=== PATIENT | female | born 1935 | race Caucasian/White ===

== ENCOUNTER → 2016-11-13 | Day surgery (SDC) | payer MEDICARE, OTHER ==
[~2016-11-13] MED LIST: Buffered Lidocaine 1% SYR 3ML* 3 ML/SYR SYRINGE INTRADERM ONE; Buffered Lidocaine 1% SYR 3ML* 3 ML/SYR SYRINGE ONE; Dexamethasone IV* 4 MG/ML 1 ML (4 MG) ONE; Famotidine IV* 10 MG/ML 2 ML (20 mg) IV ONE; Famotidine IV* 10 MG/ML 2 ML (20 mg) ONE; KETAMINE HCL* 50 MG/ML 10 ML VIAL ONE; Ketorolac INJ* 30 MG/ML 1 ML VIAL ONE; Lidocaine 2% PF * 5 ML VIAL ONE; Midazolam* 1 MG/ML 2 ML VIAL (2 MG) ONE; Morphine INJ* 10 MG/ML 1 ML CARPUJECT ONE; Morphine INJ* 2 MG/ML 1 ML CARPUJECT IV PRN; Ondansetron INJ* 2 MG/ML VIAL ONE; PROCHLORPERAZINE INJ 5 MG/ML 2 ML VIAL IV PRN; Propofol* 10 MG/ML 20 ML BTL IV PUSH ONE; ceFAZolin 2 GM PREMIX (*) 2 GM/50 ML BAG IVPB ONE; fentaNYL* 50 MCG/ML 2 ML VIAL (100 MCG VIAL) IV PRN; fentaNYL* 50 MCG/ML 2 ML VIAL (100 MCG VIAL) ONE; oxyCODONE/Acetamin 5/325 MG* TAB ONE; oxyCODONE/Acetamin 5/325 MG* TAB PO PRN
[2016-11-13 16:02] VITALS: BP 162/59
--- NOTE | 2016-11-14 15:25 | OP ---
OPERATIVE REPORT: DATE OF OPERATION: 11/13/16 - [place] DATE OF : 39 SURGEON: Yasmany Zhao MD. SPECK DYER: PARUL Salinas. ANESTHESIOLOGIST: Dr. Cheema. ANESTHESIA: General. PRE-OP DIAGNOSIS: Comminuted intraarticular right distal radius fracture with associated ulnar head fracture. POST-OP DIAGNOSIS: Comminuted intraarticular right distal radius fracture with associated ulnar head fracture. OPERATIVE PROCEDURE: 1. Open reduction and internal fixation of right intraarticular, greater than 3 fragments, distal radius fracture. 2. Close treatment of distal ulnar fracture. INDICATIONS: Michelle is a 81-year-old female. She fell and fractured the right distal radius. It was in significant malalignment with multiple intraarticular fragments displaced. We talked about risks and benefits. We talked about open reduction and internal fixation versus dorsal spanning plate versus an external fixator. Ultimately, she and I elected to proceed with open reduction and internal fixation. We talked about the risk of malunion or loss of fixation given that her fracture is very distal. FINDINGS: Very distal, comminuted, intraarticular distal radius fracture. ESTIMATED BLOOD LOSS: 5 mL. COMPLICATIONS: None. DESCRIPTION OF PROCEDURE: Michelle was seen in the preoperative holding area and the correct side and site were marked. We came back to the operating room where anesthesia was induced and the arm was prepped and draped in the usual fashion. A formal time-out was performed. I then went ahead and made a standard 8 to 10 cm longitudinal incision centered over the FCR tendon. Dissection was carried down to the tendon sheath and this was split longitudinally. The tendon was retracted ulnarly and the subsheath was divided. I then bluntly developed the interval between the radial artery and the FPL muscle and tendon. The FPL was retracted ulnarly and the pronator quadratus was released off its radial margin. The radial styloid fragment was encountered and then the more distal volar-ulnar fragment was encountered. There was a volar rim fragment on the volar-ulnar fragment that was separate from the ulnar facet fragment. After completing the dissection and cleaning out all the edges of the facture and clean out the fracture, I then went ahead and reduced the radial styloid and put a pin through the radial styloid, exiting out the ulnar radial cortex to secure this fragment. I then went ahead and put the arm in 10 pounds of traction and placed a [place] to elevate up the impacted lunate facet and scaphoid facet pieces. These were difficult to maintain in anatomic reduction. I got them very close. I went ahead and applied the volar plate and placed one screw through the oblong hole. I moved the plate a bit distal. I then went ahead and placed a #2 FiberWire through the volar extrinsic ligaments and brought this down and wrapped it around the plate prior to placing the distal screws. The ulnar sided screws were placed and then the radial sided distal screws were placed. I checked the fluoroscopic images. On the AP view, everything looked very nice. On bringing to the lateral view, there was still a bit of dorsal tilt in that lunate facet fragment of about 5 to 10 degrees. The rest of the alignment looked very nice. I placed one K-wire dorsally and brought that facet piece up prior to placing the screws as well. I contemplated taking the distal screws out and see if I could improve the alignment on the lateral view just a bit, but ultimately, I decided that given her age and general state of health that this alignment was more than adequate, so I went ahead and placed one more distal radial screw and then I placed the 2 proximal screws. Everything looked good. I placed one second row ulnar sided screw, but it looked like it was a little long and in the joint, so I backed that out and just left it out. I tied down the #2 FiberWire suture to give it a little bit more compression to try to prevent volar escape of that lunate facet fragment. Everything looked good on the final fluoroscopic images, so I went ahead and irrigated the wound and reapproximated the pronator with some 3-0 Polysorb suture. The skin was then reapproximated with 3-0 Polysorb suture and closed with 4-0 nylon. The wound was dressed with Xeroform, 4x4s, sterile Webril, and a short arm splint was placed. She was then woken back up and taken to the recovery room in stable condition. [id number]/[facility] #: [id number] VIKAS
--- NOTE | 2016-11-14 15:29 | RAD ---
INDICATION: Traumatic fracture right wrist operative reduction and internal fixation. COMPARISON: Comparison is made with a prior x-ray of the right wrist from October 31, [address] of the right forearm and wrist from October 31, 2016. TECHNIQUE: 53 seconds of intermittent fluoroscopic guidance were provided and 4 spot films of the right wrist were obtained in the operating room. FINDINGS: The patient is status post operative reduction and internal fixation of a comminuted fracture of the distal radius. There is a metallic plate present along the anterior aspect of the distal radius spanning the fracture fragments. The bones are in improved alignment and positioning. There is also a fracture of the distal ulna. IMPRESSION: INTRAOPERATIVE CONTROL FILMS. CPT II Codes: 6045F
== END | disposition home or self-care (01) ==
LOC: OREAST 09:19
PROVIDERS: ATTEND Orthopaedic Surgery Hand Surgery
DX: S52.571A Other intraarticular fracture of lower end of right radius, initial encounter for closed fracture (principal); S52.001A Unspecified fracture of upper end of right ulna, initial encounter for closed fracture; W19.XXXA Unspecified fall, initial encounter; Y92.9 Unspecified place or not applicable; Z79.84 Long term (current) use of oral hypoglycemic drugs; J44.9 Chronic obstructive pulmonary disease, unspecified; E11.9 Type 2 diabetes mellitus without complications; F41.9 Anxiety disorder, unspecified; Z88.8 Allergy status to other drugs, medicaments and biological substances
CPT/HCPCS: 76000; A9270-GY; C1713; C1776; J0690; J1100; J1885; J2250; J2270; J2405; J2704; J3010

== ENCOUNTER 2018-02-15 12:00 | Inpatient (IN) | payer MEDICARE, OTHER ==
[2018-02-15] MEDS ORDERED: Levofloxacin 750 MG IVPREMIX(* 750 MG/150 ML BAG IVPB ONE (12:31)
[2018-02-15] MEDS ORDERED: Albuterol/Ipratropium NEB.SOL* Albuterol 2.5 MG/Ipratropium 0.5 MG 3 ML INH ONE (12:31)
[2018-02-15] MEDS ORDERED: methylPREDNISolone 125 MG* 2 ML VIAL IV ONE (12:31)
[2018-02-15 13:09] LABS: Hematocrit 27 % (35-47); Hemoglobin 8.6 g/dl (12.0-16.0); Mean Corpuscular HGB Conc 32 g/dl (31-36); Mean Corpuscular Hemoglobin 30 pg (27-31); Mean Corpuscular Volume 91 fL (80-97); Mean Platelet Volume 8.5 um3 (7.4-10.4); Platelet Count 174 10^3/ul (150-450); Red Blood Count 2.92 10^6/ul (4.0-5.4); Red Cell Distribution Width 17 % (10.5-15); White Blood Count 16.2 10^3/ul (3.5-10.8)
--- OUTSIDE RECORDS SUMMARY | 2018-02-15 13:18 | XMS REPORT ---
:1935 External Reference #:[id number] Author Organization [facility] Address [address] [place] [address] Phone [phone] Care Team Providers Name Role Phone Shelly Mathew M.D. 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 Primary Care Physician Unavailable Payers Type Date Identification Numbers Payment Provider Subscriber Medicare Primary Effective: Policy Number: Medicare Gypsy Pham 2002 [id number] PayID: [id number] [address] [place] [address] Medigap Part B Policy Number: [id number] [facility] Jose Antonio Pham Group Number: [id number] [address] PayID: [id number] [place] [address] Problems Date Description Provider Status Onset: 08/15/2009 Type 2 diabetes mellitus Gregorio Shields M.D. Active Onset: 08/15/2009 Essential hypertension Gregorio Shields M.D. Active Onset: 08/15/2009 Hyperlipidemia Gregorio Shields M.D. Active Onset: 10/27/2011 Asthma without status asthmaticus Gregorio Shields M.D. Active Onset: 10/27/2011 Allergic condition Gregorio Shields M.D. Active Onset: 04/12/2012 Osteoporosis Gregorio Shields M.D. Active Onset: 03/15/2013 Spinal stenosis Gregorio Shields M.D. Active Onset: 01/21/2016 Chronic pain syndrome Shelly Mathew M.D. Active Onset: 01/21/2016 Degenerative joint disease Shelly Mathew M.D. Active involving multiple joints Onset: 01/21/2016 Low back pain Shelly Mathew M.D. Active Onset: 01/21/2016 Moderate recurrent major depression Shelly Mathew M.D. Active Onset: 01/21/2016 Chronic obstructive lung disease Shelly Mathew M.D. Active Onset: 08/04/2017 Chronic kidney disease Shelly Mathew M.D. Active Onset: 08/15/2009 Mild recurrent major depression Gregorio Shields M.D. Inactive Inactive: 06/18/2016 Onset: 01/07/2012 Localized, primary osteoarthritis Gregorio Shields M.D. 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 Cigarette Use Former Cigarette Smoker quit age 52's ETOH Use Denies alcohol use Smoking Patient is a former smoker Allergies, Adverse Reactions, Alerts Date Description Reaction Status Severity Comments 12/09/2007 Valium active 12/09/2007 Bellodonna active 04/18/2009 Lobster HIVES active 08/15/2009 Cardizem CD active Headaches 08/15/2009 Butisol Sodium active Whole Body Swelled 03/15/2013 Lipitor stomach pains/leg cramps active 01/15/2018 Cliydinium active 01/15/2018 Moxifloxacin active Medications Medication Date Status Form Strength Qnty SIG Indications Ordering Provider Verapamil HCL ER 02/01 Active Caps ER 120mg 90cap 1 po q am [place] 24HR s every day LISA He Carisoprodol 01/13 Active Tablets 350mg 120ta 1 by mouth bs four times [place], a day as M.DJuan A needed muscle spasm Rosuvastatin 01/05 Active Tablets 10mg 90tab take 1 E78.2 s tablet by Tyler, mouth daily M.D. Omeprazole 06/15 Active Capsules 20mg 90cap [address] godoy every day Dago Mathew Oxygen Therapy 01/23 Active 2L overnight Dago Mathew Ventolin HFA 01/20 Active Aerosol 108(90Bas J44.9 e) [place] mcg/Act M.DJuan A Gabapentin 01/20 Active Capsules 100mg 360ca Take 1 G89.4 ps Capsule By Zonia Mathew In M.DJuan A The Morning , 1 Capsule In The Evening , And 2 Capsules At Bedtime Montelukast 03/19 Active Tablets 10mg 90tab Take 1 Shelly Sodium s Tablet By Tyler, Mouth M.D. Daily Oxycodone-Acetami 02/27 Active Tablets 7.5-325mg 120ta 1 by mouth Shelly nophen bs every 6 Tyler, hours as M.D. needed Losartan 07/28 Active Tablets 25mg 60tab 1 by mouth I10 Shelly Potassium s twice a day Dago Mathew Levocetirizine 11/24 Active Tablets 5mg 30tab take 1 J45.909 Shelly Dihydrochloride s tablet by Tyler, mouth once M.D. daily Alendronate 04/12 Active Tablets 70mg 12tab take 1 M81.0 Shelly Sodium s tablet by Tyler, mouth once M.D. weekly with water, avoid lying down for 30 minutes after taking Lancet Device 02/05 Active Misc 1unit one one dx. Gregorio Miner s 250.00 Dago Shields Sertraline HCL 10/08 Active Tablets 100mg 180ta take 2 F33.0 bs tablets by Tyler, mouth daily M.D. Test Strips - One 03/25 Active 100un check up to E11.9 Quang Osorio its twice a day M.DJuan A dx: 250.00 Lancets 03/25 Active Misc 100un test twice Quang Osorio its a day M.D. Multi-Vitamins 12/09 Active Tablets 30tab as Directed Gregorio Miner /2007 jayne Shields M.D. 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 01/20 Flovent HFA 01/20 Hx Aerosol 110mcg/Ac 1unit 1 puff J44.9 t s twice a day Tyler, - M.D. 02/26 Celebrex 07/03 Hx Capsules 100mg 90cap 1 by mouth M15.0 s every day Tyler, - M.D. 08/03 Ativan 05/17 Hx Tablets 1mg 5tabs one tab by Quang Osorio, mouth three M.D. - times a day 07/03 as needed Celebrex 02/27 Hx Capsules 200mg 180ca 1 by mouth 716.99 Quang Osorio, ps twice a day M.D. - 06/12 715.09 Physical Therapy 10/27/2014 Hx treatment and 781.2 Quang Osorio, - evaluation for M.D. 02/26/2015 unsteady gait Oxycodone-Acetam 08/11/2014 Hx Tablets 5-325mg 120tabs 1 by mouth Quang Osorio inophen - every 6 hours M.D. 02/27/2015 as needed pain Physical Therapy 05/08/2014 Hx evaluate and 723.1 Alicia - treat cervical Mitzi, 07/27/2014 strain, very [employer] OPERATOR limited motion of c-spine Physical Therapy 03/31/2014 Hx treatment and Quang Osorio, - evaluation of M.D. 05/07/2014 neck pain Spiriva 03/07/2014 Hx Capsules 18mcg 30caps inhale contents 493.90 Family Handihaler - one of capsule Medicine 05/04/2015 by mouth daily [facility] Physical Therapy 09/14/2013 Hx treatment and Gregorio Miner - evaluation of Dago Shields 12/12/2013 neck pain Gabapentin 03/15/2013 Hx Capsules 100mg 270caps Take 1 Capsule Dg Chua Three Times A M.D. 01/21/2016 Day Levofloxacin 12/17/2012 Hx Tablets 500mg 10tabs 1 po qd 786.2 Gregorio Shields M.D. 03/15/2013 Prednisone 12/17/2012 Hx Tablets 10mg 30tabs 2 bid x 3days, 493.90 Gregorio Miner - then 3 qd x 3 Dago Shields 03/15/2013 days, then 1 bid x 3 days then 1 qd x 3 Xyzal 10/13/2012 Hx Tablets 5mg 30tabs 1 po qd 493.90 Gregorio Shields M.D. 11/24/2013 Omeprazole 09/23/2012 Hx Capsules 20mg 90caps Take [address] Daily Dago 01/21/2016 Montelukast 06/30/2012 Hx Tablets 10mg 90tabs Take 1 Tablet 493.90 Quang Osorio Sodium - Daily Dago 10/27/2014 Losartan 06/03/2012 Hx Tablets 50mg 90tabs take 1/2 tablet Family Potassium - by mouth once Medicine 07/28/2014 daily [facility] Vitamin D-3 01/07/2012 Hx Tablets as directed Family - Medicine 02/27/2016 [facility] Sulfamethoxazole 01/07/2012 Hx Tablets 800-160m 14tabs 1 po bid 493.90 Perkins A. /Trimethoprim DS - g Dago Shields 03/09/2012 Prednisone 01/07/2012 Hx Tablets 5mg 20tabs one three times 493.90 Perkins A. - a day for three Dago Shields 03/09/2012 days, two for three days and then one for three days Hydrochlorothiaz 11/13/2011 Hx Tablets 25mg 90tabs Take 1 Tablet Perkins A. sara - Daily Dago Shields 01/07/2012 Crestor 11/10/2011 Hx Tablets 10mg 90tabs take 1 tablet E78.2 Shelly - by mouth daily [place] 01/05/2018 Dago Symbicort 10/27/2011 Hx Aerosol 160-4.5m 3units 2 puff bid Gregorio cox/Act Dago Shields 12/12/2013 Crestor 10/27/2011 Hx Tablets 5mg 180tabs 1 po bid 272.4 Gregorio Shields M.D. 11/10/2011 Hydrocortisone 09/23/2011 Hx Cream 30gm apply sparingly Leah 0.2% - bid prn itching [facility], 01/07/2012 Afnp-C Doxycycline 07/16/[address] 100mg 60caps 1 po bid Gregorio Miner Hyclate - Part Dago Shields 07/30/2011 Augmentin 07/12/2011 Hx Tablets 500-125m 20tabs one tab po bid 493.90 Gregorio sauceda for ten days Dago Shields 07/16/2011 Furosemide 07/08/2011 Hx Tablets 20mg 90tabs 1 [facility] Shelly - Tyler, 08/05/2017 Dago Amlodipine 07/03/2011 Hx Tablets 10mg 90tabs Take 1 Tablet 401.9 Ced A. Besylate - Daily Darlow, 07/03/2015 Dago Doxycycline 07/01/2011 Hx Tablets 100mg 20tabs one tab po bid 493.90 Gregorio Miner Monohydrate - for 10 days Dago Shields 07/12/2011 Hydroxyzine HCL 07/01/2011 Hx Tablets 25mg 30tabs 1-2 po tid prn 493.90 Gregorio Shields M.D. 01/07/2012 Amoxicillin/Pota 06/26/2011 Hx Tablets 500-125m 20tabs 1 po bid with 493.90 Trang Romano ssium - sohail yogurt Nicholas, Clavulanate 06/26/2011 Dago Amoxicillin/Clav 06/26/2011 Hx Tablets 875-125m 20tabs 1 po bid 493.90 Trang Romano ulanate - sohail Peterson, Potassium 07/16/2011 MEloy Furosemide 06/11/2011 Hx Tablets 20mg 5tabs 1 po qd 782.3 Gregorio Shields M.D. 07/04/2011 Prednisone 05/21/2011 Hx Tablets 5mg 100tabs use as 493.90 Perkins A. - instructed Dago Shields 06/11/2011 Azithromycin 05/21/2011 Hx Tablets 250mg 6tabs 2 po today and 493.90 Perkins A. - 1 po x 4 days Dago Shields 06/11/2011 Ropinirole HCL 05/21/2011 Hx Tablets 1mg 30tabs take one tablet 995.3 Perkins A. - by mouth every Dago Shields 06/11/2011 day at bedtime Crestor 05/21/2011 Hx Tabs 5mg 90tabs take 1 tablet 272.4 Perkins A. - by mouth once Dago Shields 06/11/2011 daily Nasonex 04/28/2011 Hx Suspensi 50mcg/Ac 1units 1 spray each Gregorio Guerra. - on t nostril qhs Dago Shields 05/21/2011 Quyen D 24H 04/16/2011 Hx 90units 1 po qd 493.90 Gregorio Shields M.D. 05/21/2011 Levocetirizine 04/02/2011 Hx Tablets 5mg 30tabs 1 po qd Gregorio A. Dihydrochloride - Dago Shields 04/16/2011 Singulair 04/02/2011 Hx Tablets 10mg 30tabs 1 po qd 493.90 Gregorio Shields M.D. 05/21/2011 Xyzal 04/02/2011 Hx Tablets 5mg 30tabs 1 po qhs 493.90 Gregorio Shields M.D. 04/16/2011 Advair HFA 04/02/2011 Hx Aerosol 230-21mc 1units inhale two 493.90 Gregorio A. - g/Act puffs twice Dago Shields 06/11/2011 daily Symbicort 03/26/2011 Hx Aerosol 160-4.5m 1units 2 puff bid 493.90 Perkins A. - cg/Act Dago Shields 03/26/2011 Levaquin 03/05/2011 Hx Tablets 500mg 10tabs 1 po qd 493.90 Gregorio Shields M.D. 03/17/2011 Prednisone 03/05/2011 Hx Tablets 10mg 30tabs 2 bid x 3days, 493.90 Perkins A. - then 3 qd x 3 Dago Shields 04/16/2011 days, then 1 bid x 3 days then 1 qd x 3 Ferrous Sulfate 02/19/2011 Hx Tablets 325(65Fe 90tabs 1 po qd 285.9 Perkins A. - ) mg Dago Shields 06/18/2016 Oxycodone/Acetam 02/12/2011 Hx Tablets 5-325mg 90tabs 1 po q 6 hrs matthew Chua - prn pain Dago 08/11/2014 Levaquin 02/05/2011 Hx Tablets 500mg 5tabs 1 po qd 493.90 Gregorio Shields M.D. 02/19/2011 Note 11/26/2010 Hx 1units physical Gregorio A. - therapy - neck Dago Shields 12/02/2010 and bl knee oa Lisinopril 08/01/2010 Hx Tablets 20mg 90tabs Take 1 Tablet Perkins A. - Daily Dago Shields 06/03/2012 Physical Therapy 06/05/2010 Hx treatment and 715.09 Perkins A. - evaluation of Dago Shields 11/26/2010 left knee osteoarthritis Physical Therapy 06/05/2010 Hx treatment and Perkins A. - evaluation of Dago Shields 11/26/2010 neck pain - oa Carisoprodol 05/08/2010 Hx Tabs 350mg 120tabs Take 1 Tablet Perkins A. - By Mouth Four Dago Shields 06/11/2011 Times A Day If Needed For Muscle Spasm Calcium 600+D 03/25/2010 Hx Tablets 600-400m 180tabs 2 po qd 733.90 Perkins A. - g-Unit Dago Shields 06/11/2011 Cymbalta 03/25/[address] 60mg 90caps 1 po qd 296.31 Perkins A. - Part Dago Shields 05/21/2011 Medrol (Wu) 03/25/2010 Hx Tablets 4mg 1tabs use as 461.0 Perkins A. - instructed. Dago Shields 03/25/2010 Augmentin 03/25/2010 Hx Tablets 500-125m 20tabs one tab po bid 461.0 Perkins A. - g for ten days Dago Shields 12/02/2010 Prednisone 03/25/2010 Hx Tablets 20mg 20tabs 3 tabs x 3 461.0 Perkins A. - days, then 2 Dago Shields 12/02/2010 tabs x 3 days then 1 tab x 3 days then 1/2 tab for three days Augmentin 11/14/2009 Hx Tablets 500-125m 20tabs one tab po bid 473.1 Perkins A. - g for ten days Dago Shields 03/25/2010 Soma 11/14/2009 Hx Tablets 350mg 120tabs 1 by mouth four Shelly - times a day as [place], 01/13/2018 needed muscle M.D. spasm Sertraline HCL 11/14/2009 Hx Tabs 100mg 30tabs take 1 tablet Perkins A. - by mouth once Dago Shields 06/11/2011 daily Norvasc 10/13/2009 Hx Tablets 10mg 90tabs 1 po qd 401.9 Gregorio Shields M.D. 07/03/2011 Methocarbamol 09/10/2009 Hx Tablets 500mg 30tabs one tab po tid 995.3 Perkins A. - prn spasm Dago Shields 11/14/2009 Crestor 08/15/2009 Hx Tabs 5mg 90tabs take 1 tablet 272.4 Perkins A. - by mouth once Dgao Shields 05/21/2011 daily Cardizem CD 05/09/2009 Hx Caps ER 180mg 30caps one tab po 785.0 Perkins A. - 24HR daily Dago Shields 08/15/2009 Cardizem CD 04/18/2009 Hx Caps ER 120mg 30caps one tab po in 785.0 Perkins A. - 24HR am Dago Shields 05/09/2009 Zoloft 04/18/2009 Hx Tablets 100mg 30tabs 1 po qd 296.31 Gregorio Shields M.D. 03/25/2010 Zoloft 08/16/2008 Hx Tablets 50mg 90tabs 1 po qd Gregorio Shields M.D. 04/18/2009 Note 05/05/2008 Hx 50units one touch ultra Perkins A. - test strips and Dago Shields 09/10/2009 lancets Miconazole 03/02/2008 Hx Cream 2% Suff apply bid 782.1 Gregorio Miner Nitrate - Dago Shields 05/05/2008 Vicodin 02/22/2008 Hx Tablets 5-500mg 60tabs 1 po every six Perkins A. - hours prn Dago Shields 02/12/2011 Physical Therapy 02/16/2008 Hx cervicalgia, 723.1 Gregorio Miner - lumbago, left Dago Shields 09/10/2009 knee pain - evaluate ant treat DX: Osteoarthritis Prednisone 02/16/2008 Hx Tablets 20mg 25tabs 3 pills po qd x 493.90 Gregorio Miner - 3 days, then 2 Dago Shields 05/05/2008 pills qd x 3 days, then 1 pill qd x 3 days Azithromycin 02/16/2008 Hx Tablets 250mg 6tabs 2 po today and 465.9 Perkins A. - 1 po x 4 days Dago Shields 05/05/2008 Prednisone 01/14/2008 Hx Tablets 5mg Tapering Dose Family - Medicine 01/21/2008 [facility] Biaxin 01/14/2008 Hx Tablets 500mg 1 PO bid X14 Family - Days Medicine 01/28/2008 [facility] Metformin HCL 01/07/2008 Hx Tablets 500mg 180tabs 2 po qd 250.00 Gregorio Shields M.D. 01/07/2008 Celebrex 01/07/2008 Hx Capsules 100mg 180caps take 1 capsule 716.99 Quang Osorio, - twice a day Dago 02/27/2015 Metformin HCL 01/07/2008 Hx Tablets 500mg 180tabs take 1 tablet E11.9 Shelly - by mouth twice Tyler, 08/05/2017 daily Dago Proventil 12/09/2007 Hx Mdi Inhaler One One To Two Perkins A. - Puffs Every Dago Shields 06/11/2011 Four To Six Hours as Needed For Shortness Of Breath Advair 500/50 12/09/2007 Hx 500/50 3Months 1 PO bid Gregorio Shields M.D. 05/21/2011 Quyen-D 12/09/2007 Hx 60mg 60units 1 PO bid prn Gregorio AJuan A - For Allergy Dago Shields 04/02/2011 Symptoms Prevacid 12/09/2007 Hx Capsules 30mg 30caps 1 PO qd Gregorio Shields M.D. 12/17/2012 Evista 12/09/2007 Hx Tablets 60mg 90tabs 1 po qd Gregorio Shields M.D. 05/21/2011 Actos 12/09/2007 Hx Tablets 15mg 30tabs 1 po qd 250.00 Gregorio Shields M.D. 01/07/2008 Zoloft 12/09/2007 Hx Tablets 25mg 30tabs 1 po qd Gregorio Shields M.D. 08/16/2008 HCTZ 12/09/2007 Hx 25mg 90units 1 po qd Gregorio Shields M.D. 11/13/2011 Lisinopril 12/09/2007 Hx Tablets 20mg 30tabs 1 po qd Gregorio Shields M.D. 06/11/2011 Norvasc 12/09/2007 Hx Tablets 10mg 30tabs 1 po qd 401.9 Gregorio Shields M.D. 04/18/2009 Soma 12/09/2007 Hx Tablets 350mg 120tabs 1 po qid prn 995.3 Gregorio Conte muscle spasm Dago Shields 09/10/2009 Hydrocodone/Apap 12/09/2007 Hx Tablets 325mg 90tabs one tab po Gregorio Conte every 6 hours Dago Shields 02/22/2008 prn Calcium 12/09/2007 Hx 30units as Directed Gregorio Shields M.D. 12/12/2013 Gabapentin 12/09/2007 Hx Capsules 100mg 270caps Take 1 Capsule Gregorio Conte Three Times A Dago Shields 05/18/2012 Day as needed Clarinex-D 12 Hx Tablets 2.5-120m one tab po bid Unknown Hour - ER 12HR g 01/07/2012 Advair Diskus Hx Aerosol 500-50mc 1units 1 puff bid Unknown - g/Dose 10/27/2011 Magnesium Hx Tablets 1 po qd Unknown - 07/04/2011 Singulair Hx Tablets 10mg 90tabs Take 1 Tablet Perkins A. - Daily Dago Shields 12/17/2012 Prednisone Hx Tablets 18tabs taper Unknown - 12/17/2012 Avelox Hx Tablets 400mg 10tabs Unknown - 03/15/2013 Dulera Hx Aerosol Sample 2 puffs q am Unknown - until cough 05/04/2015 resolves Theophylline ER Hx Tablets 200mg 1 po bid Unknown - ER 12HR 05/04/2015 Veramyst Hx Suspensi 27.5mcg/ 10units prn Unknown - on [place] 05/04/2015 Viactiv Hx Chewtabs Unknown Multi-Vitamin - 02/27/2016 Ibuprofen Hx Tablets 200mg 2-3 times a day Unknown - as needed 06/18/2016 Verapamil HCL ER Hx Caps ER 120mg 60caps 1 by mouth Shelly - 24HR twice a day [place], 01/15/2018 Dago Medications Administered in Office Medication Date Status Form Strength Qnty SIG Indications Ordering Provider Allergy Administered Injection Perkins A. Injection Two Otilio Shields M.D. Or More Allergy Administered Injection Perkins A. Injection Two Otilio Shields M.D. Or More Allergy Administered Injection Perkins A. Injection Two 013 Dago Shields Or More Allergy Administered Injection Perkins A. Injection Two Otilio Shields M.D. Or More Allergy Administered Injection Perkins A. Injection Two Otilio Shields M.D. Or More Allergy Administered Injection Perkins A. Injection Two 013 Dago Shields Or More Allergy Administered Injection Perkins A. Injection Two Otilio Shields M.D. Or More Allergy Administered Injection Perkins A. Injection Two 012 Dago Shields Or More Allergy Administered Injection Perkins A. Injection Two 012 Dago Shields Or More Allergy Administered Injection Perkins A. Injection Two Wilmar Shields M.D. Or More Allergy Administered Injection Perkins A. Injection Two Wilmar Shields M.D. Or More Allergy Administered Injection Perkins A. Injection Two 012 Shields, M.D. Or More Allergy Administered Injection Perkins A. Injection Two 012 Shields, M.D. Or More Allergy Administered Injection Perkins A. Injection Two 012 Shields, M.D. Or More Allergy Administered Injection Perkins A. Injection Two 012 Shields, M.D. Or More Allergy Administered Injection Perkins A. Injection Two 012 Shields, M.D. Or More Allergy Administered Injection Perkins A. Injection Two 012 Shields, M.D. Or More Allergy Administered Injection Perkins A. Injection Two 012 Shields, M.D. Or More Allergy Administered Injection Perkins A. Injection Two 012 Shields, M.D. Or More Allergy Administered Injection Perkins A. Injection Two 012 Shields, M.D. Or More Allergy Administered Injection Perkins A. Injection Two 012 Shields, M.D. Or More Allergy Administered Injection Perkins A. Injection Two 012 Shields, M.D. Or More Allergy Administered Injection Perkins A. Injection Two 012 Shields, M.D. Or More Allergy Administered Injection Perkins A. Injection Two 012 Shields, M.D. Or More Allergy Administered Injection Perkins A. Injection Two 012 Shields, M.D. Or More Allergy Administered Injection Perkins A. Injection Two 012 Shields, M.D. Or More Allergy Administered Injection Perkins A. Injection Two 012 Shields, M.D. Or More Immunizations CPT Code Status Date Vaccine Reaction Lot # [id number] Given 08/04/2017 High-Dose, Influenza Virus [id number] Vacccine-fluzone 65 and older [id number] Given 08/20/2016 Influenza Vac, [place], [place] [address] Given 11/21/2015 Pneumococcal Conjugate Vacc-13 23935 Given 09/13/2015 Influenza Vac, [place]riv[place], [place] [address] Given 09/28/2014 DO Not Use Split Influenza Virus Vaccine [id number] Given 09/09/2013 Split Influenza Medicare: [id number] Fluzone 25569 Given 08/09/2012 High-Dose, Influenza Virus no reaction noted [id number] Vacccine-fluzone 65 and older [id number] Given 07/30/2011 Split Influenza Medicare: [id number] Fluzone 86344 Given 08/25/2009 DO Not Use Split Influenza Virus Vaccine 62661 Given 09/29/2008 DO Not Use Split Influenza Virus [id number] Vaccine 31487 Given 02/16/2008 Pneumococcal Immunization [id number] Vital Signs Date Vital Result Comment 02/01/2018 BP Systolic 192 mmHg BP Diastolic 82 mmHg Heart Rate 100 /min Body Temperature 99.0 F Height 58.25 inches 4'10.25" 01/15/2018 BP Systolic 148 mmHg BP Diastolic 82 mmHg Heart Rate 96 /min Body Temperature 99.5 F Respiratory Rate 18 /min Height 58.25 inches 4'10.25" 08/04/2017 BP Systolic 142 mmHg BP Diastolic 64 mmHg Heart Rate 104 /min Body Temperature 97.7 F Height 58.25 inches 4'10.25" Weight 123.00 lb PT Stated BMI (Body Mass Index) 25.5 kg/m2 11/05/2016 BP Systolic 100 mmHg BP Diastolic 60 mmHg Heart Rate 90 /min Body Temperature 97.5 F Respiratory Rate 16 /min Height 58.25 inches 4'10.25" 06/18/2016 BP Systolic 144 mmHg BP Diastolic 84 mmHg Heart Rate 76 /min Body Temperature 98.0 F Respiratory Rate 20 /min Height 58.25 inches 4'10.25" Weight 140.00 lb BMI (Body Mass Index) 29.0 kg/m2 05/07/2016 BP Systolic 128 mmHg BP Diastolic 66 mmHg Heart Rate 84 /min Body Temperature 98.1 F Respiratory Rate 18 /min Height 58.25 inches 4'10.25" Weight 150.00 lb BMI (Body Mass Index) 31.1 kg/m2 02/27/2016 BP Systolic 160 mmHg BP Diastolic 70 mmHg Heart Rate 84 /min Body Temperature 99.0 F Respiratory Rate 16 /min Height 59 inches 4'11" Weight 143.00 lb BMI (Body Mass Index) 28.9 kg/m2 01/21/2016 BP Systolic 122 mmHg BP Diastolic 60 mmHg Heart Rate 88 /min Body Temperature 98.2 F Respiratory Rate 20 /min Height 59 inches 4'11" Weight 143.00 lb BMI (Body Mass Index) 28.9 kg/m2 10/19/2015 BP Systolic 130 mmHg BP Diastolic 64 mmHg Heart Rate 84 /min Body Temperature 97.4 F Respiratory Rate 16 /min Height 59 inches 4'11" 07/03/2015 BP Systolic 90 mmHg BP Diastolic 60 mmHg Heart Rate 88 /min Body Temperature 97.3 F Respiratory Rate 16 /min Height 59 inches 4'11" 06/12/2015 BP Systolic 138 mmHg BP Diastolic 80 mmHg Heart Rate 88 /min Body Temperature 99.0 F Respiratory Rate 18 /min Height 59 inches 4'11" 05/04/2015 BP Systolic 120 mmHg BP Diastolic 50 mmHg Heart Rate 88 /min Body Temperature 97.9 F Respiratory Rate 16 /min Height 59 inches 4'11" Weight 141.00 lb pt stated BMI (Body Mass Index) 28.5 kg/m2 02/27/2015 BP Systolic 162 mmHg BP Diastolic 80 mmHg Heart Rate 90 /min Body Temperature 98.0 F Height 59 inches 4'11" 10/27/2014 BP Systolic 128 mmHg BP Diastolic 66 mmHg Heart Rate 84 /min Body Temperature 98.3 F Respiratory Rate 18 /min Height 59 inches 4'11" 08/24/2014 BP Systolic 118 mmHg BP Diastolic 60 mmHg Heart Rate 88 /min Body Temperature 98.9 F Respiratory Rate 16 /min Height 59 inches 4'11" Weight 145.00 lb BMI (Body Mass Index) 29.3 kg/m2 07/28/2014 BP Systolic 134 mmHg BP Diastolic 60 mmHg Heart Rate 96 /min Body Temperature 98.4 F Respiratory Rate 16 /min Height 59 inches 4'11" Weight 148.00 lb PT Stated BMI (Body Mass Index) 29.9 kg/m2 05/08/2014 BP Systolic 150 mmHg BP Diastolic 70 mmHg Heart Rate 78 /min Body Temperature 98.0 F Height 59 inches 4'11" 03/07/2014 BP Systolic 140 mmHg BP Diastolic 62 mmHg Heart Rate 118 /min Body Temperature 98.5 F Respiratory Rate 18 /min O2 % BldC Oximetry 96 % Height 59 inches 4'11" Weight 145.00 lb pt stated BMI (Body Mass Index) 29.3 kg/m2 12/12/2013 BP Systolic 120 mmHg BP Diastolic 70 mmHg Heart Rate 112 /min Body Temperature 98.2 F Respiratory Rate 20 /min Height 59.25 inches 4'11.25" Weight 145.00 lb pt stated BMI (Body Mass Index) 29.0 kg/m2 07/26/2013 BP Systolic 126 mmHg BP Diastolic 60 mmHg Heart Rate 90 /min Body Temperature 98.5 F Respiratory Rate 18 /min Height 59.25 inches 4'11.25" Weight 147.00 lb BMI (Body Mass Index) 29.4 kg/m2 03/15/2013 BP Systolic 130 mmHg BP Diastolic 60 mmHg Heart Rate 90 /min Body Temperature 98.4 F Respiratory Rate 16 /min Height 59.25 inches 4'11.25" 12/17/2012 BP Systolic 140 mmHg BP Diastolic 70 mmHg Heart Rate 100 /min Body Temperature 99.2 F Height 59.25 inches 4'11.25" Weight 146.00 lb pt stated BMI (Body Mass Index) 29.2 kg/m2 08/30/2012 BP Systolic 126 mmHg BP Diastolic 64 mmHg Heart Rate 90 /min Body Temperature 97.4 F Height 59.25 inches 4'11.25" Weight 145.00 lb PT Stated BMI (Body Mass Index) 29.0 kg/m2 05/10/2012 BP Systolic 130 mmHg BP Diastolic 70 mmHg Heart Rate 112 /min Height 59.25 inches 4'11.25" Weight 154.00 lb BMI (Body Mass Index) 30.8 kg/m2 04/12/2012 BP Systolic 130 mmHg BP Diastolic 60 mmHg Heart Rate 78 /min Body Temperature 98.9 F Height 59.25 inches 4'11.25" 03/09/2012 BP Systolic 132 mmHg BP Diastolic 58 mmHg Heart Rate 92 /min Body Temperature 98.7 F Height 59.25 inches 4'11.25" 01/07/2012 BP Systolic 105 mmHg BP Diastolic 80 mmHg Heart Rate 84 /min Body Temperature 98.5 F Height 59.25 inches 4'11.25" measured Weight 151.00 lb BMI (Body Mass Index) 30.2 kg/m2 10/27/2011 BP Systolic 120 mmHg BP Diastolic 56 mmHg Heart Rate 114 /min Body Temperature 99.0 F Height 59.25 inches 4'11.25" measured Weight 152.00 lb pt stated BMI (Body Mass Index) 30.4 kg/m2 09/23/2011 BP Systolic 120 mmHg BP Diastolic 60 mmHg Heart Rate 108 /min Body Temperature 100.0 F Height 59.25 inches 4'11.25" measured 07/30/2011 BP Systolic 112 mmHg BP Diastolic 48 mmHg Heart Rate 102 /min Body Temperature 98.4 F Height 59.25 inches 4'11.25" measured Weight 147.00 lb BMI (Body Mass Index) 29.4 kg/m2 07/16/2011 BP Systolic 124 mmHg BP Diastolic 56 mmHg Heart Rate 76 /min Body Temperature 98.5 F Height 59.25 inches 4'11.25" measured 07/08/2011 BP Systolic 110 mmHg BP Diastolic 58 mmHg Heart Rate 72 /min Body Temperature 98.4 F Height 59.25 inches 4'11.25" measured BMI (Body Mass Index) 197.0 kg/m2 07/04/2011 BP Systolic 130 mmHg BP Diastolic 70 mmHg Heart Rate 88 /min Body Temperature 97.7 F Height 59.25 inches 4'11.25" measured 07/01/2011 BP Systolic 124 mmHg BP Diastolic 60 mmHg Heart Rate 104 /min Body Temperature 99.3 F O2 % BldC Oximetry 94 % Height 59.25 inches 4'11.25" measured 06/27/2011 BP Systolic 90 mmHg BP Diastolic 44 mmHg Heart Rate 122 /min Body Temperature 98.3 F O2 % BldC Oximetry 93 % Height 59.25 inches 4'11.25" measured 06/26/2011 BP Systolic 120 mmHg BP Diastolic 68 mmHg Heart Rate 108 /min Body Temperature 99.4 F Height 59.25 inches 4'11.25" measured Weight 155.00 lb BMI (Body Mass Index) 31.0 kg/m2 06/11/2011 BP Systolic 130 mmHg BP Diastolic 60 mmHg Heart Rate 92 /min Body Temperature 98.0 F Respiratory Rate 16 /min Height 59.25 inches 4'11.25" measured 05/21/2011 BP Systolic 124 mmHg BP Diastolic 52 mmHg Heart Rate 100 /min Body Temperature 97.7 F Respiratory Rate 22 /min Height 59.25 inches 4'11.25" measured 04/16/2011 BP Systolic 136 mmHg BP Diastolic 60 mmHg Heart Rate 102 /min Body Temperature 98.6 F Respiratory Rate 20 /min O2 % BldC Oximetry 96 % Height 59.25 inches 4'11.25" measured Weight 155.00 lb BMI (Body Mass Index) 31.0 kg/m2 04/02/2011 BP Systolic 150 mmHg BP Diastolic 60 mmHg Heart Rate 108 /min Body Temperature 98.8 F Respiratory Rate 15 /min O2 % BldC Oximetry 97 % Height 61 inches 5'1" Weight 150.00 lb BMI (Body Mass Index) 28.3 kg/m2 03/26/2011 BP Systolic 146 mmHg BP Diastolic 66 mmHg Heart Rate 102 /min Body Temperature 99.0 F Respiratory Rate 18 /min O2 % BldC Oximetry 96 % Height 61 inches 5'1" Weight 150.00 lb stated BMI (Body Mass Index) 28.3 kg/m2 03/11/2011 BP Systolic 120 mmHg BP Diastolic 70 mmHg Heart Rate 102 /min Body Temperature 98.6 F O2 % BldC Oximetry 96 % Height 61 inches 5'1" Weight 150.00 lb BMI (Body Mass Index) 28.3 kg/m2 03/05/2011 BP Systolic 136 mmHg BP Diastolic 64 mmHg Heart Rate 116 /min Body Temperature 99.6 F Respiratory Rate 24 /min O2 % BldC Oximetry 96 % Height 61 inches 5'1" Weight 150.00 lb BMI (Body Mass Index) 28.3 kg/m2 02/19/2011 BP Systolic 128 mmHg BP Diastolic 70 mmHg Heart Rate 108 /min Body Temperature 98.3 F Respiratory Rate 24 /min O2 % BldC Oximetry 98 % Height 61 inches 5'1" Weight 149.00 lb stated BMI (Body Mass Index) 28.2 kg/m2 02/12/2011 BP Systolic 132 mmHg BP Diastolic 64 mmHg Heart Rate 110 /min Body Temperature 97.8 F Respiratory Rate 16 /min O2 % BldC Oximetry 95 % Height 61 inches 5'1" 02/05/2011 BP Systolic 138 mmHg BP Diastolic 64 mmHg Heart Rate 108 /min Body Temperature 99.3 F Respiratory Rate 24 /min O2 % BldC Oximetry 95 % Height 61 inches 5'1" Weight 147.00 lb BMI (Body Mass Index) 27.8 kg/m2 11/26/2010 BP Systolic 132 mmHg BP Diastolic 56 mmHg Heart Rate 96 /min Body Temperature 98.0 F Height 61 inches 5'1" Weight 155.00 lb BMI (Body Mass Index) 29.3 kg/m2 06/05/2010 BP Systolic 122 mmHg BP Diastolic 50 mmHg Heart Rate 112 /min Body Temperature 98.8 F Height 61 inches 5'1" Weight 152.00 lb BMI (Body Mass Index) 28.7 kg/m2 03/25/2010 BP Systolic 122 mmHg BP Diastolic 60 mmHg Heart Rate 120 /min Body Temperature 98.6 F Weight 150.00 lb 11/14/2009 BP Systolic 120 mmHg BP Diastolic 60 mmHg Heart Rate 84 /min Weight 156.00 lb per pt, refused scale 09/10/2009 BP Systolic 140 mmHg BP Diastolic 72 mmHg Heart Rate 104 /min Weight 140.00 lb Stated By PT 08/15/2009 BP Systolic 134 mmHg BP Diastolic 58 mmHg Heart Rate 108 /min Body Temperature 98.3 F Height 61 inches 5'1" Weight 154.00 lb BMI (Body Mass Index) 29.1 kg/m2 05/09/2009 BP Systolic 122 mmHg BP Diastolic 54 mmHg Heart Rate 96 /min Height 61 inches 5'1" Weight 152.00 lb BMI (Body Mass Index) 28.7 kg/m2 04/18/2009 BP Systolic 112 mmHg BP Diastolic 58 mmHg Heart Rate 96 /min 12/13/2008 BP Systolic 140 mmHg BP Diastolic 76 mmHg Heart Rate 112 /min Body Temperature 98.8 F Respiratory Rate 16 /min 09/29/2008 BP Systolic 132 mmHg BP Diastolic 70 mmHg Heart Rate 88 /min Height 61 inches 5'1" Weight 157.00 lb BMI (Body Mass Index) 29.7 kg/m2 08/16/2008 BP Systolic 130 mmHg BP Diastolic 58 mmHg Heart Rate 92 /min Body Temperature 98.3 F Respiratory Rate 20 /min Height 61 inches 5'1" 08/02/2008 BP Systolic 132 mmHg BP Diastolic 62 mmHg Heart Rate 116 /min Body Temperature 98.6 F Height 61 inches 5'1" Weight 165.00 lb BMI (Body Mass Index) 31.2 kg/m2 05/05/2008 BP Systolic 120 mmHg BP Diastolic 60 mmHg Heart Rate 100 /min Height 61 inches 5'1" Weight 161.00 lb BMI (Body Mass Index) 30.4 kg/m2 03/02/2008 BP Systolic 132 mmHg BP Diastolic 82 mmHg Heart Rate 102 /min Height 61 inches 5'1" Weight 168.00 lb BMI (Body Mass Index) 31.7 kg/m2 02/16/2008 BP Systolic 134 mmHg BP Diastolic 60 mmHg Heart Rate 112 /min Body Temperature 99.4 F Height 61 inches 5'1" Weight 165.00 lb BMI (Body Mass Index) 31.2 kg/m2 01/14/2008 BP Systolic 138 mmHg BP Diastolic 60 mmHg Heart Rate 108 /min Body Temperature 99.3 F Height 60 inches 5'0" 01/07/2008 BP Systolic 152 mmHg BP Diastolic 80 mmHg Heart Rate 100 /min Body Temperature 97.7 F Height 60 inches 5'0" 12/09/2007 BP Systolic 132 mmHg BP Diastolic 58 mmHg Heart Rate 88 /min Height 60 inches 5'0" Weight 163.00 lb BMI (Body Mass Index) 31.8 kg/m2 Results Test Date Test Result H/L Range Note Laboratory test 02/01/2018 Brain Natural <pending> <100 finding Peptide pg/mL CBC Electronic a 01/05/2018 WBC 10.2 x10^3/UL High 4.0-10.0 RBC 3.33 x10^6/UL Low 3.93-6.00 HGB 10.3 g/dL Low 12.0-17.0 1 HCT 32 % Low 35-50 2 MCV 97.0 fL High 80.0-95.0 MCH 30.9 pg 25.6-32.2 MCHC 31.9 g/dL Low 32.2-36.0 RDW-CV 15.6 % High 11.6-14.4 PLT 92 x10^3/UL Low 163-400 3 MPV 11.3 fL 9.4-12.4 [place]# 7.07 x10^3/UL High 1.56-6.13 Lymph# 1.52 x10^3/UL 1.18-3.74 [place]# 1.42 x10^3/UL High 0.24-0.82 Eos # 0.0 x10^3/UL 0.0-0.5 Baso # 0.03 x10^3/UL 0.01-0.08 [place]% 69.5 % 34.0-70.0 Lymph % 14.9 % Low 20.0-52.0 [place]% 13.9 % High 5.0-12.0 Eos% 0.4 % Low 0.7-7.0 Baso% 0.3 % 0.1-1.2 Laboratory test 01/05/2018 Microalb, Random >200.0 mg/L High 0.5-37 finding (Fma/CMC/CTX) Ua - Micro (Fma) 01/05/2018 Appearance CLEAR Color YELLOW Glucose, Urine (Fma/CMC/CTX) NEG Bilirubin NEG Ketones NEG SP Grav 1.025 Blood TRACE-INTACT PH 7.0 Protein SSA +3 Urobil 0.2 Nitrite NEG Leukocytes (Fma/CMC/Centrex) TRACE Hyaline - /Lpf Granular - /Lpf WBC (Fma,Centrex) 1-2 RBC 2-3 Mucus (Fma/CBC/Centrex) 0 /Lpf Epith RARE /Lpf Bacteria TRACE /Hpf Amorphous (Fma/CMC/Centrex) - /Lpf Crystals, Fluid (Fma/CMC/CTX) - Z#Comments - Comprehensive Metabolic Prof 01/05/2018 Sodium 136 mEq/L 134-149 Potassium 3.9 mEq/L 3.6-5.5 Chloride 96 mEq/L 94-112 Carbon Dioxide 28 mEq/L 21-32 Glucose 116 mg/dL High 70-105 BUN 32 mg/dL High 6-26 Creatinine 1.7 mg/dL High 0.6-1.4 BUN/Creat Ratio 18.8 CALC 8.0-36.0 Calcium 8.8 mg/dL 8.6-10.2 Total Protein 6.0 g/dL Low 6.4-8.3 4 Albumin 4.1 g/dL 3.8-5.5 Globulin 1.9 g/dL Low 2.0-4.8 A/G Ratio 2.2 CALC 0.6-2.3 Alk. Phosphatase 61 U/L 30-110 Alt (SGPT) 13 U/L 7-35 Ast (Sgot) 17 U/L 5-34 Total Bilirubin 0.3 mg/dL 0.2-1.3 GFR Non- 31 ml/min/1.73m^ Low >=60 GFR 37 ml/min/1.73m^ Low >=60 Laboratory test finding 01/05/2018 Hemoglobin A1c (Fma) 5.6 % 4.1-5.7 Lipid Profile 01/05/2018 Cholesterol 153 mg/dL 120-200 Triglycerides 135 mg/dL 30-200 HDL Cholesterol 50 mg/dL 30-85 LDL (Calculated) 76 CALC 0-129 VLDL Cholesterol 27 mg/dL 0-50 HDL Risk Factor 3.1 CALC 0.0-4.4 Laboratory test finding 09/04/2017 Hemoglobin A1c (Fma) 5.3 % 4.1-5.7 Complete Blood Count 09/04/2017 WBC 8.8 x10^3/UL 3.6-9.6 RBC 3.29 x10^6/UL Low 3.90-5.70 HGB 10.5 g/dL Low 12.1-17.2 5 HCT 31 % Low 36-50 6 MCV 93.0 fL 82.2-97.4 MCH 31.9 pg 27.6-33.3 MCHC 34.4 g/dL 33.0-35.5 RDW 15.9 % High 11.6-13.7 PLT 130 x10^3/UL Low 150-400 MPV 8.3 fL 7.4-10.4 Gran # 6.3 x10^3/UL 1.5-7.2 Lymph# 1.7 x10^3/UL 0.7-4.9 [place]# 0.8 x10^3/UL 0.1-0.9 Gran % 71.0 % 42.2-75.2 Lymph % 19.6 % Low 20.5-51.1 [place]% 9.4 % High 1.7-9.3 Comprehensive Metabolic Prof 09/04/2017 Sodium 143 mEq/L 134-149 Potassium 5.5 mEq/L 3.6-5.5 Chloride 106 mEq/L 94-112 Carbon Dioxide 26 mEq/L 21-32 Glucose 95 mg/dL 70-105 BUN 42 mg/dL High 6-26 Creatinine 1.6 mg/dL High 0.6-1.4 BUN/Creat Ratio 26.3 CALC 8.0-36.0 Calcium 9.4 mg/dL 8.6-10.2 Total Protein 6.9 g/dL 6.4-8.3 Albumin 4.6 g/dL 3.8-5.5 Globulin 2.3 g/dL 2.0-4.8 A/G Ratio 2.0 CALC 0.6-2.3 Alk. Phosphatase 48 U/L 30-110 Alt (SGPT) 17 U/L 7-35 Ast (Sgot) 21 U/L 5-34 Total Bilirubin 0.4 mg/dL 0.2-1.3 GFR Non- 33 ml/min/1.73m^ Low >=60 GFR 40 ml/min/1.73m^ Low >=60 Laboratory test finding 08/04/2017 Serum Iron 69 g/dL 60-150 Vitamin B-12 812 pg/mL 230-1050 Comprehensive Metabolic Prof 08/04/2017 Sodium 142 mEq/L 134-149 Potassium 5.4 mEq/L 3.6-5.5 Chloride 107 mEq/L 94-112 Carbon Dioxide 26 mEq/L 21-32 Glucose 86 mg/dL 70-105 BUN 53 mg/dL High 6-26 Creatinine 1.9 mg/dL High 0.6-1.4 BUN/Creat Ratio 27.9 CALC 8.0-36.0 Calcium 10.3 mg/dL High 8.6-10.2 7 Total Protein 6.6 g/dL 6.4-8.3 Albumin 4.6 g/dL 3.8-5.5 Globulin 2.0 g/dL 2.0-4.8 A/G Ratio 2.3 CALC 0.6-2.3 Alk. Phosphatase 44 U/L 30-110 Alt (SGPT) 15 U/L 7-35 Ast (Sgot) 20 U/L 5-34 Total Bilirubin 0.3 mg/dL 0.2-1.3 GFR Non- 27 ml/min/1.73m^ Low >=60 GFR 33 ml/min/1.73m^ Low >=60 Complete Blood Count 08/04/2017 WBC 7.4 x10^3/UL 3.6-9.6 RBC 3.16 x10^6/UL Low 3.90-5.70 8 HGB 10.0 g/dL Low 12.1-17.2 HCT 29 % Low 36-50 MCV 92.0 fL 82.2-97.4 MCH 31.7 pg 27.6-33.3 MCHC 34.4 g/dL 33.0-35.5 RDW 15.9 % High 11.6-13.7 PLT 132 x10^3/UL Low 150-400 MPV 7.5 fL 7.4-10.4 Gran # 4.9 x10^3/UL 1.5-7.2 Lymph# 1.7 x10^3/UL 0.7-4.9 [place]# 0.8 x10^3/UL 0.1-0.9 Gran % 64.6 % 42.2-75.2 Lymph % 23.3 % 20.5-51.1 [place]% 12.1 % High 1.7-9.3 Complete Blood Count 04/13/2017 WBC 7.1 x10^3/UL 3.6-9.6 RBC 3.41 x10^6/UL Low 3.90-5.70 9 HGB 10.4 g/dL Low 12.1-17.2 HCT 31 % Low 36-50 MCV 91.0 fL 82.2-97.4 MCH 30.5 pg 27.6-33.3 MCHC 33.7 g/dL 33.0-35.5 RDW 17.7 % High 11.6-13.7 PLT 144 x10^3/UL Low 150-400 10 MPV 7.8 fL 7.4-10.4 Gran # 4.8 x10^3/UL 1.5-7.2 Lymph# 1.7 x10^3/UL 0.7-4.9 [place]# 0.6 x10^3/UL 0.1-0.9 Gran % 65.5 % 42.2-75.2 Lymph % 24.9 % 20.5-51.1 [place]% 9.6 % High 1.7-9.3 11 Laboratory test finding 04/13/2017 TSH 4.62 mIU/L 0.50-6.00 Free T4 0.48 ng/dL Low 0.75-1.54 12 Laboratory test finding 04/13/2017 Hemoglobin A1c (Fma) 5.4 % 4.1-5.7 Ua - Micro (Fma) 04/13/2017 Appearance clear Color yellow Glucose, Urine (Fma/CMC/CTX) - Bilirubin - Ketones - SP Grav 1.015 Blood trace (intact) PH 7.0 Protein trace (ssa) Urobil 0.2 Nitrite - Leukocytes (Fma/CMC/Centrex) - Hyaline - /Lpf Granular - /Lpf WBC (Fma,Centrex) 0-1 RBC 0-1 Mucus - /Lpf Epith rare /Lpf Bacteria rare /Hpf Amorphous - /Lpf Crystals, Fluid (Fma/CMC/CTX) - Z#Comments - Lipid Profile 04/13/2017 Cholesterol 157 mg/dL 120-200 Triglycerides 155 mg/dL 30-200 HDL Cholesterol 45 mg/dL 30-85 LDL (Calculated) 81 CALC 0-129 VLDL Cholesterol 31 mg/dL 0-50 HDL Risk Factor 3.5 CALC 0.0-4.4 Comprehensive Metabolic Prof 04/13/2017 Sodium 139 mEq/L 134-149 Potassium 5.0 mEq/L 3.6-5.5 Chloride 99 mEq/L 94-112 Carbon Dioxide 28 mEq/L 21-32 Glucose 102 mg/dL 70-105 BUN 42 mg/dL High 6-26 Creatinine 1.9 mg/dL High 0.6-1.4 BUN/Creat Ratio 22.1 CALC 8.0-36.0 Calcium 10.4 mg/dL High 8.6-10.2 13 Total Protein 6.8 g/dL 6.4-8.3 Albumin 4.4 g/dL 3.8-5.5 Globulin 2.4 g/dL 2.0-4.8 A/G Ratio 1.8 CALC 0.6-2.3 Alk. Phosphatase 56 U/L 30-110 Alt (SGPT) 17 U/L 7-35 Ast (Sgot) 20 U/L 5-34 Total Bilirubin 0.4 mg/dL 0.2-1.3 GFR Non- 27 ml/min/1.73m^ Low >=60 GFR 33 ml/min/1.73m^ Low >=60 Laboratory test finding 11/13/2016 Point of Care Glucose 123 mg/dL High 74 -106 14 Laboratory test finding 11/07/2016 Hemoglobin A1c (Fma) 5.6 % 4.1-5.7 Laboratory test finding 11/07/2016 TSH 1.53 mIU/L 0.50-6.00 15 Comprehensive Metabolic 11/07/2016 Sodium 142 mEq/L 134-149 Prof Potassium 4.6 mEq/L 3.6-5.5 Chloride 104 mEq/L 94-112 Carbon Dioxide 28 mEq/L 21-32 Glucose 103 mg/dL 70-105 BUN 24 mg/dL 6-26 Creatinine 1.5 mg/dL High 0.6-1.4 16 BUN/Creat Ratio 16.0 CALC 8.0-36.0 Calcium 9.0 mg/dL 8.6-10.2 Total Protein 6.2 g/dL Low 6.4-8.3 17 Albumin 3.8 g/dL 3.8-5.5 Globulin 2.4 g/dL 2.0-4.8 A/G Ratio 1.6 CALC 0.6-2.3 Alk. Phosphatase 59 U/L 30-110 Alt (SGPT) 30 U/L 7-35 Ast (Sgot) 27 U/L 5-34 Total Bilirubin 0.4 mg/dL 0.2-1.3 GFR Non- 36 ml/min/1.73m^ Low >=60 GFR 43 ml/min/1.73m^ Low >=60 Complete Blood Count 11/07/2016 WBC 7.5 x10^3/UL 3.6-9.6 RBC 3.02 x10^6/UL Low 3.90-5.70 HGB 9.4 g/dL Low 12.1-17.2 18 HCT 27 % Low 36-50 19 MCV 89.0 fL 82.2-97.4 MCH 31.2 pg 27.6-33.3 MCHC 34.9 g/dL 33.0-35.5 RDW 16.1 % High 11.6-13.7 PLT 184 x10^3/UL 150-400 MPV 7.2 fL Low 7.4-10.4 Gran # 5.1 x10^3/UL 1.5-7.2 Lymph# 1.6 x10^3/UL 0.7-4.9 [place]# 0.8 x10^3/UL 0.1-0.9 Gran % 66.6 % 42.2-75.2 Lymph % 22.1 % 20.5-51.1 [place]% 11.3 % High 1.7-9.3 Lipid Profile 11/07/2016 Cholesterol 131 mg/dL 120-200 Triglycerides 134 mg/dL 30-200 HDL Cholesterol 30 mg/dL 30-85 LDL (Calculated) 74 CALC 0-129 VLDL Cholesterol 27 mg/dL 0-50 HDL Risk Factor 4.4 CALC 0.0-4.4 CBC Auto Diff 10/30/2016 White Blood Count 9.9 10^3/uL 3.5-10.8 Red Blood Count 3.52 10^6/uL Low 4.0-5.4 Hemoglobin 10.6 g/dL Low 12.0-16.0 Hematocrit 32 % Low 35-47 Mean Corpuscular Volume 91 fL 80-97 Mean Corpuscular Hemoglobin 30 pg 27-31 Mean Corpuscular HGB Conc 33 g/dL 31-36 Red Cell Distribution Width 15 % 10.5-15 Platelet Count 122 10^3/uL Low 150-450 Mean Platelet Volume 9 um3 7.4-10.4 Abs Neutrophils 7.0 10^3/uL 1.5-7.7 Abs Lymphocytes 1.8 10^3/uL 1.0-4.8 Abs Monocytes 0.9 10^3/uL High 0-0.8 Abs Eosinophils 0.1 10^3/uL 0-0.6 Abs Basophils 0.1 10^3/uL 0-0.2 Abs Nucleated RBC 0 10^3/uL Granulocyte % 71.0 % 38-83 Lymphocyte % 18.5 % Low 25-47 Monocyte % 9.3 % High 1-9 Eosinophil % 0.6 % 0-6 Basophil % 0.6 % 0-2 Nucleated Red Blood Cells % 0 Comp Metabolic Panel 10/30/2016 Sodium 136 mmol/L 133-145 Potassium 3.4 mmol/L Low 3.5-5.0 Chloride 100 mmol/L Low 101-111 Co2 Carbon Dioxide 27 mmol/L 22-32 Anion Gap 9 mmol/L 2-11 Glucose 86 mg/dL 70-100 Blood Urea Nitrogen 31 mg/dL High 6-24 Creatinine 1.80 mg/dL High 0.51-0.95 BUN/Creatinine Ratio 17.2 8-20 Calcium 9.4 mg/dL 8.6-10.3 Total Protein 6.7 g/dL 6.4-8.9 Albumin 4.2 g/dL 3.2-5.2 Globulin 2.5 g/dL 2-4 Albumin/Globulin Ratio 1.7 1-3 Total Bilirubin 0.40 mg/dL 0.2-1.0 Alkaline Phosphatase 53 U/L 34-104 Alt 13 U/L 7-52 Ast 20 U/L 13-39 Egfr Non- 27.1 >60 Egfr 34.9 >60 20 Laboratory test finding 10/30/2016 Hemoglobin A1c (Glyco 5.6 % Less than 6.0 21 HGB) Ua - Micro (Fma) 05/07/2016 Appearance clear Color yellow Glucose, Urine (Fma/CMC/CTX) neg Bilirubin neg Ketones neg SP Grav 1.015 Blood trace PH 7.0 Protein ssa neg Urobil 0.2 Nitrite neg Leukocytes (Fma/CMC/Centrex) neg Hyaline - /Lpf Granular - /Lpf WBC (Fma,Centrex) 2-3 RBC - Mucus (Fma/CBC/Centrex) - /Lpf Epith occ /Lpf Bacteria trace /Hpf Amorphous (Fma/CMC/Centrex) - /Lpf Crystals, Fluid (Fma/CMC/CTX) - Z#Comments - Urine Culture Routine 05/07/2016 Urine Culture, Routine Final report , Result 1 No growth , 24 Urinalysis Profile 03/10/2016 Urine Color Yellow Urine Appearance Clear Urine Specific [place] 1.012 1.010-1.030 Urine pH 6.0 5-9 Urine Urobilinogen Negative Negative Urine Ketones Negative Negative Urine Protein Negative Negative Urine Leukocytes Negative Negative Urine Blood Negative Negative Urine Nitrite Negative Negative Urine Bilirubin Negative Negative Urine Glucose Negative Negative Inr/Protime 03/10/2016 Inr 1.01 0.89-1.11 CKMB 03/10/2016 CKMB ng/mL 5.5 ng/mL 0.6-6.3 Comp Metabolic Panel 03/10/2016 Sodium 133 mmol/L 133-145 Potassium 4.3 mmol/L 3.5-5.0 Chloride 97 mmol/L Low 101-111 Co2 Carbon Dioxide 28 mmol/L 22-32 Anion Gap 8 mmol/L 2-11 Glucose 139 mg/dL High 70-100 Blood Urea Nitrogen 27 mg/dL High 6-24 Creatinine 1.25 mg/dL High 0.51-0.95 BUN/Creatinine Ratio 21.6 High 8-20 Calcium 9.3 mg/dL 8.6-10.3 Total Protein 6.7 g/dL 6.4-8.9 Albumin 4.5 g/dL 3.2-5.2 Globulin 2.2 g/dL 2-4 Albumin/Globulin Ratio 2.0 1-3 Total Bilirubin 0.40 mg/dL 0.2-1.0 Alkaline Phosphatase 53 U/L 34-104 Alt 14 U/L 7-52 Ast 21 U/L 13-39 Egfr Non- 41.4 >60 Egfr 53.3 >60 25 CBC Auto Diff 03/10/2016 White Blood Count 10.6 10^3/uL 3.5-10.8 Red Blood Count 3.33 10^6/uL Low 4.0-5.4 Hemoglobin 10.3 g/dL Low 12.0-16.0 Hematocrit 30 % Low 35-47 Mean Corpuscular Volume 91 fL 80-97 Mean Corpuscular Hemoglobin 31 pg 27-31 Mean Corpuscular HGB Conc 34 g/dL 31-36 Red Cell Distribution Width 15 % 10.5-15 Platelet Count 123 10^3/uL Low 150-450 Mean Platelet Volume 8 um3 7.4-10.4 Abs Neutrophils 7.9 10^3/uL High 1.5-7.7 Abs Lymphocytes 1.6 10^3/uL 1.0-4.8 Abs Monocytes 0.9 10^3/uL High 0-0.8 Abs Eosinophils 0 10^3/uL 0-0.6 Abs Basophils 0.1 10^3/uL 0-0.2 Abs Nucleated RBC 0 10^3/uL Granulocyte % 74.6 % 38-83 Lymphocyte % 14.8 % Low 25-47 Monocyte % 8.9 % 1-9 Eosinophil % 0.4 % 0-6 Basophil % 1.3 % 0-2 Nucleated Red Blood Cells % 0 Laboratory test finding 03/10/2016 Creatine Kinase 161 U/L 10-223 Laboratory test finding 03/10/2016 Lactic Acid 1.3 mmol/L 0.5-2.0 26 Laboratory test finding 02/27/2016 Immunoglobulin E, Total 48 IU/mL 0- 100 27 Comprehensive Metabolic 01/14/2016 Sodium 132 mEq/L Low 134-149 28 Prof Potassium 5.4 mEq/L 3.6-5.5 Chloride 95 mEq/L 94-112 Carbon Dioxide 26 mEq/L 21-32 Glucose 96 mg/dL 70-105 BUN 21 mg/dL 6-26 Creatinine 0.9 mg/dL 0.6-1.4 BUN/Creat Ratio 23.3 CALC 8.0-36.0 Calcium 10.1 mg/dL 8.6-10.2 Total Protein 7.3 g/dL 6.4-8.3 Albumin 5.0 g/dL 3.8-5.5 Globulin 2.3 g/dL 2.0-4.8 A/G Ratio 2.2 CALC 0.6-2.3 Alk. Phosphatase 44 U/L 30-110 Alt (SGPT) 16 U/L 7-35 Ast (Sgot) 23 U/L 5-34 Total Bilirubin 0.4 mg/dL 0.2-1.3 GFR Non- >60 ml/min/1.73m^ >=60 GFR >60 ml/min/1.73m^ >=60 Lipid Profile 01/14/2016 Cholesterol 173 mg/dL 120-200 Triglycerides 116 mg/dL 30-200 HDL Cholesterol 57 mg/dL 30-85 LDL (Calculated) 93 CALC 0-129 VLDL Cholesterol 23 mg/dL 0-50 HDL Risk Factor 3.0 CALC 0.0-4.4 Complete Blood Count 01/14/2016 WBC 8.1 x10^3/UL 3.6-9.6 RBC 3.74 x10^6/UL Low 3.90-5.70 HGB 12.2 g/dL 12.1-17.2 HCT 34 % Low 36-50 MCV 91.0 fL 82.2-97.4 MCH 32.5 pg 27.6-33.3 MCHC 35.5 g/dL 33.0-35.5 RDW 15.8 % High 11.6-13.7 PLT 156 x10^3/UL 150-400 MPV 8.1 fL 7.4-10.4 Gran # 5.5 x10^3/UL 1.5-7.2 Lymph# 2.0 x10^3/UL 0.7-4.9 [place]# 0.6 x10^3/UL 0.1-0.9 Gran % 66.1 % 42.2-75.2 Lymph % 26.0 % 20.5-51.1 [place]% 7.9 % 1.7-9.3 Laboratory test finding 01/14/2016 Hemoglobin A1c (Fma) 5.6 % 4.1-5.7 Comprehensive Metabolic Prof 10/03/2015 Sodium 139 mEq/L 134-149 Potassium 5.1 mEq/L 3.6-5.5 Chloride 97 mEq/L 94-112 Carbon Dioxide 29 mEq/L 21-32 Glucose 105 mg/dL 70-105 BUN 27 mg/dL High 6-26 29 Creatinine 0.8 mg/dL 0.6-1.4 BUN/Creat Ratio 33.8 CALC 8.0-36.0 Calcium 10.3 mg/dL High 8.6-10.2 30 Total Protein 6.9 g/dL 6.4-8.3 Albumin 4.7 g/dL 3.8-5.5 Globulin 2.2 g/dL 2.0-4.8 A/G Ratio 2.1 CALC 0.6-2.3 Alk. Phosphatase 48 U/L 30-110 Alt (SGPT) 16 U/L 7-35 Ast (Sgot) 23 U/L 5-34 Total Bilirubin 0.2 mg/dL 0.2-1.3 GFR Non- >60 ml/min/1.73m^ >=60 GFR >60 ml/min/1.73m^ >=60 Lipid Profile 10/03/2015 Cholesterol 139 mg/dL 120-200 Triglycerides 97 mg/dL 30-200 HDL Cholesterol 45 mg/dL 30-85 LDL (Calculated) 75 CALC 0-129 VLDL Cholesterol 19 mg/dL 0-50 HDL Risk Factor 3.1 CALC 0.0-4.4 Laboratory test finding 10/03/2015 Hemoglobin A1c (Fma/CMC,CX) 5.8 % High 4.1-5.7 Arterial Blood Gas 09/13/2015 PH Arterial 7.41 7.35-7.45 Pco2 Arterial 41 mmHg 35-45 Po2 Arterial 73 mmHg Low 80-100 O2 Saturation Arterial 94.9 % Low 95-98 Base Excess Arterial 1.2 -2.0-2.0 31 Hco3 Arterial 25.8 mmol/L 19-31 Laboratory test 06/07/2015 Non-[employer] Interface SEE RESULT BELOW 32 finding Order Laboratory test 05/04/2015 Free T4 0.92 ng/dL 0.75-1.54 finding TSH 2.51 mIU/L 0.50-6.00 Free T3 2.18 pg/mL 2.00-4.90 Comprehensive Metabolic Prof 02/20/2015 Sodium 138 mEq/L 134-149 Potassium 5.1 mEq/L 3.6-5.5 Chloride 95 mEq/L 94-112 Carbon Dioxide 24 mEq/L 21-32 Glucose 107 mg/dL High 70-105 33 BUN 24 mg/dL 6-26 Creatinine 0.8 mg/dL 0.6-1.4 BUN/Creat Ratio 30.0 CALC 8.0-36.0 Calcium 9.6 mg/dL 8.6-10.2 Total Protein 7.0 g/dL 6.4-8.3 Albumin 4.5 g/dL 3.8-5.5 Globulin 2.5 g/dL 2.0-4.8 A/G Ratio 1.8 CALC 0.6-2.3 Alk. Phosphatase 46 U/L 30-110 Alt (SGPT) 16 U/L 7-35 Ast (Sgot) 21 U/L 5-34 Total Bilirubin 0.4 mg/dL 0.2-1.3 Lipid Profile 02/20/2015 Cholesterol 145 mg/dL 120-200 Triglycerides 161 mg/dL 30-200 HDL Cholesterol 44 mg/dL 30-85 LDL (Calculated) 69 CALC 0-129 VLDL Cholesterol 32 mg/dL 0-50 HDL Risk Factor 3.3 CALC 0.0-4.4 Laboratory test finding 02/20/2015 Hemoglobin A1c 5.9 % High 4.1-5.7 (Fma/CMC,CX) Feflex Diff+Morph For 10/27/2014 Segmented Neutrophils 68.0 % 44.0-74.0 34 CBC4D Band 0.0 % 0.0-4.0 34 Lymphocytes 28.0 % 15.0-45.0 34 Monocytes 4.0 % 2.0-13.0 34 Eosinophils 0.0 % 0.0-6.0 34 Basophils 0.0 % 0.0-2.0 34 Neutrophil Absolute 8.5 x10E3/uL High 1.4-7.0 34 Lymphocytes Absolute 3.5 x10E3/uL High 1.0-3.4 34 Monocyte Absolute 0.5 x10E3/uL 0.2-1.0 34 Eosinophil Absolute 0.0 x10E3/uL 0.0-0.5 34 Basophil Absolute 0.0 x10E3/uL 0.0-0.2 34 Comprehensive Metabolic 10/27/2014 Glucose 136 mg/dL High 70-100 34 BUN 21 mg/dL 5-32 34 Creatinine, Serum 0.71 mg/dL 0.50-1.10 34 Sodium 137 mmol/L 136-146 34 Potassium 5.0 mmol/L 3.5-5.3 34 Chloride 101 mmol/L 98-110 34 Carbon Dioxide 28 mmol/L 20-32 34 Albumin 4.7 g/dL 3.5-4.7 34 Protein, Total 7.0 g/dL 6.4-8.3 34 Calcium 10.2 mg/dL 8.4-10.4 34 Alkaline Phosphatase 62 U/L 10-118 34 Sgot (Ast) 31 U/L 3-40 34 SGPT (Alt) 62 U/L High 7-50 34 Bilirubin, Total 0.50 mg/dL 0.30-1.20 34 Hemoglobin A1c 10/27/2014 Hemoglobin A1c 6.4 % 34, 35 Estimated Avg Glucose 137.0 mg/dL 34 CBC W/Manual Diff 10/27/2014 WBC 12.5 x10E3/uL High 4.3-10.9 34 RBC 4.08 x10E6/uL 3.80-5.30 34 Hemoglobin 12.2 g/dL 11.8-15.8 34 Hematocrit 38.1 % 35.0-47.0 34 MCV 93.4 fl 82.0-98.0 34 MCH 29.9 pg 27.5-33.5 34 MCHC 32.0 g/dL 32.0-36.0 34 RDW 15.6 % High 11.5-14.5 34 Platelet Count 176 x10E3/uL 130-400 34 MPV 10.3 fl 8.6-12.6 34 Manual Differential PERFORMED 34 Egfr (Calculated) 10/27/2014 Estimated GFR (CALCULATED) 34 Egfr >60 34, 36 Egfr, -Nepalese >60 34, 37 Comprehensive Metabolic Prof 07/25/2014 Sodium 136 mEq/L 134-149 Potassium 4.9 mEq/L 3.6-5.5 Chloride 94 mEq/L 94-112 Carbon Dioxide 26 mEq/L 21-32 Glucose 98 mg/dL 70-105 BUN 19 mg/dL 6-26 Creatinine 0.8 mg/dL 0.6-1.4 BUN/Creat Ratio 23.8 CALC 8.0-36.0 Calcium 9.9 mg/dL 8.6-10.2 Total Protein 7.3 g/dL 6.3-8.1 Albumin 4.3 g/dL 3.8-5.5 Globulin 3.0 g/dL 2.0-4.8 A/G Ratio 1.4 CALC 0.6-2.3 Alk. Phosphatase 50 U/L 30-110 Alt (SGPT) 20 U/L 7-35 Ast (Sgot) 22 U/L 5-34 Total Bilirubin 0.5 mg/dL 0.2-1.3 Lipid Profile 07/25/2014 Cholesterol 176 mg/dL 120-200 Triglycerides 175 mg/dL 30-200 HDL Cholesterol 47 mg/dL 30-85 LDL (Calculated) 94 CALC 0-129 VLDL Cholesterol 35 mg/dL 0-50 HDL Risk Factor 3.7 CALC 0.0-4.4 Laboratory test finding 07/25/2014 Hemoglobin A1c 5.9 % High 4.1-5.7 ([facility]ma/[facility],CX) Basic Metabolic Panel 03/21/2014 Sodium 138 mmol/L 133-145 Potassium 4.2 mmol/L 3.7-5.6 Chloride 103 mmol/L 101-111 Co2 Carbon Dioxide 26 mmol/L 22-32 Anion Gap 9 mmol/L 2-11 Glucose 108 mg/dL High 70-100 Blood Urea Nitrogen 16 mg/dL 6-24 Creatinine 0.99 mg/dL High 0.51-0.95 BUN/Creatinine Ratio 16.2 8-20 Calcium 9.8 mg/dL 8.6-10.3 Egfr Non- 54.5 >60 Egfr 70.1 >60 38 Laboratory test finding 03/21/2014 Magnesium 1.9 mg/dL 1.9-2.7 Theophylline 14.0 g/mL 10-20.0 TSH (Thyroid Stimulating Horm) 2.47 IU/mL 0.34-5.60 B Type Natriuretic Peptide 26 pg/mL 39 Laboratory test finding 02/22/2014 Hemoglobin A1c 6.3 % High Less than 6.0 40 Lipid Panel-ALL Lab 02/22/2014 Triglycerides 142 mg/dL 41 Companies Cholesterol 142 mg/dL 42 HDL Cholesterol 46.4 mg/dL 43 LDL Cholesterol 67 mg/dL 44 Laboratory test finding 07/19/2013 Hemoglobin A1c 6.1 % High 4.1-5.7 ([facility]ma/CMC,CX) Comprehensive Metabolic 07/19/2013 Albumin 4.4 g/dL 3.8-5.5 Prof Alk. Phos. 63 U/L 30-110 Alt (SGPT) 18 U/L 7-35 Ast (Sgot) 26 U/L 5-34 BUN 17 mg/dL 6-26 Calcium 9.4 mg/dL 8.6-10.2 Chloride 100 mEq/L 94-112 Creatinine 0.8 mg/dL 0.6-1.4 Carbon Dioxide 26 mEq/L 21-32 Glucose 101 mg/dL 70-105 Sodium 136 mEq/L 134-149 Total Bilirubin 0.6 mg/dL 0.2-1.3 Total Protein 6.6 g/dL 6.3-8.1 Potassium 4.7 mEq/L 3.6-5.5 Globulin 2.2 g/dL 2.0-4.8 A/G Ratio 2.0 Calc 0.6-2.3 BUN/Creat Ratio 21.0 Calc 8.0-36.0 Lipid Profile 07/19/2013 Cholesterol 171 mg/dL 120-200 HDL 46 mg/dL 30-85 Triglycerides 135 mg/dL 30-200 HDL Risk Factor 3.7 CALC 0.0-4.4 LDL (Calculated) 98 CALC 0-129 VLDL (Calculated) 27 mg/dL 0-50 Laboratory test finding 03/15/2013 Hemoglobin A1c ([facility]ma/CMC,CX) 6.1 % High 4.1-5.7 Ua - Micro ([facility]ma) 03/15/2013 Appearance CLEAR Color YELLOW Glucose NEG Bilirubin NEG Ketones NEG SP Grav 1.010 Blood NEG PH 5.0 Protein NEG Urobil 0.2 Nitrite NEG Leukocytes ([facility]ma/[facility]) SMALL Hyaline - /Lpf Granular - /Lpf WBC (Fma,[facility]) 10-12 RBC 1-2 Mucus - /Lpf Epith FEW /Lpf Bacteria TRACE /Hpf Amorphous - /Lpf Crystals, Fluid ([facility]ma/CMC/CTX) - Z#Comments - Comprehensive Metabolic Prof 03/15/2013 Albumin 4.8 g/dL 3.8-5.5 Alk. Phos. 50 U/L 30-110 Alt (SGPT) 16 U/L 7-35 Ast (Sgot) 21 U/L 5-34 BUN 27 mg/dL High 6-26 45 Calcium 10.2 mg/dL 8.6-10.2 Chloride 101 mEq/L 94-112 Creatinine 0.9 mg/dL 0.6-1.4 Carbon Dioxide 28 mEq/L 21-32 Glucose 115 mg/dL High 70-105 46 Sodium 141 mEq/L 134-149 Total Bilirubin 0.4 mg/dL 0.2-1.3 Total Protein 6.9 g/dL 6.3-8.1 Potassium 4.9 mEq/L 3.6-5.5 Globulin 2.1 g/dL 2.0-4.8 A/G Ratio 2.3 Calc 0.6-2.3 BUN/Creat Ratio 31.8 Calc 8.0-36.0 Lipid Profile 08/30/2012 Cholesterol 155 mg/dL 120-200 HDL 50 mg/dL 30-85 Triglycerides 124 mg/dL 30-200 HDL Risk Factor 3.1 CALC 0.0-4.4 LDL (Calculated) 80 CALC 0-129 VLDL (Calculated) 25 mg/dL 0-50 Comprehensive Metabolic Prof 08/30/2012 Albumin 4.8 g/dL 3.8-5.5 Alk. Phos. 67 U/L 30-110 Alt (SGPT) 17 U/L 7-35 Ast (Sgot) 24 U/L 5-34 BUN 26 mg/dL 6-26 Calcium 10.0 mg/dL 8.6-10.2 Chloride 99 mEq/L 94-112 Creatinine 0.9 mg/dL 0.6-1.4 Carbon Dioxide 22 mEq/L 21-32 Glucose 122 mg/dL High 70-105 Sodium 135 mEq/L 134-149 Total Bilirubin 0.6 mg/dL 0.2-1.3 Total Protein 7.1 g/dL 6.3-8.1 Potassium 4.4 mEq/L 3.6-5.5 Globulin 2.3 g/dL 2.0-4.8 A/G Ratio 2.1 Calc 0.6-2.2 BUN/Creat Ratio 28.5 Calc 8.0-36.0 Laboratory test 08/30/2012 Hemoglobin A1c 6.0% % High 4.1-5.7 finding ([facility]ma/CMC,CX) Protime 05/17/2012 Inr 0.88 0.88-1.13 47, 48 Protime 10.4 SEC 10.3-13.5 47, 49 Laboratory test finding 05/17/2012 PTT (Aptt) 28.3 SEC 25.1-38.5 47 Type And Screen 05/17/2012 Patient Blood Type A POSITIVE 47 Antibody Screen NEGATIVE 47 Specimen Discard Date 05/31/12 47, 50 Urinalysis W/Microscopic 05/17/2012 Ua Color OTHER Yellow 47 Appearance-Urine CLEAR Clear 47 Specific [place]-Ur 1.010 1.010-1.030 47 Esterase-Urine 3+ Negative 47 Nitrite NEGATIVE Negative 47 [id number]-Pg-YFL NEGATIVE Negative 47 Protein-Urine NEGATIVE Negative 47 PH-Urine 5.0 5-9 47 Blood-Urine NEGATIVE Negative 47 Ketones-Urine NEGATIVE Negative 47 Bilirubin-Ur NEGATIVE Negative 47 Glucose-Urine NEGATIVE Negative 47 WBC-Urine 5-10 0-5 47 RBC-Urine NONE SEEN 0-2 47 Epith Cells-Ur MODERATE None 47 Bacteria-Urine TRACE None 47 Urine Culture & 05/17/2012 M <SEE 47, 51 Sensitivi NOTE> Basic Metabolic Profile 05/10/2012 BUN 26 mg/dL 6-26 Calcium 9.6 mg/dL 8.6-10.2 Chloride 96 mEq/L 94-112 Creatinine 1.0 mg/dL 0.6-1.4 Carbon Dioxide 24 mEq/L 21-32 Glucose 105 mg/dL 70-105 Sodium 134 mEq/L 134-149 Potassium 5.2 mEq/L 3.6-5.5 BUN/Creat Ratio 25.8 Calc 8.0-36.0 CBC Electronic (a) 05/10/2012 WBC 9.1 3.6-9.6 RBC 3.88 Low 3.90-5.70 Hemoglobin ([facility]ma/CMC/CTX) 12.0 g/dL Low 12.1 - 17.2 Hematocrit ([facility]ma/CMC/CTX) 36.3 % 36.1 - 50.3 Platelets 221 10^3/ul 150-400 Lymph% 11.0 Low 20.5-51.1 Mixed% 4.7 Neutrophils % 84.3 Mean Corpuscular Vol 94 82.2-97.4 Mean Corpuscular Hemoglobin 31.0 27.6-33.3 Mean Corpuscular Hemo Concen 33.2 32.0-36.0 RDW 13.2 11.6-13.7 Mean Platelet Volume 7.2 6.5-11.0 Laboratory test finding 03/09/2012 .Melanie W/Reflex If Positive Negative Negative CCP Antibodies Igg/Iga 2 units 0-19 52 Rheumatoid Arth Factor 9.3 IU/mL 0.0-13.9 Laboratory test finding 03/09/2012 Uric Acid 7.8 mg/dL 2.5-9.2 Laboratory test finding 03/09/2012 Hemoglobin A1c 6.3 % High 4.1-5.7 ([facility]ma/CMC,CX) Lipid Profile 01/07/2012 Cholesterol 154 mg/dL 120-200 HDL 50 mg/dL 30-85 Triglycerides 158 mg/dL 30-200 HDL Risk Factor 3.1 CALC 0.0-4.0 LDL (Calculated) 72 CALC 0-129 VLDL (Calculated) 32 mg/dL 0-50 Comprehensive Metabolic Prof 01/07/2012 Albumin 5.0 g/dL 3.8-5.5 Alk. Phos. 76 U/L 30-110 Alt (SGPT) 18 U/L 7-35 Ast (Sgot) 22 U/L 5-34 BUN 26 mg/dL 6-26 Calcium 10.4 mg/dL High 8.6-10.2 53 Chloride 98 mEq/L 94-112 Creatinine 1.0 mg/dL 0.6-1.4 Carbon Dioxide 26 mEq/L 21-32 Glucose 127 mg/dL High 70-105 54 Sodium 135 mEq/L 134-149 Total Bilirubin 0.5 mg/dL 0.2-1.3 Total Protein 7.0 g/dL 6.3-8.1 Potassium 5.1 mEq/L 3.6-5.5 Globulin 2.0 g/dL 2.0-4.8 A/G Ratio 2.5 Calc High 0.6-2.2 BUN/Creat Ratio 26.3 Calc 8.0-36.0 Laboratory test finding 01/07/2012 Hemoglobin A1c 6.0 % High 4.1-5.7 ([facility]ma/CMC,CX) Comprehensive Metabolic 08/11/2011 Albumin 4.7 g/dL 3.8-5.5 Prof Alk. Phos. 66 U/L 30-110 Alt (SGPT) 19 U/L 7-35 Ast (Sgot) 21 U/L 5-34 BUN 33 mg/dL High 6-26 55 Calcium 9.8 mg/dL 8.6-10.2 Chloride 104 mEq/L 94-112 Creatinine 0.9 mg/dL 0.6-1.4 Carbon Dioxide 24 mEq/L 21-32 Glucose 131 mg/dL High 70-105 56 Sodium 137 mEq/L 134-149 Total Bilirubin 0.4 mg/dL 0.2-1.3 Total Protein 7.3 g/dL 6.3-8.1 Potassium 5.2 mEq/L 3.6-5.5 Globulin 2.5 g/dL 2.0-4.8 A/G Ratio 1.9 Calc 0.6-2.2 BUN/Creat Ratio 35.0 Calc 8.0-36.0 Lipid Profile 08/11/2011 Cholesterol 226 mg/dL High 120-200 HDL 42 mg/dL 30-85 Triglycerides 186 mg/dL 30-200 HDL Risk Factor 5.4 CALC High 0.0-4.0 LDL (Calculated) 147 CALC High 0-129 VLDL (Calculated) 37 mg/dL 0-50 Laboratory test 08/11/2011 Hemoglobin A1c 5.9 % High 4.1-5.7 finding ([facility]ma/CMC,CX) Body Fluid C&S 07/08/2011 Body Fluid Smear MOD GRAM POSITIV 57 <SEE NOTE> Laboratory test 07/08/2011 Body Fluid Cult STAPHYLOCOCCUS A 58 finding Sens <SEE NOTE> XBRSC1 07/08/2011 Clindamycin <=0.25 Ciprofloxacin <=0.5 Erythromycin >=8 Gentamicin <=0.5 Levofloxacin <=0.12 Linezolid 2 Oxacillin <=0.25 Rifampin <=0.5 Trimeth-Sulfa <=10 Tetracycline <=1 Tigecycline <=0.12 Vancomycin 1 C. Difficile Toxin 07/01/2011 C. Difficile Toxin A TEST LIMITATIONS <SEE 59 B NOTE> C. Difficile Toxin A B NEGATIVE BY IMMU <SEE NOTE> 60 Laboratory test 07/01/2011 Culture Sensitivity/Gram NO ORGANISMS SEE [address] <SEE NOTE> Culture Sensitivity NG4 62 CBC Electronic ([facility]) 07/01/2011 WBC 9.2 3.6-9.6 RBC 3.53 Low 3.90-5.70 Hemoglobin ([facility]ma/CMC/CTX) 11.2 g/dL Low 12.1 - 17.2 Hematocrit (Fma/CMC/CTX) 32.4 % Low 36.1 - 50.3 Platelets 269 10^3/ul 150-400 Lymph% 8.7 Low 20.5-51.1 Mixed% 5.0 Neutrophils % 86.3 Mean Corpuscular Vol 92 82.2-97.4 Mean Corpuscular Hemoglobin 31.6 27.6-33.3 Mean Corpuscular Hemo Concen 34.5 32.0-36.0 RDW 13.6 11.6-13.7 Mean Platelet Volume 6.7 6.5-11.0 CBC Manual Diff-Fma 06/26/2011 WBC 13.6 High 3.6-9.6 RBC 3.73 Low 3.90-5.70 Hemoglobin (Fma/CMC/CTX) 11.7 g/dL Low 12.1 - 17.2 Hematocrit (Fma/CMC/CTX) 34.9 % Low 36.1 - 50.3 Mean Corpuscular Vol 94 82.2-97.4 Mean Corpuscular Hemoglobin 31.5 27.6-33.3 Mean Corpuscular Hemo Concen 33.6 32.0-36.0 Platelets 223 10^3/ul 150-400 RDW 13.4 11.6-13.7 Mean Platelet Volume 7.2 6.5-11.0 Neutrophil 62 Band 15 Lymphocytes 16 Monocyte 4 Atypical Lymph 3 Comment RBC/Plts normal Pertussis PCR 06/26/2011 Bordetella Pertussis This test was de <SEE 63 NOTE> Bordetella Pertussis Negative for Bor <SEE NOTE> 64 Basic Metabolic Profile 04/16/2011 BUN 30 mg/dL High 6-26 65 Calcium 10.1 mg/dL 8.6-10.2 Chloride 99 mEq/L 94-112 Creatinine 0.9 mg/dL 0.6-1.4 Carbon Dioxide 25 mEq/L 21-32 Glucose 107 mg/dL High 70-105 66 Sodium 134 mEq/L 134-149 Potassium 5.1 mEq/L 3.6-5.5 BUN/Creat Ratio 32.9 Calc 8.0-36.0 Laboratory test finding 04/16/2011 Creatine Kinase 137 U/L 26-140 Basic Metabolic Profile 02/19/2011 BUN 21 mg/dL 6-26 Calcium 9.8 mg/dL 8.6-10.2 Chloride 100 mEq/L 94-112 Creatinine 0.8 mg/dL 0.6-1.4 Carbon Dioxide 24 mEq/L 21-32 Glucose 119 mg/dL High 70-105 67 Sodium 140 mEq/L 134-149 Potassium 5.5 mEq/L 3.6-5.5 BUN/Creat Ratio 26.0 Calc 8.0-36.0 Laboratory test finding 02/19/2011 TSH 0.96 mIU/L 0.50-6.00 Free T4 0.77 ng/dL 0.75-1.54 CBC Electronic (Fma) 02/19/2011 WBC 4.7 3.6-9.6 RBC 3.73 Low 3.90-5.70 Hemoglobin (Fma/CMC/CTX) 11.2 g/dL Low 12.1 - 17.2 Hematocrit (Fma/CMC/CTX) 34.5 % Low 36.1 - 50.3 Platelets 315 10^3/ul 150-400 Lymph% 21.9 20.5-51.1 Mixed% 6.8 Neutrophils % 71.3 Mean Corpuscular Vol 93 82.2-97.4 Mean Corpuscular Hemoglobin 30.2 27.6-33.3 Mean Corpuscular Hemo Concen 32.6 32.0-36.0 RDW 14.5 High 11.6-13.7 Mean Platelet Volume 7.1 6.5-11.0 Basic Metabolic Profile 02/12/2011 BUN 24 mg/dL 6-26 Calcium 10.6 mg/dL High 8.6-10.2 68 Chloride 99 mEq/L 94-112 Creatinine 0.8 mg/dL 0.6-1.4 Carbon Dioxide 24 mEq/L 21-32 Glucose 98 mg/dL 70-105 Sodium 138 mEq/L 134-149 Potassium 5.8 mEq/L High 3.6-5.5 69 BUN/Creat Ratio 30.0 Calc 8.0-36.0 CBC Electronic ([facility]) 02/12/2011 WBC 5.2 3.6-9.6 RBC 3.59 Low 3.90-5.70 Hemoglobin (Fma/CMC/CTX) 11.2 g/dL Low 12.1 - 17.2 Hematocrit (Fma/CMC/CTX) 33.2 % Low 36.1 - 50.3 Platelets 326 10^3/ul 150-400 Lymph% 23.1 20.5-51.1 Mixed% 7.4 Neutrophils % 69.5 Mean Corpuscular Vol 93 82.2-97.4 Mean Corpuscular Hemoglobin 31.2 27.6-33.3 Mean Corpuscular Hemo Concen 33.7 32.0-36.0 RDW 14.0 High 11.6-13.7 Mean Platelet Volume 6.8 6.5-11.0 Basic Metabolic Profile 02/05/2011 BUN 21 mg/dL 6-26 Calcium 9.3 mg/dL 8.6-10.2 Chloride 99 mEq/L 94-112 Creatinine 1.0 mg/dL 0.6-1.4 Carbon Dioxide 23 mEq/L 21-32 Glucose 98 mg/dL 70-105 Sodium 134 mEq/L 134-149 Potassium 4.5 mEq/L 3.6-5.5 BUN/Creat Ratio 21.3 Calc 8.0-36.0 CBC Electronic (a) 02/05/2011 WBC 9.3 3.6-9.6 RBC 3.66 Low 3.90-5.70 Hemoglobin (Fma/CMC/CTX) 11.3 g/dL Low 12.1 - 17.2 Hematocrit (Fma/CMC/CTX) 33.0 % Low 36.1 - 50.3 Platelets 357 10^3/ul 150-400 Lymph% 15.8 Low 20.5-51.1 Mixed% 5.0 Neutrophils % 79.2 Mean Corpuscular Vol 90 82.2-97.4 Mean Corpuscular Hemoglobin 31.0 27.6-33.3 Mean Corpuscular Hemo Concen 34.3 32.0-36.0 RDW 14.0 High 11.6-13.7 Mean Platelet Volume 6.5 6.5-11.0 Sputum Culture & 01/28/2011 Sputum Smear NONE 70 Sensitiv Sputum Culture 01/28/2011 Sputum Culture NF1 71 Sensitiv Sensitiv Blood Culture 01/27/2011 Aerobic Culture Bottle NG5 72, 73 Anaerobic Culture 01/27/2011 Anaerobic Culture NG5 72, 74 Bottle Bottle Comp Metabolic Panel 01/27/2011 Sodium 118 mmol/L Low 135-145 75 Potassium 3.0 mmol/L Low 3.5-5.0 Chloride 84 mmol/L Low 101-111 Co2 (Carbon Dioxide) 26.0 mmol/L 22-32 Anion Gap 8.0 mmol/L 2-11 76 Glucose 105 mg/dL High 70-100 BUN 19 mg/dL 6-24 Creatinine 0.63 mg/dL 0.50-1.40 One Over Creatinine 1.50 BUN/Creatinine Ratio 30.2 High 8-20 Calcium 8.6 mg/dL 8.1-9.9 Total Protein 6.0 GM/DL Low 6.2-8.1 Albumin 2.6 GM/DL Low 3.2-5.2 Globulin 3.4 GM/DL 2-4 Albumin/Globulin Ratio 0.8 Low 1-3 Bilirubin Total 0.6 mg/dL 0.4-1.5 77 Alkaline Phosphatase 66 U/L 30-110 Alt (SGPT) 48 U/L 14-54 Ast (Sgot) 82 U/L High 12-42 eGFR Non- 92.6 > 60 eGFR 119.1 > 60 78 Laboratory test finding 01/27/2011 Troponin-I 0.01 NG/ML 0-0.06 79 CBC Auto Diff 01/27/2011 White Blood Count 6.3 CUMM 4.8-10.8 Red Cell Count 3.28 CUMM Low 4.2-5.4 Hemoglobin 10.1 g/dL Low 12.0-16.0 Hematocrit 30 % Low 35-47 Mean Corpuscular Volume 90 um3 79-97 Mean Corpuscular Hemoglob 31 pg 27-31 Mean Corpuscular HGB Cone 34 g/dL 32-36 Redcell Distribution WDTH 16 % High 10.5-15 Platelet Count 184 CUMM 150-450 Mean Platelet Volume 6.4 um3 Low 7.4-10.4 80 Manual Differential 01/27/2011 Polysegmented Neutrophil 76 % 38-83 Band Neutrophil 9 % High 0-8 Lymphocyte 4 % Low 25-47 Monocyte 7 % 0-13 Atypical Lymph 4 % 0-6 Absolute Neutrophil Count 5.3 Anisocytosis 1+ Laboratory test finding 01/27/2011 BNP Evaluatr 56.0 pg/mL 0-100 Blood Culture 01/27/2011 Aerobic Culture NG5 72, 81 Bottle Anaerobic Culture Bottle 01/27/2011 Anaerobic Culture NG5 72, 82 Bottle Comprehensive Metabolic 12/16/2010 Albumin 5.0 g/dL 3.8-5.5 Prof Alk. Phos. 64 U/L 30-110 Alt (SGPT) 17 U/L 7-35 Ast (Sgot) 20 U/L 5-34 BUN 26 mg/dL 6-26 Calcium 9.7 mg/dL 8.6-10.2 Chloride 101 mEq/L 94-112 Creatinine 0.9 mg/dL 0.6-1.4 Carbon Dioxide 25 mEq/L 21-32 Glucose 105 mg/dL 70-105 Sodium 134 mEq/L 134-149 Total Bilirubin 0.3 mg/dL 0.2-1.3 Total Protein 7.4 g/dL 6.3-8.1 Potassium 5.1 mEq/L 3.6-5.5 Globulin 2.5 g/dL 2.0-4.8 A/G Ratio 2.0 Calc 0.6-2.2 BUN/Creat Ratio 30.3 Calc 8.0-36.0 Lipid Profile 12/16/2010 Cholesterol 165 mg/dL 120-200 HDL 47 mg/dL 30-85 Triglycerides 111 mg/dL 30-200 HDL Risk Factor 3.5 CALC Low 4.2-7.0 LDL (Calculated) 95 CALC 0-129 VLDL (Calculated) 22 mg/dL 0-50 Laboratory test finding 12/16/2010 Hemoglobin A1c 6.0 % High 4.1-5.7 ([facility],CX) Laboratory test finding 06/05/2010 Hemoglobin A1c 6.1 % High 4.1-5.7 (a/[facility],CX) Comprehensive Metabolic 03/25/2010 Albumin 4.8 g/dL 3.8-5.5 Prof Alk. Phos. 54 U/L 30-110 Alt (SGPT) 23 U/L 7-35 Ast (Sgot) 32 U/L 5-34 BUN 24 mg/dL 6-26 Calcium 10.0 mg/dL 8.6-10.2 Chloride 93 mEq/L Low 94-112 83 Creatinine 1.0 mg/dL 0.6-1.4 Carbon Dioxide 24 mEq/L 21-32 Glucose 97 mg/dL 70-105 Sodium 132 mEq/L Low 134-149 84 Total Bilirubin 0.4 mg/dL 0.2-1.3 Total Protein 7.1 g/dL 6.3-8.1 Potassium 4.8 mEq/L 3.6-5.5 Globulin 2.3 g/dL 2.0-4.8 A/G Ratio 2.1 Calc 0.6-2.2 BUN/Creat Ratio 24.8 Calc 8.0-36.0 Laboratory test finding 03/25/2010 Hemoglobin A1c 6.0 % High 4.1-5.7 (a/[facility],CX) Comprehensive Metabolic 11/14/2009 Albumin 4.8 g/dL 3.8-5.5 Prof Alk. Phos. 71 U/L 30-110 Alt (SGPT) 21 U/L 7-35 Ast (Sgot) 23 U/L 5-34 BUN 27 mg/dL High 6-26 85 Calcium 10.0 mg/dL 8.6-10.2 Chloride 109 mEq/L 94-112 Creatinine 1.0 mg/dL 0.6-1.4 Carbon Dioxide 27 mEq/L 21-32 Glucose 119 mg/dL High 70-105 Sodium 143 mEq/L 134-149 Total Bilirubin 0.3 mg/dL 0.2-1.3 Total Protein 7.4 g/dL 6.3-8.1 Potassium 5.5 mEq/L 3.6-5.5 Globulin 2.5 g/dL 2.0-4.8 A/G Ratio 1.9 Calc 0.6-2.2 BUN/Creat Ratio 27.1 Calc 8.0-36.0 Laboratory test finding 11/14/2009 Hemoglobin A1c 6.2 % High 4.1-5.7 (Fma/CMC,CX) Comprehensive Metabolic 09/10/2009 Albumin 4.1 g/dL 3.8-5.5 Prof Alk. Phos. 50 U/L 30-110 Alt (SGPT) 40 U/L High 7-35 Ast (Sgot) 36 U/L High 5-34 BUN 20 mg/dL 6-26 Calcium 9.3 mg/dL 8.6-10.2 Chloride 99 mEq/L 94-112 Creatinine 0.8 mg/dL 0.6-1.4 Carbon Dioxide 29 mEq/L 21-32 Glucose 101 mg/dL 70-105 Sodium 139 mEq/L 134-149 Total Bilirubin 0.4 mg/dL 0.2-1.3 Total Protein 6.4 g/dL 6.3-8.1 Potassium 4.4 mEq/L 3.6-5.5 Globulin 2.3 g/dL 2.0-4.8 A/G Ratio 1.8 Calc 0.6-2.2 BUN/Creat Ratio 24.0 Calc 8.0-36.0 Lipid Profile 09/05/2009 Cholesterol 147 mg/dL 120-200 86 HDL 35 mg/dL 30-85 86 Triglycerides 134 mg/dL 30-200 86 HDL Risk Factor 4.3 CALC 4.2-7.0 86 LDL (Calculated) 86 CALC 0-129 86 VLDL (Calculated) 27 mg/dL 0-50 86 Comprehensive Metabolic Prof 09/05/2009 Albumin 4.1 g/dL 3.8-5.5 86 Alk. Phos. 51 U/L 30-110 86 Alt (SGPT) 39 U/L High 7-35 86 Ast (Sgot) 35 U/L High 5-34 86 BUN 18 mg/dL 6-26 86 Calcium 9.4 mg/dL 8.6-10.2 86 Chloride 103 mEq/L 94-112 86 Creatinine 0.9 mg/dL 0.6-1.4 86 Carbon Dioxide 27 mEq/L 21-32 86 Glucose 103 mg/dL 70-105 86 Sodium 141 mEq/L 134-149 86 Total Bilirubin 0.4 mg/dL 0.2-1.3 86 Total Protein 6.9 g/dL 6.3-8.1 86 Potassium 5.2 mEq/L 3.6-5.5 86 Globulin 2.8 g/dL 2.0-4.8 86 A/G Ratio 1.4 Calc 0.6-2.2 86 BUN/Creat Ratio 19.7 Calc 8.0-36.0 86 Laboratory test finding 09/05/2009 Hemoglobin A1c 5.5 % 4.1-5.7 (Fma/CMC,CX) Lipid Profile 05/02/2009 Cholesterol 215 mg/dL High 120-200 86 HDL 47 mg/dL 30-85 86 Triglycerides 182 mg/dL 30-200 86 HDL Risk Factor 4.6 CALC 4.2-7.0 86 LDL (Calculated) 131 CALC High 0-129 86 VLDL (Calculated) 36 mg/dL 0-50 86 Laboratory test finding 05/02/2009 TSH 0.99 mIU/L 0.50-6.00 86 Comprehensive Metabolic Prof 05/02/2009 Albumin 4.3 g/dL 3.8-5.5 86 Alk. Phos. 59 U/L 30-110 86 Alt (SGPT) 24 U/L 7-35 86 Ast (Sgot) 25 U/L 5-34 86 BUN 18 mg/dL 6-26 86 Calcium 9.6 mg/dL 8.6-10.2 86 Chloride 100 mEq/L 94-112 86 Creatinine 0.8 mg/dL 0.6-1.4 86 Carbon Dioxide 27 mEq/L 21-32 86 Glucose 119 mg/dL High 70-105 86 Sodium 139 mEq/L 134-149 86 Total Bilirubin 0.4 mg/dL 0.2-1.3 86 Total Protein 7.0 g/dL 6.3-8.1 86 Potassium 4.5 mEq/L 3.6-5.5 86 Globulin 2.6 g/dL 2.0-4.8 86 A/G Ratio 1.6 Calc 0.6-2.2 86 BUN/Creat Ratio 21.3 Calc 8.0-36.0 86 Laboratory test finding 05/02/2009 Hemoglobin A1c 6.0 % High 4.1-5.7 (a/[facility],CX) Surgical Pathology 01/31/2009 Surgical Pathology 87 --- <SEE NOTE> Comprehensive Metabolic 12/13/2008 Albumin 4.0 g/dL 3.8-5.5 Prof Alk. Phos. 59 U/L 30-110 Alt (SGPT) 27 U/L 7-35 Ast (Sgot) 33 U/L 5-34 BUN 23 mg/dL 6-26 Calcium 8.9 mg/dL 8.6-10.2 Chloride 102 mEq/L 94-112 Creatinine 0.9 mg/dL 0.6-1.4 Carbon Dioxide 29 mEq/L 21-32 Glucose 97 mg/dL 70-105 Sodium 136 mEq/L 134-149 Total Bilirubin 0.5 mg/dL 0.2-1.3 Total Protein 6.4 g/dL 6.3-8.1 Potassium 4.8 mEq/L 3.6-5.5 Globulin 2.4 g/dL 2.0-4.8 A/G Ratio 1.6 Calc 0.6-2.2 BUN/Creat Ratio 25.8 Calc 8.0-36.0 Laboratory test finding 12/13/2008 Hemoglobin A1c 6.2% % High 4.1-5.7 (a/[facility],CX) Laboratory test finding 08/02/2008 Hemoglobin A1c 6.1 % High 4.1-5.7 (a/[facility],CX) Lipid Profile 05/15/2008 Cholesterol 177 mg/dL 120-200 86 HDL 44 mg/dL 30-85 86 Triglycerides 172 mg/dL 30-200 86 HDL Risk Factor 4.0 CALC Low 4.2-7.0 86 LDL (Calculated) 99 CALC 0-129 86 VLDL (Calculated) 34 mg/dL 0-50 86 Laboratory test 03/02/2008 Hemoglobin A1c 6.2 High 4.1-5.7 finding Laboratory test 12/09/2007 Hemoglobin A1c 6.2 % High 4.1-5.7 finding (Fma/[facility],CX) Microalb/Creatinine, 12/09/2007 Microalb, Random <5.0 mg/L 0.5-37 Random Ur (Fma/CMC/CTX) mg/dL Urine Creatinine (F/C/CTX) 4.6 mmol/L Microalb.,Creatinine (F/C/CTX) <1.08mg/mmol Comprehensive Metabolic Prof 12/09/2007 Albumin 4.3 g/dL 3.8-5.5 Alk. Phos. 48 U/L 30-110 Alt (SGPT) 24 U/L 7-35 Ast (Sgot) 24 U/L 5-34 BUN 23 mg/dL 6-26 Calcium 9.0 mg/dL 8.6-10.2 Chloride 99 mEq/L 94-112 Creatinine 1.0 mg/dL 0.6-1.4 Carbon Dioxide 25 mEq/L 21-32 Glucose 110 mg/dL High 70-105 Sodium 140 mEq/L 134-149 Total Bilirubin 0.3 mg/dL 0.2-1.3 Total Protein 6.8 g/dL 6.3-8.1 Potassium 4.5 mEq/L 3.6-5.5 Globulin 2.5 g/dL 2.0-4.8 A/G Ratio 1.7 Calc 0.6-2.2 BUN/Creat Ratio 22.8 Calc 8.0-36.0 1 consistent w/ previous results 2 consistent w/ previous results 3 RESULTS VERIFIED BY REPEAT ANALYSIS 4 RESULTS VERIFIED BY REPEAT ANALYSIS 5 RESULTS VERIFIED BY REPEAT ANALYSIS 6 RESULTS VERIFIED BY REPEAT ANALYSIS 7 consistent w/ previous results 8 consistent w/ previous results 9 consistent w/ previous results 10 RESULTS VERIFIED BY REPEAT ANALYSIS 11 consistent w/ previous results 12 RESULTS VERIFIED BY REPEAT ANALYSIS 13 RESULTS VERIFIED BY REPEAT ANALYSIS 14 Oxyacetylene Burner: [id number] [employer] 15 FASTING 16 RESULTS VERIFIED BY REPEAT ANALYSIS 17 RESULTS VERIFIED BY REPEAT ANALYSIS 18 RESULTS VERIFIED BY REPEAT ANALYSIS 19 RESULTS VERIFIED BY REPEAT ANALYSIS 20 Because ethnic data is not always readily available, this report includes an eGFR for both -Americans and non- Americans. The National Kidney Disease Education Program (NKDEP) does not endorse the use of the MDRD equation for patients that are not between the ages of 18 and 70, are , have extremes of body size, muscle mass, or nutritional status, or are non- or non-. According to the National Kidney Foundation, irrespective of diagnosis, the stage of the disease is based on the level of kidney function: Stage Description GFR(mL/min/1.73 m(2)) 1 Kidney damage with normal or decreased GFR 90 2 Kidney damage with mild decrease in GFR 60-89 3 Moderate decrease in GFR 30-59 4 Severe decrease in GFR 15-29 5 Kidney failure <15 (or dialysis) 21 Therapeutic target for the treatment of diabetes Mellitus patients is <7% HBA1C, and in selective patients <6.0%.Please refer to [place] [employer] Diabetic care guidelines for further information. 22 SRC: URINE utainer 23 Source of Specimen: URINE 24 Source of Specimen: URINE 25 Because ethnic data is not always readily available, this report includes an eGFR for both -Americans and non- Americans. The National Kidney Disease Education Program (NKDEP) does not endorse the use of the MDRD equation for patients that are not between the ages of 18 and 70, are , have extremes of body size, muscle mass, or nutritional status, or are non- or non-. According to the National Kidney Foundation, irrespective of diagnosis, the stage of the disease is based on the level of kidney function: Stage Description GFR(mL/min/1.73 m(2)) 1 Kidney damage with normal or decreased GFR 90 2 Kidney damage with mild decrease in GFR 60-89 3 Moderate decrease in GFR 30-59 4 Severe decrease in GFR 15-29 5 Kidney failure <15 (or dialysis) 26 [facility] Severe Sepsis and Septic Shock Management Bundle Measure requires all lactic acids initially measuring >2.0 mmol/L be repeated. 27 1 sst 28 RESULTS VERIFIED BY REPEAT ANALYSIS 29 RESULTS VERIFIED BY REPEAT ANALYSIS 30 RESULTS VERIFIED BY REPEAT ANALYSIS 31 Reference ranges based on room air. 32 SEE RESULT BELOW Name: JOSE ANTONIO PHAM : [address]: Alfonso Perez MD Acct: [id number] Unit: [id number] AGE: 79 Location: THYROID Re06/07/15 SEX: F Status: REG REF SPEC: [id number] DUTCH: 06/07/15 [facility] [place] DR: Harinder Mohr MD REQ: [id number] RECD: 06/07/15 STATUS: MARIN PEREZ DR: Alfonso Osorio MD _ ORDERED: FN ASP DEEP, FNA IMMEDIATE S FINAL DIAGNOSIS Thyroid, left, Ultrasound guided, fine needle aspiration: Benign thyroid nodule- colloid/hyperplastic type. The specimen demonstrates abundant watery colloid, a moderate amount of benign appearing follicular epithelium arranged in uniform sheets, medium sized follicles and only occasional small groups. No features of papillary carcinoma are seen. In this clinical setting the risk of malignancy is less than 3%. Clinical management of this thyroid nodule should be based on clinical and radiographic features as well as the above. THYROID LEFT - US GUIDED FINE NEEDLE ASPIRATION CLINICAL HISTORY Enlarged left thyroid nodule IMMEDIATE INTERPRETATION Pass 1-adequate CONTINUED ON NEXT PAGE * ML=Testing performed at Main Lab DEPARTMENT OF PATHOLOGY, [address] [place] [address] Shamar Smyth M.D. Director [facility] # [id number] RUN DATE: 06/07/15 [facility] LAB LIVE PAGE 2 Patient: JOSE ANTONIO PHAM [id number] (Continued) GROSS DESCRIPTION (Continued) GROSS DESCRIPTION 4- alcohol fixed slide(s) 1- passes Signed (signature on file) Shamar Smyth MD [id number] END OF REPORT * ML=Testing performed at Main Lab DEPARTMENT OF PATHOLOGY, [address] [place] [address] Shamar Smyth M.D. Director [facility] # [id number] 33 consistent w/ previous results 34 1 SST; 1 LAV 35 HGBA1C (%) GLUCOSE CONTROL <6 NORMAL >=6.5 SUGGESTIVE OF DIABETES 36 >59 mL/min/1.73m2 37 >59 mL/min/1.73m2 Note: Persistent reduction for 3 months or more in an eGFR <60 mL/min/1.73m2 defines CKD. Patients with eGFR values >=60 mL/min/1.73m2 may also have CKD if evidence of persistent proteinuria is present. Additional information may be found at www.kidney.org/professionals/kdoqi. 38 Because ethnic data is not always readily available, this report includes an eGFR for both -Americans and non- Americans. The National Kidney Disease Education Program (NKDEP) does not endorse the use of the MDRD equation for patients that are not between the ages of 18 and 70, are , have extremes of body size, muscle mass, or nutritional status, or are non- or non-. According to the National Kidney Foundation, irrespective of diagnosis, the stage of the disease is based on the level of kidney function: Stage Description GFR(mL/min/1.73 m(2)) 1 Kidney damage with normal or decreased GFR 90 2 Kidney damage with mild decrease in GFR 60-89 3 Moderate decrease in GFR 30-59 4 Severe decrease in GFR 15-29 5 Kidney failure <15 (or dialysis) 39 >100 to <200 pg/mL: likely compensated congestive heart failure (CHF) 200 to 400 pg/mL: likely moderate CHF >400 pg/mL: likely moderate to severe CHF [facility] 40 Therapeutic target for the treatment of diabetes Mellitus patients is <7% HBA1C, and in selective patients <6.0%.Please refer to [place] [employer] Diabetic care guidelines for further information. 41 Desirable <150 Borderline high 150-199 High 200-499 Very High >500 42 Desirable <200 Borderline high 200-239 High >239 43 Low <40 Desirable: 40-60 High: >60 44 Desirable <100 Near Optimal 100-129 Borderline high 130-159 High 160-189 Very High >189 45 RESULT JESSICA'D 46 RESULT JESSICA'D 47 AA 05/24 48 Recommended INR for Patients on Oral Anticoagulants Prophylaxis 2.0 - 3.0 Treatment of thrombosis 2.0 - 3.0 Prevention of embolism 2.0 - 3.0 Prevention of embolism from prosthetic heart valves 2.5 - 3.5 49 DIAGNOSIS,TREATMENT,AND THERAPY MUST BE BASED ON THE INR VALUE ALONE. 50 PREADMISSION TESTING SAMPLES FOR BLOOD BANK WILL BE HELD FOR 14 DAYS FROM THE DATE OF COLLECTION *IF* THE FOLLOWING CRITERIA ARE MET: 1) THE PATIENT HAS *NOT* BEEN IN THE LAST 3 MONTHS. 2) THE PATIENT HAS *NOT* BEEN TRANSFUSED IN THE LAST 3 MONTHS. PREADMISSION TESTING SAMPLES WILL *NOT* BE HELD FOR 14 DAYS FROM PATIENTS WHO IN THE LAST 3 MONTHS: 1) HAVE BEEN 2) HAVE BEEN TRANSFUSED THESE PATIENTS *MUST* BE COLLECTED WITHIN 3 DAYS OF THE SURGERY DATE. 51 RUN DATE: 05/19/12 [facility] NMI LIVE PAGE 1 RUN TIME: 843 Specimen Inquiry RUN USER: INTERFACE Name: JOSE ANTONIO PHAM#: [id number] Status: REG REF Re05/17/12 Age/Sex: 76/F Unit#: [id number] Location: ANTONY Martel. : 37 SPEC #: [id number] DUTCH: 05/17/12 STATUS: COMP REQ #: [id number] RECD: 05/17/12 [facility] [place] DR: Jonah SUTTON,Luis Miner SOURCE: URINE ENTR: 05/17/12-[address] [facility] [address]: Alyson SUTTON,Gregorio Miner [facility]: ORDERED: URINE C S ACT WKST: UR 05/19/12 #1 Procedure Result Verified Site > URINE CULTURE SENSITIVI Final -0843 ML Organism 1 ENTEROBACTERIACEAE Small quantity of enterobacteriaciae typically suggestive of fecal contamination. Suggest resubmission. Isolates will be saved for one week. Please call the Microbiology Laboratory if further identification and/or susceptibility testing is needed. COLONY COUNT 1-10,000 ORGANISMS/ML (FEW) ML - [facility] Permit #[id number] [address] [place] [address] DEPARTMENT OF PATHOLOGY, [address] [place] [address] [facility] Permit #[id number] Shamar Smyth M.D. Director Matthew Bonner M.D. Gripper Machine Operator 52 Negative <20 Weak positive 20 - 39 Moderate positive 40 - 59 Strong positive >59 53 result jessica'd 54 result reckd' 55 RESULT JESSICA'D 56 RESULT JESSICA'D 57 MOD GRAM POSITIVE COCCI BY DIRECT SMEAR MANY 58 STAPHYLOCOCCUS AUREUS F^FEW^QTY 59 TEST LIMITATIONS: The performance of specimens from pediatric patients has not been evaluated. A positive test confirms the presence of toxins A and/or B only. A physician must use the test results in conjunction with other diagnostic procedures and the patient's clinical condition to establish a diagnosis of C.difficile-associated disease. Isolates of C. sordellii may react with this test due to immunological identitiy of the C. sordellii toxins. Two distinct groups have been identified that can harbor C. difficile asymptomatically at very high rates. Colonization rates of up to 50% and higher have been reported in infants and rates of up to 32% in cystic fibrosis patients. 60 NEGATIVE BY IMMUNOASSAY 61 NO ORGANISMS SEEN BY DIRECT SMEAR RARE 62 FINAL: NO GROWTH DAY 4 63 This test was developed and its performance characteristics determined by Laboratory Medicine and Pathology, [facility]. This test has not been cleared or approved by the U.S. Food and Drug Administration. Test performed by: [employer] [address], [place] [address] 64 Negative for Bordetella pertussis/parapertussis DNA 65 RESULT JESSICA'D 66 RESULT JESSICA'D 67 RESULT JESSICA'D 68 RESULT JESSICA'D 69 RESULT JESSICA'D NO HEMOLYSIS 70 FEW GRAM POSITIVE COCCI MODERATE 71 NORMAL RESPIRATORY WAYNE 72 COMMENTS: BLOOD CULTURES X 2 73 NO GROWTH AFTER 5 DAYS 74 NO GROWTH AFTER 5 DAYS 75 VERBAL TO JEREMY BY TARAS at 1334 on 01/27/11. Results read back accurately. 76 Anion gap measurement may be of limited value in the presence of any alkalosis, especially in a combined acid base disorder. . 77 A metabolite of Naproxen, O-desmethylnaproxen, has been shown to interfere with the [place] method for measuring total bilirubin. Samples from patients who have taken Naproxen have shown spurious elevation in total bilirubin levels. 78 Because ethnic data is not always readily available, this report includes an eGFR for both -Americans and non- Americans. The National Kidney Disease Education Program (NKDEP) does not endorse the use of the MDRD equation for patients that are not between the ages of 18 and 70, are , have extremes of body size, muscle mass, or nutritional status, or are non- or non-. According to the National Kidney Foundation, irrespective of diagnosis, the stage of the disease is based on the level of kidney function: Stage Description GFR(mL/min/1.73 m(2)) 1 Kidney damage with normal or decreased GFR 90 2 Kidney damage with mild decrease in GFR 60-89 3 Moderate decrease in GFR 30-59 4 Severe decrease in GFR 15-29 5 Kidney failure <15 (or dialysis) 79 New Reference Range and Interpretation effective 08/12/2002 TnI (ng/ml) INTERPRETATION Less Than 0.06 ng/mL NOT SUPPORTIVE OF DIAGNOSIS OF [place] 0.06 - 0.50 ng/ml INDETERMINATE: SUGGEST SERIAL STUDIES IF CLINICALLY INDICATED. Greater than 0.5 ng/mL CONSISTENT WITH DIAGNOSIS OF [place] . 80 Neutrophilia % Lymphopenia % 81 NO GROWTH AFTER 5 DAYS 82 NO GROWTH AFTER 5 DAYS 83 result jessica'd 84 result jessica'd 85 RESULT JESSICA'D 86 FASTING 87 ---- RUN DATE: 02/01/09 [facility] NMI LIVE PAGE 1 RUN TIME: 1437 Specimen Inquiry RUN USER: INTERFACE -- Name: JOSE ANTONIO PHAM [facility]#: [id number] Status: REG REF Re01/31/09 Age/Sex: 73/F Unit#: [id number] Location: [address] [place] [address]. : 37 -- [id number] Date: 01/[facility]/[address]: Jaron ireland MD Spec Type: SURGICAL P Received: 01/31/09-5557 Copies to: Gregorio cuellar MD SPECIMEN 1) BIOPSY PROXIMAL TRANSVERSE POLYP 2) BIOPSY RECTAL POLYP AT 30 CM. HISTORY POST-OP DIAGNOSIS: Colon polyps CLINICAL INFORMATION: Positive family history of colon carcinoma (son, lo dorian colon); patient denies GI symptoms GROSS DESCRIPTION 1) Specimen is received in formalin labelled Jose Antonio Pham, Proximal Transverse Polyp and consists of two fragments of acrdozo-brown tissue each measuring 0.4 x 0.3 x 0.3 cm. Submitted entirely one cassette labelled one. 3) Specimen is received in formalin labelled Jose Antonio Pham, Rectal Polyp at 30 cm. and consists of one fragment of cardozo-brown tissue measuring 0.3 x 0.2 x 0.2 cm. Submitted entirely, one cassette labelled two. DIAGNOSIS 1. Proximal transverse colon, biopsy: A) Tubular adenoma. B) No high grade dysplasia or malignancy. 2. Rectal, polyp at 30 cm, biopsy: Hyperplastic polyp. Signed Electronically by: MATTHEW BONNER 02/01/09 1437 -- -- DEPARTMENT OF PATHOLOGY, [address] [place] [address] [facility] Permit #[id number] Shamar Smyth M.D. Director Matthew Bonner M.D. Instrument Lens Inspector Dir hawthorne -- Procedures Date CPT Code Description Status Comment 09/09/2014 Diabetic Retinal Eye Exam Completed 03/28/2014 Colonoscopy Completed 02/02/2013 18533 Allergy Injection Two Or More Completed 01/25/2013 28811 Allergy Injection Two Or More Completed 01/11/2013 98136 Allergy Injection Two Or More Completed 12/29/2012 66421 Allergy Injection Two Or More Completed 12/03/2012 44833 Allergy Injection Two Or More Completed 11/17/2012 26981 Allergy Injection Two Or More Completed 11/12/2012 50514 Allergy Injection Two Or More Completed 11/05/2012 40691 Allergy Injection Two Or More Completed 10/27/2012 96766 Allergy Injection Two Or More Completed 10/13/2012 48160 Allergy Injection Two Or More Completed 10/07/2012 09047 Allergy Injection Two Or More Completed 09/27/2012 84249 Allergy Injection Two Or More Completed 09/17/2012 98824 Allergy Injection Two Or More Completed 08/30/2012 55625 Allergy Injection Two Or More Completed 08/24/2012 38397 Allergy Injection Two Or More Completed 08/17/2012 93192 Allergy Injection Two Or More Completed 08/09/2012 92805 Allergy Injection Two Or More Completed 08/03/2012 33288 Allergy Injection Two Or More Completed 07/13/2012 51294 Allergy Injection Two Or More Completed 07/06/2012 76590 Allergy Injection Two Or More Completed 07/06/2012 94721 Allergy Injection Two Or More Completed 06/29/2012 19440 Allergy Injection Two Or More Completed 06/17/2012 53142 Allergy Injection Two Or More Completed 06/09/2012 92264 Allergy Injection Two Or More Completed 05/17/2012 72231 Allergy Injection Two Or More Completed 05/10/2012 73054 Allergy Injection Two Or More Completed 05/10/2012 12332 Electrocardiogram Complete Completed 05/05/2012 27154 Allergy Injection Two Or More Completed 01/15/2012 Mammogram Completed 11/09/2011 Bone Mineral Density Test Completed osteoporosis 04/16/2011 01108 Pulse Oximetry Completed 04/02/2011 68783 Pulse Oximetry Completed 03/26/2011 84643 Pulse Oximetry Completed 03/05/2011 73119 Pulse Oximetry Completed 02/19/2011 10394 Pulse Oximetry Completed 02/12/2011 66129 Pulse Oximetry Completed 01/31/2009 Colonoscopy Completed 08/22/2008 Mammogram Completed Encounters Type Date Location Provider CPT E/M Dx Office Visit 01/15/2018 9:30a [facility] [place], [address] W01.10xA METHANE GAS COLLECTION SYSTEM OPERATOR R05 J44.9 N18.9 I10 S00.83xA Office Visit 08/04/2017 3:00p [facility] Shelly Mathew M.D. 47470 Z00.00 E11.9 I10 J44.9 G89.4 F33.1 N18.9 M81.0 Z12.31 D64.9 Z23 G31.84 Office Visit 11/05/2016 9:40a [facility] Shelly Dago Mathew 37321 M25.531 G89.4 M15.0 I10 E11.9 M80.831A Office Visit 06/18/2016 1:40p [facility] Shelly Dago Mathew 70556 G89.4 M15.0 I10 E11.9 M54.5 J44.9 Office Visit 05/07/2016 2:45p [facility] Kayla Khanna Afnp-C 60924 R30.0 Office Visit 02/27/2016 2:15p [facility] Kayla Khanna Afnp-C 76272 G89.4 M15.0 J44.9 I10 J45.998 Office Visit 01/21/2016 1:00p [facility] Shelly Mathew M.D. 54074 G89.4 E11.9 I10 M15.0 M54.5 F33.1 J44.9 Office Visit 10/19/2015 11:00a [facility] Quang Osorio M.D. 10492 I10 E78.2 E11.9 M15.0 Office Visit 07/03/2015 4:20p [facility] Quang Osorio M.D. 30897 782.3 715.09 Office Visit 06/12/2015 8:10a [facility] Office Quang Osorio M.D. 26785 782.3 715.09 Office Visit 05/04/2015 2:10p [facility] Quang Osorio M.D. 26120 241.0 Office Visit 02/27/2015 1:20p [facility] Office Quang Osorio M.D. 91510 715.09 401.9 250.00 272.4 Office Visit 10/27/2014 1:40p [facility] Office Quang Osorio M.D. 25886 486 250.00 401.9 724.09 781.2 296.31 Office Visit 08/24/2014 10:50a [facility] Quang Osorio M.D. 93312 959.01 E916 Office Visit 07/28/2014 1:00p [facility] Office Quang Osorio M.D. 28297 250.00 401.9 272.4 724.09 493.90 Office Visit 05/08/2014 3:00p [facility] Alicia Cartagena, [facility] 33788 723.1 Office Visit 03/07/2014 1:30p [facility] Gregorio Shields M.D. 79743 250.00 401.9 272.4 493.90 715.16 296.31 724.09 733.00 Office Visit 12/12/2013 11:10a [facility] Office Gregorio Shields M.D. 35638 250.00 401.9 272.4 493.90 715.16 296.31 724.09 995.3 Office Visit 07/26/2013 11:20a [facility] Office Gregorio Shields M.D. 57146 250.00 401.9 272.4 493.90 715.16 733.00 296.31 724.09 995.3 Office Visit 03/15/2013 11:00a [facility] Office Gregorio Shields M.D. 62263 250.00 493.90 401.9 715.16 733.00 272.4 296.31 724.09 791.7 Office Visit 12/17/2012 11:40a [facility] Office Gregorio Shields M.D. 53501 786.2 493.90 250.00 Office Visit 08/30/2012 8:40a [facility] Office Gregorio Shields M.D. 88292 250.00 401.9 493.90 995.3 715.16 733.00 272.4 296.31 Office Visit 05/10/2012 1:15p [facility] Gregorio Shields M.D. 00326 V72.83 V70.0 715.16 733.00 250.00 401.9 493.90 272.4 995.3 Office Visit 04/12/2012 9:40a [facility] Office Gregorio Shields M.D. 05539 733.00 715.16 493.90 250.00 401.9 272.4 995.3 Office Visit 03/09/2012 11:40a [facility] Office Gregorio Shields M.D. 10452 715.16 250.00 401.9 493.90 716.99 Office Visit 01/07/2012 8:40a [facility] Gregorio Shields M.D. 31271 250.00 401.9 493.90 272.4 715.16 Office Visit 10/27/2011 2:20p [facility] Gregorio Shields M.D. 33692 493.90 719.46 250.00 401.9 995.3 709.9 272.4 Office Visit 09/23/2011 2:00p [facility] Office Leah Majano, Stef 89111 782.1 786.2 493.90 Office Visit 07/30/2011 10:30a [facility] Office Gregorio Shields M.D. 29576 682.3 250.00 493.90 401.9 v04.81 Office Visit 07/16/2011 10:30a [facility] Office Gregorio Shields M.D. 78918 682.3 250.00 493.90 401.9 782.3 Office Visit 07/08/2011 11:20a [facility] Office Gregorio Shields M.D. 90523 682.3 782.3 493.90 250.00 Office Visit 07/04/2011 3:30p [facility] Kayla KhannaStef 12212 682.3 Office Visit 07/01/2011 11:00a [facility] Gregorio Shields M.D. 10321 682.3 250.00 787.91 Office Visit 06/27/2011 11:20a [facility] Trang Peterson M.D. 30372 682.3 250.00 401.9 493.90 729.1 Office Visit 06/26/2011 10:40a [facility] Office Trang Peterson M.D. 21025 682.3 786.2 782.3 Office Visit 06/11/2011 2:40p [facility] Gregorio Shields M.D. 53278 782.3 Office Visit 05/21/2011 10:00a [facility] Office Gregorio Shields M.D. 29877 995.3 493.90 995.1 250.00 327.52 Office Visit 04/16/2011 11:00a [facility] Office Gregorio Shields M.D. 62044 729.1 493.90 401.9 250.00 995.3 Office Visit 04/02/2011 11:00a [facility] Gregorio Shields M.D. 40317 493.90 401.9 250.00 Office Visit 03/26/2011 9:40a [facility] Gregorio Shields M.D. 13328 493.90 401.9 250.00 Office Visit 03/11/2011 3:10p [facility] Gregorio Shields M.D. 40352 483.8 250.00 401.9 Office Visit 03/05/2011 4:00p [facility] Gregorio Shields M.D. 72510 483.8 250.00 780.79 493.90 Office Visit 02/19/2011 10:20a [facility] Office Gregorio Shields M.D. 55266 483.8 276.1 250.00 401.9 285.9 780.79 Office Visit 02/12/2011 11:00a [facility] Office Gregorio Shields M.D. 99870 483.8 276.1 250.00 401.9 285.9 Office Visit 02/05/2011 1:20p [facility] Gregorio Shields M.D. 23896 483.8 276.1 250.00 401.9 Office Visit 11/26/2010 1:00p [facility] Gregorio Shields M.D. 66488 250.00 401.9 715.09 272.4 296.31 Office Visit 06/05/2010 2:30p [facility] Gregorio Shields M.D. 75003 715.09 250.00 272.4 716.97 Office Visit 03/25/2010 3:00p [facility] Gregorio Shields M.D. 00397 250.00 401.9 272.4 296.31 493.90 733.90 461.0 Office Visit 11/14/2009 9:00a [facility] Office Gregorio Shields M.D. 97663 250.00 401.9 272.4 296.31 715.09 278.02 333.94 473.1 Office Visit 09/10/2009 1:00p [facility] Office Gregorio Shields M.D. 44077 272.4 250.00 401.9 296.31 333.94 Office Visit 08/15/2009 10:00a [facility] Office Gregorio Shields M.D. 84135 250.00 401.9 272.4 296.31 278.02 715.09 493.90 785.0 Office Visit 05/09/2009 1:40p [facility] Office Gregorio Shields M.D. 46015 785.0 250.00 401.9 272.4 Office Visit 04/18/2009 1:10p [facility] Gregorio Shields M.D. 12058 401.9 250.00 296.31 716.99 278.02 Office Visit 12/13/2008 2:00p [facility] Office Gregorio Shields M.D. 59513 401.9 250.00 296.31 716.99 Office Visit 09/29/2008 10:40a [facility] Office Gregorio Shields M.D. 64161 V04.81 250.00 401.9 296.31 715.09 Office Visit 08/16/2008 10:40a [facility] Office Gregorio Shields M.D. 23375 250.00 401.9 785.0 296.31 Office Visit 08/02/2008 3:40p [facility] Gregorio Shields M.D. 80252 250.00 785.0 401.9 Office Visit 05/05/2008 10:40a [facility] Office Gregorio Shields M.D. 01736 250.00 716.99 278.02 Office Visit 03/02/2008 10:40a [facility] Office Gregorio Shields M.D. 55987 716.99 278.02 250.00 782.1 Office Visit 02/16/2008 11:00a [facility] Office Gregorio Shields M.D. 71891 465.9 493.90 250.00 723.1 V03.82 Office Visit 01/14/2008 4:10p [facility] Gregorio Shields M.D. 09066 250.00 716.99 401.9 Office Visit 01/07/2008 3:00p [facility] Gregorio Shields M.D. 04827 250.00 716.99 401.9 Office Visit 12/09/2007 10:00a [facility] Office Gregorio Shields M.D. 11559 716.99 493.90 401.9 250.00 Plan of Care Future Appointment(s):03/09/2018 2:40 pm - Shelly Mathew M.D. at [facility] Ksxbnk3402/01/2018 - [place] He, [id number] JnxgjO84.9 Chronic obstructive pulmonary disease, hxltbezfemyG89.9 Chronic kidney disease, yljugpwymjpP17 Essential (primary) hypertensionComments:The patient will continue to monitor blood pressure in the near future, and let me know the blood pressure results if there are readings above 135/85.R79.9 Abnormal finding of blood chemistry, unspecifiedComments:Given your recent renal function we need to be VERY CAREFUL with your medicationsI want you and one of your children or a friend to sit down together and MAKE SURE THE LIST IS CORRECTDr Mauser thinks you're taking: FERROUS FEMARATEVIACTIVHYLAND'S LEG CRAMP REMEDYAre you taking these?We have restarted the VERAPAMIL, but at a LOWER DOSE--please return to clinic in [address] Mathew or [facility] to follow-up on the blood pressure and the swelling COMPRESSION HOSE: Available at most drug stores, will help with swelling; feel alot like your hose, just glvkguhP70.0 Localized edemaAllNew Medication:Verapamil HCL ER 120 mgComments:~B_~U_Medication Management~b_~u_ Patient Understands medications he 's taking? Yes No Are there Barriers to Adherence? Yes No Has the patient been asked about herbal supplements and therapies, and OTC meds? Yes No ~B_~U_ Care Plan~b_~u_1. Patient has been queried aboutpatient's goals/preferences and functional/lifestyle goals at relevant visits. If relevant, describe: determine appropriate medication list2. Treatment goals as explained to the patient: above3. Arethere barriers to meeting treatment goals? Yes No If Yes, please describe:4. Self-Management goals as described to the patient: Yes No
--- OUTSIDE RECORDS SUMMARY | 2018-02-15 13:19 | XMS REPORT ---
:1935 External Reference #:[id number] Author Organization [facility] Address [address] [address] Phone [phone] Care Team Providers Name Role Phone Luis Mckenzie MD Care Team Information General Education Professor Unavailable Yasmany Osorio MD Primary Care Physician Unavailable Payers Type Date Identification Numbers Payment Provider Subscriber Medicare Primary Effective: Policy Number: Medicare Michelle Del Castillo 2000 [id number] PayID: [id number] [address] [place] [address] Medigap Part B Policy Number: [id number] [employer] Michelle Del Castillo Group Number: [id number] [address] PayID: [id number] [place] [address] [place] Part B Expires: 2016 Policy Number: [employer] Insurance Yasmany Del Castillo [id number] Group Number: [id number] [address] PayID: [id number] [place] [address] Problems Date Description Provider Status Onset: 03/14/2014 Conduction disorder of the heart Jim Martin M.D. Active Onset: 03/14/2014 Benign essential hypertension Jim Martin M.D. Active Onset: 03/14/2014 Mitral valve disorder Jim Martin M.D. Active Onset: 03/14/2014 Difficulty breathing Jim Martin M.D. Active Onset: 06/19/2014 Chronic asthmatic bronchitis Jim Martin M.D. Active Onset: 06/19/2014 Chest pain Jim Martin M.D. Active Onset: 09/06/2015 Sciatica Luis Mckenzie M.D. Active Onset: 01/16/2016 Essential hypertension Jim Martin M.D. Active Onset: 02/19/2016 Chronic obstructive lung disease PARUL [place] Active Onset: 11/07/2016 Closed fracture of distal end of Yasmany Zhao MD Active radius Onset: 10/08/2016 Arthralgia of the pelvic region and Sera Gunter M.D. 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 Cigarette Use Quit In Her 40'S ETOH Use Denies alcohol use Smoking Patient is a former smoker 29yrs ago Recreational Drug Use Denies Drug Use Daily Caffeine 1 Cup Of Coffee Daily Exercise Type/Frequency Exercises rarely Exercise Limitations Rides Stationary Bike 15-20 minutes daily, limited during the hot weather Allergies, Adverse Reactions, Alerts Date Description Reaction Status Severity Comments 05/30/2008 Belladonna active 05/30/2008 Butazolidin active 05/30/2008 Valium active 05/30/2008 shellfish sensity active lobster only-edema 03/14/2014 Lipitor active 04/14/2014 IV Contrast ( Iodine) active Per patient and [facility] record 04/14/2014 Paper Tape red rash at site active per patient 04/14/2014 Perfume cough/ triggers active per patient asthma 04/14/2014 Cinnamon triggers asthma active per patient 04/14/2014 Cigarette Smoke triggers asthma active per patient Medications Medication Date Status Form Strength Qnty SIG Indications Ordering Provider Ferrous Fumarate 11/07 Active Tablets 10mg 30tab 1 by mouth s every day MD Cece Neurontin 09/06 Active Capsules 100mg 60cap 1 in s Am, 1 Jonah, midday and M.DJuan A 2 at hs Lorazepam 09/06 Active Tablets 1mg 3tabs one tab prior to Jonah, bloodwork M.D. being done Verapamil HCL ER 01/08 Active Caps ER 120mg 180ca take 1 tab 24HR ps by mouth F. Sammyuser, twice a M.D. day Losartan 06/19 Active Tablets 25mg 180ta 1 tab by bs mouth F. Mauser, twice a M.D. day Oxygen 04/14 Active Misc 2L 1MTHS nasal 799.02 upply cannula 2l F. Mario, during M.D. sleep overnight with humidifcat ion. Soma 05/30 Active Tablets 350mg 30tab qid prn Delvis jayne Sorensen M.D. Multi-Vitamin 05/30 Active Tablets 90tab 1 PO qd Leatha jayne Sorensen M.D. Crestor Active Tablets 10mg 90tab 1 by mouth Unknown /0000 s every day One Daily Womens Active Tablets 1 tablet Unknown /0000 po daily Vitamin D3 High Active Capsules 1000Unit 1 by mouth Unknown Potency /0000 every day Levocetirizine Active Tablets 5mg 30tab 1 by mouth Unknown Dihydrochloride /0000 s every day Montelukast Active Tablets 10mg 90tab 1 by mouth Unknown Sodium /0000 s every day Viactiv Active Chewtabs 500-500-4 60uni 2 chewtabs Unknown /0000 0mg-Unt-m ts at night cg Advil Active Capsules 200mg 200ca as needed Unknown /0000 ps Fosamax Active Tablets 70mg 12tab one tablet Unknown /0000 s weekly Sertraline HCL Active Tablets 100mg 2 tablet Shields, /0000 po daily MD Gregorio Oxycodone-Acetam Active Tablets 5-325mg 1 tablet Unknown inophen /0000 po daily ,extra 1/2 tablet if needed Eye Drops Active 1 gtt each Unknown /0000 eye at night to prevent on set of glaucoma Ventolin HFA Active Aerosol 108(90Bas 2 puffs by Unknown /0000 e) mouth four mcg/Act times a day as needed Curry's Night Active Unknown Leg Cramp Olopatadine HCL Active Solution 0.1% 1 drop in Unknown eyes twice a day (not sure which eye drops she uses) Latanoprost Active Solution 0.005% Unknown Albuterol Active Nebulizer 1.25mg/3M every 6 Unknown Sulfate 0000 L hours as needed Oxycodone HCL 11/13 Hx Capsules 5mg 60cap 1-2 tabs s by mouth MD Cece - every 4-6 01/26 hours needed pain MS Contin 11/13 Hx Tablets ER 15mg 10tab take one s tab twice MD Cece - a day as 01/26 needed pain Bactrim DS 04/28 Hx Tablets 800-160mg 14tab 1 tablet s by mouth Krishna, - twice a 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 01/26, Thursday, and thursday Calan SR 03/28 Hx Tablets ER 120mg 100ta 1 by mouth Jim bs every day Dg Mccollum M.D. 01/04 Potassium 03/15 Hx Capsules ER 10Meq 180ca 2 by mouth Jim Chloride ps every day Dg Mccollum M.D. 03/15 Cartia XT 03/14 Hx Caps ER 120mg 90cap 1 by mouth Jim 24HR s every day Dg Mccollum M.D. 03/28 Cardizem CD 03/14 Hx Caps ER 120mg 30cap 1 by mouth Jim 24HR s every Valentina Martin - day(on M.D. 03/28 hold as 03/23) Percocet 06/23 Hx Tablets 5-325mg 80tab 1-2 po q6h s prn pain Jonah, Dg Loza 03/14 Oxycodone HCL 06/23 Hx Tablets 5mg 80tab 1-2 po qid s prn no Jonah, - effect M.D. 04/13 percocet Voltaren 08/04 Hx Gel 1% 500gm apply 2 grams to Jonah, - affected M.D. 03/14 area tid prn Percocet 06/30 Hx Tablets 5-325mg 60tab 1-2 tabs s po bid prn Jonah, - pain M.D. 06/23 Flexeril 06/30 Hx Tablets 10mg 50tab 1 po bid s prn Jonah, - M.D. 08/04 Bactrim DS 05/19 Hx Tablets 800-160mg 14tab 1 po bid s for 7 days Dg Mckenzie.Faviola 03/14 Cardizem CD 07/20 Hx Caps ER 240mg 30cap 1 po qd Qutayb 24HR s S. - Maghaydah, 03/14 M.D. Vicodin 05/30 Hx Tablets 5-500mg 60tab 1 Q 4-6 Qutayb s Hours prn S. - Maghaydah, 03/14 M.D. Metformin HCL 05/30 Hx Tablets 500mg 180ta 1 PO bid [facility] /2017 Celebrex 05/30 Hx Capsules 100mg 60cap 100 mg Qutaybeh s once daily S. - Maghaydah, 03/17 M.D. /2016 Proventil HFA 05/30 Hx Aerosol 108mcg/Ac 1Mon 2 puff(S) Qutayb t Inhalation S. - 1 qid prn Maghaydah, 03/14 M.D. Advair Diskus 05/30 Hx Misc 500/50 1 puff bid Qutayb S. - Maghaydah, 03/27 M.D. /2014 Quyen-D 05/30 Hx Tablets ER 60mg 30tab 1 PO bid Qutaybeh 12HR s prn S. - Maghaydah, 07/20 M.D. /2007 Prevacid 05/[address] 30mg 90cap 1 PO qd Qutayb [facility], 03/14 M.D. Evista 05/30 Hx Tablets 60mg 90tab 1 PO qd Qutayb [facility], 07/20 M.D. Zoloft 05/30 Hx Tablets 25mg 30tab 1 PO qd Qutayb [facility], 04/13 M.D. /2013 HCTZ 05/30 Hx 25mg. 30uni 1 PO qd Qutayb [facility], 03/14 M.D. /2013 Lisinopril 05/30 Hx Tablets 20mg 30tab 1 PO qd Qutayb [facility], 03/14 M.D. /2013 Norvasc 05/30 Hx Tablets 10mg 30tab 1 PO qd Qutayb [facility], 07/20 M.D. /2007 Gabapentin 05/30 Hx Capsules 100mg 150ca 1 tablet ps po am, 1 S. - [facility], 02/18 afternoon, M.D. 2 tabs in the afternoon Calcium 05/30 Hx as directed [facility], 04/13 M.D. Nasacort Aq Hx Aerosol 55mcg/Act 1unit Use 1 Unknown /0000 s Filer Ea - Nostril 03/14 QHS prn Furosemide Hx Tablets 20mg 7tabs 1 by mouth Unknown /0000 every - morning 06/19 Dulera Hx Aerosol 200-5mcg/ 13gm 2 puff Unknown /0000 Act twice a - day 11/21 Theophylline ER 00 Hx Tablets ER 200mg 180ta 1 by mouth Unknown /0000 12HR bs twice a - day 04/[address] 20mg 30cap 1 by mouth Unknown /0000 s every day - 01/14 Iron Hx Tablets 10mg 1 po qd Unknown /0000 - 02/18 Losartan Hx Tablets 50mg 30tab 1 by mouth Unknown Potassium /0000 s every day - 06/19 Amlodipine 00/00 Hx Tablets 10mg 90tab 1 by mouth Unknown Besylate /0000 s every day - 03/14 Spiriva Hx Capsules 18mcg 90cap 1 Unknown Handihaler /0000 s inhalation - by mouth 01/04 at night /2014 Dymista Hx Suspension 137-50mcg 1 spray ea Unknown /0000 /Act nostril - twice a /2014 Pataday Hx Solution 0.2% 2.500 1 drop in Unknown /0000 ml each eye - once daily 02/18 Qvar 00/ Hx Aerosol 80mcg/Act 2 puff Wilson, /0000 twice a - day ( MD socorro 11/21 given) Avelox 00 Hx Tablets 400mg 10tab 1 every Unknown /0000 s day x 10 - days 01/04 Aerospan Hx 80mcg inhale 4 Unknown /0000 puff twice - daily 01/26 Verapamil HCL 0000 Hx Tablets 120mg 90tab 1 by mouth Unknown /0000 s every day - 01/08 Prednisone 00/00 Hx Tablets 5mg 6 tabs bid Unknown /0000 x5 days - 01/14 Potassium 00/00 Hx 10Meq 1 tablet Unknown Chloride ER /0000 daily - 01/15 Carisoprodol 00 Hx Tablets 350mg 1 tab Unknown /0000 tid/prn - 01/26 Metformin HCL ER 00/00 Hx Tablets ER 500mg 1 by mouth Unknown (Osm) /0000 24HR every - day(patien 01/26 t does take) Alendronate 00 Hx Tablets 70mg 1 by mouth Unknown Sodium /0000 weekly - 02/18 Cholestyramine 0000 Hx Packet 4gm 1 packet Unknown /0000 twice a - day x 1o 01/26 days(Patie /2018 nt states she has never taken this) Flunisolide 0000 Hx Solution 25mcg/Act 1 spray Unknown /0000 (0.025%) each marybeth - every day 02/19 Potassium 00/00 Hx Tablets ER 10Meq 1 by mouth Unknown Chloride Anais ER /0000 every - day(does 01/26 not take) /2017 Vital Signs Date Vital Result Comment 01/27/2018 Height 56 inches 4'8" Heart Rate 88 /min BP Systolic Sitting 168 mmHg L/A Reg Cuff BP Diastolic Sitting 74 mmHg L/A Reg Cuff Ejection Fraction 55-60% Echo 03/21/2014 03/18/2017 Height 56 inches 4'8" Weight 120.00 lb Heart Rate 70 /min BP Systolic Sitting 120 mmHg BP Diastolic Sitting 70 mmHg Respiratory Rate 16 /min Body Temperature 97.7 F Pain Level 0 BMI (Body Mass Index) 26.9 kg/m2 02/19/2017 Height 57 inches 4'9" Weight 130.00 lb per pt home scale Heart Rate 82 /min BP Systolic Sitting 172 mmHg Lue reg cuff BP Diastolic Sitting 78 mmHg Lue reg cuff BP Systolic Standing 168 mmHg Lue reg cuff BP Diastolic Standing 76 mmHg Lue reg cuff BP Systolic Lying Down 139 mmHg lue repeat sitting BP Diastolic Lying Down 71 mmHg lue repeat sitting Respiratory Rate 16 /min BMI (Body Mass Index) 28.1 kg/m2 Ejection Fraction 55-60% 03/21/2014-echo 12/30/2016 Height 57 inches 4'9" Weight 100.00 lb Pain Level 3 BMI (Body Mass Index) 21.6 kg/m2 12/10/2016 Height 57 inches 4'9" Heart Rate 100 /min Respiratory Rate 20 /min Body Temperature 98.0 F Pain Level 1 11/25/2016 Height 57 inches 4'9" Weight 135.00 lb Body Temperature 99.0 F Pain Level 0 BMI (Body Mass Index) 29.2 kg/m2 11/07/2016 Height 57 inches 4'9" Weight 135.00 lb Respiratory Rate 17 /min Pain Level 5 BMI (Body Mass Index) 29.2 kg/m2 10/08/2016 Height 58 inches 4'10" Respiratory Rate 16 /min Pain Level 2 06/18/2016 Height 58 inches 4'10" Weight 140.00 lb Pain Level 0 BMI (Body Mass Index) 29.3 kg/m2 04/25/2016 Height 58 inches 4'10" Weight 143.00 lb Pain Level 4 BMI (Body Mass Index) 29.9 kg/m2 03/24/2016 Respiratory Rate 18 /min Body Temperature 98.8 F Pain Level 4 02/19/2016 Heart Rate 76 /min BP Systolic Sitting 136 mmHg LA reg cuff BP Diastolic Sitting 72 mmHg LA reg cuff Respiratory Rate 18 /min Ejection Fraction 55-60% 03/21/14 01/16/2016 Heart Rate 84 /min BP Systolic Sitting 120 mmHg LA, regular cuff BP Diastolic Sitting 62 mmHg LA, regular cuff Ejection Fraction 55-60% echo 03/21/14 09/06/2015 Height 58 inches 4'10" Weight 143.00 lb Heart Rate 91 /min BP Systolic Sitting 84 mmHg BP Diastolic Sitting 59 mmHg BMI (Body Mass Index) 29.9 kg/m2 06/27/2015 Heart Rate 96 /min irregular BP Systolic Sitting 98 mmHg LA reg cuff BP Diastolic Sitting 56 mmHg LA reg cuff BP Systolic Standing 94 mmHg LA BP Diastolic Standing 50 mmHg LA Respiratory Rate 18 /min Ejection Fraction 55-60% 03/21/14 05/21/2015 Height 59 inches 4'11" Heart Rate 82 /min reg BP Systolic 182 mmHg Rue, reg cuff BP Diastolic 70 mmHg Rue, reg cuff BP Systolic Sitting 176 mmHg Lue, reg cuff BP Diastolic Sitting 86 mmHg Lue, reg cuff Respiratory Rate 18 /min Ejection Fraction 55-60% as of 03/21/14 echo 03/28/2015 Height 59 inches 4'11" Heart Rate 88 /min BP Systolic Sitting 164 mmHg Ra reg cuff BP Diastolic Sitting 70 mmHg Ra reg cuff BP Systolic Standing 160 mmHg Ra reg cuff BP Diastolic Standing 70 mmHg Ra reg cuff Respiratory Rate 17 /min Ejection Fraction 55-60% date 03/21/14 01/05/2015 Height 59 inches 4'11" Heart Rate 90 /min BP Systolic Sitting 130 mmHg ra reg cuff BP Diastolic Sitting 60 mmHg ra reg cuff Respiratory Rate 17 /min 09/19/2014 Height 59 inches 4'11" Heart Rate 99 /min BP Systolic 115 mmHg BP Diastolic 71 mmHg 09/07/2014 Height 59 inches 4'11" Heart Rate 98 /min BP Systolic Sitting 168 mmHg LA reg cuff BP Diastolic Sitting 70 mmHg LA reg cuff Respiratory Rate 16 /min 06/19/2014 Height 59 inches 4'11" Heart Rate 88 /min BP Systolic Sitting 152 mmHg BP Diastolic Sitting 80 mmHg Respiratory Rate 16 /min 06/07/2014 Height 59 inches 4'11" Weight 149.00 lb Heart Rate 99 /min BP Systolic 134 mmHg BP Diastolic 73 mmHg BMI (Body Mass Index) 30.1 kg/m2 05/18/2014 Heart Rate 92 /min BP Systolic Sitting 148 mmHg BP Diastolic Sitting 74 mmHg Respiratory Rate 18 /min 04/14/2014 Heart Rate 96 /min BP Systolic Sitting 128 mmHg LA reg cuff BP Diastolic Sitting 66 mmHg LA reg cuff BP Systolic Standing 112 mmHg LA reg cuff BP Diastolic Standing 58 mmHg LA reg cuff Respiratory Rate 18 /min 03/14/2014 Height 59 inches 4'11" Heart Rate 80 /min BP Systolic Sitting 150 mmHg BP Diastolic Sitting 66 mmHg 07/20/2008 Height 60 inches 5'0" Heart Rate 82 /min BP Systolic Sitting 110 mmHg BP Diastolic Sitting 60 mmHg 05/30/2008 Height 60 inches 5'0" Weight 162.00 lb Heart Rate 104 /min BP Systolic Sitting 110 mmHg left arm, right arm 104/56 BP Diastolic Sitting 56 mmHg left arm, right arm 104/56 BP Systolic Standing 104 mmHg BP Diastolic Standing 60 mmHg BMI (Body Mass Index) 31.6 kg/m2 Results Test Date Test Result H/L Range Note Laboratory test finding 11/13/2016 Point of Care Glucose 123 mg/dL High 74 -106 1 Basic Metabolic Panel 03/21/2014 Sodium 138 mmol/L 133-145 Potassium 4.2 mmol/L 3.7-5.6 Chloride 103 mmol/L 101-111 Co2 Carbon Dioxide 26 mmol/L 22-32 Anion Gap 9 mmol/L 2-11 Glucose 108 mg/dL High 70-100 Blood Urea Nitrogen 16 mg/dL 6-24 Creatinine 0.99 mg/dL High 0.51-0.95 BUN/Creatinine Ratio 16.2 8-20 Calcium 9.8 mg/dL 8.6-10.3 Egfr Non- 54.5 >60 Egfr 70.1 >60 2 Laboratory test finding 03/21/2014 Magnesium 1.9 mg/dL 1.9-2.7 Laboratory test finding 03/21/2014 TSH (Thyroid Stimulating 2.47 IU/mL 0.34-5.60 Horm) B Type Natriuretic Peptide 26 pg/mL 3 Theophylline 14.0 g/mL 10-20.0 Sputum Culture Sensitiv 01/28/2011 Sputum Culture Sensitiv NF1 4 Sputum Culture & Sensitiv 01/28/2011 Sputum Smear NONE 5 1 Public Safety Director: [id number] CECE HOLT 2 Because ethnic data is not always readily [...] 15-29 5 Kidney failure <15 (or dialysis) 3 >100 to <200 pg/mL: likely compensated congestive heart failure (CHF) 200 to 400 pg/mL: likely moderate CHF >400 pg/mL: likely moderate to severe CHF [place] [facility] 4 NORMAL RESPIRATORY WAYNE 5 FEW GRAM POSITIVE COCCI MODERATE Procedures Date CPT Code Description Status 01/27/2018 68093 EKG Tracing & Interpretation Completed 02/19/2017 65355 EKG Tracing & Interpretation Completed 11/25/2016 56635 Short Arm Cast Application Completed 11/13/2016 83782 Open TX Distal Radial Intra-Articular FX W Fixation Of Completed 3 Or More 11/13/2016 56141 Open TX Distal Radial Intra-Articular FX W Fixation Of Completed 3 Or More 03/11/2016 46882 FX TX Inter/Ana Or Sub Chanteric Femoral FX W/Implant Completed 03/11/2016 33996 FX TX Inter/Ana Or Sub Chanteric Femoral FX W/Implant Completed 01/16/2016 82174 EKG Tracing & Interpretation Completed 06/27/2015 75164 EKG Tracing & Interpretation Completed 06/27/2015 18067 EKG Tracing & Interpretation Completed 03/28/2015 55934 EKG Tracing & Interpretation Completed 09/19/2014 06830 Rad Exam; Pelvis Completed 09/19/2014 17306 Rad Exam; Hip Unilat Completed 09/19/2014 54368 Rad Exam; Knee Comp Completed 06/13/2014 38631 Holter Monitoring 24 HR New Completed 03/21/2014 72500 ECHO Transthoracic, Real-Time 2D With Doppler And Color Completed Flow 03/14/2014 46488 EKG Tracing & Interpretation Completed 04/27/2013 49361 Xray Knee 3 Views Completed 04/27/2013 90492 Rad Exam; Knee, Ap&L Completed 06/30/2012 05089 Xray Knee 3 Views Completed 06/30/2012 50890 Rad Exam; Knee, Ap&L Completed 05/24/2012 57074 TKR Total Knee Replacement Completed 05/24/2012 42473 TKR Total Knee Replacement Completed 05/20/2012 04606 Stress ECHO Interpretation/Report Hospital Completed 05/20/2012 90195 Treadmill Interp/Report Only Completed 05/20/2012 77278 Stress Test Supervsn W/Out I/R Completed 07/10/2011 76028 ECHO Transthoracic, Real-Time 2D With Doppler And Color Completed Flow 06/29/2008 06991 ECHO/Stress Completed 06/29/2008 49648 ECHO/Stress Completed 06/29/2008 42038 Stress Test Completed 06/29/2008 55289 Stress Test Completed 06/29/2008 39737 Stress Test Completed 06/28/2008 92171 Holter Monitor Completed 06/28/2008 52688 Holter Monitor Completed 06/28/2008 33297 Echocardiogram Completed 06/28/2008 11970 Echocardiogram Completed 06/28/2008 73467 Echocardiogram Completed 06/28/2008 88448 Pulse Doppler & Continuous Wave Completed 06/28/2008 79790 Pulse Doppler & Continuous Wave Completed 06/28/2008 52525 Color Doppler Completed 06/28/2008 64222 Color Doppler Completed 06/28/2008 99345 Color Doppler Completed 05/30/2008 42410 EKG Tracing & Interpretation Completed Encounters Type Date Location Provider CPT E/M Dx Office Visit 03/18/2017 [place] [address] S52.571D 3:00p Of [facility] Office Visit 02/19/2017 [facility] Jim Martin, 63168 E11.9 1:20p Jimmy Loza I10 Office Visit 11/07/2016 9:00a [place] [address] S52.571A Of [facility] Office Visit 11/01/2016 12:25p [facility] Jemima Cevrantes, 84543 E11.9 [facility] Loza N17.9 S52.501A Office Visit 10/31/2016 1:42p [facility] Sammy Mann, 92855 S52.571A Of Carlos Enrique SUTTON Office Visit 10/31/2016 12:24p [facility] Timbo Tavarez 29478 N17.9 Assoc,pc Dago SANCHEZ Hospitalists E11.9 S52.501A I10 Office Visit 10/08/2016 10:45a [facility] Of Sera Gunter M.D. 51056 M25.551 Carlos Enrique S72.8x1D Office Visit 06/18/2016 11:30a [facility] Of Sera Gunter, 93061 S72.8x1D Carlos Enrique Loza M25.551 Office Visit 03/14/2016 2:05p [facility], 73190 S72.8x1A Assoc, Hospitalists Dago E11.9 I10 Office Visit 03/13/2016 2:04p [facility], 18906 S72.8x1A Assoc, Hospitalists Dago E11.9 I10 Office Visit 03/12/2016 2:04p [facility], 58312 S72.8x1A Assoc, Hospitalists Dago E11.9 I10 Office Visit 03/11/2016 2:03p [facility], 07306 S72.8x1A Assoc, Hospitalists Dago E11.9 I10 Office Visit 03/10/2016 7:00a [facility] Of Sera Gunter, 79985 S72.21xA Carlos Enrique Loza Office Visit 03/10/2016 2:02p [facility] Assoc, Elizabeth aPyan N.P. 87430 S72.8x1A Hospitalists E11.9 I10 Office Visit 02/19/2016 11:00a [facility] PARUL [place] [address]HUE I10 I34.0 I36.1 J44.9 J45.42 Office Visit 01/16/2016 2:00p [facility] Jim Martin M.D. 25633 R00.0 I34.0 I36.1 M41.34 I10 Office Visit 09/06/2015 3:00p [facility] Luis Mckenzie, 47446 M54.41 C.MJania Loza M54.42 Office Visit 06/27/2015 1:30p [facility] [place] [address]18 785.0 401.1 786.09 493.20 Office Visit 05/21/2015 3:00p [facility] [place] 46279 401.1 785.0 424.0 250.00 786.09 Office Visit 03/28/2015 2:00p [facility] Jim Martin, 35368 786.50 [facility] M.DJuan A 307.49 493.20 401.9 Office Visit 01/05/2015 1:30p [facility] PAR[place] 89386 401.1 785.0 493.20 424.0 Office Visit 09/19/2014 1:00p [facility] Luis Mckenzie, 97238 715.16 C.M.A. MEloy Office Visit 09/07/2014 2:30p [facility] [place] 33191 401.1 785.0 493.20 Office Visit 06/19/2014 2:40p [facility] Jim Martin M.D. 85100 424.0 401.1 493.20 786.50 307.49 Office Visit 06/07/2014 3:00p [facility] Luis Mckenzie, 76718 715.91 C.MJuan AAJuan A MEloy Office Visit 05/18/2014 1:30p [facility] PAR[place] 02017 401.1 424.0 427.89 443.9 493.20 724.02 785.0 Office Visit 04/14/2014 11:00a [facility] PAR[place] 72591 799.02 401.1 493.20 424.0 Office Visit 03/14/2014 2:40p [facility] Jim Martin 24832 427.89 M.DJuan A 401.1 424.0 786.09 Office Visit 06/23/2013 11:30a [facility] Of Luis Mckenzie, 35069 724.03 C.M.AJuan A Dago 726.60 Office Visit 04/27/2013 11:30a [facility] Of Luis WagonerDago harrison 50464 443.9 C.M.A. 729.5 Office Visit 03/16/2013 11:00a [facility] Jim DengJuan A Leon, 82354 724.02 Of [facility] Dago Office Visit 02/23/2013 11:15a [facility] Of Luis Mckenzie 39974 722.52 C.M.A. MJuan AD. Office Visit 01/28/2013 1:15p [facility] Luis Mckenzie, 13631 724.3 C.M.A. Dago 722.52 Office Visit 10/13/2012 1:45p [facility] Of Luis Dago Mckenzie 88994 724.3 C.M.A. 724.2 Office Visit 2012 2:30p [facility] Luis Mckenzie 36170 726.61 C.M.A. MJuan AD. Office Visit 05/20/2012 1:30p [facility] Jmi Martin, 41071 794.31 MEloy 401.1 786.59 786.09 250.00 Office Visit 04/28/2012 11:00a [facility] Luis Mckenzie 79531 715.95 C.M.A. MJuan AD. Office Visit 03/26/2012 10:00a [facility] Luis Mckenzie, 89902 715.96 C.M.A. MJuan ADJuan A Office Visit 07/20/2008 10:20a [facility] Delvis Chase 93668 401.1 Dago Sorensen 785.0 250.00 394.1 427.0 427.69 424.2 Office Visit 05/30/2008 1:40p [facility] Delvis Sorensen 30154 401.1 MEloy 794.31 786.50 250.00 Plan of Care Future Appointment(s):01/29/2018 3:45 pm - Traveling ECHO Schedule [facility]27[facility]2018 - Jim Martin M.D.E11.9 Type 2 diabetes mellitus without [id number] Essential (primary) hypertensionFollow up:ov JFM 6 mR01.1 Cardiac murmur, unspecifiedNew Orders:OdejeumnvgfvnjN07.9 Edema, unspecified
--- NOTE | 2018-02-15 13:20 | RAD ---
HISTORY: Shortness of breath COMPARISONS: January 15, 2013 VIEWS: 2: Frontal and lateral views of the chest. FINDINGS: CARDIOMEDIASTINAL SILHOUETTE: The cardiomediastinal silhouette is stable. SIERRA: The sierra are normal. PLEURA: There are small bilateral pleural effusions. LUNG PARENCHYMA: There is diffuse pattern of coarse reticular opacification with more, and alveolar opacification of the lung bases bilaterally. ABDOMEN: The upper abdomen is clear. There is no subphrenic gas. BONES AND SOFT TISSUES: There are advanced degenerative changes of the shoulders. OTHER: None. IMPRESSION: 1. PULMONARY INTERSTITIAL EDEMA. 2. SMALL BILATERAL PLEURAL EFFUSIONS 3. BIBASILAR ATELECTASIS VERSUS CONSOLIDATION
[2018-02-15 13:21] LABS: Urine Appearance Clear; Urine Blood 1+ (Negative); Urine Color Yellow; Urine Ketones Negative (Negative); Urine Protein 2+(100 mg/dL) (Negative); Urine Specific Gravity 1.011 (1.010-1.030); Urine Urobilinogen Negative (Negative)
--- OUTSIDE RECORDS SUMMARY | 2018-02-15 13:21 | XMS REPORT ---
:1935 External Reference #:[id number] Author Organization [facility] Address [address] [place] [address] Phone [phone] Care Team Providers Name Role Phone Shelly Mathew M.D. Care Team Information Counter Help Unavailable Shelly Mathew M.D. Primary Care Physician Unavailable Payers Type Date Identification Numbers Payment Provider Subscriber Medicare Primary Effective: Policy Number: Medicare Gypsy Pham 2002 [id number] PayID: [id number] [address] [facility] [address] Medigap Part B Policy Number: [id number] [facility] Jose Antonio Pham Group Number: [id number] 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 Omeprazole 06/15 Active Capsules [...] Take 1 Shelly Sodium s Tablet By Magnolia, Mouth M.D. Daily Oxycodone-Acetami 02/27 Active Tablets 7.5-325mg 120ta 1 by mouth Shelly nop bs every 6 Magnolia, hours as M.D. needed Losartan 07/28 Active Tablets 25mg 60tab 1 by mouth I10 Shelly Potassium s twice a day Dago Mathew Levocetirizine 11/24 Active Tablets 5mg 30tab take 1 J45.909 Shelly Dihydrochloride s tablet by [place], mouth once M.D. daily Alendronate 04/12 Active Tablets 70mg 12tab take 1 M81.0 Shelly Sodium s tablet by [place], mouth once M.D. weekly with water, avoid lying down for 30 minutes after taking Lancet Device 02/05 Active Misc 1unit one one dx. Gregorio Miner s 250.00 Dago Shields Sertraline HCL 10/08 Active Tablets 100mg 180ta take 2 F33.0 bs tablets by Magnolia, mouth daily M.D. Test Strips - One 03/25 Active 100un check up to E11.9 Quang Osorio its twice a day M.DJuan A dx: 250.00 Lancets 03/25 Active Misc 100un test twice Quang Osorio its a day M.D. Multi-Vitamins 12/09 Active Tablets 30tab as Directed Gregorio Miner s Dago Shields Pataday Active Solution 0.2% apply 1 Unknown /0000 drop to affected eye(s) bid Aerospan Active Aerosol 80mcg/Act 4 puff Unknown /0000 twice a day Systane Active Solution 0.4-0.3% Unknown /0000 Latanoprost Active Solution 0.005% instill 1 Unknown /0000 drop into both eyes at [facility] Vitamin D3 Active Capsules 1000Unit 1 by mouth Unknown /0000 every day Sulfamethoxazole/ 05/07 Hx Tablets 800-160mg 6tabs 1 by mouth R30.0 Kayla Trimethoprim twice a day Clemencia, - augusta 3 days Afnp-C 05/10 Walker Swivel 02/26 Hx Misc 3" 1unit dx: G89.4 Kayla Wheel/ s Seng Khanna - Allannp-Nahun Holes/3" 03/04 Physical Therapy 02/26 Hx treatment M15.0 and Clemencia, - evaluation Afyuriy-C 03/05 of balance / mobility issues Flovent HFA 01/20 Hx Aerosol 110mcg/Ac 1unit 1 puff J44.9 t s twice a day Magnolia, - M.D. 01/20 Flovent HFA 01/20 Hx Aerosol 110mcg/Ac 1unit 1 puff J44.9 t s twice a day Magnolia, - M.D. 02/26 Celebrex 07/03 Hx Capsules 100mg 90cap 1 by mouth M15.0 s every day Magnolia, - M.D. 08/03 Ativan 05/17 Hx Tablets 1mg 5tabs one tab by Quang Osorio, /2014 mouth three M.D. - times a day 07/03 as needed /2014 Celebrex 02/27 Hx Capsules 200mg 180ca 1 by mouth 716.99 Quang Osorio ps twice a day M.D. - 06/12 715.09 Physical Therapy 10/27/2014 Hx treatment and 781.2 Quang Osorio, - evaluation for M.D. 02/26/2015 unsteady gait Oxycodone-Acetam 08/11/2014 Hx Tablets 5-325mg 120tabs 1 by mouth Quang Osorio, inophen - every 6 hours M.D. 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 05/07/2014 neck pain Spiriva 03/07/2014 Hx Capsules 18mcg 30caps inhale contents 493.90 Family Handihaler - one of capsule Medicine 05/04/2015 by mouth daily [facility] Physical Therapy 09/14/2013 Hx treatment and Gregorio Miner - evaluation of Dago Shields 12/12/2013 neck pain Gabapentin 03/15/2013 Hx Capsules 100mg 270caps Take 1 Capsule Dg Chua Three Times A MJuan ADJuan A 01/21/2016 Day Levofloxacin 12/17/2012 Hx Tablets 500mg [...] mouth once Medicine 07/28/2014 daily [facility] Vitamin D-3 01/07/2012 Hx Tablets as directed Family - Medicine 02/27/2016 [facility] Sulfamethoxazole 01/07/2012 Hx Tablets 800-160m 14tabs 1 [...] tablet E78.2 Shelly - by mouth daily Magnolia, 01/05/2018 Yu.Faviola Symbicort 10/27/2011 Hx Aerosol 160-4.5m 3units 2 puff bid Gregorio cox/Act Dago Shields 12/12/2013 Crestor 10/27/2011 Hx Tablets 5mg 180tabs 1 po bid 272.4 Gregorio Shields M.D. 11/10/2011 Hydrocortisone 09/23/2011 Hx Cream 30gm apply sparingly Leah 0.2% - bid prn itching Melecio, 01/07/2012 Afnp-C Doxycycline 07/16/[address] 100mg 60caps 1 po bid Gregorio Miner Hyclate - Part Dago Shields 07/30/2011 Augmentin 07/12/2011 Hx Tablets 500-125m 20tabs one tab po bid 493.90 Gregorio sauceda for ten days Dago Shields 07/16/2011 Furosemide 07/08/2011 Hx Tablets 20mg 90tabs 1 by mouth [facility], 08/05/2017 Dago Amlodipine 07/03/2011 Hx Tablets 10mg [...] 20tabs 1 po bid with 493.90 Trang abdullahium - sohail yogurt Nicholas, Clavulanate 06/26/2011 Dago Amoxicillin/Clav 06/26/2011 Hx Tablets 875-125m 20tabs 1 po bid 493.90 Trang bustosanate - sohail Peterson, Potassium 07/16/2011 MEloy Furosemide 06/11/2011 Hx Tablets 20mg 5tabs 1 po qd 782.3 Gregorio Shields M.D. 07/04/2011 Prednisone 05/21/2011 Hx Tablets 5mg 100tabs use as 493.90 Gregorio Shields M.D. 06/11/2011 Azithromycin 05/21/2011 Hx Tablets 250mg 6tabs [...] Hx Suspensi 50mcg/Ac 1units 1 spray each Perkins A. - on t nostril qhs Dago Shields 05/21/2011 Quyen D 24H 04/16/2011 Hx 90units 1 po qd 493.90 Gregorio Shields M.D. 05/21/2011 Levocetirizine 04/02/2011 Hx Tablets 5mg 30tabs 1 po qd Perkins A. Dihydrochloride - Dago Shields 04/16/2011 Singulair [...] Aerosol 160-4.5m 1units 2 puff bid 493.90 Gregorio A. - cg/Act Dago Shields 03/26/2011 Levaquin [...] 500mg 30tabs one tab po tid 995.3 Gregorio A. - prn spasm Dago Shields 11/14/2009 Crestor 08/15/2009 Hx Tabs 5mg 90tabs take 1 tablet 272.4 Perkins A. - by mouth once Dago Shields 05/21/2011 daily Cardizem CD 05/09/2009 Hx [...] Note 05/05/2008 Hx 50units one touch ultra Gregorio AJuan A - test strips and Dago Shields 09/10/2009 lancets Miconazole 03/02/2008 Hx Cream 2% Suff apply bid 782.1 Gregorio Shields M.D. 05/05/2008 Vicodin 02/22/2008 Hx Tablets 5-500mg 60tabs 1 po every six Perkins A. - hours prn Dago Shields 02/12/2011 Physical Therapy 02/16/2008 Hx cervicalgia, 723.1 Perkins AJuan A - lumbago, left Dago Shields 09/10/2009 knee pain - evaluate ant treat DX: Osteoarthritis Prednisone 02/16/2008 Hx Tablets 20mg 25tabs 3 pills po qd x 493.90 Perkins A. - 3 days, then 2 Dago Shields 05/05/2008 pills qd x 3 days, then 1 pill qd x 3 days Azithromycin 02/16/2008 Hx Tablets 250mg 6tabs 2 po today and 465.9 Perkins A. - 1 po x 4 days Dago Shields 05/05/2008 Prednisone 01/14/2008 Hx Tablets 5mg Tapering Dose Family - Medicine 01/21/2008 [facility] Biaxin 01/14/2008 Hx Tablets 500mg 1 PO bid X14 Family - Days Medicine 01/28/2008 [facility] Metformin HCL 01/07/2008 Hx Tablets 500mg 180tabs 2 po qd 250.00 Gregorio Shields M.D. 01/07/2008 Celebrex 01/07/2008 Hx Capsules 100mg 180caps take 1 capsule 716.99 Quang Osorio, - twice a day Dago 02/27/2015 Metformin HCL 01/07/2008 Hx Tablets 500mg 180tabs take 1 tablet E11.9 Shelly - by mouth twice Magnolia, 08/05/2017 daily Dago Proventil 12/09/2007 Hx Mdi Inhaler One One To Two Perkins AJuan A - Puffs Every Dago Shields 06/11/2011 Four [...] Hx Tablets 10mg 90tabs Take 1 Tablet Gregorio Conte Daily Dago Shields 12/17/2012 Prednisone Hx Tablets 18tabs taper Unknown - 12/17/2012 Avelox Hx Tablets 400mg 10tabs Unknown - 03/15/2013 Dulera Hx Aerosol Sample 2 puffs q am Unknown - until cough 05/04/2015 resolves Theophylline ER Hx Tablets 200mg 1 po bid Unknown - ER 12HR 05/04/2015 Veramyst Hx Suspensi 27.5mcg/ 10units prn Unknown - on [place] 05/04/2015 Viactiv Hx Chewtabs Unknown Multi-Vitamin - [...] Administered Injection Perkins A. Injection Two 012 Alyson M.D. Or More Immunizations CPT Code Status Date Vaccine Reaction Lot # [id number] Given 08/04/2017 High-Dose, Influenza Virus [id number] Vacccine-fluzone 65 and older [address] Given 08/20/2016 Influenza Vac, [place], [place] [address] Given 11/21/2015 Pneumococcal Conjugate Vacc-13 71975 Given 09/13/2015 Influenza Vac, Quadriv[place], [place] [address] Given 09/28/2014 DO Not Use Split Influenza Virus Vaccine [id number] Given 09/09/2013 Split Influenza Medicare: [id number] Fluzone 25042 Given 08/09/2012 High-Dose, Influenza Virus no reaction noted [id number] Vacccine-fluzone 65 and older Q2038 Given 07/30/2011 Split Influenza Medicare: [id number] Fluzone 69983 Given 08/25/2009 DO Not Use Split Influenza Virus Vaccine 52799 Given 09/29/2008 DO Not Use Split Influenza Virus [id number] Vaccine 42643 Given 02/16/2008 Pneumococcal Immunization [id number] Vital Signs Date Vital Result Comment 01/15/2018 BP Systolic 148 mmHg BP Diastolic [...] Test Result H/L Range Note Laboratory test 01/05/2018 Microalb, Random >200.0 mg/L [...] /Lpf Crystals, Fluid (Fma/CMC/CTX) - Z#Comments - CBC Electronic [facility] 01/05/2018 WBC 10.2 x10^3/UL High 4.0-10.0 RBC 3.33 x10^6/UL Low 3.93-6.00 HGB 10.3 g/dL Low 12.0-17.0 1 HCT 32 % Low 35-50 2 MCV 97.0 fL High 80.0-95.0 MCH 30.9 pg 25.6-32.2 MCHC 31.9 g/dL Low 32.2-36.0 RDW-CV 15.6 % High 11.6-14.4 PLT 92 x10^3/UL Low 163-400 3 MPV 11.3 fL 9.4-12.4 Hernan# 7.07 x10^3/UL High 1.56-6.13 Lymph# 1.52 x10^3/UL 1.18-3.74 Collingsworth# 1.42 x10^3/UL High 0.24-0.82 Eos # 0.0 x10^3/UL 0.0-0.5 Baso # 0.03 x10^3/UL 0.01-0.08 Hernan% 69.5 % 34.0-70.0 Lymph % 14.9 % Low 20.0-52.0 Collingsworth% 13.9 % High 5.0-12.0 Eos% 0.4 % Low 0.7-7.0 Baso% 0.3 % 0.1-1.2 Comprehensive Metabolic Prof 01/05/2018 Sodium 136 mEq/L [...] 6.3 x10^3/UL 1.5-7.2 Lymph# 1.7 x10^3/UL 0.7-4.9 Collingsworth# 0.8 x10^3/UL 0.1-0.9 Gran % 71.0 % 42.2-75.2 Lymph % 19.6 % Low 20.5-51.1 Coll[place]worth% 9.4 % High 1.7-9.3 Comprehensive Metabolic Prof [...] 4.9 x10^3/UL 1.5-7.2 Lymph# 1.7 x10^3/UL 0.7-4.9 Collingsworth# 0.8 x10^3/UL 0.1-0.9 Gran % 64.6 % 42.2-75.2 Lymph % 23.3 % 20.5-51.1 Coll[place]worth% 12.1 % High 1.7-9.3 Complete Blood Count [...] 4.8 x10^3/UL 1.5-7.2 Lymph# 1.7 x10^3/UL 0.7-4.9 Collingsworth# 0.6 x10^3/UL 0.1-0.9 Gran % 65.5 % 42.2-75.2 Lymph % 24.9 % 20.5-51.1 Collingsworth% 9.6 % High 1.7-9.3 11 Laboratory test [...] 5.1 x10^3/UL 1.5-7.2 Lymph# 1.6 x10^3/UL 0.7-4.9 Collingsworth# 0.8 x10^3/UL 0.1-0.9 Gran % 66.6 % 42.2-75.2 Lymph % 22.1 % 20.5-51.1 Collingsworth% 11.3 % High 1.7-9.3 Lipid Profile 11/07/2016 [...] Red Blood Cells % 0 Laboratory test 10/30/2016 Hemoglobin A1c (Glyco 5.6 % Less than 6.0 20 finding HGB) Comp Metabolic Panel 10/30/2016 Sodium 136 mmol/L [...] Egfr Non- 27.1 >60 Egfr 34.9 >60 21 Ua - Micro (Fma) 05/07/2016 Appearance clear [...] Routine 05/07/2016 Urine Culture, Routine Final report 22 , 23 Result 1 No growth 22, 24 Inr/Protime 03/10/2016 Inr 1.01 0.89-1.11 Laboratory test finding 03/10/2016 Lactic Acid 1.3 mmol/L 0.5-2.0 25 Comp Metabolic Panel 03/10/2016 Sodium 133 mmol/L [...] Egfr Non- 41.4 >60 Egfr 53.3 >60 26 Urinalysis Profile 03/10/2016 Urine Color Yellow Urine Appearance Clear Urine Specific Bryan 1.012 1.010-1.030 Urine pH 6.0 5-9 Urine Urobilinogen Negative Negative Urine Ketones Negative Negative Urine Protein Negative Negative Urine Leukocytes Negative Negative Urine Blood Negative Negative Urine Nitrite Negative Negative Urine Bilirubin Negative Negative Urine Glucose Negative Negative Laboratory test finding 03/10/2016 Creatine Kinase 161 U/L 10-223 CKMB 03/10/2016 CKMB ng/mL 5.5 ng/mL 0.6-6.3 CBC Auto Diff 03/10/2016 White Blood Count [...] Blood Cells % 0 Laboratory test finding 02/27/2016 Immunoglobulin E, Total 48 IU/mL 0- 100 27 Lipid Profile 01/14/2016 Cholesterol 173 mg/dL 120-200 [...] 5.5 x10^3/UL 1.5-7.2 Lymph# 2.0 x10^3/UL 0.7-4.9 Collingsworth# 0.6 x10^3/UL 0.1-0.9 Gran % 66.1 % 42.2-75.2 Lymph % 26.0 % 20.5-51.1 Collingsworth% 7.9 % 1.7-9.3 Laboratory test finding 01/14/2016 Hemoglobin A1c (Fma) 5.6 % 4.1-5.7 Comprehensive Metabolic Prof 01/14/2016 Sodium 132 mEq/L Low 134-149 28 Potassium 5.4 mEq/L 3.6-5.5 Chloride 95 mEq/L [...] >60 ml/min/1.73m^ >=60 GFR >60 ml/min/1.73m^ >=60 [facility] Metabolic [facility] 10/03/2015 Sodium 139 mEq/L 134-149 Potassium 5.1 [...] 1.2 -2.0-2.0 31 Hco3 Arterial 25.8 mmol/L 19- Laboratory test 06/07/2015 Non-Energy Trader Interface SEE RESULT BELOW 32 finding Order [...] Hemoglobin A1c 5.9 % High 4.1-5.7 (Fma/CMC,CX) Comprehensive Metabolic 10/27/2014 Glucose 136 mg/dL High [...] (CALCULATED) 34 Egfr >60 34, 36 Egfr, -Belarusian >60 34, 37 Feflex Diff+Morph For CBC4D 10/27/2014 Segmented Neutrophils 68.0 % 44.0- 74.0 34 Band 0.0 % 0.0-4.0 34 Lymphocytes 28.0 % 15.0-45.0 34 Monocytes 4.0 % 2.0-13.0 34 Eosinophils 0.0 % 0.0-6.0 34 Basophils 0.0 % 0.0-2.0 34 Neutrophil Absolute 8.5 x10E3/uL High 1.4-7.0 34 Lymphocytes Absolute 3.5 x10E3/uL High 1.0-3.4 34 Monocyte Absolute 0.5 x10E3/uL 0.2-1.0 34 Eosinophil Absolute 0.0 x10E3/uL 0.0-0.5 34 Basophil Absolute 0.0 x10E3/uL 0.0-0.2 34 Comprehensive Metabolic Prof 07/25/2014 Sodium 136 mEq/L [...] 6.1 % High 4.1-5.7 Ua - Micro (a) 03/15/2013 Appearance CLEAR Color YELLOW Glucose NEG [...] Yellow 47 Appearance-Urine CLEAR Clear 47 Specific Bryan-Ur 1.010 1.010-1.030 47 Esterase-Urine 3+ Negative 47 Nitrite NEGATIVE Negative 47 Onkujedekujm-So-ELK NEGATIVE Negative 47 Protein-Urine NEGATIVE Negative 47 [...] BUN/Creat Ratio 25.8 Calc 8.0-36.0 CBC Electronic ([facility]) 05/10/2012 WBC 9.1 3.6-9.6 RBC 3.88 Low 3.90-5.70 Hemoglobin (a/CMC/CTX) 12.0 g/dL Low 12.1 - 17.2 Hematocrit (a/CMC/CTX) 36.3 % 36.1 - 50.3 Platelets 221 [...] 03/09/2012 Hemoglobin A1c 6.3 % High 4.1-5.7 ([facility]/CMC,CX) Lipid Profile 01/07/2012 Cholesterol 154 mg/dL 120-200 [...] 01/07/2012 Hemoglobin A1c 6.0 % High 4.1-5.7 (Fma/[facility],CX) Lipid Profile 08/11/2011 Cholesterol 226 mg/dL High 120-200 HDL 42 mg/dL 30-85 Triglycerides 186 mg/dL 30-200 HDL Risk Factor 5.4 CALC High 0.0-4.0 LDL (Calculated) 147 CALC High 0-129 VLDL (Calculated) 37 mg/dL 0-50 Laboratory test finding 08/11/2011 Hemoglobin A1c 5.9 % High 4.1-5.7 (a/[facility],CX) Comprehensive Metabolic 08/11/2011 Albumin 4.7 g/dL 3.8-5.5 [...] Calc 0.6-2.2 BUN/Creat Ratio 35.0 Calc 8.0-36.0 Body Fluid C&S 07/08/2011 Body Fluid Smear MOD GRAM POSITIV <SEE 57 NOTE> Laboratory test 07/08/2011 Body Fluid Cult Sens STAPHYLOCOCCUS A <SEE 58 finding NOTE> XBRSC1 07/08/2011 Clindamycin <=0.25 Ciprofloxacin <=0.5 [...] NOTE> Culture Sensitivity NG4 62 CBC Electronic ([facility]) 07/01/2011 WBC 9.2 3.6-9.6 [...] Mean Platelet Volume 6.7 6.5-11.0 CBC Manual Diff-a 06/26/2011 WBC 13.6 High 3.6-9.6 RBC 3.73 [...] BUN/Creat Ratio 30.0 Calc 8.0-36.0 CBC Electronic ([facility]) 02/12/2011 WBC 5.2 3.6-9.6 [...] BUN/Creat Ratio 21.3 Calc 8.0-36.0 CBC Electronic ([facility]) 02/05/2011 WBC 9.3 3.6-9.6 RBC 3.66 Low [...] 12/16/2010 Hemoglobin A1c 6.0 % High 4.1-5.7 (a/[facility],CX) Laboratory test finding 06/05/2010 Hemoglobin A1c 6.1 % High 4.1-5.7 ([facility],CX) Comprehensive Metabolic 03/25/2010 Albumin 4.8 g/dL 3.8-5.5 [...] 03/25/2010 Hemoglobin A1c 6.0 % High 4.1-5.7 ([facility],CX) Comprehensive Metabolic 11/14/2009 Albumin 4.8 g/dL 3.8-5.5 [...] finding 09/05/2009 Hemoglobin A1c 5.5 % 4.1-5.7 (a/[facility],CX) Lipid Profile 05/02/2009 Cholesterol 215 mg/dL High [...] 05/02/2009 Hemoglobin A1c 6.0 % High 4.1-5.7 ([facility],CX) Surgical Pathology 01/31/2009 Surgical Pathology 87 --- [...] 12/13/2008 Hemoglobin A1c 6.2% % High 4.1-5.7 (a/[facility],CX) Laboratory test finding 08/02/2008 Hemoglobin A1c 6.1 % High 4.1-5.7 ([facility],CX) Lipid Profile 05/15/2008 Cholesterol 177 mg/dL 120-200 86 HDL 44 mg/dL 30-85 86 Triglycerides 172 mg/dL 30-200 86 HDL Risk Factor 4.0 CALC Low 4.2-7.0 86 LDL (Calculated) 99 CALC 0-129 86 VLDL (Calculated) 34 mg/dL 0-50 86 Laboratory test 03/02/2008 Hemoglobin A1c 6.2 High 4.1-5.7 finding Laboratory test 12/09/2007 Hemoglobin A1c 6.2 % High 4.1-5.7 finding ([facility],CX) Microalb/Creatinine, 12/09/2007 Microalb, Random <5.0 mg/L 0.5-37 [...] 13 RESULTS VERIFIED BY REPEAT ANALYSIS 14 Compliance Specialist: [id number] HUFF YANET 15 FASTING 16 RESULTS VERIFIED BY REPEAT ANALYSIS 17 RESULTS VERIFIED BY REPEAT ANALYSIS 18 RESULTS VERIFIED BY REPEAT ANALYSIS 19 RESULTS VERIFIED BY REPEAT ANALYSIS 20 Therapeutic target for the treatment of diabetes Mellitus patients is <7% HBA1C, and in selective patients <6.0%.Please refer to [place] [employer] Diabetic care guidelines for further information. 21 Because ethnic data is not always readily [...] 15-29 5 Kidney failure <15 (or dialysis) 22 SRC: URINE utainer 23 Source of Specimen: URINE 24 Source of Specimen: URINE 25 [facility] Severe Sepsis and Septic Shock Management Bundle Measure requires all lactic acids initially measuring >2.0 mmol/L be repeated. 26 Because ethnic data is not always readily [...] 15-29 5 Kidney failure <15 (or dialysis) 27 1 sst 28 RESULTS VERIFIED BY REPEAT ANALYSIS 29 RESULTS VERIFIED BY REPEAT ANALYSIS 30 RESULTS VERIFIED BY REPEAT ANALYSIS 31 Reference ranges based on room air. 32 SEE RESULT BELOW Name: JOSE ANTONIO PHAM Deshawn : [address]: Alfonso Perez MD Acct: [id number] Unit: [id number] AGE: 79 Location: THYROID Re06/07/15 SEX: F Status: REG REF SPEC: [id number] DUTCH: 06/07/15 [facility] DR: Harinder Mohr MD REQ: [id number] RECD: 06/07/15 STATUS: MARIN PEREZ DR: Alfonso [...] performed at Main Lab DEPARTMENT OF PATHOLOGY, [address] [place] [address] Shamar Smyth M.D. Director [facility] # [id number] RUN DATE: 06/07/15 [facility] LAB LIVE PAGE 2 Patient: JOSE ANTONIO PHAM [id number] (Continued) GROSS DESCRIPTION (Continued) GROSS DESCRIPTION 4- alcohol fixed slide(s) 1- passes Signed (signature on file) Shamar Smyth MD 1010 END OF REPORT * ML=Testing performed at Main Lab DEPARTMENT OF PATHOLOGY, [address] [place] [address] Shamar Smyth M.D. Director [facility] # [id number] 33 consistent w/ previous results 34 1 [...] and in selective patients <6.0%.Please refer to [place] [employer] Diabetic care guidelines for further [...] THE SURGERY DATE. 51 RUN DATE: 05/19/12 [facility] NMI LIVE PAGE 1 RUN TIME: 843 Specimen Inquiry RUN USER: INTERFACE Name: JOSE ANTONIO PHAM Status: REG REF Re05/17/12 Age/Sex: 76/F Unit#: [id number] Location: : 37 SPEC #: [id number] DUTCH: 05/17/12 STATUS: COMP REQ #: [id number] RECD: 05/17/12-[address]: Jonah SUTTON,Luis Miner SOURCE: URINE ENTR: 05/17/12-[address]: Alyson SUTTON,Gregorio Miner SPDESC: ORDERED: URINE C S ACT WKST: UR 05/19/12 #1 Procedure Result Verified Site > URINE CULTURE SENSITIVI Final -0843 ML Organism 1 ENTEROBACTERIACEAE Small quantity of enterobacteriaciae typically suggestive of fecal contamination. Suggest resubmission. Isolates will be saved for one week. Please call the Microbiology Laboratory if further identification and/or susceptibility testing is needed. COLONY COUNT 1-10,000 ORGANISMS/ML (FEW) - [facility] State Permit #[id number] [facility] [employer] [facility] [address] DEPARTMENT OF PATHOLOGY, [facility] [employer] [place], [place] [address] [facility] Permit #[id number] Shamar Smyth M.D. Director Matthew Bonner M.D. Screw Machine Operator Swiss Type 52 Negative <20 Weak positive 20 - [...] characteristics determined by Laboratory Medicine and Pathology, [facility]. This test has not been cleared or approved by the U.S. Food and Drug Administration. Test performed by: [place] [facility] [address] [place], [place] [address] 64 Negative for Bordetella pertussis/parapertussis DNA 65 [...] has been shown to interfere with the Jendrassik-Alana method for measuring total bilirubin. Samples from [...] 0.06 ng/mL NOT SUPPORTIVE OF DIAGNOSIS OF ME 0.06 - 0.50 ng/ml INDETERMINATE: SUGGEST SERIAL STUDIES IF CLINICALLY INDICATED. Greater than 0.5 ng/mL CONSISTENT WITH DIAGNOSIS OF ME . 80 Neutrophilia % Lymphopenia % 81 NO GROWTH AFTER 5 DAYS 82 NO GROWTH AFTER 5 DAYS 83 result jessica'd 84 result jessica'd 85 RESULT JESSICA'D 86 FASTING 87 ---- RUN DATE: 02/01/09 [facility] NMI LIVE PAGE 1 RUN TIME: 1437 Specimen Inquiry RUN USER: INTERFACE -- Name: JOSE ANTONIO PHAM [facility]#: [id number] Status: REG REF Re01/31/09 Age/Sex: 73/F Unit#: [id number] Location: [address] [place] [address]. : [birth year] -- Specimen: [id number] SOUT Spec Date: 01/31/[address] [facility] [address]: Jaron ireland MD Spec Type: SURGICAL P Received: 01/31/09-1962 Copies to: Gregorio cuellar MD SPECIMEN 1) BIOPSY PROXIMAL TRANSVERSE POLYP 2) BIOPSY RECTAL POLYP AT 30 CM. HISTORY POST-OP DIAGNOSIS: Colon polyps CLINICAL INFORMATION: Positive family history of colon carcinoma (son, lo wer colon); patient denies GI symptoms GROSS DESCRIPTION 1) Specimen is received in formalin labelled Jose Antonio Pham, Proximal Transverse Polyp and consists of two fragments of cardozo-brown tissue each measuring 0.4 x 0.3 x [...] 02/01/09 1437 -- -- DEPARTMENT OF PATHOLOGY, [address] [place] [address] [facility] Permit #[id number] Shamar Smyth M.D. Director Matthew Bonner M.D. Help Desk Administrator Dir marine -- Procedures Date CPT Code Description Status Comment 09/09/2014 Diabetic Retinal Eye Exam Completed 03/28/2014 Colonoscopy Completed 02/02/2013 44528 Allergy Injection Two Or More Completed 01/25/2013 46975 Allergy Injection Two Or More Completed 01/11/2013 58835 Allergy Injection Two Or More Completed 12/29/2012 41973 Allergy Injection Two Or More Completed 12/03/2012 33962 Allergy Injection Two Or More Completed 11/17/2012 37912 Allergy Injection Two Or More Completed 11/12/2012 16903 Allergy Injection Two Or More Completed 11/05/2012 62749 Allergy Injection Two Or More Completed 10/27/2012 92521 Allergy Injection Two Or More Completed 10/13/2012 09489 Allergy Injection Two Or More Completed 10/07/2012 61939 Allergy Injection Two Or More Completed 09/27/2012 57732 Allergy Injection Two Or More Completed 09/17/2012 28740 Allergy Injection Two Or More Completed 08/30/2012 78573 Allergy Injection Two Or More Completed 08/24/2012 53626 Allergy Injection Two Or More Completed 08/17/2012 15959 Allergy Injection Two Or More Completed 08/09/2012 26217 Allergy Injection Two Or More Completed 08/03/2012 13636 Allergy Injection Two Or More Completed 07/13/2012 45668 Allergy Injection Two Or More Completed 07/06/2012 95160 Allergy Injection Two Or More Completed 07/06/2012 19235 Allergy Injection Two Or More Completed 06/29/2012 36598 Allergy Injection Two Or More Completed 06/17/2012 74307 Allergy Injection Two Or More Completed 06/09/2012 10300 Allergy Injection Two Or More Completed 05/17/2012 70606 Allergy Injection Two Or More Completed 05/10/2012 22257 Allergy Injection Two Or More Completed 05/10/2012 74419 Electrocardiogram Complete Completed 05/05/2012 64072 Allergy Injection Two Or More Completed 01/15/2012 Mammogram Completed 11/09/2011 Bone Mineral Density Test Completed osteoporosis 04/16/2011 36760 Pulse Oximetry Completed 04/02/2011 59460 Pulse Oximetry Completed 03/26/2011 81752 Pulse Oximetry Completed 03/05/2011 15691 Pulse Oximetry Completed 02/19/2011 87312 Pulse Oximetry Completed 02/12/2011 91068 Pulse Oximetry Completed 01/31/2009 Colonoscopy Completed 08/22/2008 Mammogram Completed Encounters Type Date Location Provider CPT E/M Dx Office Visit 08/04/2017 3:00p [facility] Office Shelly Mathew M.D. 90061 Z00.00 E11.9 I10 J44.9 G89.4 F33.1 N18.9 M81.0 Z12.31 D64.9 Z23 G31.84 Office Visit 11/05/2016 9:40a [facility] Office Shelly Mathew M.D. 80633 M25.531 G89.4 M15.0 I10 E11.9 M80.831A Office Visit 06/18/2016 1:40p [facility] Office Shelly Mathew M.D. 09179 G89.4 M15.0 I10 E11.9 M54.5 J44.9 Office Visit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
[2018-02-15 13:31] LABS: EGFR Non-African American 22.7 (>60)
[2018-02-15 14:39] LABS: ABS Basophils 0.1 10^3/ul (0-0.2); ABS Eosinophils 0 10^3/ul (0-0.6); ABS Lymphocytes 0.6 10^3/ul (1.0-4.8); ABS Monocytes 1.5 10^3/ul (0-0.8); ABS Nucleated RBC 0 10^3/ul; Eosinophil % 0 % (0-6); Lymphocyte % 3.6 % (25-47); Nucleated Red Blood Cells % 0
[2018-02-15] MEDS ORDERED: Ondansetron INJ* 2 MG/ML VIAL IV PRN (14:59)
[2018-02-15] MEDS ORDERED: Furosemide IV* 10 MG/ML VIAL (40 MG) IV SLOW PU ONE (14:59)
[2018-02-15] MEDS ORDERED: Albuterol/Ipratropium NEB.SOL* Albuterol 2.5 MG/Ipratropium 0.5 MG 3 ML INH SCH (15:00)
[2018-02-15] MEDS ORDERED: Albuterol HFA INHALER* 8 gm MDI INH PRN (15:06)
[2018-02-15] MEDS: Acetaminophen TAB* 325 MG PO PRN ×2 (15:29→21:08)
[2018-02-15] MEDS ORDERED: Dextrose 50% Syringe 50 ML* 25 GM/50 ML SYRINGE IV PUSH PRN (15:36)
[2018-02-15] MEDS ORDERED: Vancomycin per Pharmacy* NOTE FOLLOW UP PRN (16:25)
[2018-02-15] MEDS: Nitroglycerin 2% OINT* 1 GM PAK TOPICAL SCH (16:38)
--- NOTE | 2018-02-15 17:10 | ECHO ---
Patient: JOSE ANTONIO PHAM Rec#: [id number] : 1935 Date: 02/15/2018 Age: 82y Height: 149.86 cm / 59.0 in Weight: 59.42 kg / 131.0 lbs Sex: F BSA: 1.54 Room#: 446 Admit Date#: 02/15/2018 Type: Inpatient Referring: Timi Thomas MD Reading: Timi Thomas MD Activity Therapy Teacher: Neris Chaudhary,SHERRI,RDMS CC: Shelly Mathew Transthoracic Echocardiogram Indication: CHF BP: 165/60 HR: 108 Rhythm: NSR Findings History: COPD, HTN, HLD Technical Comments: The study quality is good. Left Ventricle: The left ventricular chamber size is decreased. Moderate concentric left ventricular hypertrophy is observed. The left ventricle appears hyperdynamic. The estimated ejection fraction is greater than 65%. The left ventricular diastolic filling pattern is consistent with pseudonormalization. Left Atrium: The left atrium is moderately dilated. Right Ventricle: The right ventricle wall thickness is mildly increased. The right ventricular cavity size is normal. The right ventricular global systolic function is hyperdynamic. Right Atrium: The right atrial cavity size is normal. Aortic Valve: The aortic valve is trileaflet. The aortic valve leaflets are mildly thickened. There is no evidence of aortic regurgitation. There is no evidence of aortic stenosis. Mitral Valve: Moderate mitral annular calcification present. The mitral valve leaflets are mildly thickened. There is mild mitral regurgitation. The mitral regurgitant jet is eccentric. There is mild mitral stenosis. Tricuspid Valve: The tricuspid valve leaflets are normal. There is trace tricuspid regurgitation. There is evidence of moderate to severe pulmonary hypertension. Pulmonic Valve: The pulmonic valve structure is not well visualized. There is no evidence of pulmonic valve thickening. There is a trace pulmonic regurgitation. Pericardium: There is no significant pericardial effusion. A left pleural effusion is present. Aorta: The ascending aorta is not well visualized. The aortic arch is not well visualized. The aortic root is normal in size. Pulmonary Artery: The main pulmonary artery is not well visualized. Venous: The inferior vena cava appears normal in size. There is a greater than 50% respiratory change in the inferior vena cava dimension. Conclusions Moderate concentric left ventricular hypertrophy is observed. The left ventricle appears hyperdynamic. The estimated ejection fraction is greater than 65%. The left ventricular diastolic filling pattern is consistent with pseudonormalization. The left atrium is moderately dilated. The right ventricular global systolic function is hyperdynamic. There is no evidence of aortic regurgitation. The aortic valve leaflets are mildly thickened. Moderate mitral annular calcification present.Small mobile calcified mass on atrial surface of mitral valve There is mild mitral regurgitation. There is trace tricuspid regurgitation. There is evidence of moderate to severe pulmonary hypertension. There is no significant pericardial effusion. Compared to study of 02/01/18, there is little change Measurements Name Value Normal Range RVIDd (AP) 2D 2.3 cm (0.9 - 2.6) RVDdMajor (2D) 2.3 cm (2.2 - 4.4) RAd ISD 4CH 4.6 cm (3.4 - 4.9) RA (A4C)W 4 cm (2.9 - 4.6) IVSd (2D) 1.6 cm (0.6 - 1) LVPWd (2D) 1.4 cm (0.6 - 1) LVIDd (2D) 3.3 cm (3.6 - 5.4) LVIDs (2D) 1.9 cm - LV FS (2D) 41 % (25 - 45) Aortic Annulus 2 cm (1.4 - 2.6) Ao root diameter (2D) 2.5 cm (2.1 - 3.5) LA dimension (AP) 2D 4 cm (2.3 - 3.8) LAd ISD 4CH 6.8 cm (2.9 - 5.3) LA ISD 4CH W 3.7 cm (2.5 - 4.5) Name Value Normal Range LA ESV SP 4CH (A/L) 67.04 ml - LA ESV SP 2CH (A/L) 62.91 ml - LA ESV BP (A/L) 66.89 ml - LA ESV BP (A/L) index 43 ml/m2 - LA ESV SP 4CH (MOD) 63.63 ml - LA ESV SP 2CH (MOD) 60.46 ml - Name Value Normal Range MV E-wave Vmax 1.8 m/sec - MV deceleration time 227 msec - MV A-wave Vmax 1.7 m/sec - MV E:A ratio 1.1 ratio - LV septal e' Vmax 0.05 m/sec - LV lateral e' Vmax 0.08 m/sec - LV E:e' septal ratio 36 ratio - LV E:e' lateral ratio 22.5 ratio - Name Value Normal Range AV Vmax 1.8 m/sec - AV VTI 36 cm - AV peak gradient 13 mmHg - AV mean gradient 8.5 mmHg - LVOT diameter 2 cm - LVOT Vmax 1.2 m/sec - LVOT VTI 23 cm - LVOT peak gradient 6 mmHg - LVOT mean gradient 3.4 mmHg - Name Value Normal Range MV Vmax 2 m/sec - MV VTI 43 cm - MV peak gradient 16 mmHg - MV mean gradient 8.7 mmHg - MV PHT 41 msec - MVA (PHT) 5.4 cm2 - MVA (continuity VTI) 1.6 cm2 - Name Value Normal Range TR Vmax 3.7 m/sec - TR peak gradient 55 mmHg - RAP 8 mmHg - RVSP 63 mmHg - IVC diameter 2.1 cm - Name Value Normal Range PV Vmax 1.1 m/sec - PV peak gradient 5 mmHg -
[2018-02-15 17:12] LABS: Corrected Retic Count 1.4 % (0.5-1.5); Hematocrit for Retic CNT 23 % (35-47); Immature Retic Fraction 0.47; RBC Retic Count 2.58 10^6/ul (4.6-6.2)
[2018-02-15] MEDS: Insulin LISPRO* 1 UNITS UNIT SUBCUT SCH (17:50)
[2018-02-15] MEDS: hydrALAZINE IV* 20 MG/ML VIAL IV SLOW PU PRN (18:24)
[2018-02-15 18:59] LABS: Urine Appearance Clear; Urine Blood Negative (Negative); Urine Color Straw; Urine Ketones Negative (Negative); Urine Protein 2+(100 mg/dL) (Negative); Urine Specific Gravity 1.009 (1.010-1.030); Urine Urobilinogen Negative (Negative)
[2018-02-15] MEDS ORDERED: hydrALAZINE IV* 20 MG/ML VIAL IV SLOW PU ONE (19:48)
[2018-02-15] MEDS ORDERED: cefTRIAXone VIAL(*) 2,000 MG in NS 0.9% 50 ML* 50 ML IVPB SCH (20:30)
[2018-02-15] MEDS: Albuterol/Ipratropium NEB.SOL* Albuterol 2.5 MG/Ipratropium 0.5 MG 3 ML INH SCH (20:35)
[2018-02-15] MEDS: Mometasone/Formoter 200/5 MDI INH SCH (20:37)
[2018-02-15] MEDS ORDERED: Nitro Patch/OINT Remove PATCH OFF SCH (21:00)
[2018-02-15] MEDS ORDERED: Vancomycin(*) 1,000 MG in NS 0.9% 250 ML* 250 ML IVPB ONE (21:00)
[2018-02-15] MEDS: Gabapentin CAP(*) 100 MG PO SCH ×3 (21:08→21:48)
[2018-02-15] MEDS: Montelukast Sodium TAB* 10 MG PO SCH (21:08)
[2018-02-15] MEDS ORDERED: LORazepam INJ* 2 MG/ML 1 ML VIAL IV PUSH ONE (21:30)
--- NOTE | 2018-02-15 21:31 | HP ---
CC: Dr. Shelly Mathew; Dr. Thomas; Dr. Breen; Dr. Chavez; Dr. Martin * HISTORY AND PHYSICAL: DATE OF ADMISSION: 02/15/18. PRIMARY CARE PROVIDER: Dr. Shelly Mathew. CONSULTING ORE FIELDER: Dr. Thomas. CONSULTING PROGRAM ADVOCATE: Dr. Breen. CONSULTING ID SPECIALIST: Dr. Chavez. ATTENDING PHYSICIAN WHILE IN THE HOSPITAL: Rox Tanner DO * (report dictated by Marcin Vazquez NP). CHIEF COMPLAINT: 1. Shortness of breath. 2. Lower leg swelling. HISTORY OF PRESENT ILLNESS: Mrs. Del Castillo is an 82-year-old female patient. She carries a history of COPD, also carries a history of hypertension. She is diabetic, although recently was stopped on her metformin according to the patient. She says that she also carries a history of hypertension, hyperlipidemia. She carries a history of osteoporosis, CKD, anemia which is new ; skin cancer and history of arthritis. She comes into our emergency department today stating that in the last couple of weeks she has noticed she has had progressive worsening lower leg swelling. She says that she has had worsening shortness of breath, particularly last few days. She says that she has noticed the swelling has been going on for few weeks. She was evaluated by her primary [place] superintendent of schools, Dr. Martin. He evaluated her. He was concerned for signs of failure and requested a repeat echo 2 weeks ago, it did show a small vegetation. The patient was instructed to undergo a BONG, there was a small vegetation. Unfortunately though over the last 3 days she has had progressive worsening shortness of breath, she does not really admit to orthopnea. She says she is not having any chest tightness or heaviness now, but she does state that she just felt like her chest was constricted because she could not get enough air, particularly with exertion. She says that to her knowledge she has not gained any weight. She says that she has been having just progressive worsening shortness of breath. She said she had a low-grade fever. She just has not been feeling well. She went and saw her PCP over the weekend and saw a covering physician. She was started on prednisone. In addition to this, she was also started on antibiotic therapy. She started on Bactrim and prednisone taper. She says that despite taking these medications, she just had not been feeling better. She says recently her diuretics had been weaned back as her creatinine has been creeping up, last creatinine according to her PCP was 1.9. She says that she just again was getting progressively more and more short of breath. She was not feeling well. She came in and was evaluated today for shortness of breath. There was concern that she possible had pneumonia and she also has been complaining that she has been having hemoptysis, although this has not been seen down here. She came in and was evaluated. There was concern for pneumonia and sepsis initially and we were asked to evaluate for admission. PAST MEDICAL HISTORY: Significant for: 1. Diabetes. 2. Hypertension. 3. Hyperlipidemia. 4. Asthma. 5. Skin cancer. 6. Arthritis. 7. Osteoporosis. 8. Anemia. 9. CKD. 10. COPD. PAST SURGICAL HISTORY: 1. She has had a cholecystectomy. 2. Ectopic repair. 3. ORIF of the right femur. 4. Left total knee arthroplasty. 5. Foot surgery. 6. Right wrist surgery. HOME MEDICATIONS: Include: 1. Latanoprost 1 drop both eyes at bedtime. 2. Prednisone 10 mg daily take as directed. 3. Verapamil 120 mg daily. 4. Cozaar 25 mg daily. 5. Bactrim 1 capsule p.o. b.i.d. 6. Neurontin 100 mg p.o. b.i.d. 7. Neurontin 200 mg at bedtime. 8. Percocet 1 tablet every 6 hours as needed. 9. Zoloft 200 mg daily. 10. Crestor 10 mg daily. 11. Singulair 10 mg at bedtime. 12. Levocetirizine 5 mg daily. 13. Lasix 20 mg daily. 14. Soma 350 mg p.o. q.i.d. as needed. 15. Albuterol 2 puffs inhaled every 4 hours as needed. ALLERGIES TO MEDICATIONS: Include TAPE, BELLADONNA, DILTIAZEM, IV DYE, ATORVASTATIN, DIAZEPAM, LOBSTER, and PHENYLBUTAZONE. FAMILY HISTORY: Her mother had a [place]. Father of old age. SOCIAL HISTORY: She is a former smoker. She quit over 30 years ago. She does drink alcohol. She lives with her . Surrogate decision maker is her and [id number]. REVIEW OF SYSTEMS: There is no documented fever here, but she says she has been having chills and fevers at home. She denies having any significant weight change, but she does admit to having lower extremity swelling. She denies having any chest tightness currently. She does admit to orthopnea and does admit to dyspnea on exertion. She denies having any abdominal pain. There was no nausea, no vomiting. There was no dysuria, no frequency. No seizure. No loss of consciousness. No pruritus and no skin ulcerations. Review of 14 systems was completed, all others negative. PHYSICAL EXAMINATION GENERAL: At this time, Mrs. Del Castillo is an 82-year-old female patient. She is sitting in the ED stretcher. She is chronically ill-appearing. She does not appear to be in any acute distress. VITAL SIGNS: Blood pressure 165/60, pulse 100, respirations were 12, O2 sat 98% , temperature 99.6. HEENT: Head: Atraumatic, normocephalic. Eyes: EOMs intact. Sclerae anicteric and not pale. Throat: Oral mucosa appears to be dry. No oropharyngeal erythema. NECK: Supple. LUNGS: She had crackles bilaterally. HEART: Sounds S1, and S2. Regular rate and rhythm. No murmurs, rubs, or gallops. EXTREMITIES: She had +2 pitting edema. NEUROLOGICALLY: She is awake. She is alert. She is oriented x3. Rn Gyn were equal. Tongue is midline. No gross focal deficits. SKIN: Intact. DIAGNOSTIC STUDIES/LAB DATA: WBC of 16.2, RBC of 2.92, hemoglobin of 8.6, hematocrit is 27, platelet count 174. PTT of 27. Sodium 139, potassium 3.7, chloride 103, bicarb 25, BUN 40, creatinine of 2.10, glucose 142, lactic 1.4, calcium 9.2, total bili 0.3, AST 53, ALT 58, alk phos 69, CK 59. Troponin 0.09. BNP 616, CRP at 13.4, albumin of 4.0, procalcitonin 0.1. Urine showed 2+ protein, 1+ blood, present hyaline cast. Influenza is negative. Chest x-ray obtained today. When I reviewed, I do appreciate bilateral effusions and pulmonary edema. Radiology read it as pulmonary interstitial edema, small bilateral pleural effusions, bibasilar atelectasis versus consolidation. She did have an EKG obtained today as well, which shows a sinus tachycardia with rate of 102. No ST elevations or T-wave inversions. It was reviewed with the previous EKGs, it appears to be similar with exception that the rate was slower in the previous EKG with a rate of 90. Old medical records were reviewed. She did have an echo outpatient 2 weeks ago, EF of 60% to 65%. There was some mitral stenosis and a small mitral valve vegetation. Old medical records were reviewed. ASSESSMENT AND PLAN: Mrs. Del Castillo is an 82-year-old female patient with multiple medical problems coming into the ED today with complaints of shortness of breath. We were asked to evaluate for admission. She will admitted under inpatient status for: 1. Congestive heart failure. Again at this point, she appears to be in congestive heart failure. The LFTs are probably elevated due to the fact of liver congestion. She could have right heart strain and probably could have right heart disease and cor pulmonale as the EF was intact previously; however, I am concerned that the mitral valve vegetation may have become worse and this could be contributing to the failure as well. Dr. Thomas is evaluating the patient. I am going to go ahead and give her Lasix at this point, daily weights , repeat the echo, try to get BONG. Blood cultures were sent. I did touch base with Dr. Chavez, who recommended getting blood cultures later tonight at 2100 and then initiating antibiotics. She did get in a dose of antibiotics here in the ED. I will trend those troponins. I think the troponins are probably elevated secondary to some demand ischemia related to the underlying congestive heart failure, and we will continue to follow this closely. 2. Hemoptysis. This could be pulmonary edema in that she is coughing. Based on that x-ray, I am wary to empirically treat her for pulmonary embolism given the fact that her H and H is low, also given the fact that she is not having any chest pain and CTA we were unable to perform because of allergies and a V/Q scan may be unrevealing given the extensive pulmonary edema. I think the hemoptysis cause is probably secondary to pulmonary edema, possibly bronchitis or pneumonia on half of the pulmonary edema, but at this point I think that we could be hold off on treatment until we have a better understanding of the H and H. We will get a Hemoccult as well. Her story fits with more, this does not sound like it was sudden onset and she is not having any calf pain or leg pain. My Wells criteria score is low, so I would like to hold off. 3. Anemia. Again, I am sending off iron studies, retic count, haptoglobin, Sidney test, getting Dr. Breen involved, checking Hemoccult as well and we will continue to monitor this. 4. Elevated troponin, probably secondary to demand ischemia from congestive heart failure and possible endocarditis. We will go ahead and trend these and we are getting an echo and cardiology consult. 5. Question of endocarditis. At this point, again there was a small vegetation on her previous valve. Cultures were sent down here in the ED. I am going to get another set of cultures later tonight and then get her on her antibiotics, that was Dr. Chavez's recommendation. 6. Diabetes. I am going to order lispro sliding scale. 7. Hypertension. At this point, she is pretty hypertensive, last blood pressure was 199. I have ordered some nitro paste and we will giving her Lasix to see if can get this come down. 8. [id number] kidney failure. Unfortunately, the Lasix is probably going to make the kidney function worse. I am going to go ahead and continue to diurese her, though we will get urine sodium and fena workup. I will try to avoid nephrotoxic agents. I have held her ARB for this reason and we will continue to monitor this. 9. Hyperlipidemia. Continue meds as prescribed. 10. History of asthma and chronic obstructive pulmonary disease. I put her on standing nebs and I have continued the 10 of prednisone daily and I will go ahead and put her on Dulera. 11. Code status. Full code. 12. Osteoporosis and arthritis, follow with her primary. 13. DVT prophylaxis. I will place her on SCDs because of the anemia and the hemoptysis. 14. Fluids, electrolytes, and nutrition. She can have renal diet and n.p.o. after midnight for possible BONG. TIME SPENT: On the admission, 80 minutes, greater than half the time was spent [id number] with the patient obtaining my history and physical, other half the time was spent going over the plan of care with the patient and implementing the plan of care. I did discuss the plan of care with my attending, Dr. Tanner, she is in agreement. MARCIN VAZQUEZ, TEXTILE COLORIST DYER [id number]/[facility] #: [id number] [facility] HOSPITALYuniel
[2018-02-15] MEDS: niCARdipine 0.1MG/ML IVPREMIX* 20 MG/200 ML BAG IV SCH (21:56)
[2018-02-15] MEDS ORDERED: Morphine INJ* 2 MG/ML 1 ML CARPUJECT IV ONE (22:00)
[2018-02-15] MEDS ORDERED: Analgesic BALM* 114 GM TOPICAL PRN (23:24)
[2018-02-15] MEDS: Latanoprost 0.005%* 2.5 ml BTL BOTH EYES SCH (23:51)
[2018-02-16] MEDS: Carisoprodol TAB* 350 MG PO PRN ×2 (00:12→07:39)
[2018-02-16] MEDS: oxyCODONE/Acetamin 5/325 MG* TAB PO PRN ×3 (00:12→18:58)
[2018-02-16] MEDS: Albuterol/Ipratropium NEB.SOL* Albuterol 2.5 MG/Ipratropium 0.5 MG 3 ML INH SCH ×4 (01:36→19:31)
[2018-02-16] MEDS: niCARdipine 0.1MG/ML IVPREMIX* 20 MG/200 ML BAG IV SCH ×6 (01:42→14:10)
[2018-02-16] MEDS: oxyCODONE TAB* 5 MG TAB PO PRN ×2 (02:45→18:57)
[2018-02-16] MEDS ORDERED: Vancomycin Random Level* NOTE FOLLOW UP ONE (06:00)
[2018-02-16 06:13] LABS: Hematocrit 22 % (35-47); Hemoglobin 7.4 g/dl (12.0-16.0); Mean Corpuscular HGB Conc 34 g/dl (31-36); Mean Corpuscular Hemoglobin 31 pg (27-31); Mean Corpuscular Volume 90 fL (80-97); Mean Platelet Volume 8.9 um3 (7.4-10.4); Platelet Count 139 10^3/ul (150-450); Red Blood Count 2.43 10^6/ul (4.0-5.4); Red Cell Distribution Width 17 % (10.5-15); White Blood Count 9.8 10^3/ul (3.5-10.8)
[2018-02-16 06:25] LABS: ABS Basophils 0 10^3/ul (0-0.2); ABS Eosinophils 0 10^3/ul (0-0.6); ABS Lymphocytes 0.7 10^3/ul (1.0-4.8); ABS Monocytes 0.7 10^3/ul (0-0.8); ABS Neutrophils 8.3 10^3/ul (1.5-7.7); ABS Nucleated RBC 0 10^3/ul; Eosinophil % 0 % (0-6); INR 1.03 (0.77-1.02); Lymphocyte % 7.5 % (25-47); Nucleated Red Blood Cells % 0
[2018-02-16 06:27] LABS: EGFR Non-African American 22.1 (>60)
[2018-02-16] MEDS: Mometasone/Formoter 200/5 MDI INH SCH ×2 (07:26→19:31)
[2018-02-16] MEDS: Acetaminophen TAB* 325 MG PO PRN (07:38)
[2018-02-16] MEDS: Insulin LISPRO* 1 UNITS UNIT SUBCUT SCH ×3 (07:57→16:52)
[2018-02-16] MEDS: Nitroglycerin 2% OINT* 1 GM PAK TOPICAL SCH ×2 (08:00→14:50)
[2018-02-16] MEDS: predniSONE TAB* 10 MG PO SCH (09:38)
[2018-02-16] MEDS: Furosemide IV* 10 MG/ML VIAL (40 MG) IV SLOW PU SCH (09:38)
[2018-02-16] MEDS: Sertraline* 100 MG TAB PO SCH (09:38)
[2018-02-16] MEDS: Gabapentin CAP(*) 100 MG PO SCH ×3 (09:38→22:12)
[2018-02-16] MEDS: ROSUVASTATIN 10 MG PO SCH (09:38)
[2018-02-16] MEDS ORDERED: Vancomycin(*) 500 MG in NS 0.9% 250 ML* 250 ML IVPB ONE (12:00)
[2018-02-16] MEDS ORDERED: Naloxone* 0.4 MG/ML 1 ML VIAL ONE (14:11)
[2018-02-16] MEDS ORDERED: Lidocaine 2% VISCOUS* 15 ML UDC ONE (14:11)
[2018-02-16] MEDS ORDERED: Flumazenil* 0.1 MG/ML 5 ML MDV ONE (14:11)
[2018-02-16] MEDS ORDERED: fentaNYL* 50 MCG/ML 2 ML VIAL (100 MCG VIAL) ONE (14:11)
[2018-02-16] MEDS ORDERED: Midazolam* 1 MG/ML 10 ML VIAL (10 MG) ONE (14:12)
--- NOTE | 2018-02-16 16:17 | PN ---
Subjective Date of Service: 02/16/18 Interval History: No new c/o. Leg edema has improved. Some TOUSSAINT. Sl sedated from BONG. Objective Active Medications: Acetaminophen (Tylenol Tab*) 650 mg PO Q4H PRN PRN Reason: FEVER/PAIN Last Admin: 02/16/18 07:38 Dose: 650 mg Albuterol (Ventolin Hfa Inhaler*) 2 puff INH Q4H PRN PRN Reason: SOB/WHEEZING Albuterol/Ipratropium (Duoneb (Albuterol 2.5 Mg/Ipratropium 0.5 Mg)) 1 neb INH [id number] AWAKE [facility] Last Admin: 02/16/18 14:15 Dose: 1 neb Carisoprodol (Soma Tab*) 350 mg PO QID PRN PRN Reason: SPASMS - MUSCLE Last Admin: 02/16/18 07:39 Dose: 350 mg Dextrose (D50w Syringe 50 Ml*) 12.5 gm IV PUSH .FOR FS < 60 - SS PRN PRN Reason: FS < 60 Furosemide (Lasix Iv*) 40 mg IV SLOW PU DAILY [facility] Last Admin: 02/16/18 09:38 Dose: 40 mg Gabapentin (Neurontin Cap(*)) 100 mg PO BID [facility] Last Admin: 02/16/18 09:38 Dose: 100 mg Gabapentin (Neurontin Cap(*)) 200 mg PO BEDTIME [facility] Last Admin: 02/15/18 21:08 Dose: 200 mg Hydralazine HCl (Apresoline Iv*) 5 mg IV SLOW PU Q6H PRN PRN Reason: BLOOD PRESSURE Last Admin: 02/15/18 18:24 Dose: 5 mg Nicardipine/Sodium Chloride (Cardene 0.1mg/Ml Ivpremix*) 20 mg in 200 mls @ 50 mls/hr IV .(as Initial Rate) LEENA PRN Reason: 5 MG/HR Last Admin: 02/16/18 14:10 Dose: 60 mls/hr Insulin Human Lispro (Humalog*) 0 units SUBCUT AC LEENA PRN Reason: Protocol Last Admin: 02/16/18 12:49 Dose: Not Given Latanoprost (Xalatan 0.005%*) 1 drop BOTH EYES BEDTIME [facility] Last Admin: 02/15/18 23:51 Dose: 1 drop Mometasone Furoate/Formoterol Fumar (Dulera 200/5 Mdi*) 2 puff INH BID [facility] Last Admin: 02/16/18 07:26 Dose: 2 puff Montelukast Sodium (Singulair Tab*) 10 mg PO BEDTIME [facility] Last Admin: 02/15/18 21:08 Dose: 10 mg Multi-Ingredient Liniment/Rub (Nicolas Kothari*) 1 applic TOPICAL Q4H PRN PRN Reason: ACHY LEGS Last Admin: 02/16/18 00:13 Dose: 1 applic Nitroglycerin (Nitroglycerin 2% Oint*) 0.5 inch TOPICAL 0800,1400 [facility] PRN Reason: Protocol Last Admin: 02/16/18 14:50 Dose: Not Given Ondansetron HCl (Zofran Inj*) 4 mg IV Q6H PRN PRN Reason: NAUSEA Oxycodone HCl (Roxycodone Tab*) 2.5 mg PO Q6H PRN PRN Reason: PAIN Last Admin: 02/16/18 02:45 Dose: 2.5 mg Oxycodone/Acetaminophen (Percocet 5/325 Tab*) 1 tab PO Q6H PRN PRN Reason: PAIN Last Admin: 02/16/18 12:04 Dose: 1 tab Pharmacy Profile Note (Nitro Patch/Oint Remove*) 1 note PATCH OFF 1999 [facility] Last Admin: 02/15/18 21:09 Dose: 1 note Prednisone (Deltasone Tab*) 10 mg PO DAILY [facility] Last Admin: 02/16/18 09:38 Dose: 10 mg Rosuvastatin Calcium (Crestor (Nf)) 10 mg PO DAILY [facility] PRN Reason: Protocol Last Admin: 02/16/18 09:38 Dose: 10 mg Sertraline HCl (Zoloft*) 200 mg PO QAM [facility] Last Admin: 02/16/18 09:38 Dose: 200 mg Vital Signs - 8 hr 02/16/18 02/16/18 02/16/18 08:15 08:30 08:45 Temperature Pulse Rate 107 98 95 Respiratory 12 21 19 Rate Blood Pressure 153/57 139/54 135/51 (mmHg) O2 Sat by Pulse 95 96 96 Oximetry 02/16/18 02/16/18 02/16/18 09:00 09:01 09:15 Temperature Pulse Rate 105 103 97 Respiratory 20 14 14 Rate Blood Pressure 132/54 140/55 (mmHg) O2 Sat by Pulse 96 94 96 Oximetry 02/16/18 02/16/18 02/16/18 09:30 09:45 10:00 Temperature Pulse Rate 94 113 109 Respiratory 14 20 13 Rate Blood Pressure 138/56 165/78 153/55 (mmHg) O2 Sat by Pulse 96 95 95 Oximetry 02/16/18 02/16/18 02/16/18 10:16 10:45 11:00 Temperature Pulse Rate 117 111 108 Respiratory 15 17 14 Rate Blood Pressure 169/54 159/53 148/56 (mmHg) O2 Sat by Pulse 96 80 97 Oximetry 02/16/18 02/16/18 02/16/18 11:01 11:15 11:30 Temperature Pulse Rate 105 106 101 Respiratory 12 16 19 Rate Blood Pressure 152/57 153/55 (mmHg) O2 Sat by Pulse 98 97 97 Oximetry 02/16/18 02/16/18 02/16/18 11:45 12:00 12:01 Temperature 98.1 F Pulse Rate 101 97 103 Respiratory 36 28 33 Rate Blood Pressure 148/51 152/57 (mmHg) O2 Sat by Pulse 96 95 95 Oximetry 02/16/18 02/16/18 02/16/18 12:04 12:15 12:30 Temperature Pulse Rate 102 98 Respiratory 26 33 27 Rate Blood Pressure 147/53 145/53 (mmHg) O2 Sat by Pulse 95 94 Oximetry 02/16/18 02/16/18 02/16/18 12:45 13:00 13:01 Temperature Pulse Rate 105 105 108 Respiratory 14 14 13 Rate Blood Pressure 151/56 155/63 (mmHg) O2 Sat by Pulse 92 93 94 Oximetry 02/16/18 02/16/18 02/16/18 13:15 14:00 14:01 Temperature Pulse Rate 104 104 102 Respiratory 12 23 16 Rate Blood Pressure 139/66 165/64 (mmHg) O2 Sat by Pulse 92 93 94 Oximetry 02/16/18 02/16/18 02/16/18 14:15 14:18 14:30 Temperature Pulse Rate 104 108 105 Respiratory 29 25 Rate Blood Pressure 151/58 153/78 (mmHg) O2 Sat by Pulse 93 98 92 Oximetry 02/16/18 02/16/18 02/16/18 14:39 14:40 14:45 Temperature Pulse Rate 116 111 109 Respiratory 20 16 18 Rate Blood Pressure 175/68 168/59 165/57 (mmHg) O2 Sat by Pulse 92 92 90 Oximetry 02/16/18 02/16/18 02/16/18 14:50 14:55 15:00 Temperature Pulse Rate 111 107 104 Respiratory 17 21 15 Rate Blood Pressure 152/53 145/53 134/55 (mmHg) O2 Sat by Pulse 95 99 97 Oximetry 02/16/18 02/16/18 02/16/18 15:01 15:05 15:10 Temperature Pulse Rate 100 104 101 Respiratory 15 22 17 Rate Blood Pressure 123/50 120/67 (mmHg) O2 Sat by Pulse 96 91 91 Oximetry 02/16/18 02/16/18 02/16/18 15:15 15:20 15:24 Temperature Pulse Rate 97 99 99 Respiratory 13 24 33 Rate Blood Pressure 126/45 124/50 133/47 (mmHg) O2 Sat by Pulse 91 91 91 Oximetry 02/16/18 15:35 Temperature Pulse Rate 102 Respiratory 20 Rate Blood Pressure 124/63 (mmHg) O2 Sat by Pulse 90 Oximetry Oxygen Devices in Use Now: Nasal Cannula Appearance: Sl sedated but responds appropriately. Looks comfortable. Partly up in ICU bed. Eyes: No Scleral Icterus Respiratory: Symmetrical Chest Expansion and Respiratory Effort, Clear to Auscultation, Clear to Percussion Cardiovascular: NL Sounds; No Murmurs; No JVD, RRR, No Edema, - Extremities: No Edema, No Clubbing, Cyanosis, - Skin: No Rash or Ulcers, No Nodules or Sclerosis, - Neurological: NL Sensation, - - Fully oriented. Mildly sedated. No tremor. Result Diagrams: 02/16/18 05:50 02/16/18 05:50 Microbiology and Other Data: Microbiology 02/15/18 22:26 Nasal Screen MRSA (PCR)(FREDY) - Final Nasal Mrsa Not Detected Assess/Plan/Problems-Billing Assessment: - Patient Problems (1) Diastolic CHF Current Visit: Yes Status: Acute Code(s): I50.30 - UNSPECIFIED DIASTOLIC ( CONGESTIVE) HEART FAILURE SNOMED Code(s): 008549962 Comment: Start furosemide 20 mg daily 02/17. Pt instructed to weigh herself every day at home and write down the weight. BMP, BNP 02/17. (2) CKD (chronic kidney disease) stage 4, GFR 15-29 ml/min Current Visit: Yes Status: Acute Code(s): N18.4 - CHRONIC KIDNEY DISEASE, STAGE 4 (SEVERE) SNOMED Code(s): 900496933 Comment: Est GFR 22.1 02/16/18. Consider outpt nephrology consult. (3) Diabetes Current Visit: No Status: Chronic Code(s): E11.9 - TYPE 2 DIABETES MELLITUS WITHOUT COMPLICATIONS SNOMED Code(s): 11723799 Comment: Continue Lispro by SS. She received 1 unit insulin in past 20 hrs ( 02/16 4 PM). Fup Dr. Nicole Mathew. (4) Rash Current Visit: Yes Status: Acute Code(s): R21 - RASH AND OTHER NONSPECIFIC SKIN ERUPTION SNOMED Code(s): 737134556 Comment: Erythema L leg > R leg. Possible cellulitis. Cephelexin started PM 02/16, consider 1 week course. (5) Chronic pain Current Visit: Yes Status: Acute Code(s): G89.29 - OTHER CHRONIC PAIN SNOMED Code(s): 27821397 Comment: Continue gabapentin, carisoprodol, oxycodone/APAP. (6) COPD (chronic obstructive pulmonary disease) Current Visit: No Status: Acute Code(s): J44.9 - CHRONIC OBSTRUCTIVE PULMONARY DISEASE, UNSPECIFIED SNOMED Code(s): 98233379 Comment: Continue prednisone, mometasone/formoterol, montelukast
--- NOTE | 2018-02-16 16:28 | TEE ---
Patient: JOSE ANTONIO PHAM Rec#: [id number] : 1935 Date: 02/16/2018 Age: 82y Height: 144.78 cm / 57.0 in Weight: 60.33 kg / 133.0 lbs Sex: F BSA: 1.51 Room#: [facility] Type: Inpatient Referring: Timi Thomas MD Performing: Timi Thomas MD Reading: Timi Thomas MD Mechanical Apprentice: Tawny Nathan RDCS Nurse: Bronwyn Conteh Nurse: Shara Page RN CC: Shelly Mathew Transesophageal Echocardiogram Indication: Mitral valve regurgitation, CHF. BP: 153/61 HR: 101 Rhythm: Tachycardia Findings History: COPD, HTN, HLD. Technical Comments: The study quality is good. Left Ventricle: The left ventricular chamber size is decreased. Global left ventricular wall motion and contractility are within normal limits. The left ventricle appears hyperdynamic. The estimated ejection fraction is greater than 65%. Left Atrium: The left atrium is moderately dilated. The left atrial appendage velocity is normal. No thrombus is visualized within the left atrium. There is no thrombus visualized in the left atrial appendage. Right Ventricle: The right ventricular cavity size is normal. The right ventricular global systolic function is hyperdynamic. Right Atrium: The right atrial cavity size is normal. Interatrial septum appears intact without evidence of shunting. There were late bubbles seen in the left atrium. A patent foramen ovale is not demonstrated with color Doppler and agitated contrast. Aortic Valve: The aortic valve is trileaflet. The aortic valve leaflets are mildly thickened. There is no evidence of aortic regurgitation. There is no evidence of aortic stenosis. Mitral Valve: Moderate mitral annular calcification present. The mitral valve leaflets are mildly thickened. There is evidence of ruptured chordae. There is mild to moderate mitral regurgitation. There is no evidence of mitral stenosis. Tricuspid Valve: The tricuspid valve leaflets are normal. There is moderate tricuspid regurgitation. The right ventricular systolic pressure is estimated at 60 mmHg. There is evidence of moderate to severe pulmonary hypertension. There is no tricuspid stenosis. Pulmonic Valve: The pulmonic valve appears normal. There is no evidence of pulmonic regurgitation. There is no pulmonic stenosis. Pericardium: There is no significant pericardial effusion. A left pleural effusion is present. Aorta: There is no dilatation of the ascending aorta. The aortic root is normal in size. There is plaque visualized in the transverse aorta. There is plaque visualized in the descending aorta. There is mild-moderate atherosclerotic plaque in the visualized segments of the aorta. Pulmonary Artery: The main pulmonary artery appears normal. Venous: The bicaval view was obtained and appears normal. The pulmonary veins appear normal.2 of 4 visualized. The pulmonary veins appear normal in size. BONG Procedures: All standard views were attempted within the limitations of patient tolerance and safety. History and physical as well as labs were reviewed. The patient was in a fasting state. Risks and benefits of the procedure, including alternatives, were discussed and written informed consent was obtained. The patient and/or their health care roofing sales representative expressed understanding of the procedure, risks and benefits. Baseline and continuous monitoring of blood pressure, heart rate, pulse oximetry and heart rhythm was performed throughout the procedure. The appropriate time-out procedure was performed as per [facility] protocol. The patient was placed in the left lateral decubitus position. The patient's posterior pharynx was anesthetized with 20ml of 2% viscous lidocaine. The patient received IV Midazolam with a total dose of 5 mg. The patient received IV Fentanyl with a total dose of 50 mcg. An oral bite block was inserted for protection of oral dentition. The multiplane transesophageal echocardiogram probe was inserted through the posterior oropharynx and advanced into the esophagus without difficulty. Multiple 2D images were obtained of the heart and its related structures. Color flow Doppler was used for evaluation. Spectral Doppler was also used. The transgastric view was not obtained as it was contraindicated by the patient's medical condition. Due to the patient's fragility. The atrial septum was interrogated with color flow Doppler. At the conclusion of the procedure the probe was removed with continuous suction without complications. The patient tolerated the procedure with no apparent complications. Contrast: Normal saline was used as contrast for the bubble study. Image 37. Intravenous contrast was used to help determine presence of intracardiac shunting. Conclusions Global left ventricular wall motion and contractility are within normal limits. The estimated ejection fraction is greater than 65%. No thrombus is visualized within the left atrium. There is no thrombus visualized in the left atrial appendage. A patent foramen ovale is not demonstrated with color Doppler and agitated contrast. The aortic valve leaflets are mildly thickened. There is evidence of ruptured chordae. Moderate mitral annular calcification present. There is mild to moderate mitral regurgitation. There is no evidence of mitral stenosis. There is moderate tricuspid regurgitation. The right ventricular systolic pressure is estimated at 60 mmHg. There is evidence of moderate to severe pulmonary hypertension. There is no significant pericardial effusion. A left pleural effusion is present. Measurements Name Value Normal Range Aortic Annulus 1.6 cm (1.4 - 2.6) Ao root diameter (2D) 2.5 cm (2.1 - 3.5) Ascending Ao 2.4 cm (2.1 - 3.4) Name Value Normal Range MV E-wave Vmax 1.72 m/sec - MV deceleration time 200.7 msec - MV A-wave Vmax 1.45 m/sec - MV E:A ratio 1.18 ratio - Name Value Normal Range TR Vmax 3.6 m/sec - TR peak gradient 52 mmHg - RAP 8 mmHg - RVSP 60 mmHg -
--- NOTE | 2018-02-16 18:50 | CONS ---
CONSULTATION REPORT: DATE OF CONSULT: 02/16/18 REQUESTING PROVIDER: Marcin Vazquez NP CONSULTING SERVICE: Infectious Disease. REASON FOR CONSULT: Question infective endocarditis. IMPRESSION: 1. Two to three weeks of worsening dyspnea, lower extremity edema, pink sputum. C-reactive protein was 13. Chest x-ray shows interstitial edema. She has been off her diuretic for a month. 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 I do not think that is a vegetation, particularly in her clinical setting, seems unlikely to be infective endocarditis. I should also note the blood cultures are negative to date. 2. Chronic obstructive pulmonary disease. 3. Diabetes. RECOMMENDATIONS: Stop antibiotics, await the blood cultures. She is going to have further evaluation of her valves today. HISTORY OF PRESENT ILLNESS: An 82-year-old woman with COPD and history of heart failure, admitted with dyspnea and heart failure. She had stopped her diuretic a month ago due to concern related to kidney function. Since then, she has had progressive increasing right lower extremity edema and dyspnea on exertion, some paroxysmal nocturnal dyspnea. For about a week, she had pink frothy sputum and then it became more bloody and so she came to the hospital in the setting of also feeling very short of breath on 02/15/18. Her white count was 16,000. She had a dose of Levaquin in the ER after blood cultures were taken, which are still negative. She then started vancomycin, ceftriaxone overnight. Her white count is 9 today. She has had no fevers here. Her CRP was 13 yesterday, sed rate 24 and found the PCR was negative. She denies any fevers, chills, sweats, anorexia or weight loss over the last couple of weeks. She had a cardiac evaluation as an outpatient with outpatient echocardiogram that showed the small mitral valve mass, which was seen on another echocardiogram yesterday. Since she has been here, her breathing has improved. She has had no fevers, chills or sweats. Her appetite is okay. Her other lab abnormalities include an elevated troponin just being trended. PAST MEDICAL HISTORY: 1. COPD. 2. Type 2 diabetes. 3. Hypertension. 4. Hyperlipidemia. 5. Asthma. 6. Skin cancer. 7. Osteoarthritis. 8. Osteoporosis. 9. Anemia. 10. Chronic kidney disease. 11. Status post cholecystectomy. 12. Status post open reduction internal fixation, right femur. 13. Status post left knee total arthroplasty. 14. Status post foot surgery. 15. Status post right wrist surgery. MEDICATIONS: 1. Tylenol. 2. Albuterol. 3. Nicardipine infusion. 4. Carisoprodol. 5. Ceftriaxone 2 g a day. 6. Lasix. 7. Gabapentin. 8. Singulair. 9. Nitroglycerin ointment. 10. Prednisone 10 mg a day. 11. Rosuvastatin. 12. Vancomycin. ALLERGIES: DILTIAZEM, IV DYE, LIPITOR, DIAZEPAM, PHENYLBUTAZONE. FAMILY HISTORY: No recurrent infections. SOCIAL HISTORY: She lives in [place]. She has no travel or sick contacts. REVIEW OF SYSTEMS: A 14-point review of systems was all negative except as noted above. PHYSICAL EXAM: Vital Signs: Temperature 36, heart rate 110, respiratory rate 13, blood pressure 150/55, oxygen saturation 95% on 4 L by nasal cannula. In general, she is awake. Not in distress. Neurologic: She is oriented x3, follows all commands. HEENT: There is no conjunctival hemorrhage. Oropharynx : Without lesions. Neck: Supple without mass. Lymph Nodes: There is no inguinal, axillary or epitrochlear lymphadenopathy. Heart: Regular and tachycardic without murmurs. Lungs: Rales at the base bilaterally without wheeze or rhonchi. Abdomen: Soft, nontender, nondistended. There is a midline hernia, which is easily reducible and nontender. Skin: There is no rash or splinter hemorrhages. Musculoskeletal: No spine tenderness to palpation. There is 1+ edema in the bilateral lower extremities. DIAGNOSTIC STUDIES/LAB DATA: Creatinine 2.1. Troponin 0.2. Procalcitonin 0.1. White blood cell count 9, hemoglobin 7, platelets 139. Please see impression and recommendations as outlined above. Thank you for asking me to see Ms. Del Castillo in consultation. [id number]/[facility] #: [id number] VIKAS
[2018-02-16] MEDS ORDERED: cefTRIAXone VIAL(*) 2,000 MG in NS 0.9% 100 ML* 100 ML IVPB SCH (20:30)
--- NOTE | 2018-02-16 21:09 | CONS ---
CC: Quang Osorio MD; Dr. Martin * CARDIOLOGY CONSULTATION: DATE OF CONSULT: 02/16/18 INDICATION FOR CONSULTATION: Congestive heart failure. HISTORY OF PRESENT ILLNESS: The patient is an 82-year-old female with a history of hypertension, history of diastolic dysfunction and congestive heart failure, who started having increased shortness of breath 1 day prior to admission. The patient does report that she had been doing well up until a day prior to admission. She does state that she has been much more anxious about her cardiac condition since her evaluation by Dr. Martin. Dr. Martin recently did an echocardiogram, which showed an abnormal mass on her mitral valve. Her mitral valve function was otherwise normal. At that time, Dr. Martin wanted to proceed with transesophageal echocardiogram which caused the patient some anxiety. The patient states that she had gone out to eat the night prior to admission and had extra salt intake. The patient came to the emergency room. She was denying any chest pain. She denied any palpitations. She denied any lightheadedness, dizziness, or syncope. The patient's chest x-ray in the emergency room was consistent with congestive heart failure. The patient's troponin levels were only minimally elevated at 0.3. The patient's BNP was elevated at 619. An echocardiogram done in the emergency room to evaluate LV function and her mitral valve function, was unchanged from her echocardiogram a couple of weeks ago at Dr. Martin's office. PAST MEDICAL HISTORY: Significant for hypertension, diastolic dysfunction, COPD , diabetes. PAST SURGICAL HISTORY: Knee surgery in 2012, femoral bone surgery in 2017. OUTPATIENT MEDICATIONS: 1. Iron tablets. 2. Lorazepam. 3. Verapamil ER 120 mg b.i.d. 4. Losartan 25 mg b.i.d. 5. Oxygen 2 L at night. 6. Fosamax 70 mg q. week. 7. Oxycodone as needed. 8. Advil as needed. 9. Ventolin inhaler 4 times a day. 10. Albuterol inhaler. 11. Multiple eye drops. ALLERGIES: To multiple chemicals and environmental allergies. She is also intolerant of LIPITOR. FAMILY HISTORY: Noncontributory. SOCIAL HISTORY: She is . She lives with her . 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 She is a previous smoker. She quit 29 years ago. She denies any alcohol use. She does try to get regular exercise. PHYSICAL EXAM: Height is 4 feet 9 inches, weight is 140 pounds, heart rate is 100, blood pressure 127/65, respiratory rate is 14. Sclerae anicteric. Oropharynx is pink without erythema. Carotids are 2+ without bruits. JVD is normal. Thyroid is normal. Cardiac Exam: S1, S2 with a 1/6 systolic ejection murmur heard best at the right upper sternal border. PMI is normal. Lungs have mildly decreased breath sounds. There are rales on the bottom third of both lung hill. There is no dullness to percussion. Abdomen is soft, nontender, nondistended with normoactive bowel sounds. Extremities show 1+ edema. She has 2+ pulses throughout. The patient is awake, alert, and oriented. DIAGNOSTIC STUDIES/LAB DATA: Chemistries are within normal limits. BUN 40, creatinine 2.1 which is at her baseline. Troponins are as above. C-reactive protein is elevated at 13. CBC: Her white count is 16, hemoglobin 8, hematocrit 27, platelet count 174. EKG demonstrates sinus tachycardia at 102 beats per minute, mild LVH. Her echocardiogram in the emergency room showed normal LV size and systolic function. She had a normal aortic valve. Her mitral valve shows mild-to- moderate mitral regurgitation. 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 Martin's echocardiogram 3 weeks ago. She has moderate tricuspid regurgitation with [id number] pulmonary hypertension. No pericardial effusion. IMPRESSION AND PLAN: This is an 82-year-old female with a history of diastolic dysfunction, who is admitted to the hospital with congestive heart failure. Her echocardiogram shows no worsening of LV function and no worsening of her mitral regurgitation. For now, my recommendation is to diurese the patient, rate control with her verapamil. The patient may need further afterload reduction agent such as hydralazine given her renal insufficiency. The patient will undergo transesophageal echocardiogram during her hospitalization to further delineate the mitral valve abnormality. The patient has not had a stress testing since 2011. It may be worthwhile doing a stress test on this patient to rule out ischemia as a cause for diastolic dysfunction. This can be decided by Dr. Martin as an outpatient. [id number]/[facility] #: [id number] [facility]
[2018-02-16] MEDS: Montelukast Sodium TAB* 10 MG PO SCH (22:11)
[2018-02-16] MEDS: Cephalexin CAP* 250 MG PO SCH (22:11)
[2018-02-16] MEDS: Latanoprost 0.005%* 2.5 ml BTL BOTH EYES SCH (22:31)
--- NOTE | 2018-02-16 23:14 | CONS ---
CC: Dr. Shelly Mathew * MEDICAL ONCOLOGY CONSULTATION NOTE: DATE OF CONSULT: 02/16/18 REASON FOR CONSULT: Anemia. HISTORY OF PRESENT ILLNESS: Mrs. Del Castillo is an 82-year-old female. She is known to me as I previously cared for her son, Yasmany, who of metastatic colon cancer 20 years ago at age 40. She has an underlying history of COPD as well as heart disease. She reports she has become increasingly short of breath over the past couple of weeks. She was seen in the office at [facility] and prescribed antibiotics along with steroids with a thought that this might be upper respiratory infection. She also had stopped her diuretics about a month ago due to concern about worsening kidney function. She has had progressive right lower extremity edema along with dyspnea on exertion. This has been worsening over the past several weeks. She was seen by her primary prison guard, Dr. Martin, and a repeat echocardiogram was done approximately 2 weeks ago revealing a small vegetation. When seen by the primary care physician covering physician over the weekend, she was started on Bactrim as noted above along with a prednisone taper. Despite these, her symptoms continued to worsen and her creatinine hannah. On the day of admission, she was markedly more short of breath and was unable to bring herself to the hospital and called 911. She did have some slight pink tinge to her sputum. In the emergency room, she was given a dose of Levaquin after blood cultures were taken and then started on vancomycin and ceftriaxone. She also received increasing doses of diuretics. Since in the hospital, her breathing has improved. It is unclear whether this is due to her most likely release of the extra fluid onboard with the diuresis more so than the antibiotics. PAST MEDICAL HISTORY: Significant for anemia, although she was unaware of any anemia until the present time. Reviewing previous labs in January of 2011 at the time when she had pneumonia, her hemoglobin was 10.3. In June of 2011, at the time of the arm cellulitis 11.3. In 2011, her hemoglobin was noted as low as 8.2, but this was postop knee surgery. At the time of her wrist fracture in October of 2016 at 10.6, postop down to 9.4. Outpatient labs through [facility] revealed hemoglobin in July of 2017 of at 10.4, in August 10.5, and in January of 2018 10.3. On most of these occasions, platelet counts were normal although it should be noted on , platelet count was 92,000. The patient's white count was without significant abnormalities and there was no significant changes in her differential. Since admission to the hospital, she has had a ferritin level of 322, iron sat of 58%, B12 941, folic acid greater than 20, corrected retic 1.4. PAST MEDICAL HISTORY: Otherwise significant for: 1. Diabetes mellitus. 2. Hypertension. 3. Hyperlipidemia. 4. Asthma. 5. Elevated creatinine with a chronic kidney disease. 6. Osteoarthritis. 7. Osteoporosis. 8. COPD. 9. Question of vegetation on mitral valve. 10. Seasonal allergies. 11. The patient is status post cholecystectomy. 12. Status post ectopic . 13. Status post open reduction and internal fixation of the right femur. 14. Status post total knee replacement. 15. Status post right wrist surgery. 16. Status post foot surgery. MEDICATIONS: At home prior to admission included: 1. Prednisone 10 mg daily to take as directed started 3 days prior to admission. 2. Bactrim DS one b.i.d. started 3 days prior to admission. 3. Verapamil 120 mg daily. 4. Cozaar 25 mg daily. 5. Neurontin 100 mg b.i.d. and 200 mg at h.s. 6. Percocet 1 tablet 5/325 q.6 hours p.r.n. 7. Zoloft 200 mg daily. 8. Crestor 10 mg daily. 9. Singulair 10 mg at h.s. 10. Levocetirizine 5 mg daily. 11. Lasix 20 mg daily, although stopped recently. 12. Soma 350 mg 4 times a day p.r.n. 13. Albuterol 2 puffs q.4 hours p.r.n. ALLERGIES TO MEDICATIONS: Include those to ATORVASTATIN, DILTIAZEM, IV DYE, BELLADONNA, DIAZEPAM, and PHENYLBUTAZONE although of these should be recognized intolerances and not true allergies. FAMILY HISTORY: Son with a colon cancer dying at age 40, 20 years ago. No other family history of malignancies. No known family history of malignancies. No known family history of anemia. Mother with OH. Father of older age. SOCIAL HISTORY: Former smoker quitting 32 years ago. Occasional alcohol. Lives with her . Surrogate decision maker is her . She has 2 other sons, who are involved in her care. REVIEW OF SYSTEMS: Energy level has been poor recently. Has severe neck pain in the hospital today, although somewhat improved after medications, feels better today than she has in the recent past due to improved breathing. No significant change in appetite or weight. No significant chest pain. No significant GI complaints. No significant urinary tract complaints. Review of systems is otherwise negative. PHYSICAL EXAM: An 82-year-old female, in no acute distress. Vital Signs: Blood pressure was extremely elevated earlier in the admission as high as 225/ 81 and 230/79, more recently has been approximately 165/78, pulse 100, although slightly more rapid earlier on admission, temperature T-max since admission of 100.2. HEENT: PERRL, EOMI. No erythema or exudates. No palpable cervical or supraclavicular axillary adenopathy. Lungs: Wheezes in the left lung field, occasional rales at the bases. Heart: Regular rate and rhythm without murmurs , rubs, or gallops. Extremities: 1+ pitting edema. Back: No CVA or spinal tenderness. Neurologic: Without focal deficits. LABORATORY STUDIES: Her CBC this admission include white count of 9,800, H and H of 22/7.4, platelet count 139. Differential includes 85% neutrophils, 8% lymphocytes, 7% monocytes. MCV is 90. This is a change from admission where the white count of 16.2 and prior to diuresis, her H and H were 27/8.6. Despite the diuresis, her H and H has fallen significantly since admission. Chemistry studies: Sodium 139, potassium 3.5, chloride 105, bicarb 23, BUN 42, it was 40 on admission and typically runs less than 30. Creatinine 2.15, 2.1 on admission and typically runs under 1. Glucose 171. Troponins are elevated to 0.36 and now down to 0.21. LFTs are within normal limits. Hematologic studies including B12, folic acid, iron, ferritin, retic as discussed above. INR 1.03, PTT 27.0. IMPRESSION: 1. An 82-year-old female admitted to the hospital with significant shortness of breath and appears to be in heart failure, significantly improved following diuresis although she recently has had her diuretics held prior to the hospitalization due to rise in creatinine. Associated with this, she has had mildly elevated transaminases. It is certainly possible that her significant anemia is contributing to her shortness of breath although prior to this admission as recently as 2 weeks ago, her H and H were not significantly different than they had been running for the past couple of years. On this admission, she is considerably lower. There are no signs of any active bleeding , although stool guaiac certainly would be useful adn has already been ordered. Her iron level is normal. Her stools have not been black or tarry by her report and her MCV is normal. Given the fact that she is also recently when not stressed, had a low platelet count in addition to a now chronically low hemoglobin and hematocrit for the past couple of years, it would be reasonable to perform a bone marrow aspiration biopsy to rule out an underlying hematologic condition such as myelodysplastic syndrome although certainly malignancy such as multiple myeloma, leukemia, lymphoma could not be excluded. It is also possible that she has a hypoplastic or relatively aplastic marrow especially at the age of 82. While it is possible that some of this anemia is due to her renal issues, she has been running creatinine of 1.7 as an outpatient as recently as 01/05/18, so it is unlikely this is a major contributor. 2. Hemoptysis. Most likely this is secondary to pulmonary edema. There does not appear to be any signs of active pneumonia and she does not seem to be bleeding enough to cause a significant drop in her counts, at least by what we are seeing in the hospital and by her story. [id number]/[facility] #: [id number] MTDD
[2018-02-17] MEDS: hydrALAZINE IV* 20 MG/ML VIAL IV SLOW PU PRN ×4 (00:04→21:31)
[2018-02-17] MEDS: Carisoprodol TAB* 350 MG PO PRN ×3 (00:07→21:34)
[2018-02-17] MEDS: Albuterol/Ipratropium NEB.SOL* Albuterol 2.5 MG/Ipratropium 0.5 MG 3 ML INH SCH ×4 (01:48→19:55)
[2018-02-17] MEDS: CMCS: Melatonin (NF) 3 MG TAB PO PRN (03:57)
[2018-02-17] MEDS: oxyCODONE/Acetamin 5/325 MG* TAB PO PRN ×3 (03:58→19:45)
[2018-02-17] MEDS: oxyCODONE TAB* 5 MG TAB PO PRN ×3 (03:59→19:44)
[2018-02-17] MEDS ORDERED: Metoprolol Tartrate IV* 1 MG/ML 5 ML VIAL IV ONE (05:14)
[2018-02-17] MEDS ORDERED: Morphine INJ* 2 MG/ML 1 ML CARPUJECT IV ONE (05:15)
[2018-02-17] MEDS ORDERED: Vancomycin Random Level* NOTE FOLLOW UP ONE (06:00)
[2018-02-17 07:12] LABS: EGFR Non-African American 22.9 (>60)
[2018-02-17] MEDS: Mometasone/Formoter 200/5 MDI INH SCH ×2 (07:22→19:56)
[2018-02-17] MEDS: Insulin LISPRO* 1 UNITS UNIT SUBCUT SCH ×3 (07:42→19:17)
[2018-02-17] MEDS: ROSUVASTATIN 10 MG PO SCH (09:01)
[2018-02-17] MEDS: predniSONE TAB* 10 MG PO SCH (09:01)
[2018-02-17] MEDS: Cephalexin CAP* 250 MG PO SCH ×3 (09:01→21:12)
[2018-02-17] MEDS: Gabapentin CAP(*) 100 MG PO SCH ×3 (09:01→21:14)
[2018-02-17] MEDS: Sertraline* 100 MG TAB PO SCH (09:02)
[2018-02-17] MEDS: Furosemide IV* 10 MG/ML VIAL (40 MG) IV SLOW PU SCH ×2 (09:02→19:37)
[2018-02-17] MEDS: Verapamil SR TAB* 240 MG PO SCH (09:36)
[2018-02-17 12:36] LABS: Hematocrit 25 % (35-47); Hemoglobin 8.3 g/dl (12.0-16.0); Mean Corpuscular HGB Conc 33 g/dl (31-36); Mean Corpuscular Hemoglobin 30 pg (27-31); Mean Corpuscular Volume 91 fL (80-97); Mean Platelet Volume 8.8 um3 (7.4-10.4); Platelet Count 152 10^3/ul (150-450); Red Blood Count 2.75 10^6/ul (4.0-5.4); Red Cell Distribution Width 17 % (10.5-15); White Blood Count 14.5 10^3/ul (3.5-10.8)
[2018-02-17 13:27] LABS: ABS Basophils 0.1 10^3/ul (0-0.2); ABS Eosinophils 0 10^3/ul (0-0.6); ABS Lymphocytes 0.6 10^3/ul (1.0-4.8); ABS Monocytes 1.2 10^3/ul (0-0.8); ABS Neutrophils 12.6 10^3/ul (1.5-7.7); ABS Nucleated RBC 0 10^3/ul; Eosinophil % 0 % (0-6); Lymphocyte % 4.1 % (25-47); Nucleated Red Blood Cells % 0
[2018-02-17] MEDS: hydrALAZINE TAB* 25 MG PO SCH ×2 (14:20→21:13)
--- NOTE | 2018-02-17 15:24 | PN ---
Subjective Date of Service: 02/17/18 Interval History: Still feels short of breath. She is receiving a blood transfusion now. Only able to walk to the commode before becoming short of breath. No chest pain, nausea, vomiting, bloating. + orthopnea. afebrile. Objective Active Medications: Acetaminophen (Tylenol Tab*) 650 mg PO Q4H PRN PRN Reason: FEVER/PAIN Last Admin: 02/16/18 07:38 Dose: 650 mg Albuterol (Ventolin Hfa Inhaler*) 2 puff INH Q4H PRN PRN Reason: SOB/WHEEZING Albuterol/Ipratropium (Duoneb (Albuterol 2.5 Mg/Ipratropium 0.5 Mg)) 1 neb INH [id number] AWAKE [facility] Last Admin: 02/17/18 13:48 Dose: 1 neb Carisoprodol (Soma Tab*) 350 mg PO QID PRN PRN Reason: SPASMS - MUSCLE Last Admin: 02/17/18 12:00 Dose: 350 mg Cephalexin HCl (Keflex Cap*) 250 mg PO TID [facility] Last Admin: 02/17/18 14:20 Dose: 250 mg Dextrose (D50w Syringe 50 Ml*) 12.5 gm IV PUSH .FOR FS < 60 - SS PRN PRN Reason: FS < 60 Furosemide (Lasix Iv*) 40 mg IV SLOW PU 0800,1700 [facility] Gabapentin (Neurontin Cap(*)) 100 mg PO BID [facility] Last Admin: 02/17/18 09:01 Dose: 100 mg Gabapentin (Neurontin Cap(*)) 200 mg PO BEDTIME [facility] Last Admin: 02/16/18 22:12 Dose: 200 mg Hydralazine HCl (Apresoline Iv*) 5 mg IV SLOW PU Q6H PRN PRN Reason: BLOOD PRESSURE Last Admin: 02/17/18 12:01 Dose: 5 mg Hydralazine HCl (Apresoline Tab*) 25 mg PO TID [facility] Last Admin: 02/17/18 14:20 Dose: 25 mg Insulin Human Lispro (Humalog*) 0 units SUBCUT AC [facility] PRN Reason: Protocol Last Admin: 02/17/18 12:07 Dose: Not Given Latanoprost (Xalatan 0.005%*) 1 drop BOTH EYES BEDTIME [facility] Last Admin: 02/16/18 22:31 Dose: 1 drop Melatonin (Melatonin (Nf)) 3 mg PO BEDTIME PRN; Protocol PRN Reason: Sleep Last Admin: 02/17/18 03:57 Dose: 3 mg Mometasone Furoate/Formoterol Fumar (Dulera 200/5 Mdi*) 2 puff INH BID [facility] Last Admin: 02/17/18 07:22 Dose: 2 puff Montelukast Sodium (Singulair Tab*) 10 mg PO BEDTIME [facility] Last Admin: 02/16/18 22:11 Dose: 10 mg Multi-Ingredient Liniment/Rub (Nicolas Kothari*) 1 applic TOPICAL Q4H PRN PRN Reason: ACHY LEGS Last Admin: 02/16/18 00:13 Dose: 1 applic Ondansetron HCl (Zofran Inj*) 4 mg IV Q6H PRN PRN Reason: NAUSEA Oxycodone HCl (Roxycodone Tab*) 2.5 mg PO Q6H PRN PRN Reason: PAIN Last Admin: 02/17/18 12:00 Dose: 2.5 mg Oxycodone/Acetaminophen (Percocet 5/325 Tab*) 1 tab PO Q6H PRN PRN Reason: PAIN Last Admin: 02/17/18 11:59 Dose: 1 tab Prednisone (Deltasone Tab*) 10 mg PO DAILY [facility] Last Admin: 02/17/18 09:01 Dose: 10 mg Rosuvastatin Calcium (Crestor (Nf)) 10 mg PO DAILY [facility] PRN Reason: Protocol Last Admin: 02/17/18 09:01 Dose: 10 mg Sertraline HCl (Zoloft*) 200 mg PO QAM [facility] Last Admin: 02/17/18 09:02 Dose: 200 mg Verapamil HCl (Calan Sr Tab*) 120 mg PO DAILY [facility] Last Admin: 02/17/18 09:36 Dose: 120 mg Vital Signs - 8 hr 02/17/18 02/17/18 02/17/18 07:20 07:30 07:31 Temperature Pulse Rate 106 Respiratory 20 20 Rate Blood Pressure (mmHg) O2 Sat by Pulse Oximetry 02/17/18 02/17/18 02/17/18 07:37 08:11 09:01 Temperature 97.6 F Pulse Rate 85 Respiratory 24 16 20 Rate Blood Pressure 179/69 (mmHg) O2 Sat by Pulse 97 Oximetry 02/17/18 02/17/18 02/17/18 11:40 11:59 12:00 Temperature 97.9 F Pulse Rate 89 Respiratory 16 20 20 Rate Blood Pressure 180/74 (mmHg) O2 Sat by Pulse 96 Oximetry 02/17/18 02/17/18 13:50 14:21 Temperature Pulse Rate 102 Respiratory 17 20 Rate Blood Pressure (mmHg) O2 Sat by Pulse 95 Oximetry Oxygen Devices in Use Now: High Flow Nasal Cannula Appearance: alert, in no distress, mildly tachypneic Eyes: No Scleral Icterus Ears/Nose/Mouth/Throat: NL Teeth, Lips, Gums Respiratory: Clear to Auscultation, Clear to Percussion Cardiovascular: - - +S3, RRR with some ectopy. JVP to mandible at 90 degrees upright Lymphatic: No Cervical Adenopathy Extremities: - - blanching macular rash on left green, 2+ edema b/l Neurological: Alert and Oriented x 3 Result Diagrams: 02/17/18 12:22 02/17/18 06:26 Microbiology and Other Data: Microbiology 02/15/18 22:26 Nasal Screen MRSA (PCR)(FREDY) - Final Nasal Mrsa Not Detected Assess/Plan/Problems-Billing Assessment: - Patient Problems (1) Acute respiratory failure with hypoxia Current Visit: Yes Status: Acute Code(s): J96.01 - ACUTE RESPIRATORY FAILURE WITH HYPOXIA SNOMED Code(s): 06068743 Comment: I believe she is still volume overloaded and that her renal dysfunction may be a reflection of congestion Increase lasix to bid today, monitor Ins and Outs Wean O2 as able Also has elevated RV pressures, which may be contributing (2) Right heart failure Current Visit: Yes Status: Acute Comment: increase diuresis today (3) Acute renal failure Current Visit: No Status: Acute Comment: Check renal ultrasound, check urine protein: creatinine ratio, check FeUrea (4) COPD (chronic obstructive pulmonary disease) Current Visit: No Status: Acute Code(s): J44.9 - CHRONIC OBSTRUCTIVE PULMONARY DISEASE, UNSPECIFIED SNOMED Code(s): 88432115 Comment: Continue chronic daily prednisone, mometasone/formoterol, montelukast Not in exacerbation (5) Thrombocytopenia Current Visit: No Status: Acute Code(s): D69.6 - THROMBOCYTOPENIA, UNSPECIFIED SNOMED Code(s): 022227800 Comment: Chronic, evaluted by Dr. Cheung; considering BM evaluation (6) Hypertension Current Visit: No Status: Chronic Code(s): I10 - ESSENTIAL (PRIMARY) HYPERTENSION SNOMED Code(s): 77694202 Comment: Poorly controlled and may be contributing to her shortness of breath Add back valsartan today for afterload reduction to diurese Can add coreg if more control needed
--- NOTE | 2018-02-17 18:26 | ED ---
iMchael Erazo Angela, scribed for Paulo Mart MD on 02/15/18 at 1248 . Respiratory - HPI Summary HPI Summary: This pt is a 82 y/o female presenting to [facility] via EMS from home c/o difficulty breathing and productive cough. Pt states she has a productive cough with blood tinged sputum. Pt has had albuterol inhaler this morning with no relief. 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 Pt is currently on Bactrim for possible cellulitis on left leg. She is also on Prednisone. - History of Current Complaint Stated Complaint: DIFFICULTY BREATHING` Time Seen by Provider: 02/15/18 12:22 Hx Obtained From: Patient Onset/Duration: Lasting Days, Still Present Timing: Constant Current Severity: Moderate Pain Intensity: 0 Character: Wheezing, Cough (Productive), Dyspnea at Rest Sputum Amount: Moderate Aggravating Factor(s): Nothing Alleviating Factor(s): Nothing Associated Signs and Symptoms: Fever - low grade, SOB, Wheezing, Dyspnea - Allergy/Home Medications Allergies/Adverse Reactions: Allergies Allergy/AdvReac Type Severity Reaction Status Date / Time Adhesive Tape Allergy Severe Rash Verified 11/11/16 12:38 belladonna alkaloids Allergy Swelling Verified 02/15/18 15:19 diltiazem Allergy Headache Verified 02/15/18 15:19 Iodinated Contrast- Oral and Allergy Hives Verified 02/15/18 15:19 IV Dye phenylbutazone Allergy Swelling Verified 02/15/18 15:19 atorvastatin AdvReac GI Upset Verified 02/15/18 15:19 diazepam AdvReac Agitation Verified 02/15/18 15:19 lobster Allergy Severe Hives Uncoded 11/11/16 12:38 Home Medications: Home Medications Gabapentin CAP(*) [Neurontin 100 mg CAP(*)] 100 mg PO BID 02/15/18 [History Confirmed 02/15/18] Gabapentin CAP(*) [Neurontin 100 mg CAP(*)] 200 mg PO BEDTIME 02/15/18 [History Confirmed 02/15/18] Losartan TAB* [Cozaar TAB*] 25 mg PO DAILY 02/15/18 [History Confirmed 02/15/18] Oxycodone HCl/Acetaminophen [Percocet] 1 tab PO Q6H PRN 02/15/18 [History Confirmed 02/15/18] Sulfamethox/Trimethoprim DS* [Bactrim DS 800/160 TAB*] 1 tab PO BID 02/15/18 [ History Confirmed 02/15/18] Verapamil SR TAB* [Calan Sr TAB*] 120 mg PO DAILY 02/15/18 [History Confirmed ] predniSONE TAB* [Deltasone TAB*] 10 mg PO DAILY 02/15/18 [History Confirmed 07/27] PMH/Surg Hx/FS Hx/Imm Hx Endocrine/Hematology History: Reports: Hx Diabetes, Hx Thyroid Disease - nodule on thyroid, Hx Anemia - on iron Cardiovascular History: Reports: Hx Hypercholesterolemia, Hx Hypertension Denies: Hx Congestive Heart Failure, Hx Pacemaker/ICD Respiratory History: Reports: Hx Asthma, Hx Chronic Bronchitis, Hx Chronic Obstructive Pulmonary Disease (COPD), Hx Pneumonia, Hx Seasonal Allergies, Other Respiratory Problems/Disorders - COPD, uses O2 at night 4 L GI History: Reports: Hx Gastroesophageal Reflux Disease Denies: Hx Jaundice, Hx Ulcer Musculoskeletal History: Reports: Hx Arthritis, Hx Back Problems, Hx Scoliosis, Hx Tendonitis, Other Musculoskeletal History - sciatica Sensory History: Reports: Hx Contacts or Glasses, Hx Glaucoma Denies: Hx Hearing Aid Opthamlomology History: Reports: Hx Contacts or Glasses, Hx Glaucoma Neurological History: Reports: Hx Nerve Disease - Left sciatica, Other Neuro Impairments/Disorders - degeneratic disc disease, stenosis, hernia discs, OA Psychiatric History: Reports: Hx Depression Denies: Hx Panic Disorder - Cancer History Cancer Type, Location and Year: skin Hx Chemotherapy: No Hx Radiation Therapy: No - Surgical History Surgery Procedure, Year, and Place: LT KNEE REPLACEMENT 05/20,. TONSILS,. WISDOM TEETH,. ECTOPIC ,. D&C,. GALLBLADDER,. SKIN CA REMOVED,. RT AND LT FOOT SURGERY. Skin on nose reconstructed, TITANIUM NABEEL RIGHT FEMUR 2015 Hx Anesthesia Reactions: Yes - after gallbladder surgery- wide awake before extubated Infectious Disease History: No Infectious Disease History: Denies: Hx Clostridium Difficile, Hx Hepatitis, Hx Human Immunodeficiency Virus (HIV), Hx of Known/Suspected MRSA, Hx Shingles, Hx Tuberculosis, Traveled Outside the [place] in Last 30 Days - Family History Known Family History: Positive: Hypertension Negative: Cardiac Disease, Diabetes - Social History Alcohol Use: None Substance Use Type: Reports: None Hx Tobacco Use: No Smoking Status (MU): Former Smoker Type: Cigarettes Amount Used/How Often: quit 29 years ago Have You Smoked in the Last Year: No Review of Systems Negative: Fever Eyes: Negative ENT: Negative Positive: Shortness Of Breath, Cough Skin: Other - celullitis on left leg Neurological: Negative All Other Systems Reviewed And Are Negative: Yes Physical Exam - Summary Physical Exam Summary: VITAL SIGNS: Reviewed. GENERAL: Patient is an elderly female with some respiratory distress, however pt is able to speak in full sentences. HEAD AND FACE: No signs of trauma. No ecchymosis, hematomas or skull depressions. No sinus tenderness. EYES: PERRLA, EOMI x 2, No injected conjunctiva, no nystagmus. EARS: Hearing grossly intact. Ear canals and tympanic membranes are within normal limits. MOUTH: Oropharynx within normal limits. NECK: Supple, trachea is midline, no adenopathy, no JVD, no carotid bruit, no c- spine tenderness, neck with full ROM. CHEST: Symmetric, no tenderness at palpation LUNGS: Bilateral crackles with diffuse wheezing. CVS: Regular rate and rhythm, S1 and S2 present, no murmurs or gallops appreciated. ABDOMEN: Soft, non-tender. No signs of distention. No rebound no guarding, and no masses palpated. Bowel sounds are normal. EXTREMITIES: FROM in all major joints, no cyanosis or clubbing. Pt has 1+ edema in bilateral lower extremities. There is an erythematous area on the left leg, which is currently being treated for cellulitis with Bactrim. NEURO: Alert and oriented x 3. No acute neurological deficits. Speech is normal and follows commands. SKIN: Dry and warm Triage Information Reviewed: Yes Vital Signs On Initial Exam: Initial Vitals Temp Pulse Resp BP Pulse Ox 99.6 F 114 18 210/82 95 02/15/18 12:19 02/15/18 12:19 02/15/18 12:19 02/15/18 12:19 02/15/18 12:19 Vital Signs Reviewed: Yes Diagnostics - Vital Signs Vital Signs Temp Pulse Resp BP Pulse Ox 02/15/18 12:19 99.6 F 114 18 210/82 95 - Laboratory Result Diagrams: 02/15/18 12:51 02/15/18 12:51 Lab Statement: Any lab studies that have been ordered have been reviewed, and results considered in the medical decision making process. - Radiology Chest XR Xray Interpretation: Positive (See Comments) - IMPRESSION: 1. Pulmonary interstitial edema. 2. Small bilateral pleural effusions. 3. Bibasilar atelectasis versus consolidation. Dr. Mart has reviewed this radiology report. Radiology Interpretation Completed By: Radiologist - EKG 12:55 Cardiac Rate: Tachycardia EKG Rhythm: Sinus Tachycardia - at 102 bpm EKG Interpretation: No ST elevations. Normal axis. Disposition - Course Assessment/Plan: This pt is a 82 y/o female presenting to [facility] via EMS from home c/o difficulty breathing and productive cough. Pt states she has a productive cough with blood tinged sputum. Pt has had albuterol inhaler this morning with no relief. 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 Pt is currently on Bactrim for possible cellulitis on left leg. She is also on Prednisone. Test results shows WBC of 16.2 with slight anemia, with left shift , acute on chronic renal failure, increased LFTs, increased troponin, CRP of 13.4. Influenza A and B are both negative. Chest XR: 1. Pulmonary interstitial edema. 2. Small bilateral pleural effusions. 3. Bibasilar atelectasis versus consolidation. In the ED course the pt was given Levaquin since the pt had a consolidation. She was also given duonebs and solu Medrol for the COPD exacerbation, and aspirin for increased troponin. At this point I discussed the test results and findings with Dr. Tanner, hospitalist, who accepted the pt for admission. Pt is hemodynamically stable, alert and oriented x3. Dx: COPD exacerbation, elevated troponin, rule out NSTEMI, acute on chronic renal failure. - Diagnoses Provider Diagnoses: COPD exacerbation, Elevated troponin, Acute on chronic renal failure - Physician Notifications Discussed Care Of Patient With: Rox Tanner Time Discussed With Above Provider: 14:15 Instructed by Provider To: Other - I discussed pt care with Dr. Tanner, hospitalist, who has agreed to admit the pt. Discharge - Sign-Out/Discharge Documenting (check all that apply): Discharge - discharge to home - Discharge Plan Condition: Stable Disposition: ADMITTED TO [facility] The documentation as recorded by the Michael hernandez Angela accurately reflects the service I personally performed and the decisions made by , Paulo Mart MD.
[2018-02-17] MEDS: Losartan TAB* 25 MG PO SCH (19:37)
--- NOTE | 2018-02-17 19:52 | RAD ---
Indication: Neck pain. Radiation to the shoulders. Comparison: April 30, 2015 CT Technique: AP, open-mouth odontoid, and lateral views cervical spine. Report: 2 mm degenerative C3-C4 anterolisthesis mildly increased over the prior exam. Conspicuity of the cervical thoracic junction is limited due to superimposed tissues without gross evidence for facet subluxation. The prior CT demonstrated 3 mm degenerative C7-T1 anterolisthesis. The cervical vertebral bodies appear normal in height without evidence for fracture. Conspicuity of the dens is limited with decreased bone density limiting assessment. Marked degenerative spondylosis with severe disc space narrowing at C4-C5, C5-C6, C6-C7, and C7-T1 as on the prior CT. Diffuse severe bilateral facet joint osteoarthritis. Accounting for straightening relative to normal cervical lordosis the prevertebral soft tissue contours are unremarkable. IMPRESSION: Limited exam due to superimposed tissues at the cervical thoracic junction and decreased bone density. No significant change in severe multilevel degenerative spondylosis and facet joint osteoarthritis.
[2018-02-17] MEDS ORDERED: Albuterol/Ipratropium NEB.SOL* Albuterol 2.5 MG/Ipratropium 0.5 MG 3 ML INH PRN (19:59)
--- NOTE | 2018-02-17 20:53 | RAD ---
Indication: Renal failure. Comparison: March 14, [address] Technique: Renal ultrasound. Report: 6.9 x 3.4 x 4.1 cm RIGHT kidney demonstrates severe cortical atrophy. Normal cortical echogenicity. No conspicuous stones, hydronephrosis, or focal lesions. The kidney is malpositioned medial of the typical location as on the prior CT. Atrophic 9.2 x 5.6 x 5.0 cm LEFT kidney demonstrates moderate cortical thinning. Normal cortical echogenicity. No conspicuous stones, hydronephrosis, or focal lesions evident. IMPRESSION: Severe RIGHT and moderate LEFT renal cortical atrophy with progression compared with the 2011 CT. Negative for obstructive uropathy.
[2018-02-17] MEDS: Latanoprost 0.005%* 2.5 ml BTL BOTH EYES SCH (21:17)
[2018-02-17] MEDS: Montelukast Sodium TAB* 10 MG PO SCH (21:34)
[2018-02-18] MEDS: oxyCODONE TAB* 5 MG TAB PO PRN (04:07)
[2018-02-18] MEDS: oxyCODONE/Acetamin 5/325 MG* TAB PO PRN (04:08)
[2018-02-18 05:15] LABS: Hematocrit 24 % (35-47); Hemoglobin 8.5 g/dl (12.0-16.0); Mean Corpuscular HGB Conc 35 g/dl (31-36); Mean Corpuscular Hemoglobin 31 pg (27-31); Mean Corpuscular Volume 88 fL (80-97); Mean Platelet Volume 8.9 um3 (7.4-10.4); Platelet Count 106 10^3/ul (150-450); Red Blood Count 2.79 10^6/ul (4.0-5.4); Red Cell Distribution Width 17 % (10.5-15)
[2018-02-18 05:21] LABS: ABS Basophils 0 10^3/ul (0-0.2); ABS Eosinophils 0 10^3/ul (0-0.6); ABS Lymphocytes 1.2 10^3/ul (1.0-4.8); ABS Monocytes 1.1 10^3/ul (0-0.8); ABS Neutrophils 6.7 10^3/ul (1.5-7.7); ABS Nucleated RBC 0 10^3/ul; Eosinophil % 0.1 % (0-6); Nucleated Red Blood Cells % 0
[2018-02-18 05:29] LABS: EGFR Non-African American 24.3 (>60)
[2018-02-18] MEDS: hydrALAZINE IV* 20 MG/ML VIAL IV SLOW PU PRN ×3 (07:34→23:54)
[2018-02-18] MEDS: Mometasone/Formoter 200/5 MDI INH SCH ×2 (08:14→20:00)
[2018-02-18] MEDS: Insulin LISPRO* 1 UNITS UNIT SUBCUT SCH ×3 (08:26→16:38)
[2018-02-18] MEDS: Furosemide IV* 10 MG/ML VIAL (40 MG) IV SLOW PU SCH ×2 (08:42→16:39)
[2018-02-18] MEDS: Sertraline* 100 MG TAB PO SCH (08:42)
[2018-02-18] MEDS: Cephalexin CAP* 250 MG PO SCH ×3 (08:43→22:30)
[2018-02-18] MEDS: Verapamil SR TAB* 240 MG PO SCH (08:43)
[2018-02-18] MEDS: ROSUVASTATIN 10 MG PO SCH (08:43)
[2018-02-18] MEDS: predniSONE TAB* 10 MG PO SCH (08:44)
[2018-02-18] MEDS: Gabapentin CAP(*) 100 MG PO SCH ×3 (08:44→22:31)
[2018-02-18] MEDS: hydrALAZINE TAB* 25 MG PO SCH ×3 (08:44→22:31)
[2018-02-18] MEDS: Losartan TAB* 25 MG PO SCH (08:44)
[2018-02-18] MEDS ORDERED: Potassium Chloride LIQUID* 20 MEQ PACKET PO ONE (09:44)
--- NOTE | 2018-02-18 09:58 | PN ---
Progress Note - Progress Note Date of Service: 02/18/18 SOAP: Subjective: [82 yo female with COPD and CHF hospitalized with c/o SOB. She had been referred for an outpatient hematology evaluation of her chronic anemia prior to this hospitalization. She has been evaluated by Dr Cheung. She has noted normal iron studies, B12, LDH and haptoglobin. Bone marrow has been recommended , but she has been reluctant to pursue this. She was transfused 1U PRBCs yesterday and diuretics were increased. She reports improved dyspnea today and energy is better as well. Her LE edema has improved. Still coughing slightly.] Objective: [ Acetaminophen (Tylenol Tab*) 650 mg PO Q4H PRN PRN Reason: FEVER/PAIN Last Admin: 02/16/18 07:38 Dose: 650 mg Albuterol (Ventolin Hfa Inhaler*) 2 puff INH Q4H PRN PRN Reason: SOB/WHEEZING Carisoprodol (Soma Tab*) 350 mg PO QID PRN PRN Reason: SPASMS - MUSCLE Last Admin: 02/17/18 21:34 Dose: 350 mg Cephalexin HCl (Keflex Cap*) 250 mg PO TID [facility] Last Admin: 02/18/18 08:43 Dose: 250 mg Dextrose (D50w Syringe 50 Ml*) 12.5 gm IV PUSH .FOR FS < 60 - SS PRN PRN Reason: FS < 60 Furosemide (Lasix Iv*) 40 mg IV SLOW PU 0800,1700 [facility] Last Admin: 02/18/18 08:42 Dose: 40 mg Gabapentin (Neurontin Cap(*)) 100 mg PO BID [facility] Last Admin: 02/18/18 08:44 Dose: 100 mg Gabapentin (Neurontin Cap(*)) 200 mg PO BEDTIME [facility] Last Admin: 02/17/18 21:14 Dose: 200 mg Hydralazine HCl (Apresoline Iv*) 5 mg IV SLOW PU Q6H PRN PRN Reason: BLOOD PRESSURE Last Admin: 02/18/18 07:34 Dose: 5 mg Hydralazine HCl (Apresoline Tab*) 25 mg PO TID [facility] Last Admin: 02/18/18 08:44 Dose: 25 mg Insulin Human Lispro (Humalog*) 0 units SUBCUT AC [facility] PRN Reason: Protocol Last Admin: 02/18/18 08:26 Dose: Not Given Latanoprost (Xalatan 0.005%*) 1 drop BOTH EYES BEDTIME [facility] Last Admin: 02/17/18 21:17 Dose: 1 drop Losartan Potassium (Cozaar Tab*) 25 mg PO DAILY [facility] Last Admin: 02/18/18 08:44 Dose: 25 mg Melatonin (Melatonin (Nf)) 3 mg PO BEDTIME PRN; Protocol PRN Reason: Sleep Last Admin: 02/17/18 03:57 Dose: 3 mg Mometasone Furoate/Formoterol Fumar (Dulera 200/5 Mdi*) 2 puff INH BID [facility] Last Admin: 02/18/18 08:14 Dose: 2 puff Montelukast Sodium (Singulair Tab*) 10 mg PO BEDTIME [facility] Last Admin: 02/17/18 21:34 Dose: 10 mg Multi-Ingredient Liniment/Rub (Nicolas Kothari*) 1 applic TOPICAL Q4H PRN PRN Reason: ACHY LEGS Last Admin: 02/16/18 00:13 Dose: 1 applic Ondansetron HCl (Zofran Inj*) 4 mg IV Q6H PRN PRN Reason: NAUSEA Oxycodone HCl (Roxycodone Tab*) 2.5 mg PO Q6H PRN PRN Reason: PAIN Last Admin: 02/18/18 04:07 Dose: 2.5 mg Oxycodone/Acetaminophen (Percocet 5/325 Tab*) 1 tab PO Q6H PRN PRN Reason: PAIN Last Admin: 02/18/18 04:08 Dose: 1 tab Prednisone (Deltasone Tab*) 10 mg PO DAILY [facility] Last Admin: 02/18/18 08:44 Dose: 10 mg Rosuvastatin Calcium (Crestor (Nf)) 10 mg PO DAILY [facility] PRN Reason: Protocol Last Admin: 02/18/18 08:43 Dose: 10 mg Sertraline HCl (Zoloft*) 200 mg PO QAM [facility] Last Admin: 02/18/18 08:42 Dose: 200 mg Verapamil HCl (Calan Sr Tab*) 120 mg PO DAILY [facility] Last Admin: 02/18/18 08:43 Dose: 120 mg Laboratory Results - last 24 hr 02/15/18 02/15/18 02/17/18 12:51 12:51 12:03 WBC RBC Hgb Hct MCV MCH MCHC RDW Plt Count MPV Neut % (Auto) Lymph % (Auto) Powell % (Auto) Eos % (Auto) Baso % (Auto) Absolute Neuts (auto) Absolute Lymphs (auto) Absolute Monos (auto) Absolute Eos (auto) Absolute Basos (auto) Absolute Nucleated RBC Nucleated RBC % Haptoglobin 226 H Sodium Potassium Chloride Carbon Dioxide Anion Gap BUN Creatinine Est GFR ( Amer) Est GFR (Non-Af Amer) BUN/Creatinine Ratio Glucose POC Glucose (mg/dL) 94 Calcium Phosphorus Magnesium Total Bilirubin Direct Bilirubin Indirect Bilirubin AST ALT Alkaline Phosphatase Total Protein Albumin Globulin Albumin/Globulin Ratio Methylmalonic Acid 0.44 H Ur Random Creatinine U Random Total Protein Ur Random Urea Nitrogn Blood Type A Positive Antibody Screen Negative Direct Antiglob Test Negative Crossmatch See Detail Transfusion React Rpt Donor Unit # Post-Trans Blood Type Post-Trans ABDOUL 02/17/18 02/17/18 02/17/18 12:22 16:27 19:48 WBC 14.5 H RBC 2.75 L Hgb 8.3 L Hct 25 L MCV 91 MCH 30 MCHC 33 RDW 17 H Plt Count 152 MPV 8.8 Neut % (Auto) 86.9 H Lymph % (Auto) 4.1 L Powell % (Auto) 8.1 H Eos % (Auto) 0 Baso % (Auto) 0.9 Absolute Neuts (auto) 12.6 H Absolute Lymphs (auto) 0.6 L Absolute Monos (auto) 1.2 H Absolute Eos (auto) 0 Absolute Basos (auto) 0.1 Absolute Nucleated RBC 0 Nucleated RBC % 0 Haptoglobin Sodium Potassium Chloride Carbon Dioxide Anion Gap BUN Creatinine Est GFR ( Amer) Est GFR (Non-Af Amer) BUN/Creatinine Ratio Glucose POC Glucose (mg/dL) 165 H Calcium Phosphorus Magnesium Total Bilirubin Direct Bilirubin Indirect Bilirubin AST ALT Alkaline Phosphatase Total Protein Albumin Globulin Albumin/Globulin Ratio Methylmalonic Acid Ur Random Creatinine U Random Total Protein Ur Random Urea Nitrogn Blood Type Antibody Screen Direct Antiglob Test Crossmatch Transfusion React Rpt Donor Unit # [id number] Post-Trans Blood Type A Positive Post-Trans ABDOUL Negative 02/18/18 02/18/18 02/18/18 04:25 04:56 04:56 WBC 9.0 RBC 2.79 L Hgb 8.5 L Hct 24 L MCV 88 MCH 31 MCHC 35 RDW 17 H Plt Count 106 L MPV 8.9 Neut % (Auto) 73.8 Lymph % (Auto) 13.0 L Powell % (Auto) 12.6 H Eos % (Auto) 0.1 Baso % (Auto) 0.5 Absolute Neuts (auto) 6.7 Absolute Lymphs (auto) 1.2 Absolute Monos (auto) 1.1 H Absolute Eos (auto) 0 Absolute Basos (auto) 0 Absolute Nucleated RBC 0 Nucleated RBC % 0 Haptoglobin Sodium 139 Potassium 3.0 L Chloride 105 Carbon Dioxide 27 Anion Gap 7 BUN 38 H Creatinine 1.98 H Est GFR ( Amer) 31.2 Est GFR (Non-Af Amer) 24.3 BUN/Creatinine Ratio 19.2 Glucose 109 H POC Glucose (mg/dL) Calcium 8.0 L Phosphorus 4.0 Magnesium 1.9 Total Bilirubin 0.40 Direct Bilirubin 0.10 Indirect Bilirubin 0.3 AST 19 ALT 30 Alkaline Phosphatase 59 Total Protein 5.5 L Albumin 3.3 Globulin 2.2 Albumin/Globulin Ratio 1.5 Methylmalonic Acid Ur Random Creatinine 25.20 U Random Total Protein 75 Ur Random Urea Nitrogn 254 Blood Type Antibody Screen Direct Antiglob Test Crossmatch Transfusion React Rpt Donor Unit # Post-Trans Blood Type Post-Trans ABDOUL 02/18/18 07:16 WBC RBC Hgb Hct MCV MCH MCHC RDW Plt Count MPV Neut % (Auto) Lymph % (Auto) Powell % (Auto) Eos % (Auto) Baso % (Auto) Absolute Neuts (auto) Absolute Lymphs (auto) Absolute Monos (auto) Absolute Eos (auto) Absolute Basos (auto) Absolute Nucleated RBC Nucleated RBC % Haptoglobin Sodium Potassium Chloride Carbon Dioxide Anion Gap BUN Creatinine Est GFR ( Amer) Est GFR (Non-Af Amer) BUN/Creatinine Ratio Glucose POC Glucose (mg/dL) 109 H Calcium Phosphorus Magnesium Total Bilirubin Direct Bilirubin Indirect Bilirubin AST ALT Alkaline Phosphatase Total Protein Albumin Globulin Albumin/Globulin Ratio Methylmalonic Acid Ur Random Creatinine U Random Total Protein Ur Random Urea Nitrogn Blood Type Antibody Screen Direct Antiglob Test Crossmatch Transfusion React Rpt Donor Unit # Post-Trans Blood Type Post-Trans ABDOUL Vital Signs: Temp Pulse Resp BP Pulse Ox 98.1 F 87 12 191/62 99 02/18/18 07:28 02/18/18 08:18 02/18/18 08:44 02/18/18 07:28 02/18/18 08:18 Exam: Gen: Thin elderly female in NAD, talkative and pleasant HEENT: MMM CV: RRR, no m/r/g Resp: Lungs CTA, no w/c/r Abd: soft, non-TTP Ext: trace edema] Assessment: [82 yo female with multiple comorbid conditions admitted with increased dyspnea likely due to decompensated heart failure. Hematology consultation requested for her chronic anemia and thrombocytopenia] Plan: [1. Anemia/thrombocytopenia - iron, B12, folate, LDH and haptoglobin nl. SPEP pending. BM recommended to evaluate for myelodysplastic syndrome/myeloma, patient is still considering whether she would like to move forward with this. Assured her that anxiolytics and/or analgesics can be administered. This w/u can be completed as an outpatient as well if she prefers. She has improved symptomatically with 1U PRBCs, but Hbg did not respond as expected. Stool is neg for occult blood, no other signs of bleeding. She may benefit from an additional unit of PRBCs given her heart failure. 2. CHF - Improving with diuresis, management per Hospitalist team 3. COPD- no exacerbation 4. Demand ischemia Dispo: Recommend BM, her discharge is not dependent on this however. We will follow up with her on an outpatient basis as well. ]
--- NOTE | 2018-02-18 10:35 | PN ---
Subjective Date of Service: 02/18/18 Interval History: No events. Feels a little better today, diuresed well and tolerated 1U PRBCs. She is upset this morning because she just talked with Oncology about a possible bone marrow biopsy, and she is upset about the possibility of a malignant process. Objective Active Medications: Acetaminophen (Tylenol Tab*) 650 mg PO Q4H PRN PRN Reason: FEVER/PAIN Last Admin: 02/16/18 07:38 Dose: 650 mg Albuterol (Ventolin Hfa Inhaler*) 2 puff INH Q4H PRN PRN Reason: SOB/WHEEZING Carisoprodol (Soma Tab*) 350 mg PO QID PRN PRN Reason: SPASMS - MUSCLE Last Admin: 02/17/18 21:34 Dose: 350 mg Cephalexin HCl (Keflex Cap*) 250 mg PO TID [facility] Last Admin: 02/18/18 08:43 Dose: 250 mg Dextrose (D50w Syringe 50 Ml*) 12.5 gm IV PUSH .FOR FS < 60 - SS PRN PRN Reason: FS < 60 Furosemide (Lasix Iv*) 40 mg IV SLOW PU 0800,1700 [facility] Last Admin: 02/18/18 08:42 Dose: 40 mg Gabapentin (Neurontin Cap(*)) 100 mg PO BID [facility] Last Admin: 02/18/18 08:44 Dose: 100 mg Gabapentin (Neurontin Cap(*)) 200 mg PO BEDTIME [facility] Last Admin: 02/17/18 21:14 Dose: 200 mg Hydralazine HCl (Apresoline Iv*) 5 mg IV SLOW PU Q6H PRN PRN Reason: BLOOD PRESSURE Last Admin: 02/18/18 07:34 Dose: 5 mg Hydralazine HCl (Apresoline Tab*) 25 mg PO TID [facility] Last Admin: 02/18/18 08:44 Dose: 25 mg Insulin Human Lispro (Humalog*) 0 units SUBCUT AC [facility] PRN Reason: Protocol Last Admin: 02/18/18 08:26 Dose: Not Given Latanoprost (Xalatan 0.005%*) 1 drop BOTH EYES BEDTIME [facility] Last Admin: 02/17/18 21:17 Dose: 1 drop Losartan Potassium (Cozaar Tab*) 25 mg PO DAILY [facility] Last Admin: 02/18/18 08:44 Dose: 25 mg Melatonin (Melatonin (Nf)) 3 mg PO BEDTIME PRN; Protocol PRN Reason: Sleep Last Admin: 02/17/18 03:57 Dose: 3 mg Mometasone Furoate/Formoterol Fumar (Dulera 200/5 Mdi*) 2 puff INH BID [facility] Last Admin: 02/18/18 08:14 Dose: 2 puff Montelukast Sodium (Singulair Tab*) 10 mg PO BEDTIME [facility] Last Admin: 02/17/18 21:34 Dose: 10 mg Multi-Ingredient Liniment/Rub (Nicolas Kothari*) 1 applic TOPICAL Q4H PRN PRN Reason: ACHY LEGS Last Admin: 02/16/18 00:13 Dose: 1 applic Ondansetron HCl (Zofran Inj*) 4 mg IV Q6H PRN PRN Reason: NAUSEA Oxycodone HCl (Roxycodone Tab*) 2.5 mg PO Q6H PRN PRN Reason: PAIN Last Admin: 02/18/18 04:07 Dose: 2.5 mg Oxycodone/Acetaminophen (Percocet 5/325 Tab*) 1 tab PO Q6H PRN PRN Reason: PAIN Last Admin: 02/18/18 04:08 Dose: 1 tab Prednisone (Deltasone Tab*) 10 mg PO DAILY [facility] Last Admin: 02/18/18 08:44 Dose: 10 mg Rosuvastatin Calcium (Crestor (Nf)) 10 mg PO DAILY [facility] PRN Reason: Protocol Last Admin: 02/18/18 08:43 Dose: 10 mg Sertraline HCl (Zoloft*) 200 mg PO QAM [facility] Last Admin: 02/18/18 08:42 Dose: 200 mg Sodium Chloride (Sodium Chloride 0.65% Nasal [place]*) 1 spray BOTH NARES Q4H PRN PRN Reason: CONGESTION Verapamil HCl (Calan Sr Tab*) 120 mg PO DAILY [facility] Last Admin: 02/18/18 08:43 Dose: 120 mg Vital Signs - 8 hr 02/18/18 02/18/18 02/18/18 03:47 04:07 04:08 Temperature 98.3 F Pulse Rate 88 Respiratory 20 16 16 Rate Blood Pressure 154/70 (mmHg) O2 Sat by Pulse 98 Oximetry 02/18/18 02/18/18 02/18/18 07:28 07:29 07:38 Temperature 98.1 F Pulse Rate 86 Respiratory 20 20 Rate Blood Pressure 191/62 (mmHg) O2 Sat by Pulse 99 Oximetry 02/18/18 02/18/18 02/18/18 08:17 08:18 08:44 Temperature Pulse Rate 87 87 Respiratory 18 20 12 Rate Blood Pressure (mmHg) O2 Sat by Pulse 99 99 Oximetry Oxygen Devices in Use Now: Nasal Cannula, High Flow Nasal Cannula Appearance: alert, work of breathing improved since yesterday, able to speak in full sentences Eyes: No Scleral Icterus Ears/Nose/Mouth/Throat: NL Teeth, Lips, Gums Neck: NL Appearance and Movements; NL JVP Respiratory: Symmetrical Chest Expansion and Respiratory Effort, Clear to Auscultation Cardiovascular: RRR, - - JVP ~18cm h2o Abdominal: NL Sounds; No Tenderness; No Distention, No Hepatosplenomegaly Lymphatic: No Cervical Adenopathy Extremities: - - 1+ edema b/l, macular rash left green Result Diagrams: 02/18/18 04:56 02/18/18 04:56 Microbiology and Other Data: Microbiology 02/15/18 22:26 Nasal Screen MRSA (PCR)(FREDY) - Final Nasal Mrsa Not Detected Assess/Plan/Problems-Billing Assessment: - Patient Problems (1) Acute respiratory failure with hypoxia Current Visit: Yes Status: Acute Code(s): J96.01 - ACUTE RESPIRATORY FAILURE WITH HYPOXIA SNOMED Code(s): 44901352 Comment: I believe she is still volume overloaded and that her renal dysfunction may be a reflection of congestion--> this is confirmed by improvement after diuresis yesterday Continue lasix BID today Wean O2 as able Also has elevated RV pressures (RVSP estimated at 60mmhg) (2) Right heart failure Current Visit: Yes Status: Acute Comment: continue lasix (3) Acute renal failure Current Visit: No Status: Acute Comment: improving with diuresis; suspect vascular congestion (4) COPD (chronic obstructive pulmonary disease) Current Visit: No Status: Acute Code(s): J44.9 - CHRONIC OBSTRUCTIVE PULMONARY DISEASE, UNSPECIFIED SNOMED Code(s): 66962831 Comment: DC prednisone (I discussed this with her pharmacy--she is NOT on prednisone 10mg daily as per her med rec; she was just on a prednisone taper since 02/13) Not in exacerbation (5) Thrombocytopenia Current Visit: No Status: Acute Code(s): D69.6 - THROMBOCYTOPENIA, UNSPECIFIED SNOMED Code(s): 367480899 Comment: Chronic, evaluted by Dr. Cheung who recommended a BM biopsy; Ms. Del Castillo is considering this and will discuss it with her family (6) Hypertension Current Visit: No Status: Chronic Code(s): I10 - ESSENTIAL (PRIMARY) HYPERTENSION SNOMED Code(s): 19391917 Comment: Poorly controlled and may be contributing to her shortness of breath Valsartan added back yesterday for afterload reduction to diurese Can add coreg if more control needed today
[2018-02-18] MEDS: Acetaminophen TAB* 325 MG PO PRN (16:37)
[2018-02-18] MEDS: Saline NASAL SPRAY 0.65%* BTL BOTH NARES PRN (16:38)
[2018-02-18] MEDS: Montelukast Sodium TAB* 10 MG PO SCH (22:31)
[2018-02-18] MEDS: Latanoprost 0.005%* 2.5 ml BTL BOTH EYES SCH (22:39)
[2018-02-18] MEDS ORDERED: Morphine VIAL* 4 MG/ML VIAL (1 ml vial) IV ONE (23:00)
[2018-02-18] MEDS ORDERED: Morphine INJ* 2 MG/ML 1 ML CARPUJECT ONE (23:45)
[2018-02-19] MEDS: CMCS: Melatonin (NF) 3 MG TAB PO PRN
[2018-02-19] MEDS: Carisoprodol TAB* 350 MG PO PRN
[2018-02-19] MEDS: oxyCODONE/Acetamin 5/325 MG* TAB PO PRN ×3 (03:42→21:58)
[2018-02-19] MEDS: oxyCODONE TAB* 5 MG TAB PO PRN ×2 (03:42→21:53)
[2018-02-19 05:33] LABS: Hematocrit 26 % (35-47); Hemoglobin 8.8 g/dl (12.0-16.0); Mean Corpuscular HGB Conc 34 g/dl (31-36); Mean Corpuscular Hemoglobin 30 pg (27-31); Mean Corpuscular Volume 88 fL (80-97); Mean Platelet Volume 8.9 um3 (7.4-10.4); Platelet Count 103 10^3/ul (150-450); Red Blood Count 2.91 10^6/ul (4.0-5.4); Red Cell Distribution Width 18 % (10.5-15); White Blood Count 12.4 10^3/ul (3.5-10.8)
[2018-02-19 05:40] LABS: INR 1.04 (0.77-1.02)
[2018-02-19 05:47] LABS: EGFR Non-African American 24.7 (>60)
[2018-02-19 06:35] LABS: ABS Basophils 0.1 10^3/ul (0-0.2); ABS Eosinophils 0 10^3/ul (0-0.6); ABS Lymphocytes 1.3 10^3/ul (1.0-4.8); ABS Monocytes 1.6 10^3/ul (0-0.8); ABS Neutrophils 9.3 10^3/ul (1.5-7.7); ABS Nucleated RBC 0 10^3/ul; Eosinophil % 0.2 % (0-6); Lymphocyte % 10.8 % (25-47); Nucleated Red Blood Cells % 0
[2018-02-19] MEDS: Insulin LISPRO* 1 UNITS UNIT SUBCUT SCH ×3 (07:27→17:14)
[2018-02-19] MEDS: Mometasone/Formoter 200/5 MDI INH SCH ×2 (07:48→20:20)
[2018-02-19] MEDS: Furosemide IV* 10 MG/ML VIAL (40 MG) IV SLOW PU SCH ×2 (08:11→17:36)
[2018-02-19] MEDS: Acetaminophen TAB* 325 MG PO PRN ×2 (08:13→17:35)
[2018-02-19] MEDS: Saline NASAL SPRAY 0.65%* BTL BOTH NARES PRN ×3 (08:13→21:42)
[2018-02-19] MEDS: Gabapentin CAP(*) 100 MG PO SCH ×2 (08:14→21:32)
[2018-02-19] MEDS: ROSUVASTATIN 10 MG PO SCH (08:14)
[2018-02-19] MEDS: Sertraline* 100 MG TAB PO SCH (08:14)
[2018-02-19] MEDS: Cephalexin CAP* 250 MG PO SCH ×3 (08:14→21:34)
[2018-02-19] MEDS: Losartan TAB* 25 MG PO SCH (08:15)
[2018-02-19] MEDS: Verapamil SR TAB* 240 MG PO SCH (08:15)
[2018-02-19] MEDS: hydrALAZINE TAB* 25 MG PO SCH ×3 (08:15→21:34)
--- NOTE | 2018-02-19 09:21 | PN ---
Subjective Date of Service: 02/19/18 Interval History: No overnight events. She feels depressed this morning, worried that she might have cancer. Her breathing feels comfortable and she is sitting up in the chair eating breakfast. Denies pain. Objective Active Medications: Acetaminophen (Tylenol Tab*) 650 mg PO Q4H PRN PRN Reason: FEVER/PAIN Last Admin: 02/19/18 08:13 Dose: 650 mg Albuterol (Ventolin Hfa Inhaler*) 2 puff INH Q4H PRN PRN Reason: SOB/WHEEZING Carisoprodol (Soma Tab*) 350 mg PO QID PRN PRN Reason: SPASMS - MUSCLE Last Admin: 02/19/18 00:00 Dose: 350 mg Carvedilol (Coreg Tab*) 6.25 mg PO BID [facility] Cephalexin HCl (Keflex Cap*) 250 mg PO TID [facility] Last Admin: 02/19/18 08:14 Dose: 250 mg Dextrose (D50w Syringe 50 Ml*) 12.5 gm IV PUSH .FOR FS < 60 - SS PRN PRN Reason: FS < 60 Furosemide (Lasix Iv*) 40 mg IV SLOW PU 0800,1700 [facility] Last Admin: 02/19/18 08:11 Dose: 40 mg Gabapentin (Neurontin Cap(*)) 100 mg PO BID [facility] Last Admin: 02/19/18 08:14 Dose: 100 mg Gabapentin (Neurontin Cap(*)) 200 mg PO BEDTIME [facility] Last Admin: 02/18/18 22:31 Dose: 200 mg Hydralazine HCl (Apresoline Iv*) 5 mg IV SLOW PU Q6H PRN PRN Reason: BLOOD PRESSURE Last Admin: 02/18/18 23:54 Dose: 5 mg Hydralazine HCl (Apresoline Tab*) 25 mg PO TID [facility] Last Admin: 02/19/18 08:15 Dose: 25 mg Insulin Human Lispro (Humalog*) 0 units SUBCUT AC [facility] PRN Reason: Protocol Last Admin: 02/19/18 07:27 Dose: Not Given Latanoprost (Xalatan 0.005%*) 1 drop BOTH EYES BEDTIME [facility] Last Admin: 02/18/18 22:39 Dose: 1 drop Losartan Potassium (Cozaar Tab*) 25 mg PO DAILY [facility] Last Admin: 02/19/18 08:15 Dose: 25 mg Melatonin (Melatonin (Nf)) 3 mg PO BEDTIME PRN; Protocol PRN Reason: Sleep Last Admin: 02/19/18 00:00 Dose: 3 mg Mometasone Furoate/Formoterol Fumar (Dulera 200/5 Mdi*) 2 puff INH BID [facility] Last Admin: 02/19/18 07:48 Dose: 2 puff Montelukast Sodium (Singulair Tab*) 10 mg PO BEDTIME [facility] Last Admin: 02/18/18 22:31 Dose: 10 mg Multi-Ingredient Liniment/Rub (Nicolas Kothari*) 1 applic TOPICAL Q4H PRN PRN Reason: ACHY LEGS Last Admin: 02/16/18 00:13 Dose: 1 applic Nifedipine (Procardia Cap*) 20 mg PO TID [facility] Ondansetron HCl (Zofran Inj*) 4 mg IV Q6H PRN PRN Reason: NAUSEA Oxycodone HCl (Roxycodone Tab*) 2.5 mg PO Q6H PRN PRN Reason: PAIN Last Admin: 02/19/18 03:42 Dose: 2.5 mg Oxycodone/Acetaminophen (Percocet 5/325 Tab*) 1 tab PO Q6H PRN PRN Reason: PAIN Last Admin: 02/19/18 03:42 Dose: 1 tab Potassium Chloride (Klor-Con Liquid*) 40 meq PO BID [facility] Rosuvastatin Calcium (Crestor (Nf)) 10 mg PO DAILY [facility] PRN Reason: Protocol Last Admin: 02/19/18 08:14 Dose: 10 mg Sertraline HCl (Zoloft*) 200 mg PO QAM [facility] Last Admin: 02/19/18 08:14 Dose: 200 mg Sodium Chloride (Sodium Chloride 0.65% Nasal [place]*) 1 spray BOTH NARES Q4H PRN PRN Reason: CONGESTION Last Admin: 02/19/18 08:13 Dose: 1 spray Verapamil HCl (Calan Sr Tab*) 120 mg PO DAILY [facility] Last Admin: 02/19/18 08:15 Dose: 120 mg Vital Signs - 8 hr 02/19/18 02/19/18 02/19/18 01:48 02:07 02:18 Temperature Pulse Rate 106 Respiratory 20 18 18 Rate Blood Pressure (mmHg) O2 Sat by Pulse 98 Oximetry 02/19/18 02/19/18 02/19/18 03:27 03:42 06:04 Temperature 98.6 F Pulse Rate 110 Respiratory 16 18 Rate Blood Pressure 173/72 152/60 (mmHg) O2 Sat by Pulse 97 Oximetry 02/19/18 02/19/18 02/19/18 07:26 07:32 07:53 Temperature 98.7 F Pulse Rate 99 102 Respiratory 18 16 18 Rate Blood Pressure 181/72 (mmHg) O2 Sat by Pulse 97 93 Oximetry 02/19/18 02/19/18 08:14 08:54 Temperature Pulse Rate Respiratory 18 Rate Blood Pressure (mmHg) O2 Sat by Pulse 81 Oximetry Oxygen Devices in Use Now: Nasal Cannula Appearance: alert, well appearing sitting up in chair Eyes: No Scleral Icterus Ears/Nose/Mouth/Throat: NL Teeth, Lips, Gums Neck: - - JVP ~ 14 cm Respiratory: Symmetrical Chest Expansion and Respiratory Effort, Clear to Auscultation Cardiovascular: RRR, No Edema Abdominal: NL Sounds; No Tenderness; No Distention Lymphatic: No Cervical Adenopathy Extremities: No Edema Skin: No Rash or Ulcers Neurological: Alert and Oriented x 3 Result Diagrams: 02/19/18 05:04 02/19/18 05:04 Microbiology and Other Data: Microbiology 02/15/18 22:26 Nasal Screen MRSA (PCR)(FREDY) - Final Nasal Mrsa Not Detected Assess/Plan/Problems-Billing Assessment: - Patient Problems (1) Acute respiratory failure with hypoxia Current Visit: Yes Status: Acute Code(s): J96.01 - ACUTE RESPIRATORY FAILURE WITH HYPOXIA SNOMED Code(s): 83576698 Comment: Due to decompensated heart failure On 2L now continuously (baseline is 2L at night only) Wean today; attempt amb pulse ox Her work of breathing is much better today and she shows no signs of contraction Also has elevated RV pressures (RVSP estimated at 60mmhg) (2) Right heart failure Current Visit: Yes Status: Acute Comment: continue lasix (3) Acute renal failure Current Visit: No Status: Acute Comment: on CKD improving with diuresis; suspect vascular congestion from decompensated heart failure underlying etiology of ckd is unclear but she has severe cortical atrophy likely will benefit from trung/arb in the long run but will hold in setting of recovering Erica (4) COPD (chronic obstructive pulmonary disease) Current Visit: No Status: Acute Code(s): J44.9 - CHRONIC OBSTRUCTIVE PULMONARY DISEASE, UNSPECIFIED SNOMED Code(s): 44919622 Comment: Not in exacerbation (5) Thrombocytopenia Current Visit: No Status: Acute Code(s): D69.6 - THROMBOCYTOPENIA, UNSPECIFIED SNOMED Code(s): 378109036 Comment: She thinks she wants to proceed with a BM biopsy today after discussing with oncology (6) Hypertension Current Visit: No Status: Chronic Code(s): I10 - ESSENTIAL (PRIMARY) HYPERTENSION SNOMED Code(s): 12441172 Comment: Poorly controlled and may be contributing to her shortness of breath add coreg today
[2018-02-19] MEDS: Potassium Chloride LIQUID* 20 MEQ PACKET PO SCH ×2 (09:35→21:40)
[2018-02-19] MEDS: NIFEdipine CAP* 10 MG PO SCH ×3 (09:36→21:36)
[2018-02-19] MEDS: Carvedilol TAB* 6.25 MG PO SCH ×2 (09:36→21:29)
[2018-02-19] MEDS ORDERED: ALPRAZolam TAB* 0.25 MG PO ONE (13:31)
[2018-02-19] MEDS ORDERED: ALPRAZolam TAB* 0.25 MG ONE (13:34)
[2018-02-19] MEDS ORDERED: LORazepam INJ* 2 MG/ML 1 ML VIAL IV PUSH PRN (13:47)
[2018-02-19] MEDS ORDERED: Lidocaine 2% PF * 5 ML VIAL INJ ONE (14:00)
[2018-02-19] MEDS ORDERED: LORazepam INJ* 2 MG/ML 1 ML VIAL IV PUSH ONE (14:09)
--- NOTE | 2018-02-19 15:06 | PROCNOTE ---
Hematology/Oncology Procedure Hematology/Oncology Procedure Note: Procedure: Bone marrow biopsy/aspiration Written consent obtained. Time out completed. L PSIS identified, prepped and draped in sterile fashion. Anesthesia of the skin and periosteoum achieved with 2% lidocaine. Bone marrow aspiration and core biopsy successfully completed. Hemostasis achieved locally. Dressing applied. Supervised by Dr Jf Cheung
[2018-02-19] MEDS: Montelukast Sodium TAB* 10 MG PO SCH (21:35)
[2018-02-19] MEDS: Latanoprost 0.005%* 2.5 ml BTL BOTH EYES SCH (21:44)
[2018-02-20] MEDS: oxyCODONE/Acetamin 5/325 MG* TAB PO PRN ×2 (06:52→20:34)
[2018-02-20] MEDS: oxyCODONE TAB* 5 MG TAB PO PRN ×2 (06:54→20:33)
[2018-02-20] MEDS: Gabapentin CAP(*) 100 MG PO SCH ×4 (07:06→20:40)
[2018-02-20] MEDS: Mometasone/Formoter 200/5 MDI INH SCH ×2 (07:54→20:08)
[2018-02-20] MEDS: Insulin LISPRO* 1 UNITS UNIT SUBCUT SCH ×3 (08:29→17:27)
[2018-02-20 10:02] LABS: EGFR Non-African American 24.1 (>60)
[2018-02-20] MEDS: Potassium Chloride LIQUID* 20 MEQ PACKET PO SCH (10:27)
[2018-02-20] MEDS: NIFEdipine CAP* 10 MG PO SCH ×3 (10:28→20:43)
[2018-02-20] MEDS: Losartan TAB* 25 MG PO SCH (10:29)
[2018-02-20] MEDS: Carvedilol TAB* 6.25 MG PO SCH ×2 (10:29→20:39)
[2018-02-20] MEDS: ROSUVASTATIN 10 MG PO SCH (10:29)
[2018-02-20] MEDS: Verapamil SR TAB* 240 MG PO SCH (10:29)
[2018-02-20] MEDS: hydrALAZINE TAB* 25 MG PO SCH ×3 (10:30→20:41)
[2018-02-20] MEDS: Sertraline* 100 MG TAB PO SCH (10:30)
[2018-02-20] MEDS: Furosemide IV* 10 MG/ML VIAL (40 MG) IV SLOW PU SCH (10:30)
[2018-02-20] MEDS: Cephalexin CAP* 250 MG PO SCH ×3 (10:41→20:40)
--- NOTE | 2018-02-20 15:02 | PN ---
Subjective Date of Service: 02/20/18 Interval History: BM biopsy was done yesterday. She feels okay today but is frustrated about having to wait for the results of the biopsy. No pain, no shortness of breath, worked with PT today. Objective Active Medications: Acetaminophen (Tylenol Tab*) 650 mg PO Q4H PRN PRN Reason: FEVER/PAIN Last Admin: 02/19/18 17:35 Dose: 650 mg Albuterol (Ventolin Hfa Inhaler*) 2 puff INH Q4H PRN PRN Reason: SOB/WHEEZING Carisoprodol (Soma Tab*) 350 mg PO QID PRN PRN Reason: SPASMS - MUSCLE Last Admin: 02/19/18 00:00 Dose: 350 mg Carvedilol (Coreg Tab*) 6.25 mg PO BID [facility] Last Admin: 02/20/18 10:29 Dose: 6.25 mg Cephalexin HCl (Keflex Cap*) 250 mg PO TID [facility] Last Admin: 02/20/18 13:57 Dose: 250 mg Dextrose (D50w Syringe 50 Ml*) 12.5 gm IV PUSH .FOR FS < 60 - SS PRN PRN Reason: FS < 60 Gabapentin (Neurontin Cap(*)) 200 mg PO BEDTIME [facility] Last Admin: 02/19/18 21:32 Dose: 200 mg Gabapentin (Neurontin Cap(*)) 100 mg PO 0800,1800 [facility] Last Admin: 02/20/18 10:30 Dose: 100 mg Hydralazine HCl (Apresoline Iv*) 5 mg IV SLOW PU Q6H PRN PRN Reason: BLOOD PRESSURE Last Admin: 02/18/18 23:54 Dose: 5 mg Hydralazine HCl (Apresoline Tab*) 25 mg PO TID [facility] Last Admin: 02/20/18 13:57 Dose: 25 mg Insulin Human Lispro (Humalog*) 0 units SUBCUT AC [facility] PRN Reason: Protocol Last Admin: 02/20/18 13:03 Dose: Not Given Latanoprost (Xalatan 0.005%*) 1 drop BOTH EYES BEDTIME [facility] Last Admin: 02/19/18 21:44 Dose: 1 drop Lorazepam (Ativan Inj*) 0.5 mg IV PUSH Q4H PRN PRN Reason: ANXIETY Losartan Potassium (Cozaar Tab*) 25 mg PO DAILY [facility] Last Admin: 02/20/18 10:29 Dose: 25 mg Melatonin (Melatonin (Nf)) 3 mg PO BEDTIME PRN; Protocol PRN Reason: Sleep Last Admin: 02/19/18 00:00 Dose: 3 mg Mometasone Furoate/Formoterol Fumar (Dulera 200/5 Mdi*) 2 puff INH BID [facility] Last Admin: 02/20/18 07:54 Dose: 2 puff Montelukast Sodium (Singulair Tab*) 10 mg PO BEDTIME [facility] Last Admin: 02/19/18 21:35 Dose: 10 mg Multi-Ingredient Liniment/Rub (Nicolas Kothari*) 1 applic TOPICAL Q4H PRN PRN Reason: ACHY LEGS Last Admin: 02/16/18 00:13 Dose: 1 applic Nifedipine (Procardia Cap*) 20 mg PO TID [facility] Last Admin: 02/20/18 13:57 Dose: 20 mg Ondansetron HCl (Zofran Inj*) 4 mg IV Q6H PRN PRN Reason: NAUSEA Oxycodone HCl (Roxycodone Tab*) 2.5 mg PO Q6H PRN PRN Reason: PAIN Last Admin: 02/20/18 06:54 Dose: 2.5 mg Oxycodone/Acetaminophen (Percocet 5/325 Tab*) 1 tab PO Q6H PRN PRN Reason: PAIN Last Admin: 02/20/18 06:52 Dose: 1 tab Rosuvastatin Calcium (Crestor (Nf)) 10 mg PO DAILY [facility] PRN Reason: Protocol Last Admin: 02/20/18 10:29 Dose: 10 mg Sertraline HCl (Zoloft*) 200 mg PO QAM [facility] Last Admin: 02/20/18 10:30 Dose: 200 mg Sodium Chloride (Sodium Chloride 0.65% Nasal [place]*) 1 spray BOTH NARES Q4H PRN PRN Reason: CONGESTION Last Admin: 02/19/18 21:42 Dose: 1 spray Verapamil HCl (Calan Sr Tab*) 120 mg PO DAILY [facility] Last Admin: 02/20/18 10:29 Dose: 120 mg Vital Signs - 8 hr 02/20/18 02/20/18 02/20/18 06:54 08:00 08:22 Temperature 97.9 F Pulse Rate 77 Respiratory 18 18 15 Rate Blood Pressure 167/58 (mmHg) O2 Sat by Pulse 100 Oximetry 02/20/18 10:30 Temperature Pulse Rate Respiratory 18 Rate Blood Pressure (mmHg) O2 Sat by Pulse Oximetry Oxygen Devices in Use Now: Nasal Cannula Appearance: sitting up in chair Eyes: No Scleral Icterus Ears/Nose/Mouth/Throat: NL Teeth, Lips, Gums Neck: NL Appearance and Movements; NL JVP Respiratory: Symmetrical Chest Expansion and Respiratory Effort, Clear to Auscultation Cardiovascular: NL Sounds; No Murmurs; No JVD, RRR, No Edema Abdominal: NL Sounds; No Tenderness; No Distention Lymphatic: No Cervical Adenopathy Extremities: No Edema Skin: No Rash or Ulcers Neurological: Alert and Oriented x 3 Result Diagrams: 02/19/18 05:04 02/20/18 09:29 Microbiology and Other Data: Microbiology 02/15/18 22:26 Nasal Screen MRSA (PCR)(FREDY) - Final Nasal Mrsa Not Detected Assess/Plan/Problems-Billing Assessment: - Patient Problems (1) Acute respiratory failure with hypoxia Current Visit: Yes Status: Acute Code(s): J96.01 - ACUTE RESPIRATORY FAILURE WITH HYPOXIA SNOMED Code(s): 62198292 Comment: Due to decompensated heart failure, which is improving after IV diuresis, however she still has an O2 requirement based on her ambulation documentation yesterday Her work of breathing continues to improve RVSP was estimated at 60mmhg when she was more volume overloaded (2) Acute renal failure Current Visit: No Status: Acute Comment: on CKD; I suspect this is her new baseline improving with diuresis; suspect vascular congestion from decompensated heart failure underlying etiology of ckd is unclear but she has severe cortical atrophy and long history of HTn and DM likely will benefit from turng/arb in the long run but will hold in setting of recovering Erica (3) COPD (chronic obstructive pulmonary disease) Current Visit: No Status: Acute Code(s): J44.9 - CHRONIC OBSTRUCTIVE PULMONARY DISEASE, UNSPECIFIED SNOMED Code(s): 62720878 Comment: Not in exacerbation (4) Thrombocytopenia Current Visit: No Status: Acute Code(s): D69.6 - THROMBOCYTOPENIA, UNSPECIFIED SNOMED Code(s): 759686479 Comment: s/p bone marrow biopsy yesterday; she has an appointment with Dr. Breen to get results (5) Hypertension Current Visit: No Status: Chronic Code(s): I10 - ESSENTIAL (PRIMARY) HYPERTENSION SNOMED Code(s): 20086405 Comment: improved after addition of coreg yesterday Status and Disposition: discussed short term rehab with her today, she will consider it transition to po diuretic today attempt amb pulse ox wean o2
[2018-02-20] MEDS: Montelukast Sodium TAB* 10 MG PO SCH (20:42)
[2018-02-20] MEDS: Clotrimazole TROCHE* 10 MG TROCHE PO SCH (20:45)
[2018-02-20] MEDS: Saline NASAL SPRAY 0.65%* BTL BOTH NARES PRN (20:47)
[2018-02-20] MEDS: Latanoprost 0.005%* 2.5 ml BTL BOTH EYES SCH (20:49)
[2018-02-21 06:19] LABS: EGFR Non-African American 23.4 (>60)
[2018-02-21] MEDS: Mometasone/Formoter 200/5 MDI INH SCH ×2 (07:21→20:22)
[2018-02-21] MEDS: Insulin LISPRO* 1 UNITS UNIT SUBCUT SCH ×3 (08:29→17:09)
--- NOTE | 2018-02-21 08:32 | RAD ---
INDICATION: Hypoxia COMPARISON: Chest x-ray dated February 15, 2018 TECHNIQUE: Single AP portable view of the chest was obtained. FINDINGS: Image quality is compromised due to the relative inferiority of a portable chest x-ray. There is stable cardiomegaly relative to the previous chest x-ray. There is coarse calcification overlying the arch of the aorta. Patchy densities obscure the bilateral lungs. The pulmonary vasculature appears mildly engorged and indistinct. There are densities obscuring the bilateral lung bases, larger on the left than the right. Advanced degenerative changes are noted overlying the bilateral shoulders. IMPRESSION: Chest x-ray findings are most consistent with cardiogenic pulmonary edema likely with left greater than right bibasilar pleural effusions. Overall the aeration appears worse when compared to the most recent February 15, 2018 chest x-ray.
--- NOTE | 2018-02-21 09:04 | PN ---
Subjective Date of Service: 02/21/18 Interval History: Repeat cxr this morning shows worse b/l pleural effusions, L>R. Unable to lie flat but otherwise feels okay. She is very anxious about the bone marrow biopsy results. Objective Active Medications: Acetaminophen (Tylenol Tab*) 650 mg PO Q4H PRN PRN Reason: FEVER/PAIN Last Admin: 02/19/18 17:35 Dose: 650 mg Albuterol (Ventolin Hfa Inhaler*) 2 puff INH Q4H PRN PRN Reason: SOB/WHEEZING Last Admin: 02/21/18 07:22 Dose: 2 puff Carisoprodol (Soma Tab*) 350 mg PO QID PRN PRN Reason: SPASMS - MUSCLE Last Admin: 02/19/18 00:00 Dose: 350 mg Carvedilol (Coreg Tab*) 6.25 mg PO BID [facility] Last Admin: 02/20/18 20:39 Dose: 6.25 mg Cephalexin HCl (Keflex Cap*) 250 mg PO TID [facility] Last Admin: 02/20/18 20:40 Dose: 250 mg Clotrimazole (Mycelex Daisy*) 10 mg PO QID [facility] Last Admin: 02/20/18 20:45 Dose: 10 mg Dextrose (D50w Syringe 50 Ml*) 12.5 gm IV PUSH .FOR FS < 60 - SS PRN PRN Reason: FS < 60 Furosemide (Lasix Iv*) 40 mg IV SLOW PU 0800,1700 [facility] Gabapentin (Neurontin Cap(*)) 200 mg PO BEDTIME [facility] Last Admin: 02/20/18 20:40 Dose: 200 mg Gabapentin (Neurontin Cap(*)) 100 mg PO 0800,1800 [facility] Last Admin: 02/20/18 17:33 Dose: 100 mg Hydralazine HCl (Apresoline Iv*) 5 mg IV SLOW PU Q6H PRN PRN Reason: BLOOD PRESSURE Last Admin: 02/18/18 23:54 Dose: 5 mg Hydralazine HCl (Apresoline Tab*) 25 mg PO TID [facility] Last Admin: 02/20/18 20:41 Dose: 25 mg Insulin Human Lispro (Humalog*) 0 units SUBCUT AC [facility] PRN Reason: Protocol Last Admin: 02/21/18 08:29 Dose: Not Given Latanoprost (Xalatan 0.005%*) 1 drop BOTH EYES BEDTIME [facility] Last Admin: 02/20/18 20:49 Dose: 1 drop Lorazepam (Ativan Inj*) 0.5 mg IV PUSH Q4H PRN PRN Reason: ANXIETY Losartan Potassium (Cozaar Tab*) 25 mg PO DAILY [facility] Last Admin: 02/20/18 10:29 Dose: 25 mg Melatonin (Melatonin (Nf)) 3 mg PO BEDTIME PRN; Protocol PRN Reason: Sleep Last Admin: 02/19/18 00:00 Dose: 3 mg Mometasone Furoate/Formoterol Fumar (Dulera 200/5 Mdi*) 2 puff INH BID [facility] Last Admin: 02/21/18 07:21 Dose: 2 puff Montelukast Sodium (Singulair Tab*) 10 mg PO BEDTIME [facility] Last Admin: 02/20/18 20:42 Dose: 10 mg Multi-Ingredient Liniment/Rub (Nicolas Kothari*) 1 applic TOPICAL Q4H PRN PRN Reason: ACHY LEGS Last Admin: 02/16/18 00:13 Dose: 1 applic Nifedipine (Procardia Cap*) 20 mg PO TID [facility] Last Admin: 02/20/18 20:43 Dose: 20 mg Ondansetron HCl (Zofran Inj*) 4 mg IV Q6H PRN PRN Reason: NAUSEA Oxycodone HCl (Roxycodone Tab*) 2.5 mg PO Q6H PRN PRN Reason: PAIN Last Admin: 02/20/18 20:33 Dose: 2.5 mg Oxycodone/Acetaminophen (Percocet 5/325 Tab*) 1 tab PO Q6H PRN PRN Reason: PAIN Last Admin: 02/20/18 20:34 Dose: 1 tab Rosuvastatin Calcium (Crestor (Nf)) 10 mg PO DAILY [facility] PRN Reason: Protocol Last Admin: 02/20/18 10:29 Dose: 10 mg Sertraline HCl (Zoloft*) 200 mg PO QAM [facility] Last Admin: 02/20/18 10:30 Dose: 200 mg Sodium Chloride (Sodium Chloride 0.65% Nasal [place]*) 1 spray BOTH NARES Q4H PRN PRN Reason: CONGESTION Last Admin: 02/20/18 20:47 Dose: 1 spray Verapamil HCl (Calan Sr Tab*) 120 mg PO DAILY [facility] Last Admin: 02/20/18 10:29 Dose: 120 mg Vital Signs - 8 hr 02/21/18 03:32 Temperature 98.2 F Pulse Rate 81 Respiratory 16 Rate Blood Pressure 132/55 (mmHg) O2 Sat by Pulse 95 Oximetry Oxygen Devices in Use Now: Nasal Cannula Appearance: alert, no distress, depressed affect Eyes: No Scleral Icterus Neck: - - JVP ~14cm Respiratory: Symmetrical Chest Expansion and Respiratory Effort, - - decreased breath sounds b/l bases Cardiovascular: RRR Abdominal: NL Sounds; No Tenderness; No Distention, No Hepatosplenomegaly Lymphatic: No Cervical Adenopathy Extremities: No Edema Skin: No Rash or Ulcers Neurological: Alert and Oriented x 3 Result Diagrams: 02/19/18 05:04 02/21/18 05:38 Microbiology and Other Data: Microbiology 02/15/18 22:26 Nasal Screen MRSA (PCR)(FREDY) - Final Nasal Mrsa Not Detected Assess/Plan/Problems-Billing Assessment: 82 yo female with history of ckd, diastolic chf, asthma admitted after a tte in cardiology showed concern for a mitral valve vegetation, found to be volume overloaded at admission and has been receiving iv lasix, now with ongoing hypoxia (baseline is 2L nocturnally), found to have worsening pleural effusions. - Patient Problems (1) Acute respiratory failure with hypoxia Current Visit: Yes Status: Acute Code(s): J96.01 - ACUTE RESPIRATORY FAILURE WITH HYPOXIA SNOMED Code(s): 99556905 Comment: Due to volume overload (in setting of decompensated renal failure and diastolic heart failure), now with larger pleural effusions DESPITE IV diuresis the past 4 days She is very hesitant about a thoracentesis, but I suspect she may need one since diuresis has been unsuccessful at this point I will increase her lasix dose and contact surgery in the meantime (2) Acute renal failure Current Visit: No Status: Acute Comment: on CKD; I suspect this is actually her new baseline improved slightly with diuresis--suspect some component of vascular congestion from decompensated heart failure underlying etiology of ckd is unclear but she has severe cortical atrophy and long history of HTn and DM + proteinuria, not nephrotic range--> ARB resumed DC hydralazine today (3) COPD (chronic obstructive pulmonary disease) Current Visit: No Status: Acute Code(s): J44.9 - CHRONIC OBSTRUCTIVE PULMONARY DISEASE, UNSPECIFIED SNOMED Code(s): 27213922 Comment: Not in exacerbation. Prednisone DC'ed. (4) Thrombocytopenia Current Visit: No Status: Acute Code(s): D69.6 - THROMBOCYTOPENIA, UNSPECIFIED SNOMED Code(s): 021120541 Comment: s/p bone marrow biopsy Thursday; she has an appointment with Dr. Breen to get results (5) Hypertension Current Visit: No Status: Chronic Code(s): I10 - ESSENTIAL (PRIMARY) HYPERTENSION SNOMED Code(s): 65806544 Comment: now normotensive on verapamil, coreg, hydralazine, losartan--> DC hydralazine Status and Disposition: unable to wean O2, likely due to worsening pleural effusions may need thoracentesis; consult surgery
[2018-02-21] MEDS: Sertraline* 100 MG TAB PO SCH (09:06)
[2018-02-21] MEDS: Losartan TAB* 25 MG PO SCH (09:06)
[2018-02-21] MEDS: NIFEdipine CAP* 10 MG PO SCH ×3 (09:06→22:20)
[2018-02-21] MEDS: Gabapentin CAP(*) 100 MG PO SCH ×3 (09:07→22:19)
[2018-02-21] MEDS: ROSUVASTATIN 10 MG PO SCH (09:07)
[2018-02-21] MEDS: Verapamil SR TAB* 240 MG PO SCH (09:07)
[2018-02-21] MEDS: hydrALAZINE TAB* 25 MG PO SCH ×3 (09:09→22:19)
[2018-02-21] MEDS: Carvedilol TAB* 6.25 MG PO SCH ×2 (09:10→22:19)
[2018-02-21] MEDS: Clotrimazole TROCHE* 10 MG TROCHE PO SCH ×5 (09:10→22:20)
[2018-02-21] MEDS: Cephalexin CAP* 250 MG PO SCH ×3 (09:10→22:19)
[2018-02-21] MEDS: Furosemide IV* 10 MG/ML VIAL (40 MG) IV SLOW PU SCH ×2 (09:11→18:23)
[2018-02-21] MEDS: Acetaminophen TAB* 325 MG PO PRN ×2 (12:10→18:26)
[2018-02-21] MEDS: Montelukast Sodium TAB* 10 MG PO SCH (22:19)
[2018-02-21] MEDS: Latanoprost 0.005%* 2.5 ml BTL BOTH EYES SCH (22:20)
[2018-02-22] MEDS: CMCS: Melatonin (NF) 3 MG TAB PO PRN (01:24)
[2018-02-22] MEDS: Carisoprodol TAB* 350 MG PO PRN (01:28)
[2018-02-22 06:27] LABS: ABS Basophils 0 10^3/ul (0-0.2); ABS Eosinophils 0.1 10^3/ul (0-0.6); ABS Lymphocytes 1.2 10^3/ul (1.0-4.8); ABS Monocytes 1.5 10^3/ul (0-0.8); ABS Neutrophils 6.9 10^3/ul (1.5-7.7); ABS Nucleated RBC 0 10^3/ul; Eosinophil % 0.5 % (0-6); Hematocrit 23 % (35-47); Hemoglobin 7.9 g/dl (12.0-16.0); Lymphocyte % 12.5 % (25-47); Mean Corpuscular HGB Conc 34 g/dl (31-36); Mean Corpuscular Hemoglobin 30 pg (27-31); Mean Corpuscular Volume 88 fL (80-97); Mean Platelet Volume 9.2 um3 (7.4-10.4); Nucleated Red Blood Cells % 0; Platelet Count 84 10^3/ul (150-450); Red Blood Count 2.62 10^6/ul (4.0-5.4); Red Cell Distribution Width 16 % (10.5-15); White Blood Count 9.7 10^3/ul (3.5-10.8)
[2018-02-22 06:43] LABS: EGFR Non-African American 21.1 (>60)
[2018-02-22] MEDS: Mometasone/Formoter 200/5 MDI INH SCH ×2 (08:06→19:29)
[2018-02-22] MEDS: Gabapentin CAP(*) 100 MG PO SCH ×3 (08:56→21:31)
[2018-02-22] MEDS: Clotrimazole TROCHE* 10 MG TROCHE PO SCH ×4 (08:56→21:33)
[2018-02-22] MEDS: hydrALAZINE TAB* 25 MG PO SCH ×3 (08:56→21:31)
[2018-02-22] MEDS: Sertraline* 100 MG TAB PO SCH (08:57)
[2018-02-22] MEDS: ROSUVASTATIN 10 MG PO SCH (08:57)
[2018-02-22] MEDS: Losartan TAB* 25 MG PO SCH (08:58)
[2018-02-22] MEDS: Carvedilol TAB* 6.25 MG PO SCH ×2 (08:58→21:31)
[2018-02-22] MEDS: Cephalexin CAP* 250 MG PO SCH ×3 (08:58→21:31)
[2018-02-22] MEDS: Verapamil SR TAB* 240 MG PO SCH (08:58)
[2018-02-22] MEDS: NIFEdipine CAP* 10 MG PO SCH ×3 (08:59→21:31)
[2018-02-22] MEDS: Furosemide IV* 10 MG/ML VIAL (40 MG) IV SLOW PU SCH ×2 (08:59→16:52)
[2018-02-22] MEDS: Insulin LISPRO* 1 UNITS UNIT SUBCUT SCH ×3 (09:05→16:58)
--- NOTE | 2018-02-22 09:37 | CONS ---
CC: Dr. Shelly Mathew; Dr. Timi Thomas; [facility] * SURGICAL CONSULTATION REPORT: DATE OF CONSULT: 02/22/18 LOCATION: The patient was seen in room 442. HISTORY OF PRESENT ILLNESS: I was contacted by the hospitalist service yesterday to evaluate Ms. Del Castillo, an 82-year-old female, who was admitted with acute shortness of breath. She came in by ambulance and was started on oxygen, treated with diuretics and followed by the hospitalist service, as well as a consultation to both Hematology and Cardiology. The patient has a diagnosis of congestive heart failure and additional diuretics were added and the patient improved. Her lower leg edema improved, that was one of her other chief complaints, as well as her respiratory status. She does remain on oxygen. She is on home oxygen. She did undergo a bone marrow as well with a concern that she had anemia and thrombocytopenia. When I saw her this morning, she was anxious to see me with the hopes that she would get the procedure and go home. She is on oxygen, has no additional complaints. Does have minimal shortness of breath, but this has significantly improved when compared to discharge. PAST MEDICAL HISTORY: Reviewed. REVIEW OF SYSTEMS: Shortness of breath as described. Cardiac issues as described. She has no exercise tolerance. PHYSICAL EXAM: On examination, she is afebrile. Vital signs are stable. Lungs are clear at the apices. She does have decreased inspiratory effort. DIAGNOSTIC STUDIES/LAB DATA: Chest x-ray reviewed, both the x-ray on admission and the current, does show bilateral effusions. These are not large. IMPRESSION: Respiratory compromise secondary to congestive heart failure without evidence of pulmonary infection. I do not believe that a thoracentesis will be that great a yield regarding the patient's symptoms. It seems that the diuresis has made quite an improvement with her. I believe she will need to be on probably 24-hour oxygen up from her just typical nighttime only. I described with her the procedure of a thoracentesis, choosing the left side as my recommended side, given the x-ray knowing that there would not be that much output. The patient was hopeful that she cannot undergo another procedure since she has been hospitalized and a lot had happened. I did discuss the alternatives of watchful waiting and referral to a feed project engineer and she would prefer to go in this direction. PLAN: No thoracentesis. I discussed this with the hospitalist service. The patient needs to be treated for her underlying condition and the thoracentesis can certainly be delayed safely and the patient can see a feed project engineer either during this hospitalization or as an outpatient. [id number]/CPS #: [id number] MTDD
--- NOTE | 2018-02-22 12:38 | PN ---
Subjective Date of Service: 02/22/18 Interval History: Patient seen and examined. Remains on O2, per notes, not a candidate for thoracentesis. Has not ambulated today, does not feel SOB at rest. Denies chest pain, no n/v, no feveres or chills. Objective Active Medications: Acetaminophen (Tylenol Tab*) 650 mg PO Q4H PRN PRN Reason: FEVER/PAIN Last Admin: 02/21/18 18:26 Dose: 650 mg Albuterol (Ventolin Hfa Inhaler*) 2 puff INH Q4H PRN PRN Reason: SOB/WHEEZING Last Admin: 02/21/18 07:22 Dose: 2 puff Carisoprodol (Soma Tab*) 350 mg PO QID PRN PRN Reason: SPASMS - MUSCLE Last Admin: 02/22/18 01:28 Dose: 350 mg Carvedilol (Coreg Tab*) 6.25 mg PO BID [facility] Last Admin: 02/22/18 08:58 Dose: 6.25 mg Cephalexin HCl (Keflex Cap*) 250 mg PO TID [facility] Last Admin: 02/22/18 08:58 Dose: 250 mg Clotrimazole (Mycelex Daisy*) 10 mg PO QID [facility] Last Admin: 02/22/18 08:56 Dose: 10 mg Dextrose (D50w Syringe 50 Ml*) 12.5 gm IV PUSH .FOR FS < 60 - SS PRN PRN Reason: FS < 60 Furosemide (Lasix Iv*) 40 mg IV SLOW PU 0800,1700 [facility] Last Admin: 02/22/18 08:59 Dose: 40 mg Gabapentin (Neurontin Cap(*)) 200 mg PO BEDTIME [facility] Last Admin: 02/21/18 22:19 Dose: 200 mg Gabapentin (Neurontin Cap(*)) 100 mg PO 0800,1800 [facility] Last Admin: 02/22/18 08:56 Dose: 100 mg Hydralazine HCl (Apresoline Iv*) 5 mg IV SLOW PU Q6H PRN PRN Reason: BLOOD PRESSURE Last Admin: 02/18/18 23:54 Dose: 5 mg Hydralazine HCl (Apresoline Tab*) 25 mg PO TID [facility] Last Admin: 02/22/18 08:56 Dose: 25 mg Insulin Human Lispro (Humalog*) 0 units SUBCUT AC [facility] PRN Reason: Protocol Last Admin: 02/22/18 11:57 Dose: 1 unit Latanoprost (Xalatan 0.005%*) 1 drop BOTH EYES BEDTIME [facility] Last Admin: 02/21/18 22:20 Dose: 1 drop Lorazepam (Ativan Inj*) 0.5 mg IV PUSH Q4H PRN PRN Reason: ANXIETY Last Admin: 02/21/18 23:39 Dose: 0.5 mg Losartan Potassium (Cozaar Tab*) 25 mg PO DAILY [facility] Last Admin: 02/22/18 08:58 Dose: 25 mg Melatonin (Melatonin (Nf)) 3 mg PO BEDTIME PRN; Protocol PRN Reason: Sleep Last Admin: 02/22/18 01:24 Dose: 3 mg Mometasone Furoate/Formoterol Fumar (Dulera 200/5 Mdi*) 2 puff INH BID [facility] Last Admin: 02/22/18 08:06 Dose: 2 puff Montelukast Sodium (Singulair Tab*) 10 mg PO BEDTIME [facility] Last Admin: 02/21/18 22:19 Dose: 10 mg Multi-Ingredient Liniment/Rub (Nicolas Kothari*) 1 applic TOPICAL Q4H PRN PRN Reason: ACHY LEGS Last Admin: 02/16/18 00:13 Dose: 1 applic Nifedipine (Procardia Cap*) 20 mg PO TID [facility] Last Admin: 02/22/18 08:59 Dose: 20 mg Ondansetron HCl (Zofran Inj*) 4 mg IV Q6H PRN PRN Reason: NAUSEA Oxycodone HCl (Roxycodone Tab*) 2.5 mg PO Q6H PRN PRN Reason: PAIN Last Admin: 02/20/18 20:33 Dose: 2.5 mg Oxycodone/Acetaminophen (Percocet 5/325 Tab*) 1 tab PO Q6H PRN PRN Reason: PAIN Last Admin: 02/20/18 20:34 Dose: 1 tab Rosuvastatin Calcium (Crestor (Nf)) 10 mg PO DAILY [facility] PRN Reason: Protocol Last Admin: 02/22/18 08:57 Dose: 10 mg Sertraline HCl (Zoloft*) 200 mg PO QAM [facility] Last Admin: 02/22/18 08:57 Dose: 200 mg Sodium Chloride (Sodium Chloride 0.65% Nasal [place]*) 1 spray BOTH NARES Q4H PRN PRN Reason: CONGESTION Last Admin: 02/20/18 20:47 Dose: 1 spray Verapamil HCl (Calan Sr Tab*) 120 mg PO DAILY [facility] Last Admin: 02/22/18 08:58 Dose: 120 mg Vital Signs - 8 hr 02/22/18 02/22/18 02/22/18 07:52 08:00 08:06 Temperature 98.4 F Pulse Rate 92 91 Respiratory 18 20 20 Rate Blood Pressure 154/61 (mmHg) O2 Sat by Pulse 99 97 Oximetry 02/22/18 02/22/18 08:56 11:41 Temperature 98.0 F Pulse Rate 74 Respiratory 16 16 Rate Blood Pressure 135/42 (mmHg) O2 Sat by Pulse 100 Oximetry Oxygen Devices in Use Now: Nasal Cannula Appearance: Alert, OOB to chair, NAD Eyes: No Scleral Icterus, PERRLA Ears/Nose/Mouth/Throat: Clear Oropharnyx, Mucous Membranes Moist Neck: NL Appearance and Movements; NL JVP, Trachea Midline Respiratory: Symmetrical Chest Expansion and Respiratory Effort, - - very diminished bilat half up the bases, no wheeze Cardiovascular: NL Sounds; No Murmurs; No JVD, RRR, No Edema Abdominal: NL Sounds; No Tenderness; No Distention Neurological: Alert and Oriented x 3 Nutrition: Taking PO's Result Diagrams: 02/22/18 05:54 02/22/18 05:54 Microbiology and Other Data: Microbiology 02/15/18 22:26 Nasal Screen MRSA (PCR)(FREYD) - Final Nasal Mrsa Not Detected Diagnostic Imaging: Patient Name: JOSE ANTONIO PHAM Medical Record#: [id number] Ordering Physician: Radha Nelson DO Acct.#: [id number] : 1935 Age: 82 Sex: F Location: [address] [place] [address]/TELEMETRY Exam Date: 02/21/1849 ADM Status: ADM IN Order Information: CHEST AP PORTABLE Accession Number: [id number] CPT: 30418 INDICATION: Hypoxia COMPARISON: Chest x-ray dated February 15, 2018 TECHNIQUE: Single AP portable view of the chest was obtained. FINDINGS: Image quality is compromised due to the relative inferiority of a portable chest x-ray. There is stable cardiomegaly relative to the previous chest x-ray. There is coarse calcification overlying the arch of the aorta. Patchy densities obscure the bilateral lungs. The pulmonary vasculature appears mildly engorged and indistinct. There are densities obscuring the bilateral lung bases, larger on the left than the right. Advanced degenerative changes are noted overlying the bilateral shoulders. IMPRESSION: Chest x-ray findings are most consistent with cardiogenic pulmonary edema likely with left greater than right bibasilar pleural effusions. Overall the aeration appears worse when compared to the most recent February 15, 2018 chest x-ray. <Electronically signed by Harinder Mohr MD in [place]> 02/21/18826 Dictated By: Harinder Mohr MD Dictated Date/Time: 02/21/18826 Transcribed Date/Time: 02/21/18825 Copy to: CC:Rox Tanner DO; Shelly Mathew MD; Ollie Chavez MD; Radha Nelson DO; Timi Thomas MD; Emilio Breen MD Imaging - [facility] Imaging - [place] [facility] Imaging - [facility] [address] [address] ph [phone]) ph ([phone]) ph ([phone]) 1 of 1 Assess/Plan/Problems-Billing Assessment: 82 yo female with history of ckd, diastolic chf, asthma admitted after a tte in cardiology showed concern for a mitral valve vegetation, found to be volume overloaded at admission and has been receiving iv lasix, now with ongoing hypoxia (baseline is 2L nocturnally), found to have worsening pleural effusions. - Patient Problems (1) Acute respiratory failure with hypoxia Code(s): J96.01 - ACUTE RESPIRATORY FAILURE WITH HYPOXIA SNOMED Code(s): 64967129 Comment: - 2/2 volume overload/decompensated renal failure/diastolic heart failure and COPD - Pleural effusions larger, surgery consulted but declined to tap - Continue diuresis and titrate O2 as needed - Sats walking off O2 down to 84% (2) CKD (chronic kidney disease) stage 4, GFR 15-29 ml/min Code(s): N18.4 - CHRONIC KIDNEY DISEASE, STAGE 4 (SEVERE) SNOMED Code(s): 333230993 Comment: - Steady decline in renal function since 2016, acute on chronic, in the setting of decomp HF - Renal US with severe cortical atrophy, etiology unclear - Recommend nephrology evaluation, can be done as an outpatient (3) COPD (chronic obstructive pulmonary disease) Code(s): J44.9 - CHRONIC OBSTRUCTIVE PULMONARY DISEASE, UNSPECIFIED SNOMED Code(s): 29413511 Comment: - Not in exacerbation. Prednisone DC'ed. - Continue nebs and supplemental O2 (4) Diastolic CHF Code(s): I50.30 - UNSPECIFIED DIASTOLIC (CONGESTIVE) HEART FAILURE SNOMED Code (s): 619109810 Comment: - Daily weights - Continue lasix BID - Monitor renal fx - Check BNP in AM (5) Diabetes Code(s): E11.9 - TYPE 2 DIABETES MELLITUS WITHOUT COMPLICATIONS SNOMED Code(s) : 48023034 Comment: - Continue Lispro SS AC and HS (6) Hypertension Code(s): I10 - ESSENTIAL (PRIMARY) HYPERTENSION SNOMED Code(s): 06465612 Comment: - BP stable on verapamil, coreg, losartan and lasix (7) DVT prophylaxis Code(s): MXX2302 - SNOMED Code(s): 551656205 Comment: - HSQ Status and Disposition: Continue diuresis, as thoracentesis is not being recommended by surgery. Must monitor renal function which is worsening, may consider consult with nephro.
[2018-02-22] MEDS: oxyCODONE/Acetamin 5/325 MG* TAB PO PRN (15:05)
[2018-02-22] MEDS: Acetaminophen TAB* 325 MG PO PRN (20:05)
[2018-02-22] MEDS: Montelukast Sodium TAB* 10 MG PO SCH (21:31)
[2018-02-22] MEDS: Latanoprost 0.005%* 2.5 ml BTL BOTH EYES SCH (21:32)
[2018-02-23] MEDS: Acetaminophen TAB* 325 MG PO PRN ×3 (01:02→21:10)
[2018-02-23] MEDS: Mometasone/Formoter 200/5 MDI INH SCH ×2 (08:18→20:41)
[2018-02-23] MEDS: Insulin LISPRO* 1 UNITS UNIT SUBCUT SCH ×3 (08:27→17:06)
[2018-02-23] MEDS: Furosemide IV* 10 MG/ML VIAL (40 MG) IV SLOW PU SCH ×2 (09:07→17:39)
[2018-02-23] MEDS: Losartan TAB* 25 MG PO SCH (09:07)
[2018-02-23] MEDS: Gabapentin CAP(*) 100 MG PO SCH ×3 (09:08→21:11)
[2018-02-23] MEDS: Carvedilol TAB* 6.25 MG PO SCH ×2 (09:08→21:10)
[2018-02-23] MEDS: Sertraline* 100 MG TAB PO SCH (09:08)
[2018-02-23] MEDS: hydrALAZINE TAB* 25 MG PO SCH ×3 (09:08→21:11)
[2018-02-23] MEDS: Cephalexin CAP* 250 MG PO SCH ×3 (09:09→21:11)
[2018-02-23] MEDS: NIFEdipine CAP* 10 MG PO SCH ×3 (09:09→21:11)
[2018-02-23] MEDS: ROSUVASTATIN 10 MG PO SCH (09:09)
[2018-02-23] MEDS: Verapamil SR TAB* 240 MG PO SCH (09:10)
[2018-02-23] MEDS: Clotrimazole TROCHE* 10 MG TROCHE PO SCH ×5 (10:08→21:11)
--- NOTE | 2018-02-23 16:39 | PN ---
Subjective Date of Service: 02/23/18 Interval History: Patient seen and examined. Feeling better, less SOB noted. Denies chest pain, no further complaints. Discussed bone biopsy with is unremarkable as per Pathologist. Explained that patient still has outstanding studies pending, so results are not final until she see heme-onc as an outpatient and all studies are reviewed. Objective Active Medications: Acetaminophen (Tylenol Tab*) 650 mg PO Q4H PRN PRN Reason: FEVER/PAIN Last Admin: 02/23/18 14:40 Dose: 650 mg Albuterol (Ventolin Hfa Inhaler*) 2 puff INH Q4H PRN PRN Reason: SOB/WHEEZING Last Admin: 02/21/18 07:22 Dose: 2 puff Carisoprodol (Soma Tab*) 350 mg PO QID PRN PRN Reason: SPASMS - MUSCLE Last Admin: 02/22/18 01:28 Dose: 350 mg Carvedilol (Coreg Tab*) 6.25 mg PO BID [facility] Last Admin: 02/23/18 09:08 Dose: 6.25 mg Cephalexin HCl (Keflex Cap*) 250 mg PO TID [facility] Last Admin: 02/23/18 12:58 Dose: 250 mg Clotrimazole (Mycelex Daisy*) 10 mg PO QID [facility] Last Admin: 02/23/18 14:41 Dose: Not Given Dextrose (D50w Syringe 50 Ml*) 12.5 gm IV PUSH .FOR FS < 60 - SS PRN PRN Reason: FS < 60 Furosemide (Lasix Iv*) 40 mg IV SLOW PU 0800,1700 [facility] Last Admin: 02/23/18 09:07 Dose: 40 mg Gabapentin (Neurontin Cap(*)) 200 mg PO BEDTIME [facility] Last Admin: 02/22/18 21:31 Dose: 200 mg Gabapentin (Neurontin Cap(*)) 100 mg PO 0800,1800 [facility] Last Admin: 02/23/18 09:08 Dose: 100 mg Hydralazine HCl (Apresoline Iv*) 5 mg IV SLOW PU Q6H PRN PRN Reason: BLOOD PRESSURE Last Admin: 02/18/18 23:54 Dose: 5 mg Hydralazine HCl (Apresoline Tab*) 25 mg PO TID [facility] Last Admin: 02/23/18 12:58 Dose: 25 mg Insulin Human Lispro (Humalog*) 0 units SUBCUT AC [facility] PRN Reason: Protocol Last Admin: 02/23/18 12:58 Dose: 2 unit Latanoprost (Xalatan 0.005%*) 1 drop BOTH EYES BEDTIME [facility] Last Admin: 02/22/18 21:32 Dose: 1 drop Lorazepam (Ativan Inj*) 0.5 mg IV PUSH Q4H PRN PRN Reason: ANXIETY Last Admin: 02/21/18 23:39 Dose: 0.5 mg Losartan Potassium (Cozaar Tab*) 25 mg PO DAILY [facility] Last Admin: 02/23/18 09:07 Dose: 25 mg Melatonin (Melatonin (Nf)) 3 mg PO BEDTIME PRN; Protocol PRN Reason: Sleep Last Admin: 02/22/18 01:24 Dose: 3 mg Mometasone Furoate/Formoterol Fumar (Dulera 200/5 Mdi*) 2 puff INH BID [facility] Last Admin: 02/23/18 08:18 Dose: Not Given Montelukast Sodium (Singulair Tab*) 10 mg PO BEDTIME [facility] Last Admin: 02/22/18 21:31 Dose: 10 mg Multi-Ingredient Liniment/Rub (Nicolas Kothari*) 1 applic TOPICAL Q4H PRN PRN Reason: ACHY LEGS Last Admin: 02/16/18 00:13 Dose: 1 applic Nifedipine (Procardia Cap*) 20 mg PO TID [facility] Last Admin: 02/23/18 12:58 Dose: 20 mg Ondansetron HCl (Zofran Inj*) 4 mg IV Q6H PRN PRN Reason: NAUSEA Rosuvastatin Calcium (Crestor (Nf)) 10 mg PO DAILY [facility] PRN Reason: Protocol Last Admin: 02/23/18 09:09 Dose: 10 mg Sertraline HCl (Zoloft*) 200 mg PO QAM [facility] Last Admin: 02/23/18 09:08 Dose: 200 mg Sodium Chloride (Sodium Chloride 0.65% Nasal Caliente*) 1 spray BOTH NARES Q4H PRN PRN Reason: CONGESTION Last Admin: 02/20/18 20:47 Dose: 1 spray Verapamil HCl (Calan Sr Tab*) 120 mg PO DAILY [facility] Last Admin: 02/23/18 09:10 Dose: 120 mg Vital Signs - 8 hr 02/23/18 02/23/18 02/23/18 08:49 09:08 10:20 Temperature 97.3 F Pulse Rate 93 85 Respiratory 16 18 Rate Blood Pressure 187/58 101/36 (mmHg) O2 Sat by Pulse 99 93 Oximetry 02/23/18 02/23/18 02/23/18 11:17 12:14 12:20 Temperature 98.3 F Pulse Rate 72 87 Respiratory 20 16 18 Rate Blood Pressure 102/38 (mmHg) O2 Sat by Pulse 97 95 Oximetry 02/23/18 02/23/18 14:44 15:57 Temperature 97.8 F Pulse Rate 77 Respiratory 16 Rate Blood Pressure 103/32 (mmHg) O2 Sat by Pulse 93 88 Oximetry Oxygen Devices in Use Now: Nasal Cannula Appearance: Alert, NAD Ears/Nose/Mouth/Throat: NL Teeth, Lips, Gums, Mucous Membranes Moist Neck: NL Appearance and Movements; NL JVP, Trachea Midline Respiratory: Symmetrical Chest Expansion and Respiratory Effort, - - diminished based Cardiovascular: NL Sounds; No Murmurs; No JVD, RRR Abdominal: NL Sounds; No Tenderness; No Distention Skin: No Rash or Ulcers Neurological: Alert and Oriented x 3, NL Gait Nutrition: Taking PO's Result Diagrams: 02/22/18 05:54 02/22/18 05:54 Microbiology and Other Data: Microbiology 02/15/18 22:26 Nasal Screen MRSA (PCR)(FREDY) - Final Nasal Mrsa Not Detected Diagnostic Imaging: Patient Name: JOSE ANTONIO PHAM Medical Record#: [id number] Ordering Physician: Radha Nelson DO Acct.#: [id number] : 1935 Age: 82 Sex: F Location: [address] [place] [address] MEDICAL/TELEMETRY Exam Date: 02/21/18 0749 ADM Status: ADM IN Order Information: CHEST AP PORTABLE Accession Number: [id number] CPT: 72414 INDICATION: Hypoxia COMPARISON: Chest x-ray dated February 15, 2018 TECHNIQUE: Single AP portable view of the chest was obtained. FINDINGS: Image quality is compromised due to the relative inferiority of a portable chest x-ray. There is stable cardiomegaly relative to the previous chest x-ray. There is coarse calcification overlying the arch of the aorta. Patchy densities obscure the bilateral lungs. The pulmonary vasculature appears mildly engorged and indistinct. There are densities obscuring the bilateral lung bases, larger on the left than the right. Advanced degenerative changes are noted overlying the bilateral shoulders. IMPRESSION: Chest x-ray findings are most consistent with cardiogenic pulmonary edema likely with left greater than right bibasilar pleural effusions. Overall the aeration appears worse when compared to the most recent February 15, 2018 chest x-ray. <Electronically signed by Harinder Mohr MD in [place]> 02/21/18826 Dictated By: Harinder Mohr MD Dictated Date/Time: 02/21/18826 Transcribed Date/Time: 02/21/18825 Copy to: CC:Rox Tanner DO; Shelly Mathew MD; Ollie Chavez MD; Radha Nelson DO; Timi Thomas MD; Emilio Breen MD Imaging - [facility] Imaging - [facility] Imaging - [facility] [address] [place] [address] ph [phone] ph [phone]) ph ([phone]) 1 of 1 Assess/Plan/Problems-Billing Assessment: 82 yo female with history of ckd, diastolic chf, asthma admitted after a tte in cardiology showed concern for a mitral valve vegetation, found to be volume overloaded at admission and has been receiving iv lasix, now with ongoing hypoxia (baseline is 2L nocturnally), found to have worsening pleural effusions. - Patient Problems (1) Acute respiratory failure with hypoxia Code(s): J96.01 - ACUTE RESPIRATORY FAILURE WITH HYPOXIA SNOMED Code(s): 33045933 Comment: - 2/2 volume overload/decompensated renal failure/diastolic heart failure and COPD - Appears euvolemic today - Pleural effusions larger on repeat CXR, surgery consulted but declined to tap - Continue diuresis and titrate O2 as needed - Sats walking off O2 down to 84% on 02/22, will recheck tomorrow. Will albaley need continuous O2 at home (2) CKD (chronic kidney disease) stage 4, GFR 15-29 ml/min Code(s): N18.4 - CHRONIC KIDNEY DISEASE, STAGE 4 (SEVERE) SNOMED Code(s): 592457211 Comment: - Steady decline in renal function since 2016, acute on chronic, in the setting of decomp HF - Renal US with severe cortical atrophy, etiology unclear - Recommend nephrology evaluation, can be done as an outpatient (3) COPD (chronic obstructive pulmonary disease) Code(s): J44.9 - CHRONIC OBSTRUCTIVE PULMONARY DISEASE, UNSPECIFIED SNOMED Code(s): 82469518 Comment: - Not in exacerbation. Prednisone DC'ed. - Continue nebs and supplemental O2 (4) Diastolic CHF Code(s): I50.30 - UNSPECIFIED DIASTOLIC (CONGESTIVE) HEART FAILURE SNOMED Code (s): 762131542 Comment: - Daily weights - Continue lasix BID until tomorrow, will transition to lasix 40 daily at home - Monitor renal fx - BNP down to 222 today, much improved (5) Diabetes Code(s): E11.9 - TYPE 2 DIABETES MELLITUS WITHOUT COMPLICATIONS SNOMED Code(s) : 82253559 Comment: - Continue Lispro SS AC and HS (6) Hypertension Code(s): I10 - ESSENTIAL (PRIMARY) HYPERTENSION SNOMED Code(s): 56452766 Comment: - BP stable on verapamil, coreg, losartan and lasix (7) DVT prophylaxis Code(s): VGX5193 - SNOMED Code(s): 371193739 Comment: - HSQ Status and Disposition: Likely DC in AM to home. Recheck walking sats in AM for home O2 needs.
[2018-02-23] MEDS: CMCS: Melatonin (NF) 3 MG TAB PO PRN (21:10)
[2018-02-23] MEDS: Montelukast Sodium TAB* 10 MG PO SCH (21:11)
[2018-02-23] MEDS: Latanoprost 0.005%* 2.5 ml BTL BOTH EYES SCH (21:14)
[2018-02-24] MEDS: Insulin LISPRO* 1 UNITS UNIT SUBCUT SCH ×2 (07:53→11:40)
[2018-02-24] MEDS: Mometasone/Formoter 200/5 MDI INH SCH (07:55)
[2018-02-24] MEDS: Furosemide IV* 10 MG/ML VIAL (40 MG) IV SLOW PU SCH (09:15)
[2018-02-24] MEDS: Sertraline* 100 MG TAB PO SCH (09:15)
[2018-02-24] MEDS: Losartan TAB* 25 MG PO SCH (09:16)
[2018-02-24] MEDS: hydrALAZINE TAB* 25 MG PO SCH ×2 (09:16→14:08)
[2018-02-24] MEDS: Cephalexin CAP* 250 MG PO SCH ×2 (09:16→14:08)
[2018-02-24] MEDS: Gabapentin CAP(*) 100 MG PO SCH (09:17)
[2018-02-24] MEDS: Carvedilol TAB* 6.25 MG PO SCH (09:17)
[2018-02-24] MEDS: Verapamil SR TAB* 240 MG PO SCH (09:18)
[2018-02-24] MEDS: NIFEdipine CAP* 10 MG PO SCH ×2 (09:18→14:08)
[2018-02-24] MEDS: ROSUVASTATIN 10 MG PO SCH (09:20)
[2018-02-24] MEDS: Clotrimazole TROCHE* 10 MG TROCHE PO SCH ×2 (09:25→12:16)
[2018-02-24 11:40] VITALS: BP 132/43
--- NOTE | 2018-02-24 17:59 | DS ---
CC: Dr. Shelly Mathew. * DISCHARGE SUMMARY: DATE OF ADMISSION: 02/15/18. DATE OF DISCHARGE: 02/24/18. PRIMARY CARE PROVIDER: Dr. Shelly Mathew. ATTENDING FOR THIS ADMISSION: Dr. Tanner. MY ATTENDING FOR TODAY: Jemima Cervantes MD.* (DICTATED BY ROVERTO ALONSO NP) CONSULTANTS INVOLVED IN THIS PATIENT'S CASE: Dr. Thomas, Dr. Breen, Dr. Chavez. HOSPITAL COURSE: This is an 82-year-old female patient who reported a progressive shortness of breath for 3 days prior to her admission. The patient had been following with Dr. Martin concerning that there was a mass on a valve on her last echocardiogram and then the patient again had progressive shortness of breath. She does have history of COPD, hypertension, diet-controlled diabetes , osteoporosis, chronic kidney disease, anemia, skin cancer, arthritis and chronic pain. The patient states that she had been trying to use her inhalers. She had been placed on prednisone and antibiotics. However, she got progressively worse. She came to the emergency department with extremely constricted airways and lower extremity edema. The patient stated she had a low -grade subjective fever at home, however she was not recorded to have a fever at admission. The patient was subsequently admitted for a possible pneumonia according to her chest x-ray. Also, she was stating she had some hemoptysis at that time; however she was not noted to have any while she was in the emergency department. Also of significant note, the patient had bilateral pitting edema, and crackles in her lungs. It was determined she likely had a bout of congestive heart failure. DIAGNOSES: The patient was admitted to telemetry for diagnoses: 1. Congestive heart failure. 2. Hemoptysis. 3. Acute on chronic anemia. 4. Elevated troponin. 5. Questionable endocarditis. 6. Diet-controlled diabetes. 7. Hypertension. 8. Acute on chronic renal disease. 9. Hyperlipidemia. 10. History of chronic obstructive pulmonary disease, on oxygen at night, now on oxygen continuous during the day as well. 11. Osteoporosis. During the progression of the patient's stay, her acute respiratory failure and hypoxia worsened. She had a CT of the chest, it was negative for PE. She was very volume overloaded likely secondary to her decompensated renal failure and diastolic heart failure combined with [id number] COPD. She had bilateral pleural effusions on her repeat x-rays. Surgery was consulted; however, it was felt that she was not a candidate for a tap. We continued her on aggressive diuresis with IV Lasix 2 times a day and she was maintained on oxygen, her walking sats also dropped to 84%, this was last rechecked on the , and again on 02/24/18. The patient will be discharged to home on continuous O2 with a portable tank. For her chronic kidney disease, it looks like she has had a steady decline in her renal function since 2016, this is acute on chronic, also in the setting of decompensated heart failure. She had a renal ultrasound that showed severe cortical atrophy with the etiology being uncleared. We recommend that she see Nephrology as an outpatient. For her COPD , her prednisone was discontinued and again she will continue on nebulizers, supplemental O2, and Dulera. For her heart failure, she was seen by Cardiology. Her BNP was up to over 900 at one point, her final BNP was down to 222. Again, she was continued on Lasix 2 times daily IV. We will transition her back to Lasix daily at home and continue her on daily weights and monitor her renal function at discharge. For her diabetes, we recommend continued dietary management. She has not needed sliding scale all that much while she is here, this should be followed up with Dr. Mathew as an outpatient and for her hypertension, some of her medications were adjusted based on her heart failure and blood pressure issues. She was continued on her verapamil. She was started on Coreg, losartan and continued on Lasix. Also of significant note, because of the patient's alterations in her chemistries, she was seen by Dr. Breen from Oncology. She did have a bone marrow biopsy which was negative for any malignant process. She was also instructed to follow up with Dr. Breen as an outpatient for any further hematologic workup that she might need. MEDICATIONS AT THE TIME OF DISCHARGE: Include: 1. Xalatan eye drops 1 drop both eyes at bedtime. 2. Prednisone 10 mg daily. 3. Verapamil 120 mg daily. 4. Losartan 25 mg daily. 5. Gabapentin 100 mg p.o. b.i.d. and 200 mg at bedtime. 6. Percocet 1 tablet q.6 hours as needed. 7. Zoloft 200 mg daily. 8. Crestor 10 mg daily. 9. Singulair 10 mg in the evening. 10. Xyzal 5 mg in the evening. 11. Lasix 20 mg daily. 12. Soma 350 mg 4 times a day as needed. 13. Albuterol inhaler 2 puffs q. 4 hours as needed. 14. Hydralazine 25 mg p.o. t.i.d. 15. Nasal saline spray 1 spray both nares as needed. 16. Nifedipine 20 mg p.o. t.i.d. 17. Dulera 2 puffs inhaled 2 times a day. 18. Coreg 6.25 mg p.o. b.i.d. PHYSICAL EXAMINATION: On day of discharge, vital signs are blood pressure 132/ 43, heart rate 73, respiratory rate 16, satting at 98% on 1 L nasal cannula, temperature is 97.7. HEENT: Patient is atraumatic, normocephalic. PERRLA with nonicteric sclerae. Neck is supple. No JVD noted. No carotid bruits auscultated. Cardiovascular: S1, S2 present. No murmurs, gallops or rubs noted. Lungs are clear bilaterally at the apices with no wheezing, rhonchi or rales. She is greatly diminished at the bases. Abdomen is soft, nontender, nondistended. Positive bowel sounds all 4 quadrants. : Deferred. Musculoskeletal: There is no clubbing and no cyanosis. She has trace bipedal edema which is improved. She has +2 distal pulses palpable. She has a steady gait with mild assistance. She does use a walker. Neurologic: She is grossly intact with no focal deficits. Psychiatric: She is cooperative and appropriate. LABORATORY DATA: CBC shows on 02/22/18, WBC is 9.7, RBC is 2.58, hemoglobin 7.9, hematocrit 23, platelets 84. Sodium 140, potassium 3.7, chloride 106, CO2 24, BUN 41, creatinine 2.23, GFR is 21.1, glucose 118, calcium 8.6. DISPOSITION AND FOLLOW UPS: Include follow up with Dr. Shelly Mathew, her primary care provided as needed; Dr. Alysia Dejesus, follow up within 1 to 2 weeks; Dr. Emilio Breen, she has an appointment on 03/04/[address] Mauser from Cardiology in the next [address] Cj Ruiz. After she sees her primary care, she should be referred to Nephrology. For activity, she can have activity as tolerated. For her diet, she should have heart healthy, low sodium diabetic diet. Activity as tolerated. The patient was discharged in stable condition. All questions were answered. The patient stated understanding of her instructions, followups and new medications. ROVERTO ALONSO, ANGELITO [id number]/[facility] #: [id number] VIKAS
== END 2018-02-24 15:15 | disposition home health service (06) | DRG 291 ==
LOC: ED 12:00 → MEDTELE 14:56 → ICU 21:52 → MEDTELE 02-16 17:58
PROVIDERS: ADMIT Hospitalist; ATTEND Internal Medicine
PROC: B24BZZ4 Ultrasonography of Heart with Aorta, Transesophageal (ICD-10-PCS; principal; 2018-02-16 14:00)
PROC: 30233N1 Transfusion of Nonautologous Red Blood Cells into Peripheral Vein, Percutaneous Approach (ICD-10-PCS; 2018-02-17)
PROC: 07DR3ZX Extraction of Iliac Bone Marrow, Percutaneous Approach, Diagnostic (ICD-10-PCS; 2018-02-19)
DX: I13.0 Hypertensive heart and chronic kidney disease with heart failure and stage 1 through stage 4 chronic kidney disease, or unspecified chronic kidney disease (principal); J96.01 Acute respiratory failure with hypoxia; I50.33 Acute on chronic diastolic (congestive) heart failure; R04.2 Hemoptysis; N18.4 Chronic kidney disease, stage 4 (severe); N17.9 Acute kidney failure, unspecified; I24.8 Other forms of acute ischemic heart disease; I38 Endocarditis, valve unspecified; E04.1 Nontoxic single thyroid nodule; J44.9 Chronic obstructive pulmonary disease, unspecified; K21.9 Gastro-esophageal reflux disease without esophagitis; J30.2 Other seasonal allergic rhinitis; M41.9 Scoliosis, unspecified; M19.90 Unspecified osteoarthritis, unspecified site; H40.9 Unspecified glaucoma; M54.32 Sciatica, left side; F32.9 Major depressive disorder, single episode, unspecified; Z96.652 Presence of left artificial knee joint; E11.22 Type 2 diabetes mellitus with diabetic chronic kidney disease; M81.0 Age-related osteoporosis without current pathological fracture; D63.1 Anemia in chronic kidney disease; I27.20 Pulmonary hypertension, unspecified; R21 Rash and other nonspecific skin eruption; G89.29 Other chronic pain; N26.1 Atrophy of kidney (terminal); I50.810 Right heart failure, unspecified; D69.6 Thrombocytopenia, unspecified; E78.5 Hyperlipidemia, unspecified; Z90.49 Acquired absence of other specified parts of digestive tract; Z88.8 Allergy status to other drugs, medicaments and biological substances; Z91.041 Radiographic dye allergy status; Z99.81 Dependence on supplemental oxygen; Z85.828 Personal history of other malignant neoplasm of skin; Z82.49 Family history of ischemic heart disease and other diseases of the circulatory system; Z87.891 Personal history of nicotine dependence; Z72.89 Other problems related to lifestyle; Z80.0 Family history of malignant neoplasm of digestive organs; Z79.52 Long term (current) use of systemic steroids
CPT/HCPCS: 36415; 38220; 71045; 71046; 72040; 76775; 80048; 80053; 80076; 80202; 81003; 81015; 82272; 82550; 82570; 82607; 82728; 82746; 83010; 83540; 83550; 83605; 83615; 83735; 83880; 83921; 84100; 84145; 84155; 84156; 84165; 84300; 84484; 84540; 85025; 85045; 85060; 85097; 85610; 85652; 85730; 86078; 86140; 86850; 86880; 86900; 86901; 86922; 87040; 87086; 87502; 87641; 88184; 88187; 88188; 88189; 88271; 88305; 88311; 88313; 93005; 93306; 93312; 93325; 94640; 94760; 99156; 99157; 99223; 99232; 99284; A9270-GY; G8978-GP-CI; G8979-GP-CI; J0360; J0696; J1940; J2060; J2250; J2270; J2310; J2930; J3010; J3370; J3490; J7512; P9040

== ENCOUNTER 2018-06-23 14:53 | Inpatient (IN) | payer MEDICARE, OTHER ==
[2018-06-23] MEDS ORDERED: methylPREDNISolone 125 MG* 2 ML VIAL IV ONE (15:25)
[2018-06-23] MEDS ORDERED: Albuterol/Ipratropium NEB.SOL* Albuterol 2.5 MG/Ipratropium 0.5 MG 3 ML INH ONE (15:25)
--- NOTE | 2018-06-23 15:26 | ED ---
Shortness of Breath - HPI Summary HPI Summary: This is scribe Mitzy Koenig documenting for attending Paulo Mart MD. This patient is a 82 year old F [facility] due to oxygen saturation in the 80s on 1 liter via [place], used at baseline. Patient reports SOB and productive cough. Patient reports a recent dx of bronchitis on 06/21/[address] Breen. States shes been prescribed prednisone by Dr. Wilson. PMHx includes COPD. I, Dr. Mart, personally performed the services described in this documentation as scribed in my presence and it is both accurate and complete. - History of Current Complaint Chief Complaint: EDShortnessOfBreath Time Seen by Provider: 06/23/18 15:07 Hx Obtained From: Patient Onset/Duration: Lasting Days Dyspnea At: Rest - Allergy/Home Medications Allergies/Adverse Reactions: Allergies Allergy/AdvReac Type Severity Reaction Status Date / Time Adhesive Tape Allergy Severe Rash Verified 11/11/16 12:38 belladonna alkaloids Allergy Swelling Verified 02/15/18 15:19 diltiazem Allergy Headache Verified 02/15/18 15:19 Iodinated Contrast- Oral and Allergy Hives Verified 02/15/18 15:19 IV Dye phenylbutazone Allergy Swelling Verified 02/15/18 15:19 atorvastatin AdvReac GI Upset Verified 02/15/18 15:19 diazepam AdvReac Agitation Verified 02/15/18 15:19 lobster Allergy Severe Hives Uncoded 11/11/16 12:38 Home Medications: Home Medications Albuterol HFA INHALER* [Ventolin HFA Inhaler*] 1 - 2 puff INH Q4H PRN 06/23/18 [ History Confirmed 06/23/18] Ammonium Lactate [Amlactin] 12 % TOPICAL DAILY 06/23/18 [History Confirmed 06/23] Cholecalciferol TAB* [Vitamin D TAB*] 1,000 unit PO DAILY 06/23/18 [History Confirmed 06/23/18] Glycopyrrolate/Formoterol Fum [Bevespi Aerosphere 9-4.8 Mcg/Act] 2 puff INH BID 06/23/18 [History Confirmed 06/23/18] Ipratropium 0.5MG/2.5ML NEB* [Atrovent 0.5 MG NEB.KENTON*] 0.5 mg INH Q4H PRN 06/23 [History Confirmed 06/23/18] Latanoprost 0.005%* [Xalatan 0.005%*] 1 drop BOTH EYES BEDTIME 06/23/18 [ History Confirmed 06/23/18] Multivitamins/Minerals TAB* [Theragran/minerals TAB*] 1 tab PO DAILY 06/23/18 [ History Confirmed 06/23/18] Omeprazole CAP* [Prilosec CAP* 20 MG] 20 mg PO DAILY 06/23/18 [History Confirmed 06/23/18] Polyethylene Glycol 3350* [Miralax*] 17 gm PO DAILY 06/23/18 [History Confirmed 06/23/18] PMH/Surg Hx/FS Hx/Imm Hx Endocrine/Hematology History: Reports: Hx Diabetes, Hx Thyroid Disease - nodule on thyroid, Hx Anemia - on iron Cardiovascular History: Reports: Hx Hypercholesterolemia, Hx Hypertension, Hx Valvular Heart Disease, Other Cardiovascular Problems/Disorders - MITRAL VALVE "LEAKS". Denies: Hx Congestive Heart Failure, Hx Pacemaker/ICD Respiratory History: Reports: Hx Asthma, Hx Chronic Bronchitis, Hx Chronic Obstructive Pulmonary Disease (COPD), Hx Pneumonia, Hx Seasonal Allergies, Other Respiratory Problems/Disorders - COPD, uses O2 at night 4 L GI History: Reports: Hx Gastroesophageal Reflux Disease Denies: Hx Jaundice, Hx Ulcer Musculoskeletal History: Reports: Hx Arthritis, Hx Back Problems, Hx Scoliosis, Hx Tendonitis, Other Musculoskeletal History - sciatica Sensory History: Reports: Hx Contacts or Glasses, Hx Glaucoma Denies: Hx Hearing Aid Opthamlomology History: Reports: Hx Contacts or Glasses, Hx Glaucoma Neurological History: Reports: Hx Nerve Disease - Left sciatica, Other Neuro Impairments/Disorders - degeneratic disc disease, stenosis, hernia discs, OA Psychiatric History: Reports: Hx Anxiety, Hx Depression Denies: Hx Panic Disorder - Cancer History Cancer Type, Location and Year: skin Hx Chemotherapy: No Hx Radiation Therapy: No - Surgical History Surgery Procedure, Year, and Place: LT KNEE REPLACEMENT 05/20,. TONSILS,. WISDOM TEETH,. ECTOPIC ,. D&C,. GALLBLADDER,. SKIN CA REMOVED,. RT AND LT FOOT SURGERY. Skin on nose reconstructed, TITANIUM NABEEL RIGHT FEMUR 2015 Hx Anesthesia Reactions: Yes - after gallbladder surgery- wide awake before extubated Infectious Disease History: No Infectious Disease History: Denies: Hx Clostridium Difficile, Hx Hepatitis, Hx Human Immunodeficiency Virus (HIV), Hx of Known/Suspected MRSA, Hx Shingles, Hx Tuberculosis, Traveled Outside the [place] in Last 30 Days - Family History Known Family History: Positive: Hypertension Negative: Cardiac Disease, Diabetes - Social History Alcohol Use: None Substance Use Type: Reports: None Hx Tobacco Use: No Smoking Status (MU): Former Smoker Type: Cigarettes Amount Used/How Often: quit 29 years ago Have You Smoked in the Last Year: No Review of Systems Negative: Fever Positive: Shortness Of Breath, Cough All Other Systems Reviewed And Are Negative: Yes Physical Exam - Summary Physical Exam Summary: VITAL SIGNS: Reviewed. GENERAL: Patient is a well-developed and nourished female who is lying comfortable in the stretcher. Patient is not in any acute respiratory distress. HEAD AND FACE: No signs of trauma. No ecchymosis, hematomas or skull depressions. No sinus tenderness. EYES: PERRLA, EOMI x 2, No injected conjunctiva, no nystagmus. EARS: Hearing grossly intact. Ear canals and tympanic membranes are within normal limits. MOUTH: Oropharynx within normal limits. NECK: Supple, trachea is midline, no adenopathy, no JVD, no carotid bruit, no c- spine tenderness, neck with full ROM. CHEST: Symmetric, no tenderness at palpation LUNGS: Bilateral crackles and wheezing CVS: Regular rate and rhythm, S1 and S2 present, no murmurs or gallops appreciated. ABDOMEN: Soft, non-tender. No signs of distention. No rebound no guarding, and no masses palpated. Bowel sounds are normal. EXTREMITIES: FROM in all major joints, no edema, no cyanosis or clubbing. NEURO: Alert and oriented x 3. No acute neurological deficits. Speech is normal and follows commands. SKIN: Dry and warm Triage Information Reviewed: Yes Vital Signs On Initial Exam: Initial Vitals Temp Pulse Resp BP Pulse Ox 98.4 F 92 22 118/52 98 06/23/18 14:54 06/23/18 14:54 06/23/18 14:54 06/23/18 14:54 06/23/18 14:54 Vital Signs Reviewed: Yes Diagnostics - Vital Signs Vital Signs Temp Pulse Resp BP Pulse Ox 06/23/18 14:54 98.4 F 92 22 118/52 98 - Laboratory Result Diagrams: 06/23/18 15:51 06/23/18 15:51 Lab Statement: Any lab studies that have been ordered have been reviewed, and results considered in the medical decision making process. - Radiology CXR Radiology Interpretation Completed By: Radiologist - #. Alveolar consolidation involving the anterior segment of the RIGHT upper lobe suspicious for pneumonia. Radiographic follow-up after therapy warranted to assess for resolution and exclude a mass lesion. #. Mild pulmonary vascular congestion and interstitial edema. #. Moderate RIGHT and small LEFT pleural effusions with proportional basilar atelectasis. ED Physician has reviewed this report. Course/Dx - Course Assessment/Plan: Patient is an 82-year-old female who presents to the emergency department with a chief complaint of shortness of breath and productive cough. Patient has past medical history significant for COPD on home oxygen, diabetes, hypertension, thrombocytopenia, renal failure, CHF, chronic kidney disease, and asthma. Blood test results without any significant abnormality except for hemoglobin 9.6, hematocrit of 30, kneeling is 32, creatinine 2.19, glucose 171. Troponin 0.04, CRP of 156. Chest x-ray impression: Alveolar consolidation involving the anterior segment of the right upper lobe suspicion for pneumonia. Mild pulmonary vascular congestion and interstitial edema. Moderate right and a small left pleural effusion with proportional basilar atelectasis. The course the patient was given Rocephin and azithromycin. Patient was given also Solu-Medrol and DuoNebs. At this time I discussed my physical exam, findings and test results with the hospitalist services and she accepted the patient for admission. The patient is hemodynamically stable alert ad oriented 3. - Diagnoses Provider Diagnoses: Pneumonia, COPD exacerbation Discharge - Sign-Out/Discharge Documenting (check all that apply): Patient Departure - admit - Discharge Plan Condition: Stable Disposition: ADMITTED TO [facility] - Billing Disposition and Condition Condition: STABLE Disposition: Admitted to [facility] Consult Consult: At 184 Dr. Hilario recommends admission by hospitalist. At 184 Dr. Cervantes, hospitalist, agrees to admission.
--- OUTSIDE RECORDS SUMMARY | 2018-06-23 15:50 | XMS REPORT ---
:1935 External Reference #:[id number] Author Organization [facility] Address [address] [place] [address] Phone [phone] Care Team Providers Name Role Phone Jefferson Wilson MD Care Team Information Relaster Unavailable Payers Type Date Identification Numbers Payment Provider Subscriber Medicare Primary Policy Number: [id number] Medicare [place] Michelle Del Castillo PayID: [id number] [address] [place], [place] [address] [place] [address] Part B Policy Number: [id number] Sigrid Del Castillo PayID: [id number] [address] [place] [address] [facility] Part B Policy Number: [id number] Sigrid Del Castillo PayID: [id number] [address] [place] [address] Problems Date Description Provider Status Onset: 10/28/2017 Chronic obstructive pulmon Vicky Lee RPA-Nahun Active disease w acute lower resp infct Onset: 02/13/2017 Acute bronchitis Vicky Lee RPA-C Active Onset: 02/13/2017 Exacerbation of moderate MICHELA Allen Active persistent asthma Onset: 01/21/2016 Chronic obstructive pulmonary AMBER Allen Active disease w (acute) exacerbation Onset: 12/05/2015 Moderate persistent asthma, Jefferson Wilson MD Active uncomplicated Onset: 12/05/2015 Allergic rhinitis Jefferson Wilson MD Active Onset: 12/05/2015 Allergic rhinitis due to pollen Jefferson Wilson MD Active Social History Type Date Description Comments Smoke-Free Home is smoke-free Smoking Patient is a former smoker Allergies, Adverse Reactions, Alerts Date Description Reaction Status Severity Comments 12/01/2014 Valium active 12/01/2014 Lipitor active 12/01/2014 Belladonna active 09/12/2013 Biaxin active 06/08/2013 History Of Allergy Shots active 12/25/2017 Moxifloxacin active Medications Medication Date Status Form Strength Qnty SIG Indications Ordering Provider Augmentin 06/04 Active Tablets 875-125mg 28tab twice a s day for Isidra Wilson MD 14 days Medrol 04/01 Active TBPK 4mg 21uni take as ts directed Isidra Wilson MD Asmanex HFA 03/29 Active Aerosol 200mcg/Ac 39gm 2 puff t twice a Isidra Wilson MD day Qvar 01/01 Active Aerosol 80mcg/Act 26.1g 2 puff m twice a Isidra Wilson MD day Ventolin HFA 02/13 Active Aerosol 108(90Bas 24gm Inhale 2 J45.41 e) puffs Isidra Wilson MD mcg/Act (180 mcg) by inhalatio n route Q4 hours as needed. Albuterol 01/20 Active Nebulizer (2.5mg/3M 2boxe Inhale 1 L) 0.083% s vial via Isidra Wilson MD nebulizer Q4 hours as needed. 11/05 Active Solution 0.2% 3unit instill 2 s drops Isidra Wilson MD into affected eye(s) once daily as needed Levocetirizine Active Tablets 5mg take 1 Unknown Dihydrochloride /0000 tablet (5 mg) by oral route once daily in the evening Losartan Active Tablets 50mg take 1 Unknown Potassium /0000 tablet (50 mg) by oral route once daily Singulair Active Tablets 10mg take 1 Unknown /0000 tablet (10 mg) by oral route once daily in the evening Soma Active Tablets 250mg take 1 Unknown /0000 tablet (250 mg) by oral route 3 times per day before meals and at bedtime Gabapentin Active Capsules 100mg take 3 Unknown /0000 capsules (300 mg) by oral route 3 times per day Zoloft Active Tablets 100mg take 1 Unknown 0000 tablet (100 mg) by oral route once daily Crestor Active Tablets 10mg Unknown / Omeprazole Active Capsules 20mg take [address] capsule (20 mg) by oral route once daily before a meal Percocet Active Tablets 7.5-325mg Unknown /0000 Doxycycline 04/08 Hx Capsules 100mg 20cap take one Monohydrate s capsule Isidra Wilson MD - by mouth 06/04 twice a day x10 days. Medrol 12/25 Hx TBPK 4mg 21uni take as J45.41 ts directed Isidra Wilson MD - 03/09 Zithromax Z-Wu 12/25 Hx Tablets 250mg 12tab 500mg by J45.41 s mouth day Isidra Wilson MD - 1 250mg 03/09 by mouth days 2-5 Aerospan 12/23 Hx Aerosol 80mcg/Act 26.7u Use 4 nits Puffs Two Isidra Wilson MD - Times 01/01 Methylprednisolo 11/25 Hx TBPK 4mg 21uni as ts directed Isidra Wilson MD - 03/09 Azithromycin 11/25 Hx Tablets 250mg 6tabs take 2 J44.0 tabs Jen Wilson MD - first day 03/09 then tab x 4 days. Azithromycin 11/10 Hx Tablets 250mg 6tabs take 2 tabs Jen Wilson MD - first day 11/13 then tab x 4 days. Medrol 11/10 Hx TBPK 4mg 21uni take as ts directed Isidra Wilson MD - 11/25 Aerochamber Plus 10/29 Hx Misc 1unit use s aerochamb Isidra Wilson MD - er as 10/29 with your inhalers. Prednisone 10/28 Hx Tablets 5mg 100ta Follow J44.0 bs taper as Isidra Wilson MD - directed 12/25 Avelox 10/28 Hx Tablets 400mg 14tab take one J44.0 s tablet by Isidra Wilson MD - mouth 11/25 daily for 14 days. Medrol 02/13 Hx TBPK 4mg 21uni Take as J45.41 ts directed Isidra Wilson MD - 10/28 Avelox 02/13 Hx Tablets 400mg 14tab Take one J45.41 s tablet by Isidra Wilson MD - mouth 10/28 daily for 14 days. Avelox 04/10 Hx Tablets 400mg 14tab take 1 s tab by Isidra Wilson MD - mouth 09/10 daily 14 days Prednisone 01/20 Hx Tablets 10mg 30tab Take 3 J44.1 s tablets Isidra Wilson MD - by mouth 09/10 twice a day for 5 days. Take with food. Cefdinir 01/20 Hx Capsules 300mg 28cap Take one J44.1 s capsule Isidra Wilson MD - by mouth 09/10 twice a day x14 days Aerospan 11/05 Hx Aerosol 80mcg/Act 3unit use 4 s puffs two Isidra Wilson MD - times 10/28 Prednisone 05/21 Hx Tablets 5mg take as directed - 12/05 Dulera 07/31 Hx Aerosol 200-5mcg/ inhale 2 Act puffs by - inhalatio 12/05 n route times per day in the morning and evening for 99 days Fosamax Hx Tablets 70mg take 1 Unknown /0000 tablet - (70 mg) 09/10 by route once weekly in the morning, at least 30 min before first food, beverage, or medicatio n of Advil Hx Tablets 200mg take 1 Unknown /0000 tablet by - oral 12/05 route times a day Furosemide Hx Tablets 20mg take 1 Unknown /0000 tablet - (20 mg) 10/28 by oral route once daily Metformin HCL Hx Tablets 500mg take 1 Unknown /0000 tablet - (500 mg) 10/28 by oral route 2 times per day with morning and evening meals Celebrex 00 Hx Capsules 100mg take 1 Unknown capsule - (100 mg) 12/25 by oral route 2 times per day Aerospan Hx Unknown /0000 - 12/31 Pulmicort Hx Aerosol 90mcg/Act take 1 Unknown Flexhaler /0000 inhalatio - n by 03/29 twice a day Vital Signs Date Vital Result Comment 06/07/2018 BP Systolic 185 mmHg BP Diastolic 78 mmHg Height 56 inches 4'8" Weight 111.00 lb BMI (Body Mass Index) 24.9 kg/m2 Heart Rate 97 /min Body Temperature 98.0 F O2 % BldC Oximetry 91 % 12/25/2017 Height 56 inches 4'8" Heart Rate 108 /min Respiratory Rate 26 /min Body Temperature 95.8 F O2 % BldC Oximetry 90 % 10/28/2017 BP Systolic 142 mmHg BP Diastolic 86 mmHg Height 56 inches 4'8" Weight 125.00 lb BMI (Body Mass Index) 28.0 kg/m2 Heart Rate 100 /min Respiratory Rate 18 /min Body Temperature 96.8 F O2 % BldC Oximetry 88 % 02/13/2017 BP Systolic 140 mmHg BP Diastolic 72 mmHg Height 56 inches 4'8" Weight 125.00 lb BMI (Body Mass Index) 28.0 kg/m2 Heart Rate 94 /min Respiratory Rate 18 /min Body Temperature 96.8 F O2 % BldC Oximetry 97 % 09/10/2016 BP Systolic 140 mmHg BP Diastolic 92 mmHg Height 58 inches 4'10" Weight 145.00 lb BMI (Body Mass Index) 30.3 kg/m2 Heart Rate 86 /min Respiratory Rate 14 /min O2 % BldC Oximetry 97 % 01/21/2016 BP Systolic 166 mmHg BP Diastolic 70 mmHg Height 58 inches 4'10" Weight 143.00 lb BMI (Body Mass Index) 29.9 kg/m2 Heart Rate 77 /min Respiratory Rate 16 /min Body Temperature 97.7 F O2 % BldC Oximetry 95 % Results Description No Information Procedures Date CPT Code Description Status 02/13/2017 20774 Nitric Oxide Gas Determination Completed Encounters Type Date Location Provider CPT E/M Dx Office Visit 12/25/2017 11:30[place] [address] J45.41 Office Visit 10/28/2017 11:30a MICHELA Pederson 72320 J44.0 J45.41 Office Visit 02/13/2017 3:30p MICHELA Pederson 08681 J45.41 J20.9 J30.1 J30.89 Office Visit 09/10/2016 4:00p [place] [address] J30.1 J30.89 J45.40 Office Visit 01/21/2016 2:30p MICHELA Pederson 37715 J44.1 Office Visit 12/05/2015 1:30[place] [address] J45.40 J30.1 J30.89 Plan of Care 12/25/2017 - Jefferson Wilson MDJ45.41 Moderate persistent asthma with ( acute) exacerbationNew Medication:Medrol 4 mgZithromax Z-Wu 250 mg
--- OUTSIDE RECORDS SUMMARY | 2018-06-23 15:50 | XMS REPORT ---
:1935 External Reference #:[id number] Author Organization [facility] Address [address] [place] [address] Phone [phone] Care Team Providers Name Role Phone Jefferson Wilson MD Care Team Information Warper Fixer Unavailable Payers Type Date Identification Numbers Payment Provider Subscriber Medicare Primary Policy Number: [id number] Medicare [place] Michelle Del Castillo PayID: [id number] [address] [place], [place] [address] [place] [address] Part B Policy Number: [id number] Sigrid Del Castillo PayID: [id number] [address] [place] [address] [facility] Part B Policy Number: [id number] Sigrid Del Castillo PayID: [id number] [address] [place] [address] Problems Date Description Provider Status Onset: 10/28/2017 [...] Zoloft Active Tablets 100mg take 1 Unknown /0000 tablet (100 mg) by oral route once daily Crestor Active Tablets 10mg Unknown /0000 Omeprazole Active Capsules 20mg take 1 Unknown /0000 DR capsule (20 mg) by oral route once daily before a meal Percocet Active Tablets 7.5-325mg Unknown /0000 Bevespi Active Aerosol 9-4.8mcg/ inhale 2 Unknown Aerosphere / Act puffs by mouth twice a day Doxycycline 04/08 Hx Capsules 100mg 20cap take one oph Monohydrate s capsule Isidra Wilson MD - by mouth 06/04 twice a /2017 day x10 days. Medrol 12/25 Hx TBPK 4mg 21uni take as J45.41 ts directed Isidra Wilson MD - 03/09 Zithromax Z-Wu 12/25 Hx Tablets 250mg 12tab 500mg by J45.41 s mouth day Isidra Wilson MD - 1 250mg 03/09 by mouth /2017 days 2-5 Aerospan 12/23 Hx Aerosol 80mcg/Act [...] day with morning and evening meals Celebrex Hx Capsules 100mg take 1 Unknown /0000 capsule - (100 mg) 12/25 by oral [...] Procedures Date CPT Code Description Status 02/13/2017 01776 Nitric Oxide Gas Determination Completed Encounters Type Date Location Provider CPT E/M Dx Office Visit 06/07/2018 11:30a PARUL Gutierres 59842 J45.41 J44.0 J20.9 Office Visit 12/25/2017 11:30[place] [address] J45.41 Office Visit 10/28/2017 11:30a MICHELA Pederson 77621 J44.0 J45.41 Office Visit 02/13/2017 3:30p MICHELA Pederson 88486 J45.41 J20.9 J30.1 J30.89 Office Visit 09/10/2016 4:00p [place] [address] J30.1 J30.89 J45.40 Office Visit 01/21/2016 2:30p MICHELA Pederson 61311 J44.1 Office Visit 12/05/2015 1:30[place] [address] J45.40 J30.1 J30.89 Plan of Care 06/07/2018 - PARUL MinaJ45.41 Moderate persistent asthma with (acute) qvpmorbobrnlJ84.0 Chronic obstructive pulmon disease w acute lower resp xgznnN32.9 Acute bronchitis, unspecifiedComments:Patient to continue taking Augmentin as prescribed for 14 days. Patient to finish Medrol dose pack. Patient to use her nebulizer every 4 hours as needed. Patient to continue Asmanex for prophylaxis of her lungs and Ventolin for breakthrough chest symptoms. If symptoms get worse, patient to call this office MESHA.
--- NOTE | 2018-06-23 15:59 | RAD ---
INDICATION: Shortness of breath, weakness. COPD. COMPARISON: February 21, 2018 TECHNIQUE: Dual energy PA and routine lateral views of the chest were obtained. REPORT: Alveolar consolidation involving the anterior segment of the RIGHT upper lobe approximating the minor fissure. Moderate RIGHT and smaller LEFT dependent pleural effusions with proportional atelectasis. Coarse interstitial markings and peripheral thickened interlobular septa. Negative for pneumothorax. Cardiomegaly. Prominent mildly ill-defined central pulmonary vasculature. Advanced degenerative arthropathy at the glenohumeral joints with stigmata of complete rotator cuff tears and associated loose bodies. IMPRESSION: #. Alveolar consolidation involving the anterior segment of the RIGHT upper lobe suspicious for pneumonia. Radiographic follow-up after therapy warranted to assess for resolution and exclude a mass lesion. #. Mild pulmonary vascular congestion and interstitial edema. #. Moderate RIGHT and small LEFT pleural effusions with proportional basilar atelectasis.
[2018-06-23 16:07] LABS: ABS Basophils 0 10^3/ul (0-0.2); ABS Eosinophils 0 10^3/ul (0-0.6); ABS Lymphocytes 0.6 10^3/ul (1.0-4.8); ABS Monocytes 0.3 10^3/ul (0-0.8); ABS Neutrophils 5.8 10^3/ul (1.5-7.7); ABS Nucleated RBC 0 10^3/ul; Eosinophil % 0 % (0-6); Hematocrit 30 % (35-47); Hemoglobin 9.6 g/dl (12.0-16.0); Lymphocyte % 9.1 % (25-47); Mean Corpuscular HGB Conc 32 g/dl (31-36); Mean Corpuscular Hemoglobin 28 pg (27-31); Mean Corpuscular Volume 86 fL (80-97); Mean Platelet Volume 9.5 um3 (7.4-10.4); Nucleated Red Blood Cells % 0; Platelet Count 162 10^3/ul (150-450); Red Blood Count 3.49 10^6/ul (4.00-5.40); Red Cell Distribution Width 19 % (10.5-15); White Blood Count 6.7 10^3/ul (3.5-10.8)
[2018-06-23] MEDS ORDERED: oxyCODONE/Acetamin 5/325 MG* TAB PO ONE (16:20)
[2018-06-23 16:24] LABS: EGFR Non-African American 21.6 (>60)
[2018-06-23] MEDS ORDERED: cefTRIAXone(*) 1 GM in NS 0.9% 50 ML* 50 ML IVPB ONE (16:24)
[2018-06-23] MEDS ORDERED: Azithromycin IV* 500 MG ADVAN VIAL/BAG IVPB ONE (18:25)
[2018-06-23] MEDS ORDERED: Ondansetron INJ* 2 MG/ML VIAL IV PRN (19:56)
[2018-06-23] MEDS: Mometasone/Formoter 200/5 MDI INH SCH ×2 (21:34→23:22)
[2018-06-23] MEDS ORDERED: Dextrose 50% Syringe 50 ML* 25 GM/50 ML SYRINGE IV PUSH PRN (21:49)
--- NOTE | 2018-06-23 22:14 | HP ---
CC: Dr. Shelly Mathew; Dr. Martin; Dr. Breen* HISTORY AND PHYSICAL: DATE OF ADMISSION: 06/23/18 PRIMARY CARE PROVIDER: Dr. Shelly Mathew LIQUEFIER: Dr. Martin. ONCOLOGIST: Dr. Breen. CHIEF COMPLAINT: Cough and shortness of breath. HISTORY OF PRESENT ILLNESS: Ms. Del Castillo is an 82-year-old female who presents to the emergency room today with complaints of cough for the last week and a half, shortness of breath and hypoxia, noted by her visiting nurse on the day of admission. The patient states that for the last week and a half, she has been coughing and bringing up very thick yellow and bloody tinged sputum. She states that she often gets big balls of this mucus. This past Thursday, she saw Dr. Breen for routine visit and at that time, he saw perhaps she had bronchitis. The patient appears to have been started on prednisone. Her visiting nurse evaluated her on the day of admission and the patient was found to be hypoxic on her usual 1 L of oxygen. Because of this, she was sent to the emergency room. Of note, the patient denies any fevers or chills. She denies any recent sick contacts. She does state that yesterday she ate Indian food for dinner and had ice cream cake. She states that shortly after eating the Indian food and ice cream cake, she had to have a bowel movement urgently. She did this last evening. It was normal in consistency. She had another bowel movement on the morning of admission again normal in consistency. This evening while in the emergency room, the patient ate a tuna fish sandwich and following this, she developed significant nausea and diarrhea. The patient does have chronic lower extremity edema, but states it is in her usual amount. PAST MEDICAL HISTORY: 1. COPD/asthma. 2. Hypertension. 3. Hyperlipidemia. 4. Type 2 diabetes. 5. CKD. 6. Chronic anemia. 7. History of CHF. PAST SURGICAL HISTORY: 1. Mohs surgery to remove skin cancer on the nose. 2. Bilateral cataract extraction. 3. Left total knee replacement. 4. Right femur fracture repair. 5. Tonsillectomy. 6. Marshall teeth extraction. 7. Ectopic surgery. 8. Cholecystectomy. 9. Right wrist fracture repair. MEDICATIONS: 1. Bevespi 2 puffs inhaled twice daily. 2. Verapamil SR 120 mg p.o. daily. 3. Dulera 200/5 two puffs inhaled twice daily. 4. Valsartan 25 mg p.o. daily. 5. Hydralazine 25 mg p.o. t.i.d. 6. Vitamin D 1000 units p.o. daily. 7. Coreg 6.25 mg p.o. b.i.d. 8. Xalatan 1 drop to both eyes at bedtime. 9. Multivitamin 1 tab p.o. daily. 10. Sertraline 200 mg p.o. daily. 11. Percocet 7.5/325 one tab p.o. q.6 hours p.r.n. pain. 12. Singulair 10 mg q.h.s. 13. Xyzal 5 mg p.o. q.h.s. 14. Gabapentin 100 mg p.o. morning and afternoon, 200 mg at bedtime. 15. Omeprazole 20 mg p.o. daily. 16. Albuterol 2 puffs inhaled q.4 hours p.r.n. shortness of breath. 17. Crestor 10 mg p.o. daily. 18. Soma 350 mg p.o. 4 times a day p.r.n. spasm. 19. Ammonium lactate applied topically daily to dry skin. 20. MiraLAX 17 g p.o. daily. 21. Nifedipine 20 mg p.o. t.i.d. 22. Furosemide 20 mg p.o. daily. 23. Atrovent 0.5 mg inhaled q.4 hours p.r.n. shortness of breath. ALLERGIES: 1. ADHESIVE TAPE. 2. BELLADONNA ALKALOIDS. 3. DILTIAZEM. 4. IODINATED CONTRAST. 5. PHENYLBUTAZONE. 6. LIPITOR. 7. DIAZEPAM. 8. LOBSTER. FAMILY HISTORY: Mom at the age of 75 of an [place]. Dad at the age of 86 , his health history is unknown. SOCIAL HISTORY: The patient is a former smoker of one half pack per day for 20 years. She quit 33 years ago. She denies any alcohol use. 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 She is . She just celebrated her 61st anniversary with her yesterday. She had 3 children, one at age of 39 of colon cancer. The patient indicates that her [id number], Tara, would be her healthcare proxy. REVIEW OF SYSTEMS: A complete 11-system review of systems is obtained. Pertinent positives and negatives are as per HPI and otherwise negative. PHYSICAL EXAMINATION GENERAL: The patient is a well-developed elderly petite female, seen sitting in the stretcher, in no acute distress. VITAL SIGNS: Blood pressure 150/69, pulse 84, respirations 19, temp 98.4, O2 sat 93% on 3 L. HEENT: Pupils are equal and round. Extraocular muscles are intact. Oropharynx is clear. Oral mucosa is slightly dry. There is no submandibular, cervical or supraclavicular adenopathy. Thyroid is not enlarged. No thyroid nodules are noted. PULMONARY: There are crackles at the left base, the right base is diminished. There are crackles heard in the right mid lung zone. CARDIAC: Normal S1, S2. Heart rate is regular rate and rhythm. I do not appreciate any murmurs. There is 1+ bilateral lower extremity pitting edema with changes to the skin of the lower extremities consistent with chronic swelling. ABDOMEN: Bowel sounds are present. Abdomen is soft, nontender, nondistended. MUSCULOSKELETAL: There is no cyanosis or clubbing of the digits. There is full active range of motion of all 4 extremities. NEURO: Cranial nerves II through XII are grossly intact. Sensation is intact to light touch throughout. Strength is 5/5 and symmetric in both upper and lower extremities bilaterally. SKIN: Warm and dry. There are no rashes. There is slight erythema at the bilateral lower extremities consistent with chronic edema. PSYCH: The patient is alert. She is oriented x3. Affect appears appropriate. LABORATORY DATA/DIAGNOSTIC STUDIES: WBC 6.7, hemoglobin 9.6, hematocrit 30, platelets 162. Sodium 139, potassium 4.0, chloride 105, CO2 24, BUN 32, creatinine 2.19, glucose 171, lactic acid 1.1, calcium 8.7, bilirubin 0.4, AST 16, ALT 10, alk phos 87, troponin 0.04, CRP 156.36, albumin 3.4. Chest x-ray reveals alveolar consolidation involving the anterior segment of the right upper lobe suspicious for pneumonia. Radiographic followup after therapy is warranted to assess for resolution and to exclude a mass lesion. Mild pulmonary vascular congestion and interstitial edema is noted. There is moderate right and small left pleural effusion with proportional basilar atelectasis. ASSESSMENT AND PLAN: Ms. Del Castillo is an 82-year-old female with a history of diastolic congestive heart failure, chronic obstructive pulmonary disease/asthma , on 1 L of O2 continuously for chronic hypoxic respiratory failure, hypertension, hyperlipidemia, diet controlled diabetes and stage 3 chronic kidney disease who presents to the emergency room with complaints of cough for the last week and a half, shortness of breath and hypoxia. 1. Acute hypoxic respiratory failure secondary to probable right upper lobe pneumonia. At this point, while the patient is afebrile and does not have elevated white blood cell count, I will go ahead and treat the patient for a community acquired pneumonia given her increased cough for the last week and a half with significant sputum production that is yellow colored and blood tinged. The patient will continue on ceftriaxone and azithromycin. She has received her first dose of these in the emergency room. A sputum culture as well as urine for Strep pneumoniae and Legionella antigens will be sent. I am going to hold off on any prednisone at this point as the patient has no wheezing on exam currently. She will be continued on her inhaler regimen. 2. Probable mild diastolic congestive heart failure. The patient has evidence of pleural effusions on chest x-ray as well as mild pulmonary vascular congestion on chest x-ray. The patient has lower extremity edema. Her diastolic congestive heart failure may be contributing some to her hypoxic respiratory failure. I am going to continue her on her usual dose of Lasix. I am not going to give her any fluids at this time. The patient did eat Indian food last evening, which may have precipitated some of the worsening that was experienced today. 3. Hypertension. The patient will be maintained on usual home medication regimen. Her blood pressure is under fair control. 4. Hyperlipidemia. The patient will be continued on statin. 5. Type 2 diabetes. This is diet controlled at home. She will be on a lispro sliding scale q.a.c., h.s. 6. Stage 3 chronic kidney disease. The patient's creatinine is stable. This will need to be monitored closely. 7. Chronic anemia. The patient is followed by Dr. Breen for this. Her hemoglobin is at baseline. 8. DVT prophylaxis. According to the Adult Thrombosis Prophylaxis Risk Factor Assessment Guide, the patient has a total risk factor score of 6 making her the highest risk. She will be placed on heparin 5000 units subcutaneous q.8 hours. 9. Code status is full for now, though the patient is contemplating a do not resuscitate order. TIME SPENT: 65 minutes were spent admitting this patient. [id number]/CPS #: [id number] VIKAS
[2018-06-23] MEDS: Heparin VIAL(*) 5000 UNITS/ML VIAL (FIVE THOUSAND) SUBCUT SCH (22:17)
[2018-06-23] MEDS: Latanoprost 0.005%* 2.5 ml BTL BOTH EYES SCH (22:59)
[2018-06-23] MEDS: Montelukast Sodium TAB* 10 MG PO SCH (23:00)
[2018-06-23] MEDS: Gabapentin CAP(*) 100 MG PO SCH (23:00)
[2018-06-23] MEDS: Carvedilol TAB* 6.25 MG PO SCH (23:01)
[2018-06-23] MEDS: hydrALAZINE TAB* 25 MG PO SCH (23:02)
[2018-06-23] MEDS: oxyCODONE/Acetamin 5/325 MG* TAB PO PRN (23:02)
[2018-06-23] MEDS: NIFEdipine CAP* 10 MG PO SCH (23:03)
[2018-06-23] MEDS: Albuterol HFA INHALER* 8 gm MDI INH PRN (23:22)
[2018-06-23] MEDS: Ipratropium 0.5MG/2.5ML NEB* 0.5 MG/2.5 ML NEB.SOLN INH PRN (23:22)
[2018-06-24] MEDS: Gabapentin CAP(*) 100 MG PO SCH ×3 (07:09→21:13)
[2018-06-24] MEDS: Omeprazole CAP* 20 MG PO SCH (07:10)
[2018-06-24] MEDS: Heparin VIAL(*) 5000 UNITS/ML VIAL (FIVE THOUSAND) SUBCUT SCH ×3 (07:10→21:10)
[2018-06-24] MEDS: Ipratropium 0.5MG/2.5ML NEB* 0.5 MG/2.5 ML NEB.SOLN INH PRN ×2 (08:25→18:20)
[2018-06-24] MEDS: Cholecalciferol TAB* 1000 UNITS PO SCH (08:25)
[2018-06-24] MEDS: Mometasone/Formoter 200/5 MDI INH SCH ×2 (08:26→18:23)
[2018-06-24] MEDS: Carvedilol TAB* 6.25 MG PO SCH ×2 (08:26→21:12)
[2018-06-24] MEDS: hydrALAZINE TAB* 25 MG PO SCH ×3 (08:26→21:13)
[2018-06-24] MEDS: Albuterol HFA INHALER* 8 gm MDI INH PRN ×2 (08:26→17:28)
[2018-06-24] MEDS: Insulin LISPRO* 1 UNITS UNIT SUBCUT SCH ×4 (08:27→21:00)
[2018-06-24] MEDS: Losartan TAB* 25 MG PO SCH (08:27)
[2018-06-24] MEDS: Sertraline* 100 MG TAB PO SCH (08:27)
[2018-06-24] MEDS: Verapamil SR TAB* 240 MG PO SCH (08:28)
[2018-06-24] MEDS: Multivitamins/Minerals TAB PO SCH (08:28)
[2018-06-24] MEDS: ROSUVASTATIN 10 MG PO SCH (08:29)
[2018-06-24] MEDS: NIFEdipine CAP* 10 MG PO SCH ×3 (08:29→21:11)
[2018-06-24] MEDS ORDERED: Furosemide TAB* 20 MG PO SCH (09:00)
[2018-06-24] MEDS: oxyCODONE/Acetamin 5/325 MG* TAB PO PRN ×3 (10:13→23:29)
[2018-06-24] MEDS: Carisoprodol TAB* 350 MG PO PRN ×3 (10:16→23:30)
--- NOTE | 2018-06-24 14:22 | PN ---
Subjective Date of Service: 06/24/18 Interval History: HOSPITALIST PROGRESS NOTE Patient seen and examined at bedside. Care reviewed and d/w Lokesh Barnes RN. She feels better today. Dyspnea is improved. Major complaint is "I need food, food, food. Give an egg, toast, anything." Family History: Unchanged from Admission Social History: Unchanged from Admission Past Medical History: Unchanged from Admission Objective Active Medications: Albuterol (Ventolin Hfa Inhaler*) 2 puff INH Q4H PRN PRN Reason: SOB/WHEEZING Last Admin: 06/24/18 08:26 Dose: 2 puff Carisoprodol (Soma Tab*) 350 mg PO QID PRN PRN Reason: SPASMS - MUSCLE Last Admin: 06/24/18 10:16 Dose: 350 mg Carvedilol (Coreg Tab*) 6.25 mg PO BID [facility] Last Admin: 06/24/18 08:26 Dose: 6.25 mg Cholecalciferol (Vitamin D Tab*) 1,000 units PO DAILY [facility] Last Admin: 06/24/18 08:25 Dose: 1,000 units Dextrose (D50w Syringe 50 Ml*) 12.5 gm IV PUSH .FOR FS < 60 - SS PRN PRN Reason: FS < 60 Furosemide (Lasix Tab*) 20 mg PO QAM [facility] Last Admin: 06/24/18 08:29 Dose: 20 mg Gabapentin (Neurontin Cap(*)) 100 mg PO 0700,1400 [facility] Last Admin: 06/24/18 13:03 Dose: 100 mg Gabapentin (Neurontin Cap(*)) 200 mg PO BEDTIME [facility] Last Admin: 06/23/18 23:00 Dose: 200 mg Heparin Sodium (Porcine) (Heparin Vial(*)) 5,000 units SUBCUT Q8HR [facility] Last Admin: 06/24/18 13:04 Dose: Not Given Hydralazine HCl (Apresoline Tab*) 25 mg PO TID [facility] Last Admin: 06/24/18 13:03 Dose: 25 mg Ceftriaxone Sodium 500 mg/ (Sodium Chloride) 50 mls @ 200 mls/hr IVPB Q24H [facility] Azithromycin 500 mg/ Sodium (Chloride) 250 mls @ 250 mls/hr IVPB Q24H [facility] Insulin Human Lispro (Humalog*) 0 units SUBCUT ACHS [facility]; Protocol Last Admin: 06/24/18 13:02 Dose: 1 unit Ipratropium [place] (Atrovent 0.5 Mg Neb.Diandar*) 0.5 mg INH Q4H PRN PRN Reason: SOB/WHEEZING Last Admin: 06/24/18 08:25 Dose: 0.5 mg Latanoprost (Xalatan 0.005%*) 1 drop BOTH EYES BEDTIME [facility] Last Admin: 06/23/18 22:59 Dose: 1 drop Losartan Potassium (Cozaar Tab*) 25 mg PO DAILY [facility] Last Admin: 06/24/18 08:27 Dose: 25 mg Mometasone Furoate/Formoterol Fumar (Dulera 200/5 Mdi*) 2 puff INH BID [facility] Last Admin: 06/24/18 08:26 Dose: 2 puff Montelukast Sodium (Singulair Tab*) 10 mg PO BEDTIME [facility] Last Admin: 06/23/18 23:00 Dose: 10 mg Multivitamins/Minerals (Theragran/Minerals Tab*) 1 tab PO DAILY [facility] Last Admin: 06/24/18 08:28 Dose: 1 tab Nifedipine (Procardia Cap*) 20 mg PO TID [facility] Last Admin: 06/24/18 13:03 Dose: 20 mg Omeprazole (Prilosec Cap*) 20 mg PO DAILY@0600 [facility] Last Admin: 06/24/18 07:10 Dose: 20 mg Ondansetron HCl (Zofran Inj*) 4 mg IV Q6H PRN PRN Reason: NAUSEA Last Admin: 06/23/18 20:34 Dose: 4 mg Oxycodone/Acetaminophen (Percocet 5/325 Tab*) 1 tab PO Q6H PRN PRN Reason: PAIN Last Admin: 06/24/18 10:13 Dose: 1 tab Rosuvastatin Calcium (Crestor (Nf)) 10 mg PO DAILY [facility]; Protocol Last Admin: 06/24/18 08:29 Dose: 10 mg Sertraline HCl (Zoloft*) 200 mg PO QAM [facility] Last Admin: 06/24/18 08:27 Dose: 200 mg Verapamil HCl (Calan Sr Tab*) 120 mg PO DAILY [facility] Last Admin: 06/24/18 08:28 Dose: 120 mg Vital Signs - 8 hr 06/24/18 06/24/18 06/24/18 07:09 08:07 08:20 Temperature 97.8 F Pulse Rate 100 104 Respiratory 20 20 18 Rate Blood Pressure 174/65 (mmHg) O2 Sat by Pulse 97 100 Oximetry 06/24/18 06/24/18 06/24/18 10:00 10:13 10:16 Temperature Pulse Rate Respiratory 16 16 Rate Blood Pressure 135/55 (mmHg) O2 Sat by Pulse Oximetry Oxygen Devices in Use Now: Nasal Cannula - 2 liters Appearance: Elderly lady sitting up in a chair in NAD. Eyes: No Scleral Icterus Ears/Nose/Mouth/Throat: Mucous Membranes Moist Neck: Trachea Midline Respiratory: Symmetrical Chest Expansion and Respiratory Effort, - - BS+ bilaterally with bibasilar crackles Cardiovascular: RRR - Normal S1 and S2 Neurological: Alert and Oriented x 3, NL Muscle Strength and Tone Result Diagrams: 06/23/18 15:51 06/23/18 15:51 Assess/Plan/Problems-Billing Assessment: Mrs Del Castillo is an 82yo F with PMH of COPD/asthma, HTN, HLD, type 2 DM, CKD stage 3, diastolic CHF, who presented to ED with c/o dyspnea, found to have pneumonia and mild CHF exacerbation. - Patient Problems (1) Acute respiratory failure with hypoxia Comment: - Secondary to RUL pneumonia and mild diastolic CHF exacerbation. (2) Pneumonia Comment: - CxR shows RUL infiltrate. - Continue Ceftriaxone and Zithromax. (3) Diastolic CHF, acute on chronic Comment: - Mild exacerbation, respondend well to diuretics. - Continue Furosemide, Coreg, Losartan. (4) COPD (chronic obstructive pulmonary disease) Comment: - Not in exacerbation. - Continue bronchodilators and inhaled steroids. (5) Chronic pain Comment: - Continue gabapentin, carisoprodol, oxycodone/APAP. (6) Diabetes Comment: - Continue Lispro SS ACHS. (7) Hypercholesterolemia Comment: - Continue rosuvastatin. (8) Hypertension Comment: - Controlled. - Continue Verapamil, Coreg, Losartan, and Furosemide. (9) DVT prophylaxis Comment: - SQ heparin. (10) Full code status Current Visit: Yes Status: Acute Code(s): Z78.9 - OTHER SPECIFIED HEALTH STATUS SNOMED Code(s): 883573300
[2018-06-24] MEDS ORDERED: cefTRIAXone VIAL(*) 500 MG in NS 0.9% 50 ML* 50 ML IVPB SCH (18:00)
[2018-06-24] MEDS: Acetaminophen TAB* 325 MG PO PRN (19:32)
[2018-06-24] MEDS ORDERED: Azithromycin IV(*) 500 MG in NS 0.9% 250 ML* 250 ML IVPB SCH (20:00)
[2018-06-24] MEDS: Montelukast Sodium TAB* 10 MG PO SCH (21:12)
[2018-06-24] MEDS: Latanoprost 0.005%* 2.5 ml BTL BOTH EYES SCH (21:14)
[2018-06-25] MEDS: Heparin VIAL(*) 5000 UNITS/ML VIAL (FIVE THOUSAND) SUBCUT SCH ×3 (05:09→21:51)
[2018-06-25] MEDS: Omeprazole CAP* 20 MG PO SCH (06:18)
[2018-06-25] MEDS: Gabapentin CAP(*) 100 MG PO SCH ×3 (06:18→20:07)
--- NOTE | 2018-06-25 07:26 | PN ---
Subjective Date of Service: 06/25/18 Interval History: call by nursing staff for patient with severe respiratory distress, examined at bedside sitting upright in the bed, patient with AM gurgling respirations, lung sounds with rales bilat, tachypneic, speaking short sentences. Patient reports that she was able to slept well last night and woke this AM with increased shortness of breath. Denies chest pain. Denies fever or chills. Denies n/v/d. - will obtain chest xray, will given lasix 40 mg ivp, apply nitro to the chest, morphine 2mg ivp 0900- chest x ray showed CHF and increase in bilat infiltrates, will change IV antibiotics to zosyn. continue to have moderate respiratory distress, continues to have rales in the bases bilat. remains tachypneic will give another dose of IV lasix 40 mg 1000- examined at the bedside- patient respirations less labored, able to speak full sentences. eating breakfast. will titrate Oxygen down to maintain o2 sats above 92% Family History: Unchanged from Admission Social History: Unchanged from Admission Past Medical History: Unchanged from Admission Objective Active Medications: Acetaminophen (Tylenol Tab*) 650 mg PO Q4H PRN PRN Reason: PAIN Last Admin: 06/24/18 19:32 Dose: 650 mg Albuterol (Ventolin Hfa Inhaler*) 2 puff INH Q4H PRN PRN Reason: SOB/WHEEZING Last Admin: 06/24/18 17:28 Dose: 2 puff Carisoprodol (Soma Tab*) 350 mg PO QID PRN PRN Reason: SPASMS - MUSCLE Last Admin: 06/24/18 23:30 Dose: 350 mg Carvedilol (Coreg Tab*) 6.25 mg PO BID [facility] Last Admin: 06/24/18 21:12 Dose: 6.25 mg Cholecalciferol (Vitamin D Tab*) 1,000 units PO DAILY [facility] Last Admin: 06/24/18 08:25 Dose: 1,000 units Dextrose (D50w Syringe 50 Ml*) 12.5 gm IV PUSH .FOR FS < 60 - SS PRN PRN Reason: FS < 60 Furosemide (Lasix Tab*) 20 mg PO QAM [facility] Last Admin: 06/24/18 08:29 Dose: 20 mg Gabapentin (Neurontin Cap(*)) 100 mg PO 0700,1400 [facility] Last Admin: 06/25/18 06:18 Dose: 100 mg Gabapentin (Neurontin Cap(*)) 200 mg PO BEDTIME [facility] Last Admin: 06/24/18 21:13 Dose: 200 mg Heparin Sodium (Porcine) (Heparin Vial(*)) 5,000 units SUBCUT Q8HR [facility] Last Admin: 06/25/18 05:09 Dose: Not Given Hydralazine HCl (Apresoline Tab*) 25 mg PO TID [facility] Last Admin: 06/24/18 21:13 Dose: 25 mg Ceftriaxone Sodium 500 mg/ (Sodium Chloride) 50 mls @ 200 mls/hr IVPB Q24H [facility] Last Admin: 06/24/18 18:14 Dose: 200 mls/hr Azithromycin 500 mg/ Sodium (Chloride) 250 mls @ 250 mls/hr IVPB Q24H [facility] Last Admin: 06/24/18 19:38 Dose: 250 mls/hr Insulin Human Lispro (Humalog*) 0 units SUBCUT ACHS [facility]; Protocol Last Admin: 06/24/18 21:00 Dose: Not Given Ipratropium [place] (Atrovent 0.5 Mg Neb.Diandra*) 0.5 mg INH Q4H PRN PRN Reason: SOB/WHEEZING Last Admin: 06/24/18 18:20 Dose: 0.5 mg Latanoprost (Xalatan 0.005%*) 1 drop BOTH EYES BEDTIME [facility] Last Admin: 06/24/18 21:14 Dose: 1 drop Losartan Potassium (Cozaar Tab*) 25 mg PO DAILY [facility] Last Admin: 06/24/18 08:27 Dose: 25 mg Mometasone Furoate/Formoterol Fumar (Dulera 200/5 Mdi*) 2 puff INH BID [facility] Last Admin: 06/24/18 18:23 Dose: 2 puff Montelukast Sodium (Singulair Tab*) 10 mg PO BEDTIME [facility] Last Admin: 06/24/18 21:12 Dose: 10 mg Multivitamins/Minerals (Theragran/Minerals Tab*) 1 tab PO DAILY [facility] Last Admin: 06/24/18 08:28 Dose: 1 tab Nifedipine (Procardia Cap*) 20 mg PO TID [facility] Last Admin: 06/24/18 21:11 Dose: 20 mg Omeprazole (Prilosec Cap*) 20 mg PO DAILY@0600 [facility] Last Admin: 06/25/18 06:18 Dose: 20 mg Ondansetron HCl (Zofran Inj*) 4 mg IV Q6H PRN PRN Reason: NAUSEA Last Admin: 06/23/18 20:34 Dose: 4 mg Oxycodone/Acetaminophen (Percocet 5/325 Tab*) 1 tab PO Q6H PRN PRN Reason: PAIN Last Admin: 06/24/18 23:29 Dose: 1 tab Rosuvastatin Calcium (Crestor (Nf)) 10 mg PO DAILY [facility]; Protocol Last Admin: 06/24/18 08:29 Dose: 10 mg Sertraline HCl (Zoloft*) 200 mg PO QAM [facility] Last Admin: 06/24/18 08:27 Dose: 200 mg Verapamil HCl (Calan Sr Tab*) 120 mg PO DAILY [facility] Last Admin: 06/24/18 08:28 Dose: 120 mg Vital Signs - 8 hr 06/24/18 06/24/18 06/25/18 23:29 23:30 01:32 Temperature Pulse Rate Respiratory 22 22 18 Rate Blood Pressure (mmHg) O2 Sat by Pulse Oximetry 06/25/18 06/25/18 06/25/18 01:33 03:21 06:18 Temperature 97.9 F Pulse Rate 98 Respiratory 18 24 22 Rate Blood Pressure 179/59 (mmHg) O2 Sat by Pulse 91 Oximetry Oxygen Devices in Use Now: Nasal Cannula Appearance: moderate respiratory distress, alert and oriented Eyes: No Scleral Icterus Ears/Nose/Mouth/Throat: NL Teeth, Lips, Gums, Mucous Membranes Moist Neck: NL Appearance and Movements; NL JVP, Trachea Midline Respiratory: Symmetrical Chest Expansion and Respiratory Effort, - - exp wheezes bilat, rales at bilat bases, gurgling respirations Cardiovascular: NL Sounds; No Murmurs; No JVD Abdominal: NL Sounds; No Tenderness; No Distention Extremities: No Clubbing, Cyanosis, - - +1 pitting edema to bilat lower legs. Skin: No Rash or Ulcers Neurological: Alert and Oriented x 3 Nutrition: Taking PO's Result Diagrams: 06/23/18 15:51 06/23/18 15:51 Microbiology and Other Data: Microbiology 06/23/18 20:15 Gram Stain - Final Sputum 08/16/18 00:49 Legionella Urinary Antigen - Final Urine Negative Legionella Antigen Streptococcus pneumoniae Ag Screen - Final Negative S. pneumo Antigen Assess/Plan/Problems-Billing Assessment: Mrs Del Castillo is an 82yo F with PMH of COPD/asthma, HTN, HLD, type 2 DM, CKD stage 3, diastolic CHF, who presented to ED with c/o dyspnea, found to have pneumonia and mild CHF exacerbation. - Patient Problems (1) Acute respiratory failure with hypoxia Current Visit: Yes Status: Acute Code(s): J96.01 - ACUTE RESPIRATORY FAILURE WITH HYPOXIA SNOMED Code(s): 17532577 Comment: - Secondary to RUL pneumonia - diastolic CHF exacerbation this AM- will give lasix 40mg IVP, nitroglycerin paste to chest and morphine - chest x ray - CHF, increased bilat infiltrates (2) Pneumonia Current Visit: Yes Status: Acute Code(s): J18.9 - PNEUMONIA, UNSPECIFIED ORGANISM SNOMED Code(s): 745626937 Comment: - CxR shows RUL infiltrate.and bilat lower lobe infiltrates. worsening - will change antibiotic to zoysn (3) COPD (chronic obstructive pulmonary disease) Current Visit: Yes Status: Acute Code(s): J44.9 - CHRONIC OBSTRUCTIVE PULMONARY DISEASE, UNSPECIFIED SNOMED Code(s): 81273087 Comment: - Not in exacerbation. - Continue bronchodilators and inhaled steroids. (4) Diastolic CHF, acute on chronic Current Visit: Yes Status: Acute Code(s): I50.33 - ACUTE ON CHRONIC DIASTOLIC (CONGESTIVE) HEART FAILURE SNOMED Code(s): 171669044 Comment: - moderate exacerbation today , responded well to diuretics. - Continue Furosemide, Coreg, Losartan. (5) Chronic pain Current Visit: Yes Status: Acute Code(s): G89.29 - OTHER CHRONIC PAIN SNOMED Code(s): 57112305 Comment: - Continue gabapentin, carisoprodol, oxycodone/APAP. (6) Hypertension Current Visit: Yes Status: Chronic Code(s): I10 - ESSENTIAL (PRIMARY) HYPERTENSION SNOMED Code(s): 85306598 Comment: - Controlled. - Continue Verapamil, Coreg, Losartan, and Furosemide. (7) Diabetes Current Visit: Yes Status: Chronic Code(s): E11.9 - TYPE 2 DIABETES MELLITUS WITHOUT COMPLICATIONS SNOMED Code(s): 23089848 Comment: - Continue Lispro SS ACHS. (8) DVT prophylaxis Current Visit: Yes Status: Acute Code(s): WIV6249 - SNOMED Code(s): 850974112 Comment: - SQ heparin. (9) Full code status Current Visit: Yes Status: Acute Code(s): Z78.9 - OTHER SPECIFIED HEALTH STATUS SNOMED Code(s): 944855716 Status and Disposition: discharge when medically stable
[2018-06-25] MEDS: Albuterol HFA INHALER* 8 gm MDI INH PRN ×3 (07:28→20:13)
[2018-06-25] MEDS: Ipratropium 0.5MG/2.5ML NEB* 0.5 MG/2.5 ML NEB.SOLN INH PRN ×2 (07:28→16:00)
[2018-06-25] MEDS: Mometasone/Formoter 200/5 MDI INH SCH ×2 (07:29→20:13)
[2018-06-25] MEDS ORDERED: Furosemide IV* 10 MG/ML VIAL (40 MG) IV ONE ×2 (07:53→09:29)
[2018-06-25] MEDS ORDERED: Morphine INJ* 2 MG/ML 1 ML SYRINGE (TWO MG - NEW SYRINGE VERSION) IV ONE (07:54)
[2018-06-25] MEDS ORDERED: Nitroglycerin 2% OINT* 1 GM PAK TOPICAL ONE (07:55)
[2018-06-25] MEDS: Insulin LISPRO* 1 UNITS UNIT SUBCUT SCH ×4 (08:30→20:20)
--- NOTE | 2018-06-25 08:47 | RAD ---
INDICATION: Shortness of breath. COMPARISON: Comparison made with a prior study from June 23, 2018. TECHNIQUE: A portable view of the chest was obtained. FINDINGS: The heart appears mildly enlarged and unchanged. There is a focal infiltrate in the right upper lobe and bibasilar infiltrates. There is diffuse prominence of the interstitial markings and small bilateral pleural effusions. The interstitial infiltrates have progressed from the prior study. IMPRESSION: 1. BILATERAL INFILTRATES SUSPICIOUS FOR PNEUMONIA. RECOMMEND FOLLOW-UP TO RESOLUTION. 2. FINDINGS MOST CONSISTENT WITH SUPERIMPOSED CONGESTIVE HEART FAILURE DEMONSTRATING INTERVAL PROGRESSION.
[2018-06-25] MEDS: NIFEdipine CAP* 10 MG PO SCH ×3 (09:15→21:42)
[2018-06-25] MEDS: ROSUVASTATIN 10 MG PO SCH (09:16)
[2018-06-25] MEDS: Verapamil SR TAB* 240 MG PO SCH (09:16)
[2018-06-25] MEDS: Sertraline* 100 MG TAB PO SCH (09:16)
[2018-06-25] MEDS: Carvedilol TAB* 6.25 MG PO SCH ×2 (09:16→20:08)
[2018-06-25] MEDS: Losartan TAB* 25 MG PO SCH (09:16)
[2018-06-25] MEDS: Multivitamins/Minerals TAB PO SCH (09:19)
[2018-06-25] MEDS: hydrALAZINE TAB* 25 MG PO SCH ×3 (09:19→20:08)
[2018-06-25] MEDS: Cholecalciferol TAB* 1000 UNITS PO SCH (09:19)
[2018-06-25] MEDS ORDERED: Piperacillin/Tazobac ADVAN(*) 3.375 GM in NS 0.9% 100 ML* 100 ML IVPB ONE (09:25)
[2018-06-25] MEDS ORDERED: Zosyn per Pharmacy* NOTE FOLLOW UP SCH (10:00)
[2018-06-25] MEDS: ZOSYN 3.375 GM Q12H per EXTENDED INFUSION IVPB SCH ×2 (15:46)
[2018-06-25] MEDS: Carisoprodol TAB* 350 MG PO PRN ×2 (15:57→20:06)
[2018-06-25] MEDS: oxyCODONE/Acetamin 5/325 MG* TAB PO PRN (20:05)
[2018-06-25] MEDS: Montelukast Sodium TAB* 10 MG PO SCH (21:47)
[2018-06-25] MEDS: Latanoprost 0.005%* 2.5 ml BTL BOTH EYES SCH (21:49)
[2018-06-26] MEDS: ZOSYN 3.375 GM Q12H per EXTENDED INFUSION IVPB SCH ×4 (02:14→14:43)
[2018-06-26] MEDS: Carisoprodol TAB* 350 MG PO PRN ×3 (03:38→21:09)
[2018-06-26] MEDS: oxyCODONE/Acetamin 5/325 MG* TAB PO PRN ×3 (03:38→21:09)
[2018-06-26] MEDS: Ipratropium 0.5MG/2.5ML NEB* 0.5 MG/2.5 ML NEB.SOLN INH PRN ×3 (03:45→20:35)
[2018-06-26] MEDS: Heparin VIAL(*) 5000 UNITS/ML VIAL (FIVE THOUSAND) SUBCUT SCH ×4 (05:35→20:54)
[2018-06-26] MEDS: Omeprazole CAP* 20 MG PO SCH ×2 (05:35→05:41)
[2018-06-26] MEDS: Gabapentin CAP(*) 100 MG PO SCH ×3 (05:41→20:50)
[2018-06-26 06:24] LABS: ABS Basophils 0 10^3/ul (0-0.2); ABS Eosinophils 0 10^3/ul (0-0.6); ABS Lymphocytes 0.8 10^3/ul (1.0-4.8); ABS Monocytes 1.3 10^3/ul (0-0.8); ABS Neutrophils 6.7 10^3/ul (1.5-7.7); ABS Nucleated RBC 0 10^3/ul; Eosinophil % 0.3 % (0-6); Hematocrit 23 % (35-47); Hemoglobin 7.4 g/dl (12.0-16.0); Mean Corpuscular HGB Conc 33 g/dl (31-36); Mean Corpuscular Hemoglobin 28 pg (27-31); Mean Corpuscular Volume 85 fL (80-97); Mean Platelet Volume 9.2 um3 (7.4-10.4); Nucleated Red Blood Cells % 0.1; Platelet Count 118 10^3/ul (150-450); Red Blood Count 2.67 10^6/ul (4.00-5.40); Red Cell Distribution Width 18 % (10.5-15); White Blood Count 8.9 10^3/ul (3.5-10.8)
[2018-06-26 06:39] LABS: EGFR Non-African American 25.4 (>60)
[2018-06-26] MEDS: Insulin LISPRO* 1 UNITS UNIT SUBCUT SCH ×4 (07:14→20:54)
[2018-06-26] MEDS: Multivitamins/Minerals TAB PO SCH (07:30)
[2018-06-26] MEDS: NIFEdipine CAP* 10 MG PO SCH ×3 (07:30→21:09)
[2018-06-26] MEDS: Furosemide TAB* 20 MG PO SCH (07:30)
[2018-06-26] MEDS: Losartan TAB* 25 MG PO SCH (07:30)
[2018-06-26] MEDS: ROSUVASTATIN 10 MG PO SCH (07:31)
[2018-06-26] MEDS: Sertraline* 100 MG TAB PO SCH (07:31)
[2018-06-26] MEDS: Cholecalciferol TAB* 1000 UNITS PO SCH (07:32)
[2018-06-26] MEDS: hydrALAZINE TAB* 25 MG PO SCH ×3 (07:32→20:50)
[2018-06-26] MEDS: Verapamil SR TAB* 240 MG PO SCH (07:32)
[2018-06-26] MEDS: Carvedilol TAB* 6.25 MG PO SCH ×2 (07:32→20:51)
[2018-06-26] MEDS: Mometasone/Formoter 200/5 MDI INH SCH ×2 (08:01→20:35)
[2018-06-26] MEDS ORDERED: KCL 20 MEQ/100 ML IVPREMIX* 20 MEQ/100 ML BAG IV ONE (08:26)
[2018-06-26] MEDS ORDERED: Potassium Chlor TAB* 20 MEQ TAB.ER PO ONE (08:26)
[2018-06-26] MEDS ORDERED: methylPREDNISolone SOD 40 MG* 1 ML VIAL IV SCH (15:00)
[2018-06-26] MEDS: Albuterol HFA INHALER* 8 gm MDI INH PRN ×2 (15:17→20:35)
--- NOTE | 2018-06-26 15:40 | PN ---
Subjective Date of Service: 06/26/18 Interval History: Patient was seen and examined earlier today. Feels much better from a breathing standpoint. Still with some orthopnea, but improving. Denies chest pain, fever or chills. Cough is better as well. Appetite poor, but trying to increase fluid intake. Discussed labs, aware of issues with chronic anemia, also hx hypokalemia with every hospitalization. No new complaints. Family History: Unchanged from Admission Social History: Unchanged from Admission Past Medical History: Unchanged from Admission Objective Active Medications: Acetaminophen (Tylenol Tab*) 650 mg PO Q4H PRN PRN Reason: PAIN Last Admin: 06/24/18 19:32 Dose: 650 mg Albuterol (Ventolin Hfa Inhaler*) 2 puff INH Q4H PRN PRN Reason: SOB/WHEEZING Last Admin: 06/26/18 15:17 Dose: 2 puff Carisoprodol (Soma Tab*) 350 mg PO QID PRN PRN Reason: SPASMS - MUSCLE Last Admin: 06/26/18 12:32 Dose: 350 mg Carvedilol (Coreg Tab*) 6.25 mg PO BID [facility] Last Admin: 06/26/18 07:32 Dose: 6.25 mg Cholecalciferol (Vitamin D Tab*) 1,000 units PO DAILY [facility] Last Admin: 06/26/18 07:32 Dose: 1,000 units Dextrose (D50w Syringe 50 Ml*) 12.5 gm IV PUSH .FOR FS < 60 - SS PRN PRN Reason: FS < 60 Furosemide (Lasix Tab*) 20 mg PO QAM [facility] Last Admin: 06/26/18 07:30 Dose: 20 mg Gabapentin (Neurontin Cap(*)) 100 mg PO 0700,1400 [facility] Last Admin: 06/26/18 12:16 Dose: 100 mg Gabapentin (Neurontin Cap(*)) 200 mg PO BEDTIME [facility] Last Admin: 06/25/18 20:07 Dose: 200 mg Heparin Sodium (Porcine) (Heparin Vial(*)) 5,000 units SUBCUT Q8HR [facility] Last Admin: 06/26/18 12:19 Dose: Not Given Hydralazine HCl (Apresoline Tab*) 25 mg PO TID [facility] Last Admin: 06/26/18 12:17 Dose: 25 mg Piperacillin Sod/Tazobactam (Sod 3.375 gm/ Sodium Chloride) 100 mls @ 25 mls/ hr IVPB Q12H [facility] Last Admin: 06/26/18 14:43 Dose: 25 mls/hr Insulin Human Lispro (Humalog*) 0 units SUBCUT ACHS [facility]; Protocol Last Admin: 06/26/18 12:16 Dose: 1 unit Ipratropium [place] (Atrovent 0.5 Mg Neb.Diandra*) 0.5 mg INH Q4H PRN PRN Reason: SOB/WHEEZING Last Admin: 06/26/18 15:17 Dose: 0.5 mg Latanoprost (Xalatan 0.005%*) 1 drop BOTH EYES BEDTIME [facility] Last Admin: 06/25/18 21:49 Dose: 1 drop Losartan Potassium (Cozaar Tab*) 25 mg PO DAILY [facility] Last Admin: 06/26/18 07:30 Dose: 25 mg Methylprednisolone Sodium Succinate (Solu-Medrol 40 Mg) 20 mg IV Q12H [facility] Mometasone Furoate/Formoterol Fumar (Dulera 200/5 Mdi*) 2 puff INH BID [facility] Last Admin: 06/26/18 08:01 Dose: 2 puff Montelukast Sodium (Singulair Tab*) 10 mg PO BEDTIME [facility] Last Admin: 06/25/18 21:47 Dose: 10 mg Multivitamins/Minerals (Theragran/Minerals Tab*) 1 tab PO DAILY [facility] Last Admin: 06/26/18 07:30 Dose: 1 tab Nifedipine (Procardia Cap*) 20 mg PO TID [facility] Last Admin: 06/26/18 12:17 Dose: 20 mg Omeprazole (Prilosec Cap*) 20 mg PO DAILY@0600 [facility] Last Admin: 06/26/18 05:41 Dose: 20 mg Ondansetron HCl (Zofran Inj*) 4 mg IV Q6H PRN PRN Reason: NAUSEA Last Admin: 06/23/18 20:34 Dose: 4 mg Oxycodone/Acetaminophen (Percocet 5/325 Tab*) 1 tab PO Q6H PRN PRN Reason: PAIN Last Admin: 06/26/18 12:32 Dose: 1 tab Pharmacy Consult (Zosyn Per Pharmacy*) 1 note FOLLOW UP .ZOSYN PER PHARMACY [facility] Rosuvastatin Calcium (Crestor (Nf)) 10 mg PO DAILY [facility]; Protocol Last Admin: 06/26/18 07:31 Dose: 10 mg Sertraline HCl (Zoloft*) 200 mg PO QAM [facility] Last Admin: 06/26/18 07:31 Dose: 200 mg Verapamil HCl (Calan Sr Tab*) 120 mg PO DAILY [facility] Last Admin: 06/26/18 07:32 Dose: 120 mg Vital Signs - 8 hr 06/26/18 06/26/18 06/26/18 07:41 07:42 07:43 Temperature Pulse Rate Respiratory 24 24 24 Rate Blood Pressure (mmHg) O2 Sat by Pulse Oximetry 06/26/18 06/26/18 06/26/18 08:02 08:44 11:21 Temperature Pulse Rate 93 77 Respiratory 22 24 Rate Blood Pressure 130/52 (mmHg) O2 Sat by Pulse 90 96 Oximetry 06/26/18 06/26/18 06/26/18 11:29 11:37 12:16 Temperature 97.8 F Pulse Rate Respiratory 24 Rate Blood Pressure (mmHg) O2 Sat by Pulse 98 Oximetry 06/26/18 06/26/18 06/26/18 12:32 14:47 15:22 Temperature Pulse Rate 86 Respiratory 24 24 18 Rate Blood Pressure (mmHg) O2 Sat by Pulse 98 Oximetry Oxygen Devices in Use Now: OxyMask Appearance: Appears comfortable and in NAD Eyes: No Scleral Icterus, PERRLA Ears/Nose/Mouth/Throat: Clear Oropharnyx, Mucous Membranes Moist Neck: NL Appearance and Movements; NL JVP, Trachea Midline Respiratory: Symmetrical Chest Expansion and Respiratory Effort, - - Decreased breath sounds bilaterally. No wheezes or rhonchi. Cardiovascular: NL Sounds; No Murmurs; No JVD, RRR Abdominal: NL Sounds; No Tenderness; No Distention Extremities: No Edema Skin: No Rash or Ulcers Neurological: Alert and Oriented x 3 Nutrition: Taking PO's Result Diagrams: 06/26/18 06:11 06/26/18 06:11 Additional Lab and Data: . Microbiology and Other Data: Microbiology 06/23/18 20:15 Gram Stain - Final Sputum 06/24/18 00:49 Legionella Urinary Antigen - Final Urine Negative Legionella Antigen Streptococcus pneumoniae Ag Screen - Final Negative S. pneumo Antigen Diagnostic Imaging: Patient Name: JOSE ANTONIO DEL CASTILLO Medical Record#: [id number] Ordering Physician: Cintia Oneil FILLING TECHNICIAN Acct.#: [id number] : 1935 Age: 82 Sex: F Location: [address] [place] [address] - MEDICAL Exam Date: 06/25/18753 ADM Status: ADM IN Order Information: CHEST AP PORTABLE Accession Number: [id number] CPT: 49327 INDICATION: Shortness of breath. IMPRESSION: 1. BILATERAL INFILTRATES SUSPICIOUS FOR PNEUMONIA. RECOMMEND FOLLOW-UP TO RESOLUTION. 2. FINDINGS MOST CONSISTENT WITH SUPERIMPOSED CONGESTIVE HEART FAILURE DEMONSTRATING INTERVAL PROGRESSION. <Electronically signed by Fernie Galan MD in OV> 06/25/18 0844 EKG Data: . Assess/Plan/Problems-Billing Assessment: Mrs Del Castillo is an 82yo F with PMH of COPD/asthma, HTN, HLD, type 2 DM, CKD stage 3, diastolic CHF, who presented to ED with c/o dyspnea, found to have pneumonia and mild CHF exacerbation. - Patient Problems (1) Acute respiratory failure with hypoxia Current Visit: Yes Status: Acute Comment: - Secondary to RUL pneumonia - Breathing improved with Lasix - Supplemental oxygen with mask, will titrate as tolerated (2) Pneumonia Current Visit: Yes Status: Acute Comment: - CXR shows RUL infiltrate.and bilat lower lobe infiltrates. worsening - Abx changed to Zosyn (3) Diastolic CHF, acute on chronic Current Visit: Yes Status: Acute Code(s): I50.33 - ACUTE ON CHRONIC DIASTOLIC (CONGESTIVE) HEART FAILURE SNOMED Code(s): 795394313 Comment: - Improved with diurretics. - Continue Furosemide, Coreg, Losartan. (4) COPD (chronic obstructive pulmonary disease) Current Visit: Yes Status: Acute Comment: - Continue bronchodilators and inhaled steroids. - May benefit from low dose corticosteroids to improve airways, will add IV methylprednisone (5) Chronic pain Current Visit: Yes Status: Acute Comment: - Continue gabapentin, carisoprodol, oxycodone/APAP. (6) Diabetes Current Visit: Yes Status: Chronic Comment: - Continue Lispro SS ACHS. (7) Hypercholesterolemia Current Visit: Yes Status: Chronic Comment: - Continue rosuvastatin. (8) Hypertension Current Visit: Yes Status: Chronic Comment: - Controlled. - Continue Verapamil, Coreg, Losartan, and Furosemide. (9) DVT prophylaxis Current Visit: Yes Status: Acute Comment: - SQ heparin. (10) Full code status Current Visit: Yes Status: Acute Status and Disposition: Inpatient. Anticipate discharge when medically stable
[2018-06-26] MEDS: methylPREDNISolone SOD 40 MG* 1 ML VIAL IV SCH (15:48)
[2018-06-26] MEDS: Montelukast Sodium TAB* 10 MG PO SCH (20:52)
[2018-06-26] MEDS: Latanoprost 0.005%* 2.5 ml BTL BOTH EYES SCH (20:55)
[2018-06-27] MEDS: methylPREDNISolone SOD 40 MG* 1 ML VIAL IV SCH ×2 (01:58→13:06)
[2018-06-27] MEDS: ZOSYN 3.375 GM Q12H per EXTENDED INFUSION IVPB SCH ×4 (02:04→14:16)
[2018-06-27] MEDS: Heparin VIAL(*) 5000 UNITS/ML VIAL (FIVE THOUSAND) SUBCUT SCH ×4 (05:27→22:01)
[2018-06-27] MEDS: Omeprazole CAP* 20 MG PO SCH (05:32)
[2018-06-27] MEDS: Gabapentin CAP(*) 100 MG PO SCH ×3 (05:34→22:23)
[2018-06-27 07:19] LABS: Hematocrit 23 % (35-47); Hemoglobin 7.5 g/dl (12.0-16.0); Mean Corpuscular HGB Conc 33 g/dl (31-36); Mean Corpuscular Hemoglobin 28 pg (27-31); Mean Corpuscular Volume 84 fL (80-97); Mean Platelet Volume 8.6 um3 (7.4-10.4); Platelet Count 99 10^3/ul (150-450); Red Blood Count 2.73 10^6/ul (4.00-5.40); Red Cell Distribution Width 18 % (10.5-15); White Blood Count 5.8 10^3/ul (3.5-10.8)
[2018-06-27 07:50] LABS: ABS Basophils 0 10^3/ul (0-0.2); ABS Eosinophils 0 10^3/ul (0-0.6); ABS Lymphocytes 0.5 10^3/ul (1.0-4.8); ABS Monocytes 0.2 10^3/ul (0-0.8); ABS Neutrophils 5.1 10^3/ul (1.5-7.7); ABS Nucleated RBC 0 10^3/ul; Eosinophil % 0 % (0-6); Lymphocyte % 8.1 % (25-47); Nucleated Red Blood Cells % 0.1
[2018-06-27] MEDS: Mometasone/Formoter 200/5 MDI INH SCH ×2 (08:20→21:15)
[2018-06-27] MEDS: Losartan TAB* 25 MG PO SCH (09:19)
[2018-06-27] MEDS: Furosemide TAB* 20 MG PO SCH (09:19)
[2018-06-27] MEDS: Carvedilol TAB* 6.25 MG PO SCH ×2 (09:19→22:22)
[2018-06-27] MEDS: ROSUVASTATIN 10 MG PO SCH (09:19)
[2018-06-27] MEDS: NIFEdipine CAP* 10 MG PO SCH ×3 (09:19→22:21)
[2018-06-27] MEDS: Sertraline* 100 MG TAB PO SCH (09:19)
[2018-06-27] MEDS: hydrALAZINE TAB* 25 MG PO SCH ×3 (09:19→22:20)
[2018-06-27] MEDS: Cholecalciferol TAB* 1000 UNITS PO SCH (09:20)
[2018-06-27] MEDS: Verapamil SR TAB* 240 MG PO SCH (09:20)
[2018-06-27] MEDS: Multivitamins/Minerals TAB PO SCH (09:20)
[2018-06-27] MEDS: Insulin LISPRO* 1 UNITS UNIT SUBCUT SCH ×4 (09:23→22:25)
--- NOTE | 2018-06-27 13:15 | PN ---
Subjective Date of Service: 06/27/18 Interval History: Mrs. Del Castillo is doing much better today. Her breathing has improved, still requiring 8-10 L/min oxygen, but denies wheezing, fever or chills. Cough is getting better too. No chest pain, SOB or dyspnea at rest. She is anxious to get better and go home soon. Denies any c/o today. Family History: Unchanged from Admission Social History: Unchanged from Admission Past Medical History: Unchanged from Admission Objective Active Medications: Acetaminophen (Tylenol Tab*) 650 mg PO Q4H PRN PRN Reason: PAIN Last Admin: 06/24/18 19:32 Dose: 650 mg Albuterol (Ventolin Hfa Inhaler*) 2 puff INH Q4H PRN PRN Reason: SOB/WHEEZING Last Admin: 06/26/18 20:35 Dose: 2 puff Carisoprodol (Soma Tab*) 350 mg PO QID PRN PRN Reason: SPASMS - MUSCLE Last Admin: 06/26/18 21:09 Dose: 350 mg Carvedilol (Coreg Tab*) 6.25 mg PO BID [facility] Last Admin: 06/27/18 09:19 Dose: 6.25 mg Cholecalciferol (Vitamin D Tab*) 1,000 units PO DAILY [facility] Last Admin: 06/27/18 09:20 Dose: 1,000 units Dextrose (D50w Syringe 50 Ml*) 12.5 gm IV PUSH .FOR FS < 60 - SS PRN PRN Reason: FS < 60 Furosemide (Lasix Tab*) 20 mg PO QAM [facility] Last Admin: 06/27/18 09:19 Dose: 20 mg Gabapentin (Neurontin Cap(*)) 100 mg PO 0700,1400 [facility] Last Admin: 06/27/18 13:07 Dose: 100 mg Gabapentin (Neurontin Cap(*)) 200 mg PO BEDTIME [facility] Last Admin: 06/26/18 20:50 Dose: 200 mg Heparin Sodium (Porcine) (Heparin Vial(*)) 5,000 units SUBCUT Q8HR [facility] Last Admin: 06/27/18 13:07 Dose: 5,000 units Hydralazine HCl (Apresoline Tab*) 25 mg PO TID [facility] Last Admin: 06/27/18 13:07 Dose: 25 mg Piperacillin Sod/Tazobactam (Sod 3.375 gm/ Sodium Chloride) 100 mls @ 25 mls/ hr IVPB Q12H [facility] Last Admin: 06/27/18 02:04 Dose: 25 mls/hr Insulin Human Lispro (Humalog*) 0 units SUBCUT ACHS [facility]; Protocol Last Admin: 06/27/18 13:05 Dose: 1 unit Ipratropium [place] (Atrovent 0.5 Mg Neb.Diandra*) 0.5 mg INH Q4H PRN PRN Reason: SOB/WHEEZING Last Admin: 06/26/18 20:35 Dose: 0.5 mg Latanoprost (Xalatan 0.005%*) 1 drop BOTH EYES BEDTIME [facility] Last Admin: 06/26/18 20:55 Dose: 1 drop Losartan Potassium (Cozaar Tab*) 25 mg PO DAILY [facility] Last Admin: 06/27/18 09:19 Dose: 25 mg Methylprednisolone Sodium Succinate (Solu-Medrol 40 Mg) 20 mg IV Q12H [facility] Last Admin: 06/27/18 13:06 Dose: 20 mg Mometasone Furoate/Formoterol Fumar (Dulera 200/5 Mdi*) 2 puff INH BID [facility] Last Admin: 06/27/18 08:20 Dose: 2 puff Montelukast Sodium (Singulair Tab*) 10 mg PO BEDTIME [facility] Last Admin: 06/26/18 20:52 Dose: 10 mg Multivitamins/Minerals (Theragran/Minerals Tab*) 1 tab PO DAILY [facility] Last Admin: 06/27/18 09:20 Dose: 1 tab Nifedipine (Procardia Cap*) 20 mg PO TID [facility] Last Admin: 06/27/18 09:19 Dose: 20 mg Omeprazole (Prilosec Cap*) 20 mg PO DAILY@0600 [facility] Last Admin: 06/27/18 05:32 Dose: 20 mg Ondansetron HCl (Zofran Inj*) 4 mg IV Q6H PRN PRN Reason: NAUSEA Last Admin: 06/23/18 20:34 Dose: 4 mg Oxycodone/Acetaminophen (Percocet 5/325 Tab*) 1 tab PO Q6H PRN PRN Reason: PAIN Last Admin: 06/26/18 21:09 Dose: 1 tab Pharmacy Consult (Zosyn Per Pharmacy*) 1 note FOLLOW UP .ZOSYN PER PHARMACY [facility] Rosuvastatin Calcium (Crestor (Nf)) 10 mg PO DAILY [facility]; Protocol Last Admin: 06/27/18 09:19 Dose: 10 mg Sertraline HCl (Zoloft*) 200 mg PO QAM [facility] Last Admin: 06/27/18 09:19 Dose: 200 mg Verapamil HCl (Calan Sr Tab*) 120 mg PO DAILY [facility] Last Admin: 06/27/18 09:20 Dose: 120 mg Vital Signs - 8 hr 06/27/18 06/27/18 06/27/18 05:34 07:28 08:00 Temperature 97.7 F Pulse Rate 90 Respiratory 17 18 20 Rate Blood Pressure 160/60 (mmHg) O2 Sat by Pulse 97 Oximetry 06/27/18 06/27/18 06/27/18 08:22 09:27 11:07 Temperature 97.5 F Pulse Rate 85 94 Respiratory 22 20 18 Rate Blood Pressure 122/49 (mmHg) O2 Sat by Pulse 93 92 Oximetry 06/27/18 13:07 Temperature Pulse Rate Respiratory 18 Rate Blood Pressure (mmHg) O2 Sat by Pulse Oximetry Oxygen Devices in Use Now: OxyMask Appearance: Appears comfortable and in NAD Eyes: No Scleral Icterus, PERRLA Ears/Nose/Mouth/Throat: Clear Oropharnyx, Mucous Membranes Moist Neck: NL Appearance and Movements; NL JVP, Trachea Midline Respiratory: Symmetrical Chest Expansion and Respiratory Effort, Clear to Auscultation Cardiovascular: NL Sounds; No Murmurs; No JVD, RRR Abdominal: NL Sounds; No Tenderness; No Distention Extremities: No Edema Neurological: Alert and Oriented x 3 Nutrition: Taking PO's Result Diagrams: 06/27/18 06:44 06/27/18 06:44 Additional Lab and Data: . Microbiology and Other Data: Microbiology 06/23/18 20:15 Gram Stain - Final Sputum 06/24/18 00:49 Legionella Urinary Antigen - Final Urine Negative Legionella Antigen Streptococcus pneumoniae Ag Screen - Final Negative S. pneumo Antigen Diagnostic Imaging: . EKG Data: . Assess/Plan/Problems-Billing Assessment: Mrs Del Castillo is an 82yo F with PMH of COPD/asthma, HTN, HLD, type 2 DM, CKD stage 3, diastolic CHF, who presented to ED with c/o dyspnea, found to have pneumonia and mild CHF exacerbation. - Patient Problems (1) Acute respiratory failure with hypoxia Current Visit: Yes Status: Acute Comment: - Secondary to RUL pneumonia - Breathing improved with Lasix - Supplemental oxygen with mask, will titrate as tolerated (2) Pneumonia Current Visit: Yes Status: Acute Comment: - CXR shows RUL infiltrate.and bilat lower lobe infiltrates. worsening - Abx changed to Zosyn (3) Diastolic CHF, acute on chronic Current Visit: Yes Status: Acute Code(s): I50.33 - ACUTE ON CHRONIC DIASTOLIC (CONGESTIVE) HEART FAILURE SNOMED Code(s): 189180537 Comment: - Improved with diurretics. - Continue Furosemide, Coreg, Losartan. (4) COPD (chronic obstructive pulmonary disease) Current Visit: Yes Status: Acute Comment: - Continue bronchodilators and inhaled steroids. - May benefit from low dose corticosteroids to improve airways, will add IV methylprednisone - May need a short tappering course of oral Prednisone upon discharge (5) Chronic pain Current Visit: Yes Status: Acute Comment: - Continue gabapentin, carisoprodol, oxycodone/APAP. (6) Diabetes Current Visit: Yes Status: Chronic Comment: - Continue Lispro SS ACHS. (7) Hypercholesterolemia Current Visit: Yes Status: Chronic Comment: - Continue rosuvastatin. (8) Hypertension Current Visit: Yes Status: Chronic Comment: - Controlled. - Continue Verapamil, Coreg, Losartan, and Furosemide. (9) DVT prophylaxis Current Visit: Yes Status: Acute Comment: - SQ heparin. (10) Full code status Current Visit: Yes Status: Acute Status and Disposition: Inpatient. Anticipate discharge to home when medically stable
[2018-06-27] MEDS: Carisoprodol TAB* 350 MG PO PRN ×2 (14:16→22:20)
[2018-06-27] MEDS: Acetaminophen TAB* 325 MG PO PRN (14:17)
[2018-06-27] MEDS: oxyCODONE/Acetamin 5/325 MG* TAB PO PRN ×2 (16:50→22:19)
[2018-06-27] MEDS: Ipratropium 0.5MG/2.5ML NEB* 0.5 MG/2.5 ML NEB.SOLN INH PRN ×2 (17:00→21:15)
[2018-06-27] MEDS: Montelukast Sodium TAB* 10 MG PO SCH (22:22)
[2018-06-27] MEDS: Latanoprost 0.005%* 2.5 ml BTL BOTH EYES SCH (22:24)
[2018-06-28] MEDS: ZOSYN 3.375 GM Q12H per EXTENDED INFUSION IVPB SCH ×4 (01:57→13:46)
[2018-06-28] MEDS: methylPREDNISolone SOD 40 MG* 1 ML VIAL IV SCH ×2 (04:02→14:58)
[2018-06-28] MEDS: Heparin VIAL(*) 5000 UNITS/ML VIAL (FIVE THOUSAND) SUBCUT SCH ×3 (04:02→22:48)
[2018-06-28] MEDS: Gabapentin CAP(*) 100 MG PO SCH ×3 (06:11→22:43)
[2018-06-28] MEDS: Omeprazole CAP* 20 MG PO SCH (06:11)
[2018-06-28] MEDS: Ipratropium 0.5MG/2.5ML NEB* 0.5 MG/2.5 ML NEB.SOLN INH PRN ×2 (06:30→10:06)
[2018-06-28] MEDS ORDERED: Morphine INJ* 2 MG/ML 1 ML SYRINGE (TWO MG - NEW SYRINGE VERSION) IV ONE (06:48)
[2018-06-28] MEDS ORDERED: Morphine VIAL* 4 MG/ML VIAL (1 ml vial) IV ONE (06:48)
[2018-06-28] MEDS ORDERED: Morphine INJ* 2 MG/ML 1 ML SYRINGE (TWO MG - NEW SYRINGE VERSION) ONE (06:52)
[2018-06-28 07:02] LABS: Hematocrit 28 % (35-47); Hemoglobin 8.9 g/dl (12.0-16.0); Mean Corpuscular HGB Conc 32 g/dl (31-36); Mean Corpuscular Hemoglobin 27 pg (27-31); Mean Corpuscular Volume 84 fL (80-97); Mean Platelet Volume 9.5 um3 (7.4-10.4); Platelet Count 162 10^3/ul (150-450); Red Cell Distribution Width 19 % (10.5-15); White Blood Count 14.1 10^3/ul (3.5-10.8)
[2018-06-28 07:16] LABS: EGFR Non-African American 21.9 (>60)
--- NOTE | 2018-06-28 07:34 | RAD ---
HISTORY: F/U pneumonia/CHF COMPARISONS: June 25, 2018 VIEWS: 1: frontal portable view of the chest at 6:58 AM FINDINGS: LINES AND TUBES: None. CARDIOMEDIASTINAL SILHOUETTE: The cardiomediastinal silhouette is normal for portable technique. PLEURA: There are small bilateral pleural effusions. LUNG PARENCHYMA: There is diffuse coarse reticular pattern of opacification. There is persistent confluent alveolar opacification of the right midlung with patchy alveolar opacification of the lower lungs bilaterally. The appearance is similar to the previous examination. ABDOMEN: The upper abdomen is clear. There is no subphrenic gas. 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 Degenerative changes are noted of the spine. There is a scoliotic curvature of the spine. IMPRESSION: 1. PERSISTENT MULTIFOCAL CONSOLIDATION. 2. SMALL BILATERAL PLEURAL EFFUSIONS. 3. CHRONIC INTERSTITIAL DISEASE.
[2018-06-28 08:13] LABS: ABS Basophils 0 10^3/ul (0-0.2); ABS Eosinophils 0 10^3/ul (0-0.6); ABS Lymphocytes 1.1 10^3/ul (1.0-4.8); ABS Monocytes 1.2 10^3/ul (0-0.8); ABS Neutrophils 11.8 10^3/ul (1.5-7.7); ABS Nucleated RBC 0 10^3/ul; Eosinophil % 0.1 % (0-6); Lymphocyte % 7.8 % (25-47); Nucleated Red Blood Cells % 0.1
[2018-06-28] MEDS: Mometasone/Formoter 200/5 MDI INH SCH ×2 (08:34→20:09)
[2018-06-28] MEDS: hydrALAZINE TAB* 25 MG PO SCH ×3 (08:45→22:46)
[2018-06-28] MEDS: Multivitamins/Minerals TAB PO SCH (08:46)
[2018-06-28] MEDS: Sertraline* 100 MG TAB PO SCH (08:46)
[2018-06-28] MEDS: Verapamil SR TAB* 240 MG PO SCH (08:46)
[2018-06-28] MEDS: ROSUVASTATIN 10 MG PO SCH (08:47)
[2018-06-28] MEDS: Carvedilol TAB* 6.25 MG PO SCH ×2 (08:47→22:44)
[2018-06-28] MEDS: Furosemide TAB* 20 MG PO SCH (08:47)
[2018-06-28] MEDS: Losartan TAB* 25 MG PO SCH (08:48)
[2018-06-28] MEDS: NIFEdipine CAP* 10 MG PO SCH ×3 (08:48→22:44)
[2018-06-28] MEDS: Insulin LISPRO* 1 UNITS UNIT SUBCUT SCH ×4 (08:56→22:40)
[2018-06-28] MEDS: oxyCODONE/Acetamin 5/325 MG* TAB PO PRN ×2 (09:04→22:45)
[2018-06-28] MEDS: Carisoprodol TAB* 350 MG PO PRN ×2 (09:05→22:45)
[2018-06-28] MEDS: Cholecalciferol TAB* 1000 UNITS PO SCH (10:04)
[2018-06-28] MEDS: Albuterol HFA INHALER* 8 gm MDI INH PRN ×2 (10:06→20:09)
--- NOTE | 2018-06-28 10:44 | PN ---
Subjective Date of Service: 06/28/18 Interval History: Patient seen and examined at bedside. Denies fever, chills, chest discomfort, N/ V/D. Pt states that she has shortness of breath, this is near her baseline. She states that she uses 1-3 L O2 at home. She feels like her mouth and nose are dry from the high level of O2 she is receiving. She is requesting saline nasal spray. She uses a nasal cannula at home and states that the nurses told her she is a mouth breather. She hasn't been up and moving because the nurses feel she is too weak, we discussed the importance of ambulating and moving or she will get weaker. Pt reports coughing with water, will get a speech therapy eval. Pt states that she has followed with pulmonology in the past, but is unable to tolerate the inhalers as they make her cough. Tele: Sinus rhythm to sinus tach, rate 80-100's Family History: Unchanged from Admission Social History: Unchanged from Admission Past Medical History: Unchanged from Admission Objective Active Medications: Acetaminophen (Tylenol Tab*) 650 mg PO Q4H PRN Reason: PAIN Albuterol (Ventolin Hfa Inhaler*) 2 puff INH Q4H PRN Reason: SOB/WHEEZING Carisoprodol (Soma Tab*) 350 mg PO QID PRN Reason: SPASMS - MUSCLE Carvedilol (Coreg Tab*) 6.25 mg PO BID [facility] Cholecalciferol (Vitamin D Tab*) 1,000 units PO DAILY [facility] Dextrose (D50w Syringe 50 Ml*) 12.5 gm IV PUSH .FOR FS < 60 - SS PRN Reason: FS < 60 Furosemide (Lasix Tab*) 20 mg PO QAM [facility] Gabapentin (Neurontin Cap(*)) 100 mg PO 0700,1400 [facility] Gabapentin (Neurontin Cap(*)) 200 mg PO BEDTIME [facility] Heparin Sodium (Porcine) (Heparin Vial(*)) 5,000 units SUBCUT Q8HR [facility] Hydralazine HCl (Apresoline Tab*) 25 mg PO TID [facility] Piperacillin Sod/Tazobactam (Sod 3.375 gm/ Sodium Chloride) 100 mls @ 25 mls/ hr IVPB Q12H [facility] Insulin Human Lispro (Humalog*) 0 units SUBCUT ACHS [facility]; Protocol Ipratropium [place] (Atrovent 0.5 Mg Neb.Diandra*) 0.5 mg INH Q4H PRN Reason: SOB/ WHEEZING Latanoprost (Xalatan 0.005%*) 1 drop BOTH EYES BEDTIME [facility] Losartan Potassium (Cozaar Tab*) 25 mg PO DAILY [facility] Methylprednisolone Sodium Succinate (Solu-Medrol 40 Mg) 20 mg IV Q12H [facility] Mometasone Furoate/Formoterol Fumar (Dulera 200/5 Mdi*) 2 puff INH BID [facility] Montelukast Sodium (Singulair Tab*) 10 mg PO BEDTIME [facility] Multivitamins/Minerals (Theragran/Minerals Tab*) 1 tab PO DAILY [facility] Nifedipine (Procardia Cap*) 20 mg PO TID [facility] Omeprazole (Prilosec Cap*) 20 mg PO DAILY@0600 [facility] Ondansetron HCl (Zofran Inj*) 4 mg IV Q6H PRN Reason: NAUSEA Oxycodone/Acetaminophen (Percocet 5/325 Tab*) 1 tab PO Q6H PRN Reason: PAIN Pharmacy Consult (Zosyn Per Pharmacy*) 1 note FOLLOW UP .ZOSYN PER PHARMACY [facility] Rosuvastatin Calcium (Crestor (Nf)) 10 mg PO DAILY [facility]; Protocol Sertraline HCl (Zoloft*) 200 mg PO QAM [facility] Verapamil HCl (Calan Sr Tab*) 120 mg PO DAILY [facility] Vital Signs - 8 hr 06/28/18 06/28/18 06/28/18 03:42 06:11 06:28 Temperature 98.6 F Pulse Rate 91 105 Respiratory 16 18 24 Rate Blood Pressure 163/71 (mmHg) O2 Sat by Pulse 96 93 Oximetry 06/28/18 06/28/18 06/28/18 06:54 07:35 07:54 Temperature 98.2 F Pulse Rate 97 Respiratory 22 18 Rate Blood Pressure 174/80 (mmHg) O2 Sat by Pulse 95 Oximetry 06/28/18 06/28/18 06/28/18 08:00 08:35 09:04 Temperature Pulse Rate 89 Respiratory 20 20 Rate Blood Pressure (mmHg) O2 Sat by Pulse 90 Oximetry 06/28/18 06/28/18 06/28/18 09:05 09:22 09:24 Temperature Pulse Rate Respiratory 20 20 20 Rate Blood Pressure (mmHg) O2 Sat by Pulse Oximetry 06/28/18 10:08 Temperature Pulse Rate 96 Respiratory Rate Blood Pressure (mmHg) O2 Sat by Pulse 99 Oximetry Oxygen Devices in Use Now: OxyMask - 10 L Appearance: NAD, sitting up in a chair Ears/Nose/Mouth/Throat: Mucous Membranes Moist Respiratory: Symmetrical Chest Expansion and Respiratory Effort, Clear to Auscultation - , diminished Cardiovascular: NL Sounds; No Murmurs; No JVD, RRR Abdominal: NL Sounds; No Tenderness; No Distention Extremities: No Edema Skin: No Rash or Ulcers Neurological: Alert and Oriented x 3, NL Muscle Strength and Tone Lines/Tubes/Other Access: Clean, Dry and Intact Peripheral IV - site benign Nutrition: Taking PO's Result Diagrams: 06/28/18 06:27 06/28/18 06:27 Additional Lab and Data: . Microbiology and Other Data: Microbiology 06/23/18 20:15 Gram Stain - Final Sputum 06/24/18 00:49 Legionella Urinary Antigen - Final Urine Negative Legionella Antigen Streptococcus pneumoniae Ag Screen - Final Negative S. pneumo Antigen Diagnostic Imaging: . EKG Data: . Assess/Plan/Problems-Billing Assessment: Mrs Del Castillo is an 82yo F with PMH of COPD/asthma, HTN, HLD, type 2 DM, CKD stage 3, diastolic CHF, who presented to ED with c/o dyspnea, found to have pneumonia and mild CHF exacerbation. - Patient Problems (1) Acute respiratory failure with hypoxia Code(s): J96.01 - ACUTE RESPIRATORY FAILURE WITH HYPOXIA SNOMED Code(s): 98979443 Comment: - Acute on chronic - Secondary to RUL pneumonia and mild CHF exacerbation - Breathing improved with Lasix - Continue supplemental oxygen and titrate as tolerated - Continue Antibiotics (2) Pneumonia Code(s): J18.9 - PNEUMONIA, UNSPECIFIED ORGANISM SNOMED Code(s): 642612503 Comment: - CXR shows RUL infiltrate and bilat lower lobe infiltrates worsening - Continue Zosyn (3) Diastolic CHF, acute on chronic Code(s): I50.33 - ACUTE ON CHRONIC DIASTOLIC (CONGESTIVE) HEART FAILURE SNOMED Code(s): 514894142 Comment: - Improving with diurretics - Suspect a mild exacerbation secondary to dietary indiscretions - Daily weights and strict I+O's - Continue Furosemide, Coreg, Losartan. (4) COPD (chronic obstructive pulmonary disease) Code(s): J44.9 - CHRONIC OBSTRUCTIVE PULMONARY DISEASE, UNSPECIFIED SNOMED Code(s): 20803228 Comment: - No signs of acute exacerbation at this time - Continue bronchodilators, inhaled steroids, and methylprednisone (may need a short tappering course of oral Prednisone upon discharge) (5) Chronic pain Code(s): G89.29 - OTHER CHRONIC PAIN SNOMED Code(s): 61435839 Comment: - Continue gabapentin, carisoprodol, oxycodone/APAP. (6) Diabetes Code(s): E11.9 - TYPE 2 DIABETES MELLITUS WITHOUT COMPLICATIONS SNOMED Code(s) : 84162362 Comment: - Glucose 120-150's - Continue Lispro SS (7) Hypercholesterolemia Code(s): E78.0 - PURE HYPERCHOLESTEROLEMIA * DO NOT USE * SNOMED Code(s): 47418810 Comment: - Continue rosuvastatin (8) Hypertension Code(s): I10 - ESSENTIAL (PRIMARY) HYPERTENSION SNOMED Code(s): 82735533 Comment: - Mostly controlled, SBP 110-170's - Continue Verapamil, Coreg, Losartan, and Furosemide (9) CKD (chronic kidney disease) stage 4, GFR 15-29 ml/min Code(s): N18.4 - CHRONIC KIDNEY DISEASE, STAGE 4 (SEVERE) SNOMED Code(s): 527647495 Comment: - Steady decline in renal function since 2016 - Renal US in 02/2018 shows severe cortical atrophy, etiology unclear - Recommend nephrology evaluation, can be done as an outpatient (10) Depression Code(s): F32.9 - MAJOR DEPRESSIVE DISORDER, SINGLE EPISODE, UNSPECIFIED SNOMED Code(s): 24531574 (11) Anemia Code(s): D64.9 - ANEMIA, UNSPECIFIED SNOMED Code(s): 140025798 Comment: - Chronic - Continue to follow with Hem outpatient (12) DVT prophylaxis Code(s): UQC7062 - SNOMED Code(s): 497714580 Comment: - SQ heparin (13) DNR (do not resuscitate) Status and Disposition: Inpatient. Anticipate discharge to home when medically stable
[2018-06-28] MEDS ORDERED: Saline NASAL SPRAY 0.65%* BTL BOTH NARES PRN (11:16)
[2018-06-28] MEDS: Latanoprost 0.005%* 2.5 ml BTL BOTH EYES SCH (22:43)
[2018-06-28] MEDS: Montelukast Sodium TAB* 10 MG PO SCH (22:46)
[2018-06-29] MEDS: ZOSYN 3.375 GM Q12H per EXTENDED INFUSION IVPB SCH ×4 (02:20→13:29)
[2018-06-29] MEDS: methylPREDNISolone SOD 40 MG* 1 ML VIAL IV SCH ×2 (02:23→14:41)
[2018-06-29] MEDS: Gabapentin CAP(*) 100 MG PO SCH ×3 (06:52→21:56)
[2018-06-29] MEDS: Omeprazole CAP* 20 MG PO SCH (06:53)
[2018-06-29] MEDS: Heparin VIAL(*) 5000 UNITS/ML VIAL (FIVE THOUSAND) SUBCUT SCH ×3 (06:58→22:07)
[2018-06-29] MEDS: Multivitamins/Minerals TAB PO SCH (07:35)
[2018-06-29] MEDS: Furosemide TAB* 20 MG PO SCH (07:35)
[2018-06-29] MEDS: NIFEdipine CAP* 10 MG PO SCH ×3 (07:35→21:56)
[2018-06-29] MEDS: Carvedilol TAB* 6.25 MG PO SCH ×2 (07:36→21:58)
[2018-06-29] MEDS: Cholecalciferol TAB* 1000 UNITS PO SCH (07:36)
[2018-06-29] MEDS: Sertraline* 100 MG TAB PO SCH (07:36)
[2018-06-29] MEDS: Verapamil SR TAB* 240 MG PO SCH (07:36)
[2018-06-29] MEDS: Losartan TAB* 25 MG PO SCH (07:36)
[2018-06-29] MEDS: hydrALAZINE TAB* 25 MG PO SCH ×3 (07:36→21:57)
[2018-06-29] MEDS: ROSUVASTATIN 10 MG PO SCH (07:36)
[2018-06-29] MEDS: Insulin LISPRO* 1 UNITS UNIT SUBCUT SCH ×4 (07:37→21:55)
[2018-06-29] MEDS: Albuterol HFA INHALER* 8 gm MDI INH PRN (08:59)
[2018-06-29] MEDS: Ipratropium 0.5MG/2.5ML NEB* 0.5 MG/2.5 ML NEB.SOLN INH PRN (08:59)
[2018-06-29] MEDS: Mometasone/Formoter 200/5 MDI INH SCH ×2 (08:59→19:44)
--- NOTE | 2018-06-29 10:26 | PN ---
Subjective Date of Service: 06/29/18 Interval History: Patient seen and examined at bedside. Denies fever, chills, shortness of breath (at baseline), chest discomfort, cough, N/V/D. Pt states that she is overall feeling better. She reports feeling cool this AM. She states that she takes Procrit weekly and would like to have her dose in the AM. She is also interested in Palliative Care, she would like to get more information. Tele: Sinus rhythm, rate 80-90's Family History: Unchanged from Admission Social History: Unchanged from Admission Past Medical History: Unchanged from Admission Objective Active Medications: Acetaminophen (Tylenol Tab*) 650 mg PO Q4H PRN Reason: PAIN Albuterol (Ventolin Hfa Inhaler*) 2 puff INH Q4H PRN Reason: SOB/WHEEZING Carisoprodol (Soma Tab*) 350 mg PO QID PRN Reason: SPASMS - MUSCLE Carvedilol (Coreg Tab*) 6.25 mg PO BID [facility] Cholecalciferol (Vitamin D Tab*) 1,000 units PO DAILY [facility] Dextrose (D50w Syringe 50 Ml*) 12.5 gm IV PUSH .FOR FS < 60 - SS PRN Reason: FS < 60 Furosemide (Lasix Tab*) 20 mg PO QAM [facility] Gabapentin (Neurontin Cap(*)) 100 mg PO 0700,1400 [facility] Gabapentin (Neurontin Cap(*)) 200 mg PO BEDTIME [facility] Heparin Sodium (Porcine) (Heparin Vial(*)) 5,000 units SUBCUT Q8HR [facility] Hydralazine HCl (Apresoline Tab*) 25 mg PO TID [facility] Piperacillin Sod/Tazobactam (Sod 3.375 gm/ Sodium Chloride) 100 mls @ 25 mls/ hr IVPB Q12H [facility] Insulin Human Lispro (Humalog*) 0 units SUBCUT ACHS [facility]; Protocol Ipratropium [place] (Atrovent 0.5 Mg Neb.Diandra*) 0.5 mg INH Q4H PRN Reason: SOB/ WHEEZING Latanoprost (Xalatan 0.005%*) 1 drop BOTH EYES BEDTIME [facility] Losartan Potassium (Cozaar Tab*) 25 mg PO DAILY [facility] Methylprednisolone Sodium Succinate (Solu-Medrol 40 Mg) 20 mg IV Q12H [facility] Mometasone Furoate/Formoterol Fumar (Dulera 200/5 Mdi*) 2 puff INH BID [facility] Montelukast Sodium (Singulair Tab*) 10 mg PO BEDTIME [facility] Multivitamins/Minerals (Theragran/Minerals Tab*) 1 tab PO DAILY [facility] Nifedipine (Procardia Cap*) 20 mg PO TID [facility] Omeprazole (Prilosec Cap*) 20 mg PO DAILY@0600 [facility] Ondansetron HCl (Zofran Inj*) 4 mg IV Q6H PRN Reason: NAUSEA Oxycodone/Acetaminophen (Percocet 5/325 Tab*) 1 tab PO Q6H PRN Reason: PAIN Pharmacy Consult (Zosyn Per Pharmacy*) 1 note FOLLOW UP .ZOSYN PER PHARMACY [facility] Rosuvastatin Calcium (Crestor (Nf)) 10 mg PO DAILY [facility]; Protoco Sertraline HCl (Zoloft*) 200 mg PO QAM [facility] Sodium Chloride (Sodium Chloride 0.65% Nasal [place]*) 1 spray BOTH NARES Q4H PRN Reason: CONGESTION Verapamil HCl (Calan Sr Tab*) 120 mg PO DAILY [facility] Vital Signs - 8 hr 06/29/18 06/29/18 06/29/18 03:45 06:52 07:45 Temperature 97.0 F 98.1 F Pulse Rate 86 99 Respiratory 18 18 18 Rate Blood Pressure 148/69 213/82 (mmHg) O2 Sat by Pulse 100 96 Oximetry 06/29/18 06/29/18 06/29/18 07:49 08:00 09:01 Temperature Pulse Rate 86 Respiratory 18 20 Rate Blood Pressure 164/80 (mmHg) O2 Sat by Pulse 98 Oximetry Oxygen Devices in Use Now: Nasal Cannula - 3L Appearance: NAD, sitting up in a chair Ears/Nose/Mouth/Throat: Mucous Membranes Moist Respiratory: Symmetrical Chest Expansion and Respiratory Effort, Clear to Auscultation - , diminished Cardiovascular: NL Sounds; No Murmurs; No JVD, RRR Abdominal: NL Sounds; No Tenderness; No Distention Extremities: No Edema Skin: No Rash or Ulcers Neurological: Alert and Oriented x 3, NL Muscle Strength and Tone Lines/Tubes/Other Access: Clean, Dry and Intact Peripheral IV - site benign Nutrition: Taking PO's Result Diagrams: 06/28/18 06:27 06/28/18 06:27 Additional Lab and Data: . Microbiology and Other Data: Microbiology 06/23/18 20:15 Gram Stain - Final Sputum 06/24/18 00:49 Legionella Urinary Antigen - Final Urine Negative Legionella Antigen Streptococcus pneumoniae Ag Screen - Final Negative S. pneumo Antigen Diagnostic Imaging: . EKG Data: . Assess/Plan/Problems-Billing Assessment: Mrs Del Castillo is an 82yo F with PMH of COPD/asthma, HTN, HLD, type 2 DM, CKD stage 3, diastolic CHF, who presented to ED with c/o dyspnea, found to have pneumonia and mild CHF exacerbation. - Patient Problems (1) Acute respiratory failure with hypoxia Code(s): J96.01 - ACUTE RESPIRATORY FAILURE WITH HYPOXIA SNOMED Code(s): 21317533 Comment: - Acute on chronic, resolved - Secondary to RUL pneumonia and mild CHF exacerbation - Continue supplemental oxygen, now back to baseline (2) Pneumonia Code(s): J18.9 - PNEUMONIA, UNSPECIFIED ORGANISM SNOMED Code(s): 958345171 Comment: - Afebrile, leukocytosis (? if this is secondary to steroids) - CXR shows RUL infiltrate and bilat lower lobe infiltrates worsening - Blood cultures no growth, day 5 - Legionella and S. penumoniae urine antigens, negative - Continue Zosyn, day 5/7 (3) Diastolic CHF, acute on chronic Code(s): I50.33 - ACUTE ON CHRONIC DIASTOLIC (CONGESTIVE) HEART FAILURE SNOMED Code(s): 976426547 Comment: - Improving with diurretics - Suspect a mild exacerbation secondary to dietary indiscretions - Daily weights and strict I+O's - Continue Furosemide, Coreg, Losartan (4) COPD (chronic obstructive pulmonary disease) Code(s): J44.9 - CHRONIC OBSTRUCTIVE PULMONARY DISEASE, UNSPECIFIED SNOMED Code(s): 22066074 Comment: - No signs of acute exacerbation at this time - Continue bronchodilators and inhaled steroids (5) Chronic pain Code(s): G89.29 - OTHER CHRONIC PAIN SNOMED Code(s): 62311975 Comment: - Continue gabapentin, carisoprodol, oxycodone/APAP (6) Diabetes Code(s): E11.9 - TYPE 2 DIABETES MELLITUS WITHOUT COMPLICATIONS SNOMED Code(s) : 06557083 Comment: - Glucose 150-170's - Continue Lispro SS (7) Hypercholesterolemia Code(s): E78.0 - PURE HYPERCHOLESTEROLEMIA * DO NOT USE * SNOMED Code(s): 23231983 Comment: - Continue rosuvastatin (8) Hypertension Code(s): I10 - ESSENTIAL (PRIMARY) HYPERTENSION SNOMED Code(s): 76504724 Comment: - Mostly controlled, SBP 110-210's - Continue Verapamil, Coreg, Losartan, and Furosemide (9) CKD (chronic kidney disease) stage 4, GFR 15-29 ml/min Code(s): N18.4 - CHRONIC KIDNEY DISEASE, STAGE 4 (SEVERE) SNOMED Code(s): 000766701 Comment: - Steady decline in renal function since 2015 - Renal US in 02/2018 shows severe cortical atrophy, etiology unclear - Recommend nephrology evaluation, can be done as an outpatient (10) Depression Code(s): F32.9 - MAJOR DEPRESSIVE DISORDER, SINGLE EPISODE, UNSPECIFIED SNOMED Code(s): 15824272 (11) Anemia Code(s): D64.9 - ANEMIA, UNSPECIFIED SNOMED Code(s): 161242808 Comment: - Chronic - Continue to follow with Hem outpatient - Will give scheduled dose of Procrit in the AM, once dose verified (12) DVT prophylaxis Code(s): RZG0402 - SNOMED Code(s): 212232213 Comment: - SQ heparin (13) DNR (do not resuscitate) Status and Disposition: Inpatient. Anticipate discharge to home when medically stable, possibly ready in 1-2 days
[2018-06-29] MEDS: Nystatin SUSPENSION* 100000 UNITS/ML 5 ML UDC PO SCH ×2 (16:56→21:58)
[2018-06-29] MEDS: oxyCODONE/Acetamin 5/325 MG* TAB PO PRN ×2 (16:57→22:06)
[2018-06-29] MEDS: Carisoprodol TAB* 350 MG PO PRN ×2 (17:00→22:05)
[2018-06-29] MEDS: Montelukast Sodium TAB* 10 MG PO SCH (21:57)
[2018-06-29] MEDS: Latanoprost 0.005%* 2.5 ml BTL BOTH EYES SCH (21:58)
[2018-06-30] MEDS: ZOSYN 3.375 GM Q12H per EXTENDED INFUSION IVPB SCH ×4 (01:44→15:46)
[2018-06-30] MEDS: Omeprazole CAP* 20 MG PO SCH (06:35)
[2018-06-30] MEDS: Heparin VIAL(*) 5000 UNITS/ML VIAL (FIVE THOUSAND) SUBCUT SCH ×3 (06:35→21:07)
[2018-06-30] MEDS: Gabapentin CAP(*) 100 MG PO SCH ×3 (06:35→21:08)
[2018-06-30 07:01] LABS: Hematocrit 25 % (35-47); Hemoglobin 8.3 g/dl (12.0-16.0); Mean Corpuscular HGB Conc 34 g/dl (31-36); Mean Corpuscular Hemoglobin 28 pg (27-31); Mean Corpuscular Volume 83 fL (80-97); Mean Platelet Volume 8.2 um3 (7.4-10.4); Platelet Count 106 10^3/ul (150-450); Red Blood Count 2.98 10^6/ul (4.00-5.40); Red Cell Distribution Width 18 % (10.5-15); White Blood Count 8.3 10^3/ul (3.5-10.8)
[2018-06-30 07:22] LABS: EGFR Non-African American 23.3 (>60)
[2018-06-30] MEDS: Mometasone/Formoter 200/5 MDI INH SCH ×2 (07:44→20:25)
[2018-06-30] MEDS: Insulin LISPRO* 1 UNITS UNIT SUBCUT SCH ×4 (07:59→21:11)
[2018-06-30 09:14] LABS: ABS Basophils 0 10^3/ul (0-0.2); ABS Eosinophils 0 10^3/ul (0-0.6); ABS Lymphocytes 1.4 10^3/ul (1.0-4.8); ABS Monocytes 1.1 10^3/ul (0-0.8); ABS Neutrophils 5.8 10^3/ul (1.5-7.7); ABS Nucleated RBC 0 10^3/ul; Eosinophil % 0.3 % (0-6); Lymphocyte % 16.8 % (25-47); Nucleated Red Blood Cells % 0.1
[2018-06-30] MEDS: NIFEdipine CAP* 10 MG PO SCH ×3 (09:45→21:21)
[2018-06-30] MEDS: ROSUVASTATIN 10 MG PO SCH (09:46)
[2018-06-30] MEDS: Verapamil SR TAB* 240 MG PO SCH (09:46)
[2018-06-30] MEDS: Sertraline* 100 MG TAB PO SCH (09:46)
[2018-06-30] MEDS: hydrALAZINE TAB* 25 MG PO SCH ×3 (09:46→21:11)
[2018-06-30] MEDS: Losartan TAB* 25 MG PO SCH (09:46)
[2018-06-30] MEDS: Cholecalciferol TAB* 1000 UNITS PO SCH (09:46)
[2018-06-30] MEDS: Furosemide TAB* 20 MG PO SCH (09:46)
[2018-06-30] MEDS: Nystatin SUSPENSION* 100000 UNITS/ML 5 ML UDC PO SCH ×4 (09:47→21:12)
[2018-06-30] MEDS: Carvedilol TAB* 6.25 MG PO SCH ×3 (09:47→21:11)
[2018-06-30] MEDS: Multivitamins/Minerals TAB PO SCH (09:47)
[2018-06-30] MEDS: oxyCODONE/Acetamin 5/325 MG* TAB PO PRN ×2 (10:29→21:21)
[2018-06-30] MEDS: Carisoprodol TAB* 350 MG PO PRN ×4 (10:31→21:21)
[2018-06-30] MEDS ORDERED: Furosemide TAB* 20 MG PO ONE (12:12)
--- NOTE | 2018-06-30 12:58 | PN ---
Subjective Date of Service: 06/30/18 Interval History: Pt feels well. C/o SOB with exercise Family History: Unchanged from Admission Social History: Unchanged from Admission Past Medical History: Unchanged from Admission Objective Active Medications: Acetaminophen (Tylenol Tab*) 650 mg PO Q4H PRN PRN Reason: PAIN Last Admin: 06/27/18 14:17 Dose: 650 mg Albuterol (Ventolin Hfa Inhaler*) 2 puff INH Q4H PRN PRN Reason: SOB/WHEEZING Last Admin: 06/29/18 08:59 Dose: 2 puff Carisoprodol (Soma Tab*) 350 mg PO QID PRN PRN Reason: SPASMS - MUSCLE Last Admin: 06/30/18 10:31 Dose: 350 mg Carvedilol (Coreg Tab*) 9.38 mg PO BID [facility] Last Admin: 06/30/18 09:50 Dose: 9.38 mg Cholecalciferol (Vitamin D Tab*) 1,000 units PO DAILY [facility] Last Admin: 06/30/18 09:46 Dose: 1,000 units Dextrose (D50w Syringe 50 Ml*) 12.5 gm IV PUSH .FOR FS < 60 - SS PRN PRN Reason: FS < 60 Furosemide (Lasix Tab*) 20 mg PO QAM [facility] Last Admin: 06/30/18 09:46 Dose: 20 mg Gabapentin (Neurontin Cap(*)) 100 mg PO 0700,1400 [facility] Last Admin: 06/30/18 06:35 Dose: 100 mg Gabapentin (Neurontin Cap(*)) 200 mg PO BEDTIME [facility] Last Admin: 06/29/18 21:56 Dose: 200 mg Heparin Sodium (Porcine) (Heparin Vial(*)) 5,000 units SUBCUT Q8HR [facility] Last Admin: 06/30/18 06:35 Dose: Not Given Hydralazine HCl (Apresoline Tab*) 25 mg PO TID [facility] Last Admin: 06/30/18 09:46 Dose: 25 mg Piperacillin Sod/Tazobactam (Sod 3.375 gm/ Sodium Chloride) 100 mls @ 25 mls/ hr IVPB Q12H [facility] Last Admin: 06/30/18 01:44 Dose: 25 mls/hr Insulin Human Lispro (Humalog*) 0 units SUBCUT ACHS [facility]; Protocol Last Admin: 06/30/18 12:02 Dose: Not Given Ipratropium [place] (Atrovent 0.5 Mg Neb.Diandra*) 0.5 mg INH Q4H PRN PRN Reason: SOB/WHEEZING Last Admin: 06/29/18 08:59 Dose: 0.5 mg Latanoprost (Xalatan 0.005%*) 1 drop BOTH EYES BEDTIME [facility] Last Admin: 06/29/18 21:58 Dose: 1 drop Losartan Potassium (Cozaar Tab*) 25 mg PO DAILY [facility] Last Admin: 06/30/18 09:46 Dose: 25 mg Mometasone Furoate/Formoterol Fumar (Dulera 200/5 Mdi*) 2 puff INH BID [facility] Last Admin: 06/30/18 07:44 Dose: 2 puff Montelukast Sodium (Singulair Tab*) 10 mg PO BEDTIME [facility] Last Admin: 06/29/18 21:57 Dose: 10 mg Multivitamins/Minerals (Theragran/Minerals Tab*) 1 tab PO DAILY [facility] Last Admin: 06/30/18 09:47 Dose: 1 tab Nifedipine (Procardia Cap*) 20 mg PO TID [facility] Last Admin: 06/30/18 09:45 Dose: 20 mg Nystatin (Nystatin Suspension*) 200,000 units PO QID [facility] Last Admin: 06/30/18 12:45 Dose: 200,000 units Omeprazole (Prilosec Cap*) 20 mg PO DAILY@0600 [facility] Last Admin: 06/30/18 06:35 Dose: 20 mg Ondansetron HCl (Zofran Inj*) 4 mg IV Q6H PRN PRN Reason: NAUSEA Last Admin: 06/23/18 20:34 Dose: 4 mg Oxycodone/Acetaminophen (Percocet 5/325 Tab*) 1 tab PO Q6H PRN PRN Reason: PAIN Last Admin: 06/30/18 10:29 Dose: 1 tab Pharmacy Consult (Zosyn Per Pharmacy*) 1 note FOLLOW UP .ZOSYN PER PHARMACY [facility] Rosuvastatin Calcium (Crestor (Nf)) 10 mg PO DAILY [facility]; Protocol Last Admin: 06/30/18 09:46 Dose: 10 mg Sertraline HCl (Zoloft*) 200 mg PO QAM [facility] Last Admin: 06/30/18 09:46 Dose: 200 mg Sodium Chloride (Sodium Chloride 0.65% Nasal [place]*) 1 spray BOTH NARES Q4H PRN PRN Reason: CONGESTION Last Admin: 06/28/18 13:14 Dose: 1 spray Verapamil HCl (Calan Sr Tab*) 120 mg PO DAILY [facility] Last Admin: 06/30/18 09:46 Dose: 120 mg Vital Signs - 8 hr 06/30/18 06/30/18 06/30/18 06:35 07:17 07:29 Temperature 98.0 F Pulse Rate 93 Respiratory 20 18 Rate Blood Pressure 191/55 170/91 (mmHg) O2 Sat by Pulse 92 Oximetry 06/30/18 06/30/18 06/30/18 07:46 08:30 10:29 Temperature Pulse Rate Respiratory 16 16 20 Rate Blood Pressure (mmHg) O2 Sat by Pulse Oximetry 06/30/18 10:31 Temperature Pulse Rate Respiratory 20 Rate Blood Pressure (mmHg) O2 Sat by Pulse Oximetry Oxygen Devices in Use Now: Nasal Cannula Appearance: 82 yo F in nAD, AAOx3 Eyes: No Scleral Icterus, PERRLA Ears/Nose/Mouth/Throat: NL Teeth, Lips, Gums, Mucous Membranes Moist Neck: NL Appearance and Movements; NL JVP, Trachea Midline Respiratory: Symmetrical Chest Expansion and Respiratory Effort, - - decreased breath sounds at b/l bases Cardiovascular: NL Sounds; No Murmurs; No JVD, RRR Abdominal: NL Sounds; No Tenderness; No Distention, No Hepatosplenomegaly Extremities: No Clubbing, Cyanosis, - - trace pedal edema b/l Skin: No Nodules or Sclerosis Neurological: Alert and Oriented x 3, NL Muscle Strength and Tone Result Diagrams: 06/30/18 06:32 06/30/18 06:32 Additional Lab and Data: . Microbiology and Other Data: Microbiology 06/23/18 20:15 Gram Stain - Final Sputum 06/24/18 00:49 Legionella Urinary Antigen - Final Urine Negative Legionella Antigen Streptococcus pneumoniae Ag Screen - Final Negative S. pneumo Antigen Diagnostic Imaging: . EKG Data: . Assess/Plan/Problems-Billing Assessment: Mrs Del Castillo is an 82yo F with PMH of COPD/asthma, HTN, HLD, type 2 DM, CKD stage 3, diastolic CHF, who presented to ED with c/o dyspnea, found to have pneumonia and mild CHF exacerbation. - Patient Problems (1) Diastolic CHF, acute on chronic Comment: - Improving with diuretics - Suspect exacerbation secondary to dietary indiscretions - Daily weights and strict I+O's - Continue Furosemide, Coreg, Losartan -will tx with an additional dose of Lasix PO (2) Acute respiratory failure with hypoxia Comment: - Acute on chronic, resolved - Secondary to RUL pneumonia and CHF exacerbation - Continue supplemental oxygen, today on 4L (3) COPD (chronic obstructive pulmonary disease) Comment: - No signs of acute exacerbation at this time - Continue bronchodilators and inhaled steroids (4) Hypertension Comment: - uncontrolled today, increasing Coreg from 6.25 to 9.38 mg BID - Continue Verapamil, Losartan, and Furosemide (5) CKD (chronic kidney disease) stage 4, GFR 15-29 ml/min Comment: - Steady decline in renal function since 2016 - Renal US in 02/2018 shows severe cortical atrophy, etiology unclear - Recommend nephrology evaluation, can be done as an outpatient (6) DVT prophylaxis Comment: - SQ heparin Status and Disposition: Inpatient. Anticipate discharge to home tomorrow with VNS f/u
[2018-06-30] MEDS: Albuterol HFA INHALER* 8 gm MDI INH PRN (20:25)
[2018-06-30] MEDS: Montelukast Sodium TAB* 10 MG PO SCH (21:11)
[2018-06-30] MEDS: Latanoprost 0.005%* 2.5 ml BTL BOTH EYES SCH (21:21)
[2018-07-01] MEDS: ZOSYN 3.375 GM Q12H per EXTENDED INFUSION IVPB SCH ×2 (01:45)
[2018-07-01] MEDS: Heparin VIAL(*) 5000 UNITS/ML VIAL (FIVE THOUSAND) SUBCUT SCH ×2 (05:54→13:12)
[2018-07-01] MEDS: Omeprazole CAP* 20 MG PO SCH (05:54)
[2018-07-01] MEDS: Insulin LISPRO* 1 UNITS UNIT SUBCUT SCH ×2 (07:23→12:27)
[2018-07-01] MEDS: Losartan TAB* 25 MG PO SCH (08:37)
[2018-07-01] MEDS: Carvedilol TAB* 6.25 MG PO SCH (08:37)
[2018-07-01] MEDS: Furosemide TAB* 20 MG PO SCH (08:37)
[2018-07-01] MEDS: ROSUVASTATIN 10 MG PO SCH (08:39)
[2018-07-01] MEDS: Sertraline* 100 MG TAB PO SCH (08:39)
[2018-07-01] MEDS: Ipratropium 0.5MG/2.5ML NEB* 0.5 MG/2.5 ML NEB.SOLN INH PRN (08:42)
[2018-07-01] MEDS: Nystatin SUSPENSION* 100000 UNITS/ML 5 ML UDC PO SCH ×2 (08:42→12:26)
[2018-07-01] MEDS: Mometasone/Formoter 200/5 MDI INH SCH (08:42)
[2018-07-01] MEDS: Albuterol HFA INHALER* 8 gm MDI INH PRN (08:42)
[2018-07-01] MEDS: NIFEdipine CAP* 10 MG PO SCH ×2 (08:43→13:16)
[2018-07-01] MEDS: Carisoprodol TAB* 350 MG PO PRN (08:44)
[2018-07-01] MEDS: hydrALAZINE TAB* 25 MG PO SCH ×2 (08:45→13:16)
[2018-07-01] MEDS: Verapamil SR TAB* 240 MG PO SCH (08:48)
[2018-07-01] MEDS: Multivitamins/Minerals TAB PO SCH (08:49)
[2018-07-01] MEDS: Gabapentin CAP(*) 100 MG PO SCH ×2 (08:49→13:16)
[2018-07-01] MEDS: Cholecalciferol TAB* 1000 UNITS PO SCH (08:49)
[2018-07-01] MEDS ORDERED: oxyCODONE/Acetamin 5/325 MG* TAB PO PRN (12:39)
[2018-07-01 14:13] VITALS: BP 130/42
--- NOTE | 2018-07-02 01:35 | DS ---
CC: Hospice Care; Dr. Shelly Mathew; Dr. Breen; Dr. Martin * DISCHARGE SUMMARY: DATE OF ADMISSION: 06/23/18. DATE OF DISCHARGE: 07/01/18, the patient is being discharged to home. PRIMARY CARE PROVIDER: Dr. Shelly Mathew. DISCHARGE DIAGNOSES: 1. [id number] respiratory failure due to combination of congestive heart failure and pneumonia. 2. Community acquired pneumonia. 3. [id number] diastolic congestive heart failure in a patient with moderate mitral regurgitation. 4. Intermittent hemoptysis likely due to congestive heart failure. SECONDARY DIAGNOSES: 1. History of chronic respiratory failure, on oxygen at home at 3 liters. 2. History of chronic obstructive pulmonary disease/asthma. 3. Hypertension. 4. Hyperlipidemia. 5. Chronic kidney disease, stage 3-4. 6. History of chronic anemia on Procrit infusions as per Dr. Breen. 7. History of diastolic congestive heart failure. 8. History of moderate mitral regurgitation and ruptured chordae tendineae noted on transesophageal echocardiogram, on 02/16/18. MEDICATIONS AT DISCHARGE: Include: 1. Coreg was increased to 12.5 mg daily. 2. The patient continued oxygen at 3-4 liters at home. The remaining medications are unchanged: 1. Albuterol inhaler on p.r.n. basis. 2. Soma 350 mg 4 times a day. 3. Vitamin D 1000 units daily. 4. Neurontin 200 mg at bedtime and 100 mg b.i.d. 5. Bevespi inhaler 2 puffs b.i.d. 6. Atrovent nebulizer on a p.r.n. basis. 7. Xalatan eyedrops 1 drop both eyes at bedtime. 8. Xyzal 5 mg daily. 9. Cozaar 25 mg daily. 10. Singulair 10 mg a day. 11. Multivitamin 1 tablet daily. 12. Prilosec 20 mg daily. 13. Oxycodone and acetaminophen 7.5/325 mg 1 tablet every 6 hours p.r.n. SW was checked and the patient's last refill was on 05/17/18 and it was a 30 day supply. 14. MiraLax on a p.r.n. basis. 15. Crestor 10 mg daily. 16. Zoloft 200 mg q.a.m. 17. Calan SR 120 mg daily. 18. Furosemide 20 mg daily. 19. Hydralazine 25 mg 3 times a day. 20. Nifedipine 20 mg 3 times a day. The patient was also prescribed morphine oral concentrate 5 mg in a 0.25 mL. The patient is instructed to take 5 mg every 2 hours p.r.n. comfort and for pain. The patient also can use it for air hunger. This is in anticipation of being signed into hospice the day after discharge on 07/02/18, which is anticipated. FOLLOWUP: The patient is instructed to follow up with Dr. Shelly Mathew in 1 week after discharge. The patient is going to have a hospice evaluation for possibility of signing into hospice at home, on 07/02/18. The patient also was setup with visiting nurse services if needed if she should decides not to sign in with hospice. AMBULATION: As tolerated with the walker. DIET: Cardiac. The patient is on continuous oxygen at 3-4 liters. The patient's weight at discharge was 127 pounds. The patient is instructed to check her weight on a daily basis and if her weight increases to 130 pounds or above that number, the patient is to take an additional dose of Lasix that day, which is 20 mg. HOSPITALIZATION COURSE: Michelle Del Castillo was an 82-year-old female, who came into the hospital on 06/23/18, initially diagnosed with pneumonia and treated for community acquired pneumonia with Zosyn for a total of 7 days throughout her hospital stay. In the mid of her hospital stay, she suffered from acute respiratory failure on top of her chronic oxygen needs due to CHF. At this point, she decided to be do not resuscitate. She refused to be transferred to intensive care unit for BiPAP. She was treated with Lasix, nitroglycerin and Morphine and her acute CHF resolved. By the time of discharge, she was off IV antibiotics and she diuresed back to her baseline weight of 127 pounds. Her weight throughout her hospital stay fluctuated anywhere from 131 to 130 pounds, it is maximal to 130 pounds. Over the course of the patient's hospital stay, it became upon that she is very interested in hospice care. She stated that she was gradually weaker and she had a good experience with hospice that her son with hospice of colon cancer several years prior. The patient was referred to hospice and will be evaluated for possibility of signing into hospice a day after discharge. At discharge the patient is on her baseline oxygen of 3 liters. Her chronic kidney disease was with creatinine of 2.05 on 06/30/18. On the day of discharge, she did have a "cough attack" this resolved after several minutes and during that time she had sputum tinged with blood, which is probably due to mucosal injury while coughing. PHYSICAL EXAM AT THE TIME OF DISCHARGE: Blood pressure of 117/55, heart rate of 89 and regular, respiratory rate 22, oxygen saturation 99% on 3 L of oxygen via nasal cannula, temperature 97.9. General: The patient is a very pleasant 82-year-old female, who is in no acute distress. Alert, awake, oriented x3. HEENT: Head: Atraumatic, normocephalic. Eyes: Pupils are equal, reactive to light and accommodation. Oropharynx is clear. Mucosa moist. Neck: Supple. No JVD. No bruits bilaterally. Cardiovascular: Regular rate and rhythm. Fine crackles in bilateral bases. Abdomen: Soft, and nontender. Bowel sounds are present in all 4 quadrants. Extremities: There is no pedal edema. Pulses are +2 bilaterally. No clubbing or cyanosis. Neuro Evaluation: Cranial nerves II through XII grossly intact. Motor strength is 5/5 bilaterally. Please note that this is a short summary of the patient's hospitalization. Please refer to further medical records for details. TIME SPENT: Approximately 40 minutes were spent on the patient's discharge. [id number]/[facility] #: [id number] MTDD
== END 2018-07-01 16:25 | disposition home or self-care (01) | DRG 291 ==
LOC: ED 14:53 → MED 20:57
PROVIDERS: ADMIT Hospitalist; ATTEND Internal Medicine
DX: I13.0 Hypertensive heart and chronic kidney disease with heart failure and stage 1 through stage 4 chronic kidney disease, or unspecified chronic kidney disease (principal); J18.9 Pneumonia, unspecified organism; J96.21 Acute and chronic respiratory failure with hypoxia; I50.33 Acute on chronic diastolic (congestive) heart failure; I51.1 Rupture of chordae tendineae, not elsewhere classified; J44.0 Chronic obstructive pulmonary disease with (acute) lower respiratory infection; R04.2 Hemoptysis; N18.4 Chronic kidney disease, stage 4 (severe); I10 Essential (primary) hypertension; K21.9 Gastro-esophageal reflux disease without esophagitis; E11.22 Type 2 diabetes mellitus with diabetic chronic kidney disease; E78.5 Hyperlipidemia, unspecified; D63.1 Anemia in chronic kidney disease; M19.90 Unspecified osteoarthritis, unspecified site; M41.9 Scoliosis, unspecified; E11.39 Type 2 diabetes mellitus with other diabetic ophthalmic complication; H42 Glaucoma in diseases classified elsewhere; M54.32 Sciatica, left side; G89.29 Other chronic pain; I34.0 Nonrheumatic mitral (valve) insufficiency; F41.9 Anxiety disorder, unspecified; F32.9 Major depressive disorder, single episode, unspecified; Z96.652 Presence of left artificial knee joint; Z66 Do not resuscitate; Z90.49 Acquired absence of other specified parts of digestive tract; Z82.49 Family history of ischemic heart disease and other diseases of the circulatory system; Z88.8 Allergy status to other drugs, medicaments and biological substances; Z91.041 Radiographic dye allergy status; Z87.891 Personal history of nicotine dependence; Z85.828 Personal history of other malignant neoplasm of skin; Z98.42 Cataract extraction status, left eye; Z98.41 Cataract extraction status, right eye; Z80.0 Family history of malignant neoplasm of digestive organs
CPT/HCPCS: 36415; 71045; 71046; 80048; 80053; 83605; 83880; 84145; 84484; 85025; 86140; 87040; 87070; 87205; 87899; 93005; 94640; 99285; A9270-GY; G8978-GP-CK; G8979-GP-CI; J0456; J0696; J1644; J1940; J2270; J2405; J2543; J2920; J2930; J3480